=== PATIENT | male | born 1980 | race Caucasian/White ===

== ENCOUNTER 2017-06-18 10:18 | Observation (INO) | payer OTHER ==
[2017-06-18] MEDS ORDERED: TYLENOL 325 MG PO PRN (10:47)
[2017-06-18] MEDS ORDERED: Zofran 4 MG/2 ML VIAL IV PRN (10:47)
[2017-06-18 10:59] LABS: BASOPHIL % 0.3 % (0.0-0.4); Basophil (Absolute #) 0.03 (0-0.4); Eosinophil % 2.9 % (0.00-5.0); Eosinophil (Absolute #) 0.33 (0-0.5); Granulocyte Absolute (ANC) 7.71 (1.4-6.9); Hematocrit 49.6 % (42-50); Hemoglobin 16.4 gm/dl (12.5-18.0); Lymphocyte (Absolute #) 2.22 (1.0-4.6); Lymphocytes % 19.8 % (24.0-44.0); Mean Cell Volume 88.1 fl (78-100); Mean Corpuscular Hemoglobin 29.1 pg (26-32); Mean Corpuscular Hgb Concent. 33.1 g/dl (32-36); Mean Platelet Volume 10.3 fl (6-9.5); Platelet Count 309 K/mm3 (150-450); Red Blood Count 5.63 M/mm3 (4.1-5.6); Red Cell Distribution Width 14.4 % (11.5-14.0); White Blood Count 11.2 K/mm3 (4.0-10.5)
[2017-06-18] MEDS ORDERED: Sodium Chloride 0.9% 500 ML 500 ML IV SCH (11:00)
[2017-06-18 11:19] LABS: ALBUMIN 4.5 g/dL (3.4-5.0); ANION GAP 19.3 MEQ/L (5-15); BILIRUBIN,TOTAL 0.8 mg/dL (0.2-1.0); Calcium 10.8 mg/dL (8.5-10.1); Carbon Dioxide 18.4 mEq/L (21-32); Creatinine 1 3.48 mg/dl (0.55-1.30); MAGNESIUM 2.1 mg/dL (1.8-2.4); Potassium 4.8 mEq/L (3.5-5.1)
[2017-06-18] MEDS: Dextrose 5% -0.45 NaCl 1000 ML 1,000 ML IV SCH ×2 (11:35→23:09)
--- NOTE | 2017-06-18 15:07 | XRAY ---
Indication: Elevated creatinine. Two-dimensional renal sonogram performed. Comparison: None Right kidney measures 11.3 x 4.5 x 4.8 cm and the left kidney measures 11.7 x 5.3 x 4.9 cm. Right kidney is moderately hydronephrotic without renal mass or perinephric fluid. Left kidney negative for renal mass, hydronephrosis, or perinephric fluid. Cortical medullary differentiation preserved. Images of the urinary bladder unremarkable. Ureteral jets not seen within the allotted exam time. Impression: 1. Hydronephrotic right kidney. Rule out distal obstructive uropathy. CT may yield further information. 2. Negative left renal sonogram.
[2017-06-19 03:50] LABS: PTH INTACT 139 pg/mL (15-72)
[2017-06-19 05:18] LABS: CALCIUM, IONIZED 1.41 mmol/L (1.13-1.32); Specimen Type Ionized Calcium Serum
[2017-06-19 06:33] LABS: ANION GAP 13.3 MEQ/L (5-15); Calcium 9.9 mg/dL (8.5-10.1); Carbon Dioxide 21.1 mEq/L (21-32); Creatinine 1 2.32 mg/dl (0.55-1.30); Potassium 4.3 mEq/L (3.5-5.1)
[2017-06-19] MEDS: Dextrose 5% -0.45 NaCl 1000 ML 1,000 ML IV SCH (07:33)
[2017-06-19 10:57] LABS: PROTEIN,URINE RANDOM 33.6 mg/dL; Sodium, Urine 14.8 MMOL
[2017-06-19 11:00] LABS: CREATININE,URINE RANDOM 161.71 MG/DL (30-125)
[2017-06-19] MEDS ORDERED: CLARITIN 10 MG PO SCH (11:00)
[2017-06-19] MEDS ORDERED: Singulair 10 MG PO SCH (11:00)
--- NOTE | 2017-06-19 11:22 | XRAY ---
Indication: Increasing fluid in colostomy bag. Multiple contiguous axial images obtained through the abdomen and pelvis without contrast as ordered. Comparison: August 31, 2009. Lung bases essentially clear. Heart is not enlarged. There has been interval colectomy with now a right lower quadrant ostomy. Several small bowel loops herniates through the abdominal wall defect into the subcutaneous tissues without obstruction/incarceration. No free fluid/air. Noncontrasted stomach and bowel loops appear nonobstructed. In the mid to proximal right ureter, there is a 9-10 mm calculus, approximately L4-L5 interspace level. Proximal ureter is distended up to 12 mm and there is significant hydronephrosis with renal cortical thinning suggesting chronic obstructive uropathy. Nonobstructing punctate left renal calculus. Interval cholecystectomy. Again fatty liver and 14.2 cm splenomegaly. Remaining liver, pancreas, spleen, adrenal glands, bladder, and aorta appear unremarkable for noncontrast exam. Osseous structures intact with mild degenerative changes throughout the spine. Impression: 1. Interval total colectomy with right lower quadrant ostomy. Ostomy demonstrates several herniated small bowel loops without obstruction/incarceration. 2. 9-10 mm right mid ureteral calculus producing obstructive uropathy as detailed and probably chronic. Nonobstructing left renal micro-calculus. 3. Again fatty liver and splenomegaly. CT DI 21.81
[2017-06-19 11:23] LABS: INFLUENZA A NEGATIVE (NEGATIVE); INFLUENZA B NEGATIVE (NEGATIVE); RESPIRATORY SYNCTIAL VIRUS NEGATIVE (Negative)
[2017-06-19 12:10] LABS: 027 TOX PROD PRESUMPTIVE NEGATIVE (NEGATIVE); TOXIGENIC C. DIFF ORG NEGATIVE (NEGATIVE)
[2017-06-19 15:12] LABS: Vitamin D 25 Hydroxy 18 ng/mL (30-80)
[2017-06-19 16:04] VITALS: BP 138/66; PULSE 88; O2SAT 97
--- NOTE | 2017-06-20 08:09 | CONS ---
CONSULT DATE: 06/19/2017 REASON FOR CONSULT: Acute renal failure and dehydration. HISTORY: The patient is a 37 year-old gentleman who has history of multiple medical problems. He presented to [facility] with increased output from the ostomy, having recorded diarrhea, increased vomiting, not being able to eat and drink much, not feeling well. He was evaluated and was found to have increased creatinine. He was admitted for dehydration and acute renal failure. His creatinine was improving today. It was down to 2.3 but still high so nephrology service was consulted. He said the vomiting is better. He states his output from the ostomy is starting to slow down. He denied any abdominal pain, any urinary difficulties or any hematuria. He denies any chest pain or shortness of breath. No fever. He was taking benazepril and occasional naproxen. PAST MEDICAL HISTORY: Hypertension, gout, nephrolithiasis status post stents and removal in the past. Episodes of acute kidney disease in the past. PAST SURGICAL HISTORY: Status post colectomy and has an ostomy right now. Status post total colectomy and no ileostomy. Back surgery. Cholecystectomy. Vasectomy. Shoulder joint surgery. MEDICATIONS: Medications as per medication sheet. His home medicines included Singulair, amlodipine, allopurinol, Claritin. ALLERGIES: CIPRO. SOCIAL HISTORY: Denies any tobacco or substance abuse. He is and lives with his . He works at [employer] in [place]. He lives in [place]. FAMILY HISTORY: He denies any history of kidney disease. Grandmother has diabetes. REVIEW OF SYSTEMS: All review of systems were reviewed negative except for in history of present illness. PHYSICAL EXAMINATION: The patient is alert, awake, oriented x3. Vital signs reviewed at bedside. HEENT: Normocephalic. Nonicteric. Moist mucosa. NECK: No JVD. CHEST: Clear to auscultation. CVS: S1, S2 present. EXTREMITIES: No peripheral edema. ABDOMEN: Soft, nontender, positive bowel sounds. No organomegaly. Positive ostomy. NEURO: Awake, alert, oriented x3. SKIN: Warm and dry. LAB DATA AND TESTS: Clostridium difficile negative. Influenza negative. Hemoglobin 16.4. BUN 30, creatinine 2.32, sodium 137, potassium 4.3, SGPT 34. CT scan showed total colectomy, right lower quadrant ostomy, 9 to 10 mm right mid ureteral calculus with obstructive uropathy, fatty liver and disease and splenomegaly. Ultrasound of the kidneys shows hydronephrotic right kidney, negative left renal sonogram. ASSESSMENT AND PLAN: A 37 year-old gentleman with: 1) Acute renal failure likely multifactorial, likely a combination of dehydration and poor regulation of benazepril, poor intake, high output ostomy, dehydration and on top of that obstructive uropathy. I agree with holding benazepril. I agree with IV fluids. He still has a kidney stone. I discussed with urology physician covering Dr. Carlos. He will see him as an outpatient tomorrow. I will follow labs very closely. The patient is clinically asymptomatic at this time. No pain related to his kidney stone, no hematuria. His renal functions are improving. I encouraged him to drink lots of fluids, avoid benazepril, follow with urology and follow with me in two to three days and get labs every day. I will see him back in follow up. 2) Hypertension. I recommend avoiding benazepril and use alternative medication if needed. Will monitor blood pressure closely. 3) Kidney stones. Likely related to a combination of high tea intake, not drinking water and history of total colectomy. I counseled him about higher fluid intake and advance diet and avoiding tea. 4) Gout. Continue allopurinol. I will follow him closely. Thank you for the consultation.
[2017-06-20 09:57] LABS: PROTEIN BETA 2 0.42 g/dL (0.18-0.50); Protein Beta 1 0.43 g/dL (0.35-0.66)
--- NOTE | 2017-06-21 09:46 | SSS ---
DISCHARGE DIAGNOSES: 1) FLU-LIKE ILLNESS. 2) DEHYDRATION. 3) RENAL FAILURE. 4) HISTORY OF TOXIC MEGACOLON AND COLECTOMY. HOSPITAL COURSE: The patient is a 37 year-old white male patient who began having problems with nausea, vomiting and noted increased liquidy stools in his ostomy. He presented to the emergency room and was subsequently admitted to the hospital for IV fluid hydration. It was also noted that the patient's creatinine was above 3. After fluid hydration it had dropped down to the [address] scan did show some possibility of obstructive uropathy on the right kidney. The patient has no history of kidney stones or other renal problems to this point. Nephrology consult was obtained. They had planned to see him in follow in the office with possible stenting if he did not improve by the urologist up in [place]. He was feeling much better. His intake was good. He had been noted to also been on an JOE-inhibitor and this was discontinued at this time due to the possibility of having some role in the patient's increasing creatinine. The patient was discharged home with instructions to follow up in the conditioner tender's office on 06/20/2017 for further evaluation and management. He will continue to hold his home medication of JOE inhibitor and amlodipine. He will also be seen in the office in follow up in one week. He is now back on a regular diet and felt to be ready for discharge home.
== END 2017-06-19 17:22 | disposition home or self-care (01) ==
LOC: MED SURG 10:22
PROVIDERS: ADMIT Internal Medicine; ATTEND Family Medicine
DX: J11.2 Influenza due to unidentified influenza virus with gastrointestinal manifestations (principal); E86.0 Dehydration; N17.9 Acute kidney failure, unspecified; I10 Essential (primary) hypertension; N20.0 Calculus of kidney; M10.9 Gout, unspecified; Z93.2 Ileostomy status; N13.9 Obstructive and reflux uropathy, unspecified
CPT/HCPCS: 36415; 74176; 76770; 80048; 80053; 82306; 82330; 82570; 83036; 83735; 83970; 84155; 84156; 84300; 85025; 86334; 87205; 87493; 87631; G0378; J2405; A9270-GY

== ENCOUNTER 2018-06-20 21:12 | Emergency (ER) | payer BC, OTHER ==
--- NOTE | 2018-06-20 21:56 | ERPHSYRPT ---
- History of Present Illness Time Seen by Provider: 06/20/18 21:35 Historian: patient, family Patient Subjective Stated Complaint: vomiting Triage Nursing Assessment: Patient ambulated back to ED and transferred self to bed. Patient A + O X 3. Patient complains of vomiting for the past few hours brown emesis. Patient complains of right sided abdominal pain around stoma of ileostomy. Patient states no stool has been produced from ostomy since noon. Hard area noted around ostomy site. Patient complains of pain 5/10 sitting, but worse when someone pushes around ostomy site. Patient BS present X 4. Physician History: 38 y/o white male with h/o permanent end ileostomy since 2010 presents with vomiting, decreased ileostomy output and abd pain. began this afternoon. pt woke up this am and doing fine until this afternoon. pt did not have any flu like sx. Timing/Duration: today Activities at Onset: none Quality: cramping Abdominal Pain Onset Location: RLQ (at ostomy site) Pain Radiation: no radiation Severity of Pain-Max: mild Severity of Pain-Current: mild Modifying Factors: Improves With: vomiting Associated Symptoms: nausea, vomiting Previous symptoms: no prior history Allergies/Adverse Reactions: Anesthetics - Amide Type Allergy (Intermediate, Verified 06/20/18 21:29) Hives ciprofloxacin [From Cipro] Adverse Reaction (Verified 06/20/18 21:29) ciprofloxacin HCl [From Cipro] Adverse Reaction (Verified 06/20/18 21:29) Hives Home Medications: Allopurinol 300 mg [Zyloprim 300 mg] 300 mg PO DAILY 03/15/14 [History] Amlodipine Besylate 5 mg [Norvasc 5 mg] 5 mg PO DAILY 03/15/14 [History] Montelukast Sodium 10 mg [Singulair 10 MG] 10 mg PO DAILY 06/18/17 [History] Metoprolol Succinate [Toprol Xl] 100 mg PO DAILY 09/05/17 [History] Irbesartan 150 mg [Avapro 150 MG] 300 mg PO DAILY 06/20/18 [History] Loratadine 10 mg [Claritin 10 mg] 1 tab PO DAILY 06/20/18 [History] Hx Tetanus, Diphtheria Vaccination/Date Given: Yes Hx Influenza Vaccination/Date Given: Yes Hx Pneumococcal Vaccination/Date Given: No Immunizations Up to Date: Yes - Review of Systems Constitutional: No Symptoms Eyes: No Symptoms Ears, Nose, & Throat: No Symptoms Respiratory: No Symptoms Cardiac: No Symptoms Abdominal/Gastrointestinal: Abdominal Pain, Nausea, Vomiting Genitourinary Symptoms: No Symptoms Musculoskeletal: No Symptoms Skin: No Symptoms Neurological: No Symptoms Psychological: No Symptoms Endocrine: No Symptoms Hematologic/Lymphatic: No Symptoms Immunological/Allergic: No Symptoms All Other Systems: Reviewed and Negative - Past Medical History Pertinent Past Medical History: Yes Neurological History: No Pertinent History ENT History: Cataracts Cardiac History: Hypertension Respiratory History: No Pertinent History Endocrine Medical History: Diabetes Type II Musculoskeletal History: Other GI Medical History: Colitis, Gallbladder Disease, Other History: Renal Disease Psycho-Social History: No Pertinent History Male Reproductive Disorders: No Pertinent History Other Medical History: HTN, L-SPINE DISCECTOMY 2011. HX NECK ISSUES - Past Surgical History Past Surgical History: Yes Neuro Surgical History: No Pertinent History Cardiac: No Pertinent History Respiratory: No Pertinent History Gastrointestinal: Appendectomy, Bowel Surgery, Cholecystectomy, Other Genitourinary: No Pertinent History Musculoskeletal: Orthopedic Surgery Male Surgical History: Vasectomy Other Surgical History: bck,colon removed and colostomy 2009. shoulder surgery , back surgery - Social History Smoking Status: Never smoker Exposure to second hand smoke: No Drug Use: none Patient Lives Alone: No - Nursing Vital Signs Nursing Vital Signs: Initial Vital Signs Temperature 99.6 F 06/20/18 21:18 Pulse Rate 94 H 06/20/18 21:18 Respiratory Rate 18 06/20/18 21:18 Blood Pressure 173/105 06/20/18 21:18 O2 Sat by Pulse Oximetry 98 06/20/18 21:18 Pain Scale Pain Intensity 7 - Physical Exam General Appearance: no apparent distress, alert, anxiety Eye Exam: PERRL/EOMI Ears, Nose, Throat Exam: normal ENT inspection, moist mucous membranes Neck Exam: normal inspection, non-tender, supple, full range of motion Respiratory Exam: normal breath sounds, lungs clear, airway intact, No chest tenderness, No respiratory distress, No accessory muscle use, No rhonchi, No wheezing, No stridor Cardiovascular Exam: regular rate/rhythm, normal heart sounds, normal peripheral pulses Gastrointestinal/Abdomen Exam: soft, normal bowel sounds, tenderness (around right lower quad ileostomy site), other (ostomy pink with small amt of stool present), No distention, No guarding, No rebound Back Exam: normal inspection, normal range of motion, No CVA tenderness, No vertebral tenderness Extremity Exam: normal inspection, normal range of motion, pelvis stable Neurologic Exam: alert, oriented x 3, cooperative, body press operator II-XII nml as tested Skin Exam: normal color, warm, dry Lymphatic Exam: adenopathy SpO2 Interpretation: normal SpO2: 98 Oxygen Delivery: Room Air - Course Nursing assessment & vital signs reviewed: Yes Ordered Tests: Active Orders 24 hr Category Date Time Status IV Insertion STAT Care 06/20/18 21:57 Active ABDOMEN AND PELVIS W/0 CONTRAS [CT] Stat Exams 06/20/18 21:58 Taken AMYLASE Stat Lab 06/20/18 22:00 Completed CBC W DIFF Stat Lab 06/20/18 22:00 Completed CMP Stat Lab 06/20/18 22:00 Completed LIPASE Stat Lab 06/20/18 22:00 Completed Lactic Acid Stat Lab 06/20/18 22:50 Completed Lactic Acid Stat Lab 06/21/18 00:53 Ordered UA W/RFX UR CULTURE Stat Lab 06/20/18 23:38 Completed Medication Summary Discontinued Medications Generic Name Dose Route Start Last Admin Trade Name Freq PRN Reason Stop Dose Admin Hydromorphone HCl 1 mg 06/20/18 22:04 06/20/18 22:10 Hydromorphone 1 Mg/Ml Ampule IV 06/20/18 22:05 1 mg STAT ONE Administration Hydromorphone HCl Confirm 06/20/18 22:09 Hydromorphone 1 Mg/Ml Ampule Administered 06/20/18 22:10 Dose 1 mg .ROUTE .STK-MED ONE Sodium Chloride 1,000 mls @ 999 mls/hr 06/20/18 21:57 06/20/18 23:52 Sodium Chloride 0.9% 1000 Ml IV 06/20/18 22:57 Infused .Q1H1M STA Infusion Sodium Chloride Confirm 06/20/18 22:00 Sodium Chloride 0.9% 1000 Ml Administered 06/20/18 22:01 Dose 1,000 mls @ ud .ROUTE .STK-MED ONE Sodium Chloride 1,000 mls @ 999 mls/hr 06/20/18 23:42 06/21/18 01:50 Sodium Chloride 0.9% 1000 Ml IV 06/21/18 00:42 Infused .Q1H1M STA Infusion Sodium Chloride Confirm 06/20/18 23:44 Sodium Chloride 0.9% 1000 Ml Administered 06/20/18 23:45 Dose 1,000 mls @ ud .ROUTE .STK-MED ONE Ondansetron HCl 4 mg 06/20/18 21:57 06/20/18 22:01 Zofran 4 Mg/2 Ml Vial IV 06/20/18 21:58 4 mg STAT ONE Administration Ondansetron HCl Confirm 06/20/18 22:00 Zofran 4 Mg/2 Ml Vial Administered 06/20/18 22:01 Dose 4 mg .ROUTE .STK-MED ONE Lab/Rad Data: Laboratory Result Diagrams 06/20/18 22:00 06/20/18 22:00 Laboratory Results 06/20/18 06/20/18 06/20/18 Range/Units 23:38 22:50 22:00 WBC (4.0-10.5) K/mm3 RBC (4.1-5.6) M/mm3 Hgb (12.5-18.0) gm/dl Hct (42-50) % MCV (78-100) fl MCH (26-32) pg MCHC (32-36) g/dl RDW (11.5-14.0) % Plt Count (150-450) K/mm3 MPV (6-9.5) fl Gran % (36.0-66.0) % Eos # (Auto) (0-0.5) Absolute Lymphs (auto) (1.0-4.6) Absolute Monos (auto) (0.0-1.3) Lymphocytes % (24.0-44.0) % Monocytes % (0.0-12.0) % Eosinophils % (0.00-5.0) % Basophils % (0.0-0.4) % Absolute Granulocytes (1.4-6.9) Basophils # (0-0.4) Sodium 142 (137-145) mmol/L Potassium 4.0 (3.5-5.1) mmol/L Chloride 102 (98-107) mmol/L Carbon Dioxide 28 (22-30) mmol/L Anion Gap 16.1 H (5-15) MEQ/L BUN 14 (9-20) mg/dL Creatinine 1.27 H (0.66-1.25) mg/dL Estimated GFR > 60.0 ML/MIN Glucose 176 H (74-106) mg/dL Lactic Acid 2.1 H (0.4-2.0) Calcium 10.6 H (8.4-10.2) mg/dL Total Bilirubin 0.70 (0.2-1.3) mg/dL AST 27 (17-59) U/L ALT 35 (0-50) U/L Alkaline Phosphatase 71 (38-126) U/L Serum Total Protein 8.2 (6.3-8.2) g/dL Albumin 4.8 (3.5-5.0) g/dL Amylase 164 H (30-110) U/L Lipase 338 H (23-300) U/L Urine Color YELLOW (YELLOW) Urine Appearance CLEAR (CLEAR) Urine pH 5.0 (5-6) Ur Specific [place] 1.017 (1.005-1.025) Urine Protein 30 (Negative) Urine Ketones NEGATIVE (NEGATIVE) Urine Blood NEGATIVE (0-5) Alin/ul Urine Nitrite NEGATIVE (NEGATIVE) Urine Bilirubin NEGATIVE (NEGATIVE) Urine Urobilinogen NEGATIVE (0-1) mg/dL Ur Leukocyte Esterase NEGATIVE (NEGATIVE) Urine WBC (Auto) NONE (0-5) /HPF Urine RBC (Auto) NONE (0-2) /HPF U Epithel Cells (Auto) NONE (FEW) /HPF Urine Bacteria (Auto) NONE (NEGATIVE) /HPF Urine Mucus (Auto) SLIGHT (NEGATIVE) /HPF Urine Culture Reflexed NO (NO) Urine Glucose 50 (NEGATIVE) mg/dL 06/20/18 Range/Units 22:00 WBC 11.5 H (4.0-10.5) K/mm3 RBC 4.79 (4.1-5.6) M/mm3 Hgb 14.7 (12.5-18.0) gm/dl Hct 42.3 (42-50) % MCV 88.3 (78-100) fl MCH 30.7 (26-32) pg MCHC 34.8 (32-36) g/dl RDW 13.8 (11.5-14.0) % Plt Count 192 (150-450) K/mm3 MPV 9.9 H (6-9.5) fl Gran % 86.8 H (36.0-66.0) % Eos # (Auto) 0.08 (0-0.5) Absolute Lymphs (auto) 0.94 L (1.0-4.6) Absolute Monos (auto) 0.46 (0.0-1.3) Lymphocytes % 8.2 L (24.0-44.0) % Monocytes % 4.0 (0.0-12.0) % Eosinophils % 0.7 (0.00-5.0) % Basophils % 0.3 (0.0-0.4) % Absolute Granulocytes 10.02 H (1.4-6.9) Basophils # 0.03 (0-0.4) Sodium (137-145) mmol/L Potassium (3.5-5.1) mmol/L Chloride (98-107) mmol/L Carbon Dioxide (22-30) mmol/L Anion Gap (5-15) MEQ/L BUN (9-20) mg/dL Creatinine (0.66-1.25) mg/dL Estimated GFR ML/MIN Glucose (74-106) mg/dL Lactic Acid (0.4-2.0) Calcium (8.4-10.2) mg/dL Total Bilirubin (0.2-1.3) mg/dL AST (17-59) U/L ALT (0-50) U/L Alkaline Phosphatase (38-126) U/L Serum Total Protein (6.3-8.2) g/dL Albumin (3.5-5.0) g/dL Amylase (30-110) U/L Lipase (23-300) U/L Urine Color (YELLOW) Urine Appearance (CLEAR) Urine pH (5-6) Ur Specific [place] (1.005-1.025) Urine Protein (Negative) Urine Ketones (NEGATIVE) Urine Blood (0-5) Alin/ul Urine Nitrite (NEGATIVE) Urine Bilirubin (NEGATIVE) Urine Urobilinogen (0-1) mg/dL Ur Leukocyte Esterase (NEGATIVE) Urine WBC (Auto) (0-5) /HPF Urine RBC (Auto) (0-2) /HPF U Epithel Cells (Auto) (FEW) /HPF Urine Bacteria (Auto) (NEGATIVE) /HPF Urine Mucus (Auto) (NEGATIVE) /HPF Urine Culture Reflexed (NO) Urine Glucose (NEGATIVE) mg/dL - Progress Progress: improved, re-examined Progress Note: 06/21/18 01:29 ct abd/pelvis-rlq large parastomal hernia evidence of sbo w/in the parastomal hernia; punctate 2mm mid right ureteral stone with mild right hydronephrosis 06/21/18 01:32 06/21/18 02:[id number] campoverde(gen surgery) at [facility]. i reviewed pt hx, condition. labs and xray results. he accepts pt in transfer but wants an ngt placed. Counseled pt/family regarding: lab results, diagnosis, need for follow-up, rad results - Departure Time of Disposition: 02:20 Departure Disposition: Transfer Clinical Impression: Parastomal hernia, Ureterolithiasis Condition: Stable Critical Care Time: No Referrals: LONA MARCUM [Primary Care Provider] -
[2018-06-20] MEDS ORDERED: Sodium Chloride 0.9% 1000 ML 1,000 ML ONE ×2 (22:00→23:44)
[2018-06-20] MEDS ORDERED: Zofran 4 MG/2 ML VIAL ONE (22:00)
[2018-06-20] MEDS: Zofran 4 MG/2 ML VIAL IV ONE (22:01)
[2018-06-20] MEDS: Sodium Chloride 0.9% 1000 ML 1,000 ML IV STA ×2 (22:06→23:45)
[2018-06-20] MEDS ORDERED: Hydromorphone 1 mg/ml Ampule ONE (22:09)
[2018-06-20] MEDS: Hydromorphone 1 mg/ml Ampule IV ONE (22:10)
[2018-06-20 22:12] LABS: BASOPHIL % 0.3 % (0.0-0.4); Basophil (Absolute #) 0.03 (0-0.4); Eosinophil % 0.7 % (0.00-5.0); Eosinophil (Absolute #) 0.08 (0-0.5); Granulocytes % 86.8 % (36.0-66.0); Hematocrit 42.3 % (42-50); Hemoglobin 14.7 gm/dl (12.5-18.0); Lymphocyte (Absolute #) 0.94 (1.0-4.6); Lymphocytes % 8.2 % (24.0-44.0); Mean Cell Volume 88.3 fl (78-100); Mean Corpuscular Hemoglobin 30.7 pg (26-32); Mean Corpuscular Hgb Concent. 34.8 g/dl (32-36); Mean Platelet Volume 9.9 fl (6-9.5); Monocyte (Absolute #) 0.46 (0.0-1.3); Platelet Count 192 K/mm3 (150-450); Red Blood Count 4.79 M/mm3 (4.1-5.6); Red Cell Distribution Width 13.8 % (11.5-14.0); White Blood Count 11.5 K/mm3 (4.0-10.5)
[2018-06-20 22:33] LABS: ALBUMIN 4.8 g/dL (3.5-5.0); ALKALINE PHOSPHATASE 71 U/L (38-126); AMYLASE 164 U/L (30-110); ANION GAP 16.1 MEQ/L (5-15); BLOOD UREA NITROGEN 14 mg/dL (9-20); CHLORIDE 102 mmol/L (98-107); Calcium 10.6 mg/dL (8.4-10.2); Carbon Dioxide 28 mmol/L (22-30); Creatinine 1 1.27 mg/dL (0.66-1.25); Glucose 176 mg/dL (74-106); LIPASE 338 U/L (23-300); SGOT/AST 27 U/L (17-59); SGPT/ALT 35 U/L (0-50); SODIUM 142 mmol/L (137-145); Total Protein 8.2 g/dL (6.3-8.2)
[2018-06-20 22:54] LABS: Lactic Acid 2.1 (0.4-2.0)
[2018-06-21 00:56] LABS: Appearance CLEAR (CLEAR); Bilirubin NEGATIVE (NEGATIVE); Blood NEGATIVE Ery/ul (0-5); Glucose 50 mg/dL (NEGATIVE); Ketones NEGATIVE (NEGATIVE); Leukocyte Esterase NEGATIVE (NEGATIVE); Mucus SLIGHT /HPF (NEGATIVE); Nitrite NEGATIVE (NEGATIVE); Protein,Urine Dip 30 (Negative); Specific Gravity 1.017 (1.005-1.025); Urobilinogen NEGATIVE mg/dL (0-1)
[2018-06-21] MEDS ORDERED: Ativan 2 MG/1 ML VIAL ONE (03:09)
[2018-06-21] MEDS ORDERED: Sodium Chloride 0.9% 1000 ML 1,000 ML ONE (03:09)
[2018-06-21] MEDS: Ativan 2 MG/1 ML VIAL IV ONE (03:11)
[2018-06-21] MEDS: Sodium Chloride 0.9% 1000 ML 1,000 ML IV SCH (03:11)
[2018-06-21] MEDS ORDERED: Hydromorphone 1 mg/ml Ampule ONE (05:18)
[2018-06-21] MEDS: Hydromorphone 1 mg/ml Ampule IV ONE (05:20)
[2018-06-21 05:34] VITALS: BP 147/100; PULSE 115; O2SAT 96
--- NOTE | 2018-06-21 08:28 | XRAY ---
Indication: Right lower quadrant/right flank pain. Brown emesis. Multiple contiguous axial images obtained through the abdomen and pelvis without contrast as ordered. Comparison: June 19, 2017. Lung bases now demonstrates bibasilar dependent atelectasis. No infiltrate or effusion. Heart is not enlarged. Noncontrasted stomach again appear nonobstructed. Stable colectomy and right lower quadrant ostomy. Again several small bowel loops herniates through the abdominal wall defect now appearing mildly fluid distended as are the more proximal small bowel loops with fluid leveling concerning for obstruction. No free fluid/air. New 2 mm right mid ureter calculus, approximately L4 level with mild hydroureter and hydronephrosis. Again mild fatty liver, 1.5 cm left upper pole exophytic cyst, 14.3 cm splenomegaly, and cholecystectomy. Remaining liver, pancreas, spleen, adrenal glands, kidneys, ureters, bladder, and aorta appear unremarkable for noncontrast exam. Osseous structures intact again with mild degenerative changes throughout the spine. Impression: 1. Again colectomy with right lower quadrant ostomy and peristomal hernia. Herniated bowel loops and proximal bowel loops are now mildly fluid distended concerning for obstruction. 2. New 2 mm right mid ureter calculus producing partial obstruction. 3. Stable incidental fatty liver, left renal cyst, and splenomegaly. Comment: Preliminary interpretation was made by [facility]. No discrepancy. CTDI 23.67
== END 2018-06-21 05:38 | disposition short-term general hospital (02) ==
LOC: ED 21:12
DX: K43.5 Parastomal hernia without obstruction or gangrene (principal); N20.1 Calculus of ureter; N13.30 Unspecified hydronephrosis; N28.9 Disorder of kidney and ureter, unspecified; I10 Essential (primary) hypertension; Z79.899 Other long term (current) drug therapy; R10.31 Right lower quadrant pain; E11.9 Type 2 diabetes mellitus without complications; K82.9 Disease of gallbladder, unspecified; Z93.3 Colostomy status
CPT/HCPCS: 36000; 36415; 74176; 80053; 81001; 82150; 83605; 83690; 85025; 96360; 96361; 96374; 96375; 96376; 99285; J1170; J2060; J2405

== ENCOUNTER 2018-07-02 16:00 | Emergency (ER) | payer BC ==
[2018-07-02] MEDS ORDERED: Sodium Chloride 0.9% 1000 ML 1,000 ML IV STA ×2 (16:12→17:09)
--- NOTE | 2018-07-02 16:17 | ERPHSYRPT ---
- History of Present Illness Time Seen by Provider: 07/02/18 16:13 Historian: patient, family Physician History: 38-year-old white male with history of recent bowel resection on June 21 brought by his with complaints of patient had abnormal labs at Dr. Reyes' s office this afternoon. Patient apparently with constant hiccups after having his bowel resection patient does have a ileostomy. Past medical history includes high blood pressure, diabetes type 2, cataracts, colitis, gallbladder disease, high blood pressure, L spine discectomy Past surgical history includes appendectomy bowel surgery cholecystectomy, vasectomy Back surgery, colon removed, shoulder surgery, colostomy Timing/Duration: other (symptoms constant since surgery on 21 June) Quality: other (onstant hiccups) Modifying Factors: Improves With: nothing Associated Symptoms: other (malaise constant hiccups), No back, No chest pain, No diaphoresis, No diarrhea, No fever/chills, No fatigue, No headache, No heartburn, No loss of appetite, No nausea, No neck pain, No rash, No shortness of breath, No syncope, No vomiting, No weakness Allergies/Adverse Reactions: Anesthetics - Amide Type Allergy (Intermediate, Verified 07/02/18 16:22) Hives ciprofloxacin [From Cipro] Adverse Reaction (Verified 07/02/18 16:22) ciprofloxacin HCl [From Cipro] Adverse Reaction (Verified 07/02/18 16:22) Hives Home Medications: Allopurinol 300 mg [Zyloprim 300 mg] 300 mg PO DAILY 03/15/14 [History] Amlodipine Besylate 5 mg [Norvasc 5 mg] 5 mg PO DAILY 03/15/14 [History] Montelukast Sodium 10 mg [Singulair 10 MG] 10 mg PO DAILY 06/18/17 [History] Metoprolol Succinate [Toprol Xl] 100 mg PO DAILY 09/05/17 [History] Irbesartan 150 mg [Avapro 150 MG] 300 mg PO DAILY 06/20/18 [History] Loratadine 10 mg [Claritin 10 mg] 1 tab PO DAILY 06/20/18 [History] LORazepam [Lorazepam] 1 mg PO DAILY 07/02/18 [History] Hx Tetanus, Diphtheria Vaccination/Date Given: Yes Hx Influenza Vaccination/Date Given: Yes Hx Pneumococcal Vaccination/Date Given: No - Review of Systems Constitutional: No Fever, No Chills Eyes: No Symptoms Ears, Nose, & Throat: No Symptoms Respiratory: No Cough, No Dyspnea Cardiac: No Chest Pain, No Edema, No Syncope Abdominal/Gastrointestinal: Other (constant hiccups) Genitourinary Symptoms: No Dysuria Musculoskeletal: No Back Pain, No Neck Pain Skin: No Symptoms, No Rash Neurological: No Dizziness, No Focal Weakness, No Sensory Changes Psychological: No Symptoms Endocrine: No Symptoms All Other Systems: Reviewed and Negative - Past Medical History Pertinent Past Medical History: Yes Neurological History: No Pertinent History ENT History: Cataracts Cardiac History: Hypertension Respiratory History: No Pertinent History Endocrine Medical History: Diabetes Type II Musculoskeletal History: Other GI Medical History: Colitis, Gallbladder Disease, Other History: Renal Disease Psycho-Social History: No Pertinent History Male Reproductive Disorders: No Pertinent History Other Medical History: HTN, L-SPINE DISCECTOMY 2011. HX NECK ISSUES - Past Surgical History Past Surgical History: Yes Neuro Surgical History: No Pertinent History Cardiac: No Pertinent History Respiratory: No Pertinent History Gastrointestinal: Appendectomy, Bowel Surgery, Cholecystectomy, Other Genitourinary: No Pertinent History Musculoskeletal: Orthopedic Surgery Male Surgical History: Vasectomy Other Surgical History: bck,colon removed and colostomy 2009. shoulder surgery , back surgery - Social History Smoking Status: Never smoker Exposure to second hand smoke: No Drug Use: none Patient Lives Alone: No - Nursing Vital Signs Nursing Vital Signs: Initial Vital Signs Temperature 98.0 F 07/02/18 16:08 Pulse Rate 95 H 07/02/18 16:08 Blood Pressure 100/65 07/02/18 16:08 O2 Sat by Pulse Oximetry 98 07/02/18 16:08 Pain Scale Pain Intensity 0 - Physical Exam General Appearance: no apparent distress, alert, other (constant hiccups) Eye Exam: PERRL/EOMI, eyes nml inspection Ears, Nose, Throat Exam: normal ENT inspection, pharynx normal, moist mucous membranes Neck Exam: normal inspection, non-tender, supple, full range of motion Respiratory Exam: normal breath sounds, lungs clear, No respiratory distress Cardiovascular Exam: regular rate/rhythm, normal heart sounds Gastrointestinal/Abdomen Exam: soft, No tenderness, No mass Back Exam: normal inspection, normal range of motion, No CVA tenderness, No vertebral tenderness Extremity Exam: normal inspection, normal range of motion, pelvis stable Neurologic Exam: alert, oriented x 3, cooperative, personal investment adviser II-XII nml as tested, other Skin Exam: normal color, warm, dry SpO2 Interpretation: normal - Course Nursing assessment & vital signs reviewed: Yes EKG Interpreted by Me: RATE (88 bpm), Sinus Rhythm, Other (EKG sinus rhythm, 88 bpm, axisSI/QIII pattern, no acute ST or T wave changes noted) - CT Exams Abdomen/Pelvis CT Interpretation: Discussed w/radiologist (CT abdomen and pelvis. Compared to June 20, 2018. Interval right lower quadrant colostomy revision with mild mesenteric stranding presumed related to surgery. No free fluid/air. Stomach moderately fluid distended. Recent fluid intake versus gastroparesis. Stable 2-3 mm right ureter calculus again at L4 level with mild hydronephrosi. Also stable hiatal h 13.5 cm. Splenomegaly. And left renal cyst. Also stable nonobstructing punctate left renal calculus..) Ordered Tests: Active Orders 24 hr Category Date Time Status Accucheck STAT Care 07/02/18 16:13 Active EKG-ER Only STAT Care 07/02/18 17:15 Active IV Insertion STAT Care 07/02/18 16:12 Active ABDOMEN AND PELVIS W/0 CONTRAS [CT] Stat Exams 07/02/18 17:11 Taken AMYLASE Stat Lab 07/02/18 16:25 Completed BLOOD CULTURE Stat Lab 07/02/18 16:30 Received CMP Stat Lab 07/02/18 16:25 Completed LIPASE Stat Lab 07/02/18 16:25 Completed Lactic Acid Stat Lab 07/02/18 16:12 Completed UA W/RFX UR CULTURE Stat Lab 07/02/18 16:38 Uncollected VENOUS BLOOD GAS Urgent Lab 07/02/18 16:13 Completed Medication Summary Generic Name Dose Route Start Last Admin Trade Name Freq PRN Reason Stop Dose Admin Piperacillin Sod/Tazobactam 100 mls @ 100 mls/hr 07/02/18 18:23 07/02/18 18: 32 Sod 2.25 gm/ Dextrose IV 07/02/18 19:22 Not Given STAT ONE Sodium Chloride 1,000 mls @ 200 mls/hr 07/02/18 18:45 07/02/18 18:34 Sodium Chloride 0.9% 1000 Ml IV 08/01/18 18:44 200 mls/hr .Q5H HARRIS Administration Discontinued Medications Generic Name Dose Route Start Last Admin Trade Name Guadalupe PRN Reason Stop Dose Admin Sodium Chloride 1,000 mls @ 999 mls/hr 07/02/18 16:12 07/02/18 18:35 Sodium Chloride 0.9% 1000 Ml IV 07/02/18 17:12 Infused .Q1H1M STA Infusion Sodium Chloride Confirm 07/02/18 16:29 Sodium Chloride 0.9% 1000 Ml Administered 07/02/18 16:30 Dose 1,000 mls @ ud .ROUTE .STK-MED ONE Sodium Chloride 1,000 mls @ 999 mls/hr 07/02/18 17:09 07/02/18 18:36 Sodium Chloride 0.9% 1000 Ml IV 07/02/18 18:09 Infused .Q1H1M STA Infusion Sodium Chloride Confirm 07/02/18 17:18 Sodium Chloride 0.9% 1000 Ml Administered 07/02/18 17:19 Dose 1,000 mls @ ud .ROUTE .STK-MED ONE Sodium Chloride Confirm 07/02/18 18:29 Sodium Chloride 0.9% 1000 Ml Administered 07/02/18 18:30 Dose 1,000 mls @ ud .ROUTE .STK-MED ONE Piperacillin Sod/Tazobactam Sod 3.375 gm in 100 mls @ 200 mls/hr 07/02/18 18: 33 07/02/18 18:40 Zosyn 3.375gm/100 Ml D5w IV 07/02/18 19:02 200 mls/hr STAT STA 200 mls/hr Administration Piperacillin Sod/Tazobactam Sod Confirm 07/02/18 18:34 Zosyn 3.375gm/100 Ml D5w Administered 07/02/18 18:35 Dose 3.375 gm in 100 mls @ ud IV .STK-MED ONE Lab/Rad Data: Laboratory Result Diagrams 07/02/18 16:25 Laboratory Results 07/02/18 07/02/18 07/02/18 Range/Units 16:25 16:13 16:12 pO2/FiO2 Ratio 21.0 % VBG pH 7.29 L (7.32-7.42) VBG pCO2 at Pat Temp 38 L (42-55) mm/Hg VBG pO2 at Pat Temp 35 (25-40) mm/Hg VBG HCO3 18.3 L (22-28) meq/L VBG O2 Sat (Torsten) 68.3 L (95-100) VBG Base Excess -7.7 L (-2.0-2.0) VBG Hemoglobin 15.8 VBG Carboxyhemoglobin 2.6 (0.0-6.9) % T HGB POC Potassium 5.6 H (3.5-5.1) Sodium 131 L (137-145) mmol/L Potassium 5.7 H (3.5-5.1) mmol/L Chloride 96 L (98-107) mmol/L Carbon Dioxide 16 L* (22-30) mmol/L Anion Gap 25.2 H (5-15) MEQ/L BUN 100 H (9-20) mg/dL Creatinine 6.99 H (0.66-1.25) mg/dL Estimated GFR 9.4 ML/MIN Glucose 190 H (74-106) mg/dL Lactic Acid 1.8 (0.4-2.0) Calcium 10.1 (8.4-10.2) mg/dL Total Bilirubin 0.60 (0.2-1.3) mg/dL AST 12 L (17-59) U/L ALT 17 (0-50) U/L Alkaline Phosphatase 96 (38-126) U/L Serum Total Protein 8.0 (6.3-8.2) g/dL Albumin 4.4 (3.5-5.0) g/dL Amylase 335 H (30-110) U/L Lipase 1930 H (23-300) U/L - Progress Progress: unchanged, improved Progress Note: 07/02/18 18:33 38-year-old white male brought by his with complaint that he was told to come to the emergency room by Dr. Neil Mendoza's office. Patient apparently had a colon resection secondary to obstruction through the hernia through the patient's ostomy on the fifth also had had some hydronephrosis. Patient's states that the patient has been hiccuping constantly he appears to be somewhat distracted on initial evaluation however he is able to answer questions. Patient was apparently noted to have a white count of 31.7 with blood drawn at Dr. Reyes's Office Patient appears to be better after receiving IV fluids he has received 2 L IV bolus so far and is receiving a third at 200 mL per hour Patient has a chemistry which shows a sodium of 131 potassium 5.7 chloride 96 bicarbonate 16 BUN on 100 creatinine 6.99 glucose is 190 Patient's lactate is 1.8 amylase is 335 patient's lipase is 1930 He does not have an acute distress at this time he is not complaining of abdominal pain CT of the abdomen is remarkable for interval right lower quadrant colostomy revision with mild mesenteric stranding presumed to be related surgery. There is no free fluid or air. The stomach is moderately fluid distended recent fluid intake versus gastroparesis is suspected. There is a stable 2-3 mm right ureter calculus again at the L4 level with mild hydronephrosis. Also stable mild hiatal hernia 13.5 cm splenomegaly and left renal cyst. Blood cultures have been obtained I've ordered a urinalysis however patient is able to provide urine and patient is unable to be catheterized by the nurses. He does not appear to have severe suprapubic discomfort. I have ordered Zosyn on this patient 3.75 mg IV. Will plan to contact [facility] one call. Patient with leukocytosis status post recent colon resection,. 2 renal failure. 3.hyperkalemia with a potassium of 5.7 patient has received IV normal saline which should improve his hyperkalemia. 07/02/18 18:38 07/02/18 19:07 I've discussed the patient's case with Dr. Kumari hospitalist at [facility] He has accepted the patient, Patient's diagnosis is 1. Acute renal failure 2. Hyperkalemia 3. Leukocytosis (Patient did have good perfusion stable vitals lactate was 1.8) Patient was given 2 L of normal saline and IV bolus continued at of 200 mL per hour for the third liter this is because of the patient's renal failure Patient was given Zosyn 3.75 g IV Patient remained with good perfusion he was alert good pulse oximetry good neurovascular status. Patient will be transferred as soon as bed is a made available by [facility]. 07/02/18 19:11 - Departure Time of Disposition: 19:18 Departure Disposition: Transfer ([facility] Dr Bland) Clinical Impression: Hyperkalemia Leukocytosis Qualifiers: Leukocytosis type: unspecified Qualified Code(s): D72.829 - Elevated white blood cell count, unspecified Acute renal failure Qualifiers: Acute renal failure type: unspecified Qualified Code(s): N17.9 - Acute kidney failure, unspecified Condition: Fair Critical Care Time: No Critical Care Time(excluding separately billable procedures): 30-74 minutes Referrals: LONA MARCUM [Primary Care Provider] -
[2018-07-02] MEDS ORDERED: Sodium Chloride 0.9% 1000 ML 1,000 ML ONE ×3 (16:29→18:29)
[2018-07-02 16:44] LABS: VBG BASE EXCESS -7.7 (-2.0-2.0); VBG CARBOXYHEMOGLOBIN 2.6 % T HGB (0.0-6.9); VBG HCO3- 18.3 meq/L (22-28); VBG HEMOGLOBIN 15.8; VBG O2 SATURATION 68.3 (95-100); VBG POTASSIUM 5.6 (3.5-5.1); VBG pH 7.29 (7.32-7.42)
[2018-07-02 16:56] LABS: ALBUMIN 4.4 g/dL (3.5-5.0); ANION GAP 25.2 MEQ/L (5-15); BILIRUBIN,TOTAL 0.6 mg/dL (0.2-1.3); Calcium 10.1 mg/dL (8.4-10.2); Potassium 5.7 mmol/L (3.5-5.1)
[2018-07-02 17:03] LABS: Creatinine 1 6.99 mg/dL (0.66-1.25)
[2018-07-02 17:10] VITALS: O2SAT 99
[2018-07-02] MEDS ORDERED: Zosyn 2.25 GM 2.25 GM in D5w 100ML Mini Bag 100 ML 100 ML IV ONE (18:23)
[2018-07-02] MEDS ORDERED: Zosyn 3.375GM/100 Ml D5W 3.375 GM/100 ML IVPB IV STA (18:33)
[2018-07-02] MEDS ORDERED: Zosyn 3.375GM/100 Ml D5W 3.375 GM/100 ML IVPB IV ONE (18:34)
[2018-07-02] MEDS ORDERED: Sodium Chloride 0.9% 1000 ML 1,000 ML IV SCH (18:45)
[2018-07-02 20:04] VITALS: BP 98/63; PULSE 96
--- NOTE | 2018-07-03 08:44 | XRAY ---
Indication: Leukocytosis. Status post bowel resection 2 weeks ago. Multiple contiguous axial images obtained through the abdomen and pelvis without contrast as ordered. Comparison: June 20, 2018. Lung bases demonstrates minimal peripheral fibrosis/scarring. No infiltrate or effusion. Heart is not enlarged. Again small hiatal hernia. Stomach is now moderately fluid distended either from recent fluid ingestion versus gastroparesis. Noncontrasted small bowel loops appear nonobstructed. Again colectomy with interval revision of previous right lower quadrant colostomy. New right lower quadrant bowel anastomosis appears intact with minimal surrounding stranding presumed related to recent surgery. No walled off fluid collection or free air. Stable 2-3 mm right mid ureter calculus, again approximately L4 level. Proximal right ureter remains slightly prominent again with mild hydronephrosis essentially unchanged. Stable nonobstructing left renal micro-calculus and upper pole exophytic cyst. Again 13.5 cm splenomegaly and cholecystectomy. Remaining liver, pancreas, spleen, adrenal glands, kidneys, ureters, bladder, and aorta appear unremarkable for noncontrast exam. Osseous structures intact again with mild degenerative changes throughout the thoracolumbar spine. No ventral or inguinal hernias. Impression: 1. Status post right lower quadrant colostomy revision without complications. 2. Stomach moderately fluid distended either from recent fluid ingestion versus gastroparesis. 3. Stable right mid ureter micro-calculus again producing mild obstructive uropathy. 4. Stable small hiatal hernia, splenomegaly, and left renal cyst. CT DI 23.36
== END 2018-07-02 20:00 | disposition short-term general hospital (02) ==
LOC: ED 16:00
DX: E87.5 Hyperkalemia (principal); D72.829 Elevated white blood cell count, unspecified; N17.9 Acute kidney failure, unspecified; K44.9 Diaphragmatic hernia without obstruction or gangrene; R16.1 Splenomegaly, not elsewhere classified; I10 Essential (primary) hypertension; E11.9 Type 2 diabetes mellitus without complications; R53.81 Other malaise; R06.6 Hiccough; Z79.899 Other long term (current) drug therapy
CPT/HCPCS: 36000; 36415; 51702; 74176; 80053; 82150; 82805; 82962; 83605; 83690; 87040; 93005; 96360; 96361; 96365; 99285; J2543

== ENCOUNTER 2019-02-18 08:23 | Observation (INO) | payer BC ==
--- NOTE | 2019-02-18 08:37 | ERPHSYRPT ---
- History of Present Illness Time Seen by Provider: 02/18/19 08:25 Historian: patient Exam Limitations: no limitations Physician History: Nausea and vomiting started two days ago with increasing diarrhea over the past day with increasing production from his ileostomy. Timing/Duration: day(s) (2) Activities at Onset: none Quality: aching Abdominal Pain Onset Location: other (no pain currently ) Severity of Pain-Max: mild Severity of Pain-Current: none Modifying Factors: Improves With: nothing Associated Symptoms: diarrhea, fatigue, nausea, vomiting, No back, No chest pain , No diaphoresis, No fever/chills, No headache, No heartburn, No loss of appetite, No neck pain, No rash, No shortness of breath, No syncope, No testicular pain, No weakness Previous symptoms: same symptoms as today, no recent treatment Allergies/Adverse Reactions: Anesthetics - Amide Type Allergy (Intermediate, Verified 07/02/18 16:22) Hives ciprofloxacin [From Cipro] Adverse Reaction (Verified 07/02/18 16:22) ciprofloxacin HCl [From Cipro] Adverse Reaction (Verified 07/02/18 16:22) Hives Home Medications: Allopurinol 300 mg [Zyloprim 300 mg] 300 mg PO DAILY 03/15/14 [History] Amlodipine Besylate 5 mg [Norvasc 5 mg] 5 mg PO DAILY 03/15/14 [History] Montelukast Sodium 10 mg [Singulair 10 MG] 10 mg PO DAILY 06/18/17 [History] Metoprolol Succinate [Toprol Xl] 100 mg PO DAILY 09/05/17 [History] Irbesartan 150 mg [Avapro 150 MG] 300 mg PO DAILY 06/20/18 [History] Loratadine 10 mg [Claritin 10 mg] 1 tab PO DAILY 06/20/18 [History] Cinacalcet HCl 30 mg PO DAILY 02/18/19 [History] Dapagliflozin Propanediol [Farxiga] 5 mg PO DAILY 02/18/19 [History] Semaglutide [Ozempic] 0.25 mg SQ WEEKLY 02/18/19 [History] Hx Tetanus, Diphtheria Vaccination/Date Given: Yes Hx Influenza Vaccination/Date Given: Yes Hx Pneumococcal Vaccination/Date Given: No - Review of Systems Constitutional: Fatigue, No Fever, No Chills, No Night Sweats Eyes: No Eye Pain, No Eye Redness, No Photophobia, No Vision Changes Ears, Nose, & Throat: No Ear Pain, No Nose Congestion, No Throat Pain, No Throat Swelling, No Painful Swallowing Respiratory: No Cough, No Dyspnea Cardiac: No Chest Pain, No Edema, No Syncope Abdominal/Gastrointestinal: Nausea, Vomiting, Diarrhea, Other (nausea and vomiting have resolved on the 02/16/2019), No Abdominal Pain Genitourinary Symptoms: No Dysuria, No Frequency, No Hematuria, No Flank Pain Musculoskeletal: No Back Pain, No Neck Pain Skin: No Rash Neurological: No Dizziness, No Focal Weakness, No Sensory Changes Psychological: No Symptoms Endocrine: No Symptoms Hematologic/Lymphatic: No Easy Bleeding, No Easy Bruising All Other Systems: Reviewed and Negative - Past Medical History Pertinent Past Medical History: Yes Neurological History: No Pertinent History ENT History: Cataracts Cardiac History: Hypertension Respiratory History: No Pertinent History Endocrine Medical History: Diabetes Type II Musculoskeletal History: Other GI Medical History: Colitis, Gallbladder Disease, Other History: Renal Disease Psycho-Social History: No Pertinent History Male Reproductive Disorders: No Pertinent History Other Medical History: HTN, L-SPINE DISCECTOMY 2011. HX NECK ISSUES - Past Surgical History Past Surgical History: Yes Neuro Surgical History: No Pertinent History Cardiac: No Pertinent History Respiratory: No Pertinent History Gastrointestinal: Appendectomy, Bowel Surgery, Cholecystectomy, Other Genitourinary: No Pertinent History Musculoskeletal: Orthopedic Surgery Male Surgical History: Vasectomy Other Surgical History: bck,colon removed and colostomy 2009. shoulder surgery , back surgery - Social History Smoking Status: Never smoker Exposure to second hand smoke: No Drug Use: none Patient Lives Alone: No - Nursing Vital Signs Nursing Vital Signs: Initial Vital Signs Temperature 97.5 F 02/18/19 08:27 Pulse Rate 120 H 02/18/19 08:27 Respiratory Rate 16 02/18/19 08:27 Blood Pressure 124/90 02/18/19 08:27 O2 Sat by Pulse Oximetry 97 02/18/19 08:27 Pain Scale Pain Intensity 0 - Physical Exam General Appearance: no apparent distress, alert Eye Exam: PERRL/EOMI, eyes nml inspection Ears, Nose, Throat Exam: normal ENT inspection, TMs normal, pharynx normal, moist mucous membranes, No TM abnormal (R), No TM abnormal (L), No pharyngeal erythema Neck Exam: normal inspection, non-tender, supple, full range of motion Respiratory Exam: normal breath sounds, lungs clear, No respiratory distress Cardiovascular Exam: regular rate/rhythm, normal heart sounds, normal peripheral pulses Gastrointestinal/Abdomen Exam: soft, normal bowel sounds, No tenderness, No distention, No mass, No rebound Back Exam: normal inspection, normal range of motion, No CVA tenderness, No vertebral tenderness Extremity Exam: normal inspection, normal range of motion, pelvis stable Neurologic Exam: alert, oriented x 3, cooperative, normal mood/affect, nml cerebellar function, sensation nml, No motor deficits Skin Exam: normal color, warm, dry O2 Delivery: Room Air Ordered Tests: Active Orders 24 hr Category Date Time Status IV Insertion STAT Care 02/18/19 08:38 Active AMYLASE Stat Lab 02/18/19 08:30 Received CBC W DIFF Stat Lab 02/18/19 08:30 Completed CMP Stat Lab 02/18/19 08:30 Received LIPASE Stat Lab 02/18/19 08:30 Received Lactic Acid Stat Lab 02/18/19 09:00 Completed Lactic Acid Stat Lab 02/18/19 11:04 Ordered Transfer Order Routine Transfer 02/18/19 Ordered Medication Summary Discontinued Medications Generic Name Dose Route Start Last Admin Trade Name Freq PRN Reason Stop Dose Admin Diphenoxylate HCl/Atropine 1 tablet 02/18/19 08:42 02/18/19 08:48 Lomotil PO 02/18/19 08:43 1 tablet STAT ONE Administration Diphenoxylate HCl/Atropine Confirm 02/18/19 08:44 Lomotil Administered 02/18/19 08:45 Dose 1 tablet .ROUTE .STK-MED ONE Sodium Chloride 1,000 mls @ 999 mls/hr 02/18/19 08:38 02/18/19 09:36 Sodium Chloride 0.9% 1000 Ml IV 02/18/19 09:38 Infused .Q1H1M STA Infusion Sodium Chloride 1,000 mls @ 999 mls/hr 02/18/19 08:40 02/18/19 10:31 Sodium Chloride 0.9% 1000 Ml IV 02/18/19 09:40 Infused .Q1H1M STA Infusion Sodium Chloride Confirm 02/18/19 08:44 Sodium Chloride 0.9% 1000 Ml Administered 02/18/19 08:45 Dose 1,000 mls @ .ROUTE .[facility] ONE Sodium Chloride Confirm 02/18/19 09:32 Sodium Chloride 0.9% 1000 Ml Administered 02/18/19 09:33 Dose 1,000 mls @ ud .ROUTE .[facility] ONE Lab/Rad Data: Laboratory Result Diagrams 02/18/19 08:30 02/18/19 08:40 Laboratory Results 02/18/19 02/18/19 02/18/19 Range/Units 09:00 08:40 08:30 WBC 14.1 H (4.0-10.5) K/mm3 RBC 5.94 H (4.1-5.6) M/mm3 Hgb 17.8 (12.5-18.0) gm/dl Hct 52.3 H (42-50) % MCV 88.0 (78-100) fl MCH 29.9 (26-32) pg MCHC 34.0 (32-36) g/dl RDW 14.6 H (11.5-14.0) % Plt Count 355 (150-450) K/mm3 MPV 10.6 H (6-9.5) fl Gran % 75.2 H (36.0-66.0) % Eos # (Auto) 0.27 (0-0.5) Absolute Lymphs (auto) 2.23 (1.0-4.6) Absolute Monos (auto) 0.98 (0.0-1.3) Lymphocytes % 15.8 L (24.0-44.0) % Monocytes % 7.0 (0.0-12.0) % Eosinophils % 1.9 (0.00-5.0) % Basophils % 0.1 (0.0-0.4) % Absolute Granulocytes 10.58 H (1.4-6.9) Basophils # 0.02 (0-0.4) Sodium Direct 136 L (138-146) mmol/L Potassium 4.2 (3.5-4.9) mmol/L Chloride 108 (98-109) mmol/L Carbon Dioxide 18 L (24-29) mmol/L Venous BUN 41 H (8-26) mg/dL Creatinine 2.6 H (0.6-1.3) mg/dL Glucose 176 H (70-105) mg/dL Lactic Acid 2.3 H (0.4-2.0) Ionized Calcium 1.43 H (1.12-1.32) mmol/L - Progress Progress: improved Progress Note: 02/18/19 09:42 patient is feeling better; no abdominal pain, no fever, no nausea or vomiting 02/18/19 11:00 Patient feels much better. Notified about need for admission to monitor renal function and continued IV hydration. Pulse has decreased to 100. 02/18/19 11: 05 Discussed the patient with Dr Contreras, covering for Dr Hazel. Dr Contreras accepted the patient for observation to [facility] Discussed with Dr.: Sofya Will see patient in: hospital (observation) Counseled pt/family regarding: lab results, diagnosis, need for follow-up - Departure Departure Disposition: Observation Clinical Impression: DUNCAN (acute kidney injury), Dehydration Diarrhea Qualifiers: Diarrhea type: unspecified type Qualified Code(s): R19.7 - Diarrhea, unspecified Leukocytosis, unspecified Qualifiers: Leukocytosis type: unspecified Qualified Code(s): D72.829 - Elevated white blood cell count, unspecified Condition: Fair Critical Care Time: No Referrals: LONA HAZEL [Primary Care Provider] - Prescriptions: Diphenoxylate HCl/Atropine [Lomotil Tablet] 1 each PO TID PRN #10 tablet PRN Reason: Diarrhea
[2019-02-18] MEDS ORDERED: Sodium Chloride 0.9% 1000 ML 1,000 ML IV STA ×3 (08:38→11:28)
[2019-02-18] MEDS ORDERED: Lomotil PO ONE (08:42)
[2019-02-18] MEDS ORDERED: Lomotil ONE (08:44)
[2019-02-18] MEDS ORDERED: Sodium Chloride 0.9% 1000 ML 1,000 ML ONE ×2 (08:44→09:32)
[2019-02-18 09:05] LABS: Lactic Acid 2.3 (0.4-2.0)
[2019-02-18 09:07] LABS: BASOPHIL % 0.1 % (0.0-0.4); Basophil (Absolute #) 0.02 (0-0.4); Eosinophil % 1.9 % (0.00-5.0); Eosinophil (Absolute #) 0.27 (0-0.5); Granulocyte Absolute (ANC) 10.58 (1.4-6.9); Granulocytes % 75.2 % (36.0-66.0); Hematocrit 52.3 % (42-50); Hemoglobin 17.8 gm/dl (12.5-18.0); Lymphocyte (Absolute #) 2.23 (1.0-4.6); Lymphocytes % 15.8 % (24.0-44.0); Mean Platelet Volume 10.6 fl (6-9.5); Monocyte (Absolute #) 0.98 (0.0-1.3); Platelet Count 355 K/mm3 (150-450); Red Blood Count 5.94 M/mm3 (4.1-5.6); Red Cell Distribution Width 14.6 % (11.5-14.0); White Blood Count 14.1 K/mm3 (4.0-10.5)
[2019-02-18 09:10] LABS: Mean Corpuscular Hemoglobin 29.9 pg (26-32)
[2019-02-18 09:34] LABS: ISTAT CREA 2.6 mg/dL (0.6-1.3)
[2019-02-18 11:26] LABS: ALBUMIN 5.1 g/dL (3.5-5.0); ALKALINE PHOSPHATASE 110 U/L (38-126); AMYLASE 159 U/L (30-110); ANION GAP 20.6 MEQ/L (5-15); LIPASE 332 U/L (23-300); SGOT/AST 74 U/L (17-59); SGPT/ALT 25 U/L (0-50); Total Protein 9.4 g/dL (6.3-8.2)
[2019-02-18] MEDS ORDERED: TYLENOL 325 MG PO PRN (11:28)
[2019-02-18 13:18] LABS: Creatinine 1 2.6 mg/dL (0.66-1.25)
[2019-02-18] MEDS: Sodium Chloride 0.9% 1000 ML 1,000 ML IV SCH ×2 (13:39→21:40)
[2019-02-18] MEDS ORDERED: Lomotil PO PRN (13:54)
[2019-02-18] MEDS ORDERED: Avapro 150 MG PO SCH (14:00)
[2019-02-18] MEDS ORDERED: NORVASC 5 MG PO SCH (14:00)
[2019-02-18] MEDS ORDERED: ZYLOPRIM 300 MG PO SCH (14:00)
[2019-02-18] MEDS ORDERED: Toprol Xl 100 MG PO SCH (14:00)
[2019-02-19 05:00] LABS: BASOPHIL % 0.3 % (0.0-0.4); Basophil (Absolute #) 0.02 (0-0.4); Eosinophil % 4.2 % (0.00-5.0); Eosinophil (Absolute #) 0.29 (0-0.5); Granulocyte Absolute (ANC) 4.21 (1.4-6.9); Granulocytes % 61.3 % (36.0-66.0); Hematocrit 41.1 % (42-50); Hemoglobin 13.4 gm/dl (12.5-18.0); Lymphocyte (Absolute #) 1.77 (1.0-4.6); Lymphocytes % 25.8 % (24.0-44.0); Mean Cell Volume 91.3 fl (78-100); Mean Corpuscular Hgb Concent. 32.6 g/dl (32-36); Mean Platelet Volume 10.2 fl (6-9.5); Monocyte (Absolute #) 0.58 (0.0-1.3); Monocytes % 8.4 % (0.0-12.0); Platelet Count 179 K/mm3 (150-450); Red Cell Distribution Width 14.2 % (11.5-14.0)
[2019-02-19 05:05] LABS: Mean Corpuscular Hemoglobin 29.7 pg (26-32)
[2019-02-19 05:06] LABS: White Blood Count 6.9 K/mm3 (4.0-10.5)
[2019-02-19 05:27] LABS: ANION GAP 9.7 MEQ/L (5-15); Calcium 9.6 mg/dL (8.4-10.2); Creatinine 1 1.57 mg/dL (0.66-1.25); Potassium 4.7 mmol/L (3.5-5.1)
[2019-02-19] MEDS: Sodium Chloride 0.9% 1000 ML 1,000 ML IV SCH (05:44)
[2019-02-19 07:32] VITALS: BP 128/73; PULSE 76; O2SAT 94
--- NOTE | 2019-02-19 09:19 | SSS ---
DISCHARGE DIAGNOSES: 1) DEHYDRATION. 2) DIARRHEA. 3) NAUSEA. 4) HYPOKALEMIA. HOSPITAL COURSE: The patient is a 38 year-old white male patient who has history of previously having colectomy performed. He began having large amounts of liquidy stools through his ileostomy and was nauseated and feeling weak and presented to the emergency room. He was given IV fluids after which he felt much better but due to the increase in his BUN and creatinine and his low potassium he was kept for IV fluid hydration and monitoring of his electrolytes. By the next morning the patient was feeling much better and ready for discharge home again, able to take a regular meal and keep himself hydrated orally. HOME MEDICATIONS: Otherwise currently Zyloprim 300 mg a day, amlodipine 5 mg a day, Montelukast 10 mg, Toprol Extended-Release 100 mg daily, irbesartan 300 mg daily, loratadine 10 mg daily, Farxiga 5 mg daily, Ozempic 0.25 mg subcutaneous weekly. ALLERGIES: CIPRO. PHYSICAL EXAMINATION: The patient's vital signs on admission showed a temperature 97.5F, pulse 120, respiratory rate 16, blood pressure 124/90. O2 saturation 97%. HEENT: Normocephalic, atraumatic. Pupils equal round reactive to light. Extraocular movements intact. Oropharynx is now moist. NECK: Supple without lymphadenopathy, thyromegaly or JVD. CHEST: Clear to auscultation. HEART: Regular rate and rhythm. ABDOMEN: Soft. Ileostomy is present with fluid in his bag. Abdomen is otherwise normal. EXTREMITIES: Without cyanosis, clubbing or edema. NEUROLOGIC: The patient is alert and oriented x3. No focal deficits noted. LAB DATA AND TESTS: Showed lactic acid initially 2.3. White count 14,100, hemoglobin 17.8, PLT count 355,000 with mild left shift with 75.2% granulocytes. His sodium was 136, potassium 4.2, CO2 18, BUN 41, creatinine 2.6. His total protein was 9.4. Amylase and lipase were mildly elevated at 159 and 332 respectively. Liver enzymes were slightly elevated with AST 74, ALT normal at 25. Second lactic acid was down to 1.5. His BUN had dropped to 23 and creatinine 1.57 after IV fluids. He is now thought to be ready for discharge home with follow up in the office early next week. We will recheck the kidney functions at that time and his electrolytes. He was also instructed to take Probiotic capsules twice daily and to push fluids. He is to return to the hospital if he has any further problems in the interim.
== END 2019-02-19 09:25 | disposition home or self-care (01) ==
LOC: ED 08:23 → MED SURG 11:19
PROVIDERS: ADMIT Family Medicine; ATTEND Family Medicine
DX: E86.0 Dehydration (principal); E87.6 Hypokalemia; R19.7 Diarrhea, unspecified; R11.0 Nausea; N17.9 Acute kidney failure, unspecified; Z79.899 Other long term (current) drug therapy; Z93.2 Ileostomy status
CPT/HCPCS: 36000; 36415; 80047; 80048; 80053; 82150; 82565; 83605; 83690; 84520; 85025; 93268; 96360; 96361; 99285; G0378; A9270-GY

== ENCOUNTER 2019-02-20 19:30 | Emergency (ER) | payer BC ==
[2019-02-20] MEDS ORDERED: Lomotil PO ONE (20:11)
[2019-02-20] MEDS ORDERED: Sodium Chloride 0.9% 1000 ML 1,000 ML IV STA ×2 (20:11→21:38)
--- NOTE | 2019-02-20 20:12 | ERPHSYRPT ---
- History of Present Illness Time Seen by Provider: 02/20/19 19:55 Historian: patient Exam Limitations: no limitations Patient Subjective Stated Complaint: pt having increased watery stools from ileostomy and increasing mid to lower back pain. states pt had some symptoms previously when he had a kidney stone. pt was hospitalized overnight for dehydration and dc'd yesterday morning. Triage Nursing Assessment: pt alert and oriented, answers questions approp. pt ambulatoryw ith steady gait noted. respirations nonlabored with lung cta. abd soft and nontender with ostomy noted to rt abd. liquid stool and gas in osltomy bag Physician History: Patient has increasing back pain today at work with increasing stool in the ileostomy, with at least 10 episodes. Patient has a history of kidney stones and it feels very similar. Timing/Duration: today Activities at Onset: none Quality: aching, cramping, stabbing Abdominal Pain Onset Location: flank Pain Radiation: no radiation Severity of Pain-Max: severe Severity of Pain-Current: mild Modifying Factors: Worsens With: breathing, defecating, movement, rest, urinating, walking Associated Symptoms: back, diarrhea, No chest pain, No diaphoresis, No fever/ chills, No fatigue, No headache, No nausea, No neck pain, No rash, No shortness of breath, No syncope, No testicular pain, No vomiting, No weakness Allergies/Adverse Reactions: Anesthetics - Amide Type Allergy (Intermediate, Verified 07/02/18 16:22) Hives ciprofloxacin [From Cipro] Adverse Reaction (Verified 07/02/18 16:22) ciprofloxacin HCl [From Cipro] Adverse Reaction (Verified 07/02/18 16:22) Hives Home Medications: Allopurinol 300 mg [Zyloprim 300 mg] 300 mg PO DAILY 03/15/14 [History] Amlodipine Besylate 5 mg [Norvasc 5 mg] 5 mg PO DAILY 03/15/14 [History] Montelukast Sodium 10 mg [Singulair 10 MG] 10 mg PO DAILY 06/18/17 [History] Metoprolol Succinate [Toprol Xl] 100 mg PO DAILY 09/05/17 [History] Irbesartan 150 mg [Avapro 150 MG] 300 mg PO DAILY 06/20/18 [History] Loratadine 10 mg [Claritin 10 mg] 1 tab PO DAILY 06/20/18 [History] Cinacalcet HCl 30 mg PO DAILY 02/18/19 [History] Dapagliflozin Propanediol [Farxiga] 10 mg PO DAILY 02/18/19 [History] Semaglutide [Ozempic] 0.25 mg SQ WEEKLY 02/18/19 [History] Hx Tetanus, Diphtheria Vaccination/Date Given: Yes Hx Influenza Vaccination/Date Given: Yes Hx Pneumococcal Vaccination/Date Given: No Immunizations Up to Date: Yes - Review of Systems Constitutional: No Fever, No Chills Eyes: No Symptoms Ears, Nose, & Throat: No Symptoms Respiratory: No Cough, No Dyspnea Cardiac: No Chest Pain, No Edema, No Syncope Abdominal/Gastrointestinal: Diarrhea, No Abdominal Pain, No Nausea, No Vomiting , No Hematemesis, No Hematochezia, No Melena Genitourinary Symptoms: Flank Pain, No Dysuria, No Hematuria, No Urgency, No Testicle Pain Musculoskeletal: No Back Pain, No Neck Pain Skin: No Rash Neurological: No Dizziness, No Focal Weakness, No Sensory Changes Psychological: No Symptoms Endocrine: No Symptoms All Other Systems: Reviewed and Negative - Past Medical History Pertinent Past Medical History: Yes Neurological History: No Pertinent History ENT History: Cataracts Cardiac History: Hypertension Respiratory History: No Pertinent History Endocrine Medical History: Diabetes Type II Musculoskeletal History: Other GI Medical History: Colitis, Gallbladder Disease, Other History: Renal Disease Psycho-Social History: No Pertinent History Male Reproductive Disorders: No Pertinent History Other Medical History: L-SPINE DISCECTOMY 2011. HX NECK ISSUES - Past Surgical History Past Surgical History: Yes Neuro Surgical History: No Pertinent History Cardiac: No Pertinent History Respiratory: No Pertinent History Gastrointestinal: Appendectomy, Bowel Surgery, Cholecystectomy, Other Genitourinary: No Pertinent History Musculoskeletal: Orthopedic Surgery Male Surgical History: Vasectomy Other Surgical History: bck,colon removed and colostomy 2010. shoulder surgery , back surgery - Social History Smoking Status: Never smoker Exposure to second hand smoke: No Drug Use: none Patient Lives Alone: No - Nursing Vital Signs Nursing Vital Signs: Initial Vital Signs Temperature 98.1 F 02/20/19 19:37 Pulse Rate 90 02/20/19 19:37 Respiratory Rate 18 02/20/19 19:37 Blood Pressure 142/86 02/20/19 19:37 O2 Sat by Pulse Oximetry 97 02/20/19 19:37 Pain Scale Pain Intensity 0 - Physical Exam General Appearance: no apparent distress, alert Eye Exam: PERRL/EOMI, eyes nml inspection Ears, Nose, Throat Exam: normal ENT inspection, pharynx normal, moist mucous membranes Neck Exam: normal inspection, non-tender, supple, full range of motion Respiratory Exam: normal breath sounds, lungs clear, No respiratory distress Cardiovascular Exam: regular rate/rhythm, normal heart sounds Gastrointestinal/Abdomen Exam: soft, No tenderness, No mass, No rebound Back Exam: normal inspection, normal range of motion, No CVA tenderness, No vertebral tenderness Extremity Exam: normal inspection, normal range of motion, pelvis stable Neurologic Exam: alert, oriented x 3, cooperative, normal mood/affect, nml cerebellar function, sensation nml, No motor deficits Skin Exam: normal color, warm, dry SpO2 Interpretation: normal SpO2: 97 O2 Delivery: Room Air - CT Exams Abdomen/Pelvis CT Interpretation: Other (per radiologist interpretation: Mild right hydronephrosis. 3 mm mid right ureteral stone. Small left renal stones. Colectomy. Right anterior abdominal wall ileostomy. No evidence of appendicitis. No free air. No significant fluid collection. Cholecystectomy. Pancreas normal. Liver normal. No masses. Impression: 3 mm mid right ureteral stone with mild right hydronephrosis. Colectomy right anterior abdominal wall ileostomy without complication. Small left renal stones.) Ordered Tests: Active Orders 24 hr Category Date Time Status IV Insertion STAT Care 02/20/19 20:11 Active ABDOMEN AND PELVIS W/0 CONTRAS [CT] Stat Exams 02/20/19 21:50 Taken AMYLASE Stat Lab 02/20/19 20:25 Completed CBC W DIFF Stat Lab 02/20/19 20:25 Completed CMP Stat Lab 02/20/19 20:25 Completed LIPASE Stat Lab 02/20/19 20:25 Completed Lactic Acid Stat Lab 02/20/19 20:11 Completed UA W/RFX UR CULTURE Stat Lab 02/20/19 20:25 Completed Medication Summary Discontinued Medications Generic Name Dose Route Start Last Admin Trade Name Freq PRN Reason Stop Dose Admin Diphenoxylate HCl/Atropine 1 tablet 02/20/19 20:11 02/20/19 20:22 Lomotil PO 02/20/19 20:12 1 tablet STAT ONE Administration Diphenoxylate HCl/Atropine Confirm 02/20/19 20:18 Lomotil Administered 02/20/19 20:19 Dose 1 tablet .ROUTE .STK-MED ONE Sodium Chloride 1,000 mls @ 999 mls/hr 02/20/19 20:11 02/20/19 21:23 Sodium Chloride 0.9% 1000 Ml IV 02/20/19 21:11 Infused .Q1H1M STA Infusion Sodium Chloride Confirm 02/20/19 20:18 Sodium Chloride 0.9% 1000 Ml Administered 02/20/19 20:19 Dose 1,000 mls @ ud .ROUTE .STK-MED ONE Sodium Chloride 1,000 mls @ 999 mls/hr 02/20/19 21:38 02/20/19 22:51 Sodium Chloride 0.9% 1000 Ml IV 02/20/19 22:38 Infused .Q1H1M STA Infusion Sodium Chloride Confirm 02/20/19 21:47 Sodium Chloride 0.9% 1000 Ml Administered 02/20/19 21:48 Dose 1,000 mls @ ud .ROUTE .STK-MED ONE Morphine Sulfate 4 mg 02/20/19 21:55 02/20/19 22:16 Morphine Sulfate 4 Mg Inj IV 02/20/19 21:56 4 mg STAT ONE Administration Morphine Sulfate Confirm 02/20/19 22:11 Morphine Sulfate 4 Mg Inj Administered 02/20/19 22:12 Dose 4 mg .ROUTE .STK-MED ONE Lab/Rad Data: Laboratory Result Diagrams 02/20/19 20:25 02/20/19 20:25 Laboratory Results 02/20/19 02/20/19 02/20/19 Range/Units 22:50 20:25 20:25 WBC (4.0-10.5) K/mm3 RBC (4.1-5.6) M/mm3 Hgb (12.5-18.0) gm/dl Hct (42-50) % MCV (78-100) fl MCH (26-32) pg MCHC (32-36) g/dl RDW (11.5-14.0) % Plt Count (150-450) K/mm3 MPV (6-9.5) fl Gran % (36.0-66.0) % Eos # (Auto) (0-0.5) Absolute Lymphs (auto) (1.0-4.6) Absolute Monos (auto) (0.0-1.3) Lymphocytes % (24.0-44.0) % Monocytes % (0.0-12.0) % Eosinophils % (0.00-5.0) % Basophils % (0.0-0.4) % Absolute Granulocytes (1.4-6.9) Basophils # (0-0.4) Sodium 143 (137-145) mmol/L Potassium 4.1 (3.5-5.1) mmol/L Chloride 108 H (98-107) mmol/L Carbon Dioxide 21 L (22-30) mmol/L Anion Gap 17.9 H (5-15) MEQ/L BUN 19 (9-20) mg/dL Creatinine 1.67 H (0.66-1.25) mg/dL Estimated GFR 49.2 ML/MIN Glucose 108 H (74-106) mg/dL Lactic Acid (0.4-2.0) Calcium 10.9 H (8.4-10.2) mg/dL Total Bilirubin 0.60 (0.2-1.3) mg/dL AST 20 (17-59) U/L ALT 22 (0-50) U/L Alkaline Phosphatase 80 (38-126) U/L Serum Total Protein 8.5 H (6.3-8.2) g/dL Albumin 4.9 (3.5-5.0) g/dL Amylase 147 H (30-110) U/L Lipase 300 (23-300) U/L Urine Color YELLOW (YELLOW) Urine Appearance CLEAR (CLEAR) Urine pH 5.0 (5-6) Ur Specific [place] 1.023 (1.005-1.025) Urine Protein NEGATIVE (Negative) Urine Ketones NEGATIVE (NEGATIVE) Urine Blood NEGATIVE (0-5) Alin/ul Urine Nitrite NEGATIVE (NEGATIVE) Urine Bilirubin NEGATIVE (NEGATIVE) Urine Urobilinogen NEGATIVE (0-1) mg/dL Ur Leukocyte Esterase NEGATIVE (NEGATIVE) Urine WBC (Auto) 0-2 (0-5) /HPF Urine RBC (Auto) NONE (0-2) /HPF U Epithel Cells (Auto) NONE (FEW) /HPF Urine Bacteria (Auto) NONE (NEGATIVE) /HPF Urine Mucus (Auto) SLIGHT (NEGATIVE) /HPF Urine Culture Reflexed NO (NO) Urine Glucose >=500 (NEGATIVE) mg/dL Stl C. cayetanensis PCR NEGATIVE (NEGATIVE) Stl Adenov F 40/41 PCR NEGATIVE (NEGATIVE) Stool Astrovirus (PCR) NEGATIVE (NEGATIVE) Stool Cryptosporidium PCR NEGATIVE (NEGATIVE) Stool EPEC (PCR) NEGATIVE (NEGATIVE) Stool EAEC (PCR) NEGATIVE (NEGATIVE) Stl E. histolytica PCR NEGATIVE (NEGATIVE) Stl P. shigelloides PCR NEGATIVE (NEGATIVE) Stool Sapovirus (PCR) NEGATIVE (NEGATIVE) St Y.enterocolitica PCR NEGATIVE (NEGATIVE) Stool Vibrio (PCR) NEGATIVE (NEGATIVE) Stl Vibrio cholerae PCR NEGATIVE (NEGATIVE) Stl Norovirus GI/GII PCR NEGATIVE (NEGATIVE) Campylobacter (PCR) NEGATIVE (NEGATIVE) C. difficile (PCR) NEGATIVE (NEGATIVE) Enterotoxigenic E. coli NEGATIVE (NEGATIVE) E.coli Shiga Toxins NEGATIVE (NEGATIVE) Giardia lamblia NEGATIVE (NEGATIVE) Rotavirus A (PCR) NEGATIVE (NEGATIVE) Salmonella (PCR) NEGATIVE (NEGATIVE) Shigella (PCR) NEGATIVE (NEGATIVE) 02/20/19 02/20/19 Range/Units 20:25 20:11 WBC 11.1 H (4.0-10.5) K/mm3 RBC 4.90 (4.1-5.6) M/mm3 Hgb 14.7 (12.5-18.0) gm/dl Hct 44.0 (42-50) % MCV 89.8 (78-100) fl MCH 30.0 (26-32) pg MCHC 33.4 (32-36) g/dl RDW 14.3 H (11.5-14.0) % Plt Count 267 D (150-450) K/mm3 MPV 10.7 H (6-9.5) fl Gran % 72.9 H (36.0-66.0) % Eos # (Auto) 0.27 (0-0.5) Absolute Lymphs (auto) 1.94 (1.0-4.6) Absolute Monos (auto) 0.80 (0.0-1.3) Lymphocytes % 17.4 L (24.0-44.0) % Monocytes % 7.2 (0.0-12.0) % Eosinophils % 2.4 (0.00-5.0) % Basophils % 0.1 (0.0-0.4) % Absolute Granulocytes 8.11 H (1.4-6.9) Basophils # 0.01 (0-0.4) Sodium (137-145) mmol/L Potassium (3.5-5.1) mmol/L Chloride (98-107) mmol/L Carbon Dioxide (22-30) mmol/L Anion Gap (5-15) MEQ/L BUN (9-20) mg/dL Creatinine (0.66-1.25) mg/dL Estimated GFR ML/MIN Glucose (74-106) mg/dL Lactic Acid 1.0 (0.4-2.0) Calcium (8.4-10.2) mg/dL Total Bilirubin (0.2-1.3) mg/dL AST (17-59) U/L ALT (0-50) U/L Alkaline Phosphatase (38-126) U/L Serum Total Protein (6.3-8.2) g/dL Albumin (3.5-5.0) g/dL Amylase (30-110) U/L Lipase (23-300) U/L Urine Color (YELLOW) Urine Appearance (CLEAR) Urine pH (5-6) Ur Specific [place] (1.005-1.025) Urine Protein (Negative) Urine Ketones (NEGATIVE) Urine Blood (0-5) Alin/ul Urine Nitrite (NEGATIVE) Urine Bilirubin (NEGATIVE) Urine Urobilinogen (0-1) mg/dL Ur Leukocyte Esterase (NEGATIVE) Urine WBC (Auto) (0-5) /HPF Urine RBC (Auto) (0-2) /HPF U Epithel Cells (Auto) (FEW) /HPF Urine Bacteria (Auto) (NEGATIVE) /HPF Urine Mucus (Auto) (NEGATIVE) /HPF Urine Culture Reflexed (NO) Urine Glucose (NEGATIVE) mg/dL Stl C. cayetanensis PCR (NEGATIVE) Stl Adenov F 40/41 PCR (NEGATIVE) Stool Astrovirus (PCR) (NEGATIVE) Stool Cryptosporidium PCR (NEGATIVE) Stool EPEC (PCR) (NEGATIVE) Stool EAEC (PCR) (NEGATIVE) Stl E. histolytica PCR (NEGATIVE) Stl P. shigelloides PCR (NEGATIVE) Stool Sapovirus (PCR) (NEGATIVE) St Y.enterocolitica PCR (NEGATIVE) Stool Vibrio (PCR) (NEGATIVE) Stl Vibrio cholerae PCR (NEGATIVE) Stl Norovirus GI/GII PCR (NEGATIVE) Campylobacter (PCR) (NEGATIVE) C. difficile (PCR) (NEGATIVE) Enterotoxigenic E. coli (NEGATIVE) E.coli Shiga Toxins (NEGATIVE) Giardia lamblia (NEGATIVE) Rotavirus A (PCR) (NEGATIVE) Salmonella (PCR) (NEGATIVE) Shigella (PCR) (NEGATIVE) - Progress Progress: improved Progress Note: 02/20/19 22:48 Patient's pain has improved significantly. Patient feels much more comfortably 02/21/19 00:06 Patient is feeling better, no abdominal pain or back pain complaints. Counseled pt/family regarding: lab results, diagnosis, need for follow-up, rad results - Departure Departure Disposition: Home Clinical Impression: Renal colic on right side, Ureterolithiasis, Hydronephrosis, right, Left nephrolithiasis Diarrhea Qualifiers: Diarrhea type: unspecified type Qualified Code(s): R19.7 - Diarrhea, unspecified Condition: Good Critical Care Time: No Referrals: LONA MARCUM [Primary Care Provider] - Follow Up with PCP/3 days Instructions: Diarrhea in Adolescents and Adults, Kidney Stones (DC), Flank Pain (DC) Prescriptions: Oxycodone HCl/Acetaminophen [Percocet 5-325 mg Tablet] 1 each PO Q6H PRN PRN # 14 tablet MDD 4 PRN Reason: Pain Tamsulosin HCl 0.4 mg [Flomax 0.4 MG] 0 mg PO DAILY #7 cap
[2019-02-20] MEDS ORDERED: Sodium Chloride 0.9% 1000 ML 1,000 ML ONE ×2 (20:18→21:47)
[2019-02-20] MEDS ORDERED: Lomotil ONE (20:18)
[2019-02-20 20:29] LABS: BASOPHIL % 0.1 % (0.0-0.4); Basophil (Absolute #) 0.01 (0-0.4); Eosinophil % 2.4 % (0.00-5.0); Eosinophil (Absolute #) 0.27 (0-0.5); Granulocyte Absolute (ANC) 8.11 (1.4-6.9); Granulocytes % 72.9 % (36.0-66.0); Hemoglobin 14.7 gm/dl (12.5-18.0); Lymphocyte (Absolute #) 1.94 (1.0-4.6); Lymphocytes % 17.4 % (24.0-44.0); Mean Cell Volume 89.8 fl (78-100); Mean Corpuscular Hgb Concent. 33.4 g/dl (32-36); Mean Platelet Volume 10.7 fl (6-9.5); Monocytes % 7.2 % (0.0-12.0); Platelet Count 267 K/mm3 (150-450); Red Cell Distribution Width 14.3 % (11.5-14.0); White Blood Count 11.1 K/mm3 (4.0-10.5)
[2019-02-20 20:36] LABS: Appearance CLEAR (CLEAR); Bilirubin NEGATIVE (NEGATIVE); Blood NEGATIVE Ery/ul (0-5); Glucose >=500 mg/dL (NEGATIVE); Ketones NEGATIVE (NEGATIVE); Leukocyte Esterase NEGATIVE (NEGATIVE); Mucus SLIGHT /HPF (NEGATIVE); Nitrite NEGATIVE (NEGATIVE); Protein,Urine Dip NEGATIVE (Negative); Specific Gravity 1.023 (1.005-1.025); Urobilinogen NEGATIVE mg/dL (0-1); WBC 0-2 /HPF (0-5)
[2019-02-20 20:40] LABS: ALBUMIN 4.9 g/dL (3.5-5.0); ANION GAP 17.9 MEQ/L (5-15); BILIRUBIN,TOTAL 0.6 mg/dL (0.2-1.3); Calcium 10.9 mg/dL (8.4-10.2); Creatinine 1 1.67 mg/dL (0.66-1.25); Potassium 4.1 mmol/L (3.5-5.1); Total Protein 8.5 g/dL (6.3-8.2)
[2019-02-20] MEDS ORDERED: MORPHINE SULFATE 4 MG INJ IV ONE (21:55)
[2019-02-20] MEDS ORDERED: MORPHINE SULFATE 4 MG INJ ONE (22:11)
[2019-02-20 23:56] VITALS: O2SAT 97
[2019-02-21 00:30] LABS: Adenovirus F 40/41 NEGATIVE (NEGATIVE); Astrovirus NEGATIVE (NEGATIVE); C. Difficile Organism NEGATIVE (NEGATIVE); Campylobacter NEGATIVE (NEGATIVE); Cryptosporidium NEGATIVE (NEGATIVE); Cyclospora cayentanensis NEGATIVE (NEGATIVE); Entamoeaba histolytica NEGATIVE (NEGATIVE); Enteroaggregative E.coli NEGATIVE (NEGATIVE); Enteropathogenic E.coli NEGATIVE (NEGATIVE); Enterotoxigenic E.coli NEGATIVE (NEGATIVE); Giardia lamblia NEGATIVE (NEGATIVE); Norovirus GI/GII NEGATIVE (NEGATIVE); Plesiomonas shigelloides NEGATIVE (NEGATIVE); Rotavirus A NEGATIVE (NEGATIVE); Salmonella NEGATIVE (NEGATIVE); Sapovirus NEGATIVE (NEGATIVE); Shiga-like toxin prod.E.coli NEGATIVE (NEGATIVE); Vibrio NEGATIVE (NEGATIVE); Vibrio cholerae NEGATIVE (NEGATIVE); Yersinia enterocolitica NEGATIVE (NEGATIVE)
[2019-02-21 00:57] VITALS: BP 116/65; PULSE 78
--- NOTE | 2019-02-21 07:36 | XRAY ---
Indication: Right flank pain 2 weeks. History renal stones. Multiple contiguous axial images obtained through the abdomen and pelvis without contrast using renal stone protocol. Comparison: July 02, 2018. Lung bases demonstrates minimal bibasilar dependent atelectasis. No infiltrate or effusion. Heart is not enlarged. There is again a 2-3 mm right mid ureter calculus, approximately L3-L4 interspace level. Proximal right ureter minimally prominent along with minimal hydronephrosis consistent with partial obstructive uropathy. Right kidney remains smaller than the contralateral left. Left kidney demonstrates stable nonobstructing micro-calculus and upper pole exophytic cyst. Noncontrasted stomach and bowel loops appear nonobstructed again with right lower quadrant colostomy. There is now a knuckle of small bowel herniating through ostomy wall defect. Stable fatty liver, 14 cm splenomegaly, and cholecystectomy. No free fluid/air. Remaining liver, pancreas, spleen, adrenal glands, kidneys, ureters, bladder, and aorta appear unremarkable for noncontrast exam. Osseous structures intact again with mild degenerative changes throughout the thoracolumbar spine. Impression: 1. Again 2-3 mm right mid ureter calculus producing mild obstructive uropathy. I question if this is the same calculus as seen on multiple prior studies. 2. Stable nonobstructing left renal micro-calculus, left renal cyst, fatty liver, and splenomegaly. 3. Again right lower quadrant colostomy with new herniated knuckle of bowel loop. No complications. Comment: Preliminary interpretation was made by [facility]. No critical discrepancy. CTDI 23.68
== END 2019-02-21 01:02 | disposition home or self-care (01) ==
LOC: ED 19:30
DX: N23 Unspecified renal colic (principal); N13.2 Hydronephrosis with renal and ureteral calculous obstruction; N20.0 Calculus of kidney; R19.7 Diarrhea, unspecified
CPT/HCPCS: 36000; 36415; 74176; 80053; 81001; 82150; 83605; 83690; 85025; 87507; 96360; 96361; 96374; 99284; J2270; A9270-GY

== ENCOUNTER 2019-04-21 14:41 | Emergency (ER) | payer BC ==
--- NOTE | 2019-04-21 15:04 | ERPHSYRPT ---
- History of Present Illness Time Seen by Provider: 04/21/19 15:04 Historian: patient, family Exam Limitations: no limitations Patient Subjective Stated Complaint: Pt c/o of sudden onset right flank pain, N& V, rates pain 3/10, hx of kidney stones Triage Nursing Assessment: Pt walked into the ER, illeostomy, rates pain 3/10, tachycardic, pain with palpatation to the right flank, pain in RUQ, denies pain with urination, doesn't appear to be in any distress, unsure if he passed stone a couple of months ago Physician History: 38 y/o white male with h/o permanent ileostomy and right nephrolithiasis and ureterolithiasis presents with sudden onset of right flank pain that began this am. has had vomiting as well. no sig abd pain Timing/Duration: today Activities at Onset: none Quality: sharpness, stabbing Abdominal Pain Onset Location: flank (right) Pain Radiation: groin Severity of Pain-Max: moderate Severity of Pain-Current: moderate Associated Symptoms: nausea, vomiting Previous symptoms: same symptoms as today Allergies/Adverse Reactions: Anesthetics - Amide Type Allergy (Intermediate, Verified 04/21/19 14:58) Hives ciprofloxacin [From Cipro] Adverse Reaction (Verified 04/21/19 14:58) ciprofloxacin HCl [From Cipro] Adverse Reaction (Verified 04/21/19 14:58) Hives Home Medications: Allopurinol 300 mg [Zyloprim 300 mg] 300 mg PO DAILY 03/15/14 [History] Amlodipine Besylate 5 mg [Norvasc 5 mg] 5 mg PO DAILY 03/15/14 [History] Montelukast Sodium 10 mg [Singulair 10 MG] 10 mg PO DAILY 06/18/17 [History] Metoprolol Succinate [Toprol Xl] 100 mg PO DAILY 09/05/17 [History] Irbesartan 150 mg [Avapro 150 MG] 300 mg PO DAILY 06/20/18 [History] Loratadine 10 mg [Claritin 10 mg] 1 tab PO DAILY 06/20/18 [History] Cinacalcet HCl 30 mg PO DAILY 02/18/19 [History] Dapagliflozin Propanediol [Farxiga] 10 mg PO DAILY 02/18/19 [History] Semaglutide [Ozempic] 1 mg SQ WEEKLY 02/18/19 [History] Hx Tetanus, Diphtheria Vaccination/Date Given: Yes Hx Influenza Vaccination/Date Given: Yes Hx Pneumococcal Vaccination/Date Given: No - Review of Systems Constitutional: No Symptoms Eyes: No Symptoms Ears, Nose, & Throat: No Symptoms Respiratory: No Symptoms Cardiac: No Symptoms Abdominal/Gastrointestinal: Nausea, Vomiting Genitourinary Symptoms: Flank Pain (right) Musculoskeletal: No Symptoms Skin: No Symptoms Neurological: No Symptoms Psychological: No Symptoms Endocrine: No Symptoms Hematologic/Lymphatic: No Symptoms Immunological/Allergic: No Symptoms All Other Systems: Reviewed and Negative - Past Medical History Pertinent Past Medical History: Yes Neurological History: No Pertinent History ENT History: Cataracts Cardiac History: Hypertension Respiratory History: No Pertinent History Endocrine Medical History: Diabetes Type II Musculoskeletal History: Other GI Medical History: Colitis, Gallbladder Disease, Other History: Renal Disease Psycho-Social History: No Pertinent History Male Reproductive Disorders: No Pertinent History Other Medical History: L-SPINE DISCECTOMY 2011. HX NECK ISSUES - Past Surgical History Past Surgical History: Yes Neuro Surgical History: No Pertinent History Cardiac: No Pertinent History Respiratory: No Pertinent History Gastrointestinal: Appendectomy, Bowel Surgery, Cholecystectomy, Other Genitourinary: No Pertinent History Musculoskeletal: Orthopedic Surgery Male Surgical History: Vasectomy Other Surgical History: bck,colon removed and colostomy 2009. shoulder surgery , back surgery - Social History Smoking Status: Never smoker Exposure to second hand smoke: No Drug Use: none Patient Lives Alone: No - Nursing Vital Signs Nursing Vital Signs: Initial Vital Signs Temperature 98.6 F 04/21/19 14:45 Pulse Rate 111 H 04/21/19 14:45 Blood Pressure 138/97 04/21/19 14:45 O2 Sat by Pulse Oximetry 98 04/21/19 14:45 Pain Scale Pain Intensity 0 - Physical Exam General Appearance: mild distress, alert, anxiety Eye Exam: PERRL/EOMI, eyes nml inspection Ears, Nose, Throat Exam: normal ENT inspection, moist mucous membranes Neck Exam: normal inspection, non-tender, supple, full range of motion Respiratory Exam: normal breath sounds, lungs clear, airway intact, No chest tenderness, No respiratory distress Cardiovascular Exam: regular rate/rhythm, normal heart sounds, normal peripheral pulses Gastrointestinal/Abdomen Exam: soft, normal bowel sounds, No tenderness Rectal Exam: not done Back Exam: normal inspection, normal range of motion, CVA tenderness (right), No vertebral tenderness Extremity Exam: normal inspection, normal range of motion, pelvis stable Neurologic Exam: alert, oriented x 3 Skin Exam: normal color, warm, dry Lymphatic Exam: No adenopathy SpO2 Interpretation: normal SpO2: 98 O2 Delivery: Room Air Ordered Tests: Active Orders 24 hr Category Date Time Status IV Insertion STAT Care 04/21/19 15:04 Active ABDOMEN AND PELVIS W/0 CONTRAS [CT] Stat Exams 04/21/19 15:05 Completed AMYLASE Stat Lab 04/21/19 15:10 Completed CBC W DIFF Stat Lab 04/21/19 15:10 Completed CMP Stat Lab 04/21/19 15:10 Completed LIPASE Stat Lab 04/21/19 15:10 Completed UA W/RFX UR CULTURE Stat Lab 04/21/19 16:07 Completed Medication Summary Discontinued Medications Generic Name Dose Route Start Last Admin Trade Name Freq PRN Reason Stop Dose Admin Hydromorphone HCl 0.5 mg 04/21/19 15:04 04/21/19 15:28 Hydromorphone 1 Mg/Ml Ampule IV 04/21/19 15:05 0.5 mg STAT ONE Administration Hydromorphone HCl Confirm 04/21/19 15:18 Hydromorphone 1 Mg/Ml Ampule Administered 04/21/19 15:19 Dose 1 mg .ROUTE .STK-MED ONE Sodium Chloride 1,000 mls @ 999 mls/hr 04/21/19 15:04 04/21/19 16:35 Sodium Chloride 0.9% 1000 Ml IV 04/21/19 16:04 Infused .Q1H1M STA Infusion Sodium Chloride Confirm 04/21/19 15:18 Sodium Chloride 0.9% 1000 Ml Administered 04/21/19 15:19 Dose 1,000 mls @ ud .ROUTE .STK-MED ONE Sodium Chloride 500 mls @ 999 mls/hr 04/21/19 16:47 04/21/19 17:21 Sodium Chloride 0.9% 500 Ml IV 04/21/19 17:17 Infused .Q31M ONE Infusion Sodium Chloride Confirm 04/21/19 16:48 Sodium Chloride 0.9% 500 Ml Administered 04/21/19 16:49 Dose 500 mls @ ud IV .STK-MED ONE Ketorolac Tromethamine 30 mg 04/21/19 15:04 04/21/19 15:28 Toradol 30 Mg Injection IV 04/21/19 15:05 30 mg STAT ONE Administration Ketorolac Tromethamine Confirm 04/21/19 15:17 Toradol 30 Mg Injection Administered 04/21/19 15:18 Dose 30 mg .ROUTE .STK-MED ONE Ondansetron HCl 4 mg 04/21/19 15:04 04/21/19 15:28 Zofran 4 Mg/2 Ml Vial IV 04/21/19 15:05 4 mg STAT ONE Administration Ondansetron HCl Confirm 04/21/19 15:17 Zofran 4 Mg/2 Ml Vial Administered 04/21/19 15:18 Dose 4 mg .ROUTE .STK-MED ONE Lab/Rad Data: Laboratory Result Diagrams 04/21/19 15:10 04/21/19 15:10 Laboratory Results 04/21/19 04/21/19 04/21/19 Range/Units 16:07 15:10 15:10 WBC 14.3 H (4.0-10.5) K/mm3 RBC 5.45 (4.1-5.6) M/mm3 Hgb 16.4 (12.5-18.0) gm/dl Hct 48.5 (42-50) % MCV 89.0 (78-100) fl MCH 30.1 (26-32) pg MCHC 33.8 (32-36) g/dl RDW 13.9 (11.5-14.0) % Plt Count 232 (150-450) K/mm3 MPV 10.3 H (6-9.5) fl Gran % 86.9 H (36.0-66.0) % Eos # (Auto) 0.14 (0-0.5) Absolute Lymphs (auto) 0.89 L (1.0-4.6) Absolute Monos (auto) 0.83 (0.0-1.3) Lymphocytes % 6.2 L (24.0-44.0) % Monocytes % 5.8 (0.0-12.0) % Eosinophils % 1.0 (0.00-5.0) % Basophils % 0.1 (0.0-0.4) % Absolute Granulocytes 12.37 H (1.4-6.9) Basophils # 0.02 (0-0.4) Sodium 145 (137-145) mmol/L Potassium 4.6 (3.5-5.1) mmol/L Chloride 107 (98-107) mmol/L Carbon Dioxide 27 (22-30) mmol/L Anion Gap 16.6 H (5-15) MEQ/L BUN 17 (9-20) mg/dL Creatinine 1.69 H (0.66-1.25) mg/dL Estimated GFR 48.5 ML/MIN Glucose 137 H (74-106) mg/dL Calcium 10.9 H (8.4-10.2) mg/dL Total Bilirubin 0.60 (0.2-1.3) mg/dL AST 24 (17-59) U/L ALT 25 (0-50) U/L Alkaline Phosphatase 87 (38-126) U/L Serum Total Protein 8.9 H (6.3-8.2) g/dL Albumin 4.9 (3.5-5.0) g/dL Amylase 196 H (30-110) U/L Lipase 372 H (23-300) U/L Urine Color YELLOW (YELLOW) Urine Appearance CLEAR (CLEAR) Urine pH 5.0 (5-6) Ur Specific [place] 1.026 (1.005-1.025) Urine Protein NEGATIVE (Negative) Urine Ketones NEGATIVE (NEGATIVE) Urine Blood NEGATIVE (0-5) Alin/ul Urine Nitrite NEGATIVE (NEGATIVE) Urine Bilirubin NEGATIVE (NEGATIVE) Urine Urobilinogen NEGATIVE (0-1) mg/dL Ur Leukocyte Esterase NEGATIVE (NEGATIVE) Urine WBC (Auto) NONE (0-5) /HPF Urine RBC (Auto) NONE (0-2) /HPF U Epithel Cells (Auto) NONE (FEW) /HPF Urine Bacteria (Auto) NONE (NEGATIVE) /HPF Urine Mucus (Auto) SLIGHT (NEGATIVE) /HPF Urine Culture Reflexed NO (NO) Urine Glucose >=500 (NEGATIVE) mg/dL - Progress Progress: improved, re-examined Progress Note: 04/21/19 16:54 ct abd/pelvis-chronic 2 to 3mm mid right ureteral stone. minimal signs of obsructive uropathy. no other acute processes. nonobstructed knuckle of small bowel in ostomy wall defect. reviewed lab results and above ct findings with pt and spouse pt is feeling much better. i offered admission. pt wants to go home. i told him if he martha pos well here we would allow him to be discharged. 04/21/19 17:46 pt martha pos and wants to go home Counseled pt/family regarding: lab results, diagnosis, need for follow-up, rad results - Departure Departure Disposition: Home Clinical Impression: Vomiting, Ureterolithiasis Condition: Stable Critical Care Time: No Referrals: LONA MARCUM [Primary Care Provider] - Additional Instructions: clear liquid diet. follow up with urologist for persistent ureteral stone. return to ED for worsening symptoms. avodi fatty, greasy spicy foods.
[2019-04-21] MEDS ORDERED: TORAdol 30 mg Injection ONE (15:17)
[2019-04-21] MEDS ORDERED: Zofran 4 MG/2 ML VIAL ONE (15:17)
[2019-04-21] MEDS ORDERED: Sodium Chloride 0.9% 1000 ML 1,000 ML ONE (15:18)
[2019-04-21] MEDS ORDERED: Hydromorphone 1 mg/ml Ampule ONE (15:18)
[2019-04-21 15:19] LABS: Absolute Neutrophil Ct (ANC) 12.37 (1.4-6.9); BASOPHIL % 0.1 % (0.0-0.4); Basophil (Absolute #) 0.02 (0-0.4); Eosinophil (Absolute #) 0.14 (0-0.5); Hematocrit 48.5 % (42-50); Hemoglobin 16.4 gm/dl (12.5-18.0); Lymphocyte (Absolute #) 0.89 (1.0-4.6); Lymphocytes % 6.2 % (24.0-44.0); Mean Corpuscular Hemoglobin 30.1 pg (26-32); Mean Corpuscular Hgb Concent. 33.8 g/dl (32-36); Mean Platelet Volume 10.3 fl (6-9.5); Monocyte (Absolute #) 0.83 (0.0-1.3); Monocytes % 5.8 % (0.0-12.0); Neutrophil % 86.9 % (36.0-66.0); Platelet Count 232 K/mm3 (150-450); Red Blood Count 5.45 M/mm3 (4.1-5.6); Red Cell Distribution Width 13.9 % (11.5-14.0); White Blood Count 14.3 K/mm3 (4.0-10.5)
[2019-04-21] MEDS: TORAdol 30 mg Injection IV ONE (15:28)
[2019-04-21] MEDS: Zofran 4 MG/2 ML VIAL IV ONE (15:28)
[2019-04-21] MEDS: Hydromorphone 1 mg/ml Ampule IV ONE (15:28)
[2019-04-21] MEDS: Sodium Chloride 0.9% 1000 ML 1,000 ML IV STA (15:29)
[2019-04-21 15:33] LABS: ALBUMIN 4.9 g/dL (3.5-5.0); ANION GAP 16.6 MEQ/L (5-15); BILIRUBIN,TOTAL 0.6 mg/dL (0.2-1.3); Calcium 10.9 mg/dL (8.4-10.2); Creatinine 1 1.69 mg/dL (0.66-1.25); Potassium 4.6 mmol/L (3.5-5.1); Total Protein 8.9 g/dL (6.3-8.2)
[2019-04-21 16:17] LABS: Appearance CLEAR (CLEAR); Bilirubin NEGATIVE (NEGATIVE); Blood NEGATIVE Ery/ul (0-5); Glucose >=500 mg/dL (NEGATIVE); Ketones NEGATIVE (NEGATIVE); Leukocyte Esterase NEGATIVE (NEGATIVE); Mucus SLIGHT /HPF (NEGATIVE); Nitrite NEGATIVE (NEGATIVE); Protein,Urine Dip NEGATIVE (Negative); Specific Gravity 1.026 (1.005-1.025); Urobilinogen NEGATIVE mg/dL (0-1)
--- NOTE | 2019-04-21 16:28 | XRAY ---
Indication: Right flank pain. Multiple contiguous axial images obtained through the abdomen and pelvis without contrast using renal stone protocol. Comparison: February 20, 2019. Lung bases clear of infiltrate or effusion. Heart is not enlarged. Again 2-3 mm right mid ureter calculus approximately L4-L5 interspace level. Proximal right ureter remains minimally prominent along with minimal hydronephrosis. No perinephric fluid. Left kidney demonstrates stable nonobstructing punctate calculus and left upper pole exophytic cyst. Noncontrasted stomach and bowel loops remain nonobstructed with stable right lower quadrant colostomy. Once again knuckle of bowel herniates through the ostomy wall defect. Stable fatty liver, cholecystectomy, and 14 cm splenomegaly. No free fluid/air. Remaining pancreas, adrenal glands, urinary bladder, and aorta appear unremarkable for noncontrast exam. Impression: 1. Essentially stable presumed chronic 2-3 mm right mid ureter calculus producing minimal obstructive uropathy. Also stable nonobstructing left renal micro-calculus and left renal cyst. 2. Stable fatty liver, splenomegaly, and right lower quadrant colostomy with herniated knuckle of bowel. CTDI 17.76
[2019-04-21] MEDS ORDERED: Sodium Chloride 0.9% 500 ML 500 ML IV ONE (16:48)
[2019-04-21] MEDS: Sodium Chloride 0.9% 500 ML 500 ML IV ONE (16:50)
[2019-04-21 17:43] VITALS: BP 126/97; PULSE 96
[2019-04-21 17:49] VITALS: O2SAT 98
== END 2019-04-21 17:56 | disposition home or self-care (01) ==
LOC: ED 14:41
DX: R11.10 Vomiting, unspecified (principal); N20.1 Calculus of ureter; N13.9 Obstructive and reflux uropathy, unspecified
CPT/HCPCS: 36415; 74176; 80053; 81001; 82150; 83690; 85025; 96360; 96361; 96374; 96375; 99284; J1170; J1885; J2405

== ENCOUNTER 2019-04-23 08:36 | Observation (INO) | payer BC ==
--- NOTE | 2019-04-23 08:58 | ERPHSYRPT ---
- History of Present Illness Time Seen by Provider: 04/23/19 08:58 Source: patient, family Exam Limitations: no limitations Patient Subjective Stated Complaint: continual diarrhea with Lomotil usage in illeostomy since Saturday, gas, indigestion, pain in medial and left upper abdomen, pt had been in this ER 2 days ago N&V and diarrhea Triage Nursing Assessment: Pt walked into the ER, continual diarrhea in illeostomy, states that he isn't making sense when he is talking, tachycardic, all other virtals wnl, pulses normal, rates abdominal pain 09/24 Physician History: patient has ileostomy for last 10 years. It was done because of C. Diff n the past. patient has a history of abnormal renal function every time he gets the satiety a flareup. He was seen here 2 days ago for the same. There was a minimal elevation of his creatinine. And also CT scan was done which was showing nothing acute. Timing/Duration: day(s) (3) Modifying Factors: Improves With: nothing Associated Symptoms: nausea, abdominal pain, other (Heart burn) Allergies/Adverse Reactions: Anesthetics - Amide Type Allergy (Intermediate, Verified 04/23/19 08:49) Hives ciprofloxacin [From Cipro] Adverse Reaction (Verified 04/23/19 08:49) ciprofloxacin HCl [From Cipro] Adverse Reaction (Verified 04/23/19 08:49) Hives Home Medications: Allopurinol 300 mg [Zyloprim 300 mg] 300 mg PO DAILY 03/15/14 [History] Amlodipine Besylate 5 mg [Norvasc 5 mg] 5 mg PO DAILY 03/15/14 [History] Montelukast Sodium 10 mg [Singulair 10 MG] 10 mg PO DAILY 06/18/17 [History] Metoprolol Succinate [Toprol Xl] 100 mg PO DAILY 09/05/17 [History] Irbesartan 150 mg [Avapro 150 MG] 300 mg PO DAILY 06/20/18 [History] Loratadine 10 mg [Claritin 10 mg] 1 tab PO DAILY 06/20/18 [History] Cinacalcet HCl 30 mg PO DAILY 02/18/19 [History] Dapagliflozin Propanediol [Farxiga] 10 mg PO DAILY 02/18/19 [History] Semaglutide [Ozempic] 1 mg SQ WEEKLY 02/18/19 [History] Hx Tetanus, Diphtheria Vaccination/Date Given: Yes Hx Influenza Vaccination/Date Given: Yes Hx Pneumococcal Vaccination/Date Given: No - Review of Systems Constitutional: No Fever, No Chills Eyes: No Symptoms Ears, Nose, & Throat: No Symptoms Respiratory: No Cough, No Dyspnea Cardiac: Other (Heart burn), No Chest Pain, No Edema, No Syncope Abdominal/Gastrointestinal: Abdominal Pain, Nausea, Diarrhea, No Vomiting, No Constipation, No Hematemesis, No Hematochezia, No Melena, No Dysphagia Genitourinary Symptoms: No Dysuria Musculoskeletal: No Back Pain, No Neck Pain Skin: No Rash Neurological: No Dizziness, No Focal Weakness, No Sensory Changes Psychological: No Symptoms Endocrine: No Symptoms All Other Systems: Reviewed and Negative - Past Medical History Pertinent Past Medical History: Yes Neurological History: No Pertinent History ENT History: Cataracts Cardiac History: Hypertension Respiratory History: No Pertinent History Endocrine Medical History: Diabetes Type II Musculoskeletal History: Other GI Medical History: Colitis, Gallbladder Disease, Other History: Renal Disease Psycho-Social History: No Pertinent History Male Reproductive Disorders: No Pertinent History Other Medical History: L-SPINE DISCECTOMY 2011. HX NECK ISSUES - Past Surgical History Past Surgical History: Yes Neuro Surgical History: No Pertinent History Cardiac: No Pertinent History Respiratory: No Pertinent History Gastrointestinal: Appendectomy, Bowel Surgery, Cholecystectomy, Other Genitourinary: No Pertinent History Musculoskeletal: Orthopedic Surgery Male Surgical History: Vasectomy Other Surgical History: bck,colon removed and colostomy 2009. shoulder surgery , back surgery - Social History Smoking Status: Never smoker Exposure to second hand smoke: No Drug Use: none Patient Lives Alone: No - Nursing Vital Signs Nursing Vital Signs: Initial Vital Signs Temperature 98.6 F 04/23/19 08:42 Pulse Rate 116 H 04/23/19 08:42 Blood Pressure 115/82 04/23/19 08:42 O2 Sat by Pulse Oximetry 99 04/23/19 08:42 Pain Scale Pain Intensity 4 - Physical Exam General Appearance: no apparent distress, alert Eye Exam: PERRL/EOMI, eyes nml inspection Ears, Nose, Throat Exam: normal ENT inspection, TMs normal, pharynx normal, moist mucous membranes Neck Exam: normal inspection, non-tender, supple, full range of motion Respiratory Exam: normal breath sounds, lungs clear, No respiratory distress Cardiovascular Exam: regular rate/rhythm, normal heart sounds, normal peripheral pulses Gastrointestinal/Abdomen Exam: soft, normal bowel sounds, other (Ileostomy), No tenderness, No mass Back Exam: normal inspection, normal range of motion, No CVA tenderness, No vertebral tenderness Extremity Exam: normal inspection, normal range of motion, pelvis stable Neurologic Exam: alert, oriented x 3, cooperative, normal mood/affect, nml cerebellar function, nml station & gait, sensation nml, No motor deficits Skin Exam: normal color, warm, dry, No rash Lymphatic Exam: No adenopathy SpO2: 99 Ordered Tests: Active Orders 24 hr Category Date Time Status IV Insertion STAT Care 04/23/19 09:11 Active CBC W DIFF Stat Lab 04/23/19 09:11 Completed CMP Stat Lab 04/23/19 09:11 Completed CULTURE,URINE Stat Lab 04/23/19 09:11 Ordered Lactic Acid Stat Lab 04/23/19 09:11 Completed Occult Blood, Other Screening Stat Lab 04/23/19 09:11 Uncollected VBG [VENOUS BLOOD GAS] Stat Lab 04/23/19 09:43 Completed Medication Summary Discontinued Medications Generic Name Dose Route Start Last Admin Trade Name Freq PRN Reason Stop Dose Admin Sodium Chloride 1,000 mls @ 999 mls/hr 04/23/19 09:11 04/23/19 09:43 Sodium Chloride 0.9% 1000 Ml IV 04/23/19 10:11 999 mls/hr .Q1H1M STA Administration Sodium Chloride Confirm 04/23/19 09:40 Sodium Chloride 0.9% 1000 Ml Administered 04/23/19 09:41 Dose 1,000 mls @ ud .ROUTE .K-MED ONE Lab/Rad Data: Laboratory Result Diagrams 04/23/19 09:11 04/23/19 09:11 Laboratory Results 04/23/19 04/23/19 04/23/19 Range/Units 09:43 09:11 09:11 WBC (4.0-10.5) K/mm3 RBC (4.1-5.6) M/mm3 Hgb (12.5-18.0) gm/dl Hct (42-50) % MCV (78-100) fl MCH (26-32) pg MCHC (32-36) g/dl RDW (11.5-14.0) % Plt Count (150-450) K/mm3 MPV (6-9.5) fl Gran % (36.0-66.0) % Eos # (Auto) (0-0.5) Absolute Lymphs (auto) (1.0-4.6) Absolute Monos (auto) (0.0-1.3) Lymphocytes % (24.0-44.0) % Monocytes % (0.0-12.0) % Eosinophils % (0.00-5.0) % Basophils % (0.0-0.4) % Absolute Granulocytes (1.4-6.9) Basophils # (0-0.4) pO2/FiO2 Ratio 21.0 % VBG pH 7.23 L* (7.32-7.42) VBG pCO2 at Pat Temp 34 L (42-55) mm/Hg VBG pO2 at Pat Temp 51 H (25-40) mm/Hg VBG HCO3 14.2 L* (22-28) meq/L VBG O2 Sat ([place]) 89.1 L (95-100) VBG Base Excess -12.2 L (-2.0-2.0) VBG Hemoglobin 17.9 VBG Carboxyhemoglobin 3.8 (0.0-6.9) % T HGB POC Potassium 5.3 H (3.5-5.1) Sodium 138 (137-145) mmol/L Potassium 5.2 H (3.5-5.1) mmol/L Chloride 109 H (98-107) mmol/L Carbon Dioxide 15 L* (22-30) mmol/L Anion Gap 19.0 H (5-15) MEQ/L BUN 28 H (9-20) mg/dL Creatinine 2.41 H (0.66-1.25) mg/dL Estimated GFR 32.2 ML/MIN Glucose 178 H (74-106) mg/dL Lactic Acid 1.5 (0.4-2.0) Calcium 11.5 H (8.4-10.2) mg/dL Total Bilirubin 0.90 (0.2-1.3) mg/dL AST 26 (17-59) U/L ALT 23 (0-50) U/L Alkaline Phosphatase 88 (38-126) U/L Serum Total Protein 9.0 H (6.3-8.2) g/dL Albumin 4.9 (3.5-5.0) g/dL 04/23/19 Range/Units 09:11 WBC 11.4 H (4.0-10.5) K/mm3 RBC 5.90 H (4.1-5.6) M/mm3 Hgb 17.5 (12.5-18.0) gm/dl Hct 52.8 H (42-50) % MCV 89.5 (78-100) fl MCH 29.6 (26-32) pg MCHC 33.1 (32-36) g/dl RDW 14.4 H (11.5-14.0) % Plt Count 294 (150-450) K/mm3 MPV 10.6 H (6-9.5) fl Gran % 78.4 H (36.0-66.0) % Eos # (Auto) 0.25 (0-0.5) Absolute Lymphs (auto) 1.39 (1.0-4.6) Absolute Monos (auto) 0.81 (0.0-1.3) Lymphocytes % 12.2 L (24.0-44.0) % Monocytes % 7.1 (0.0-12.0) % Eosinophils % 2.2 (0.00-5.0) % Basophils % 0.1 (0.0-0.4) % Absolute Granulocytes 8.91 H (1.4-6.9) Basophils # 0.01 (0-0.4) pO2/FiO2 Ratio % VBG pH (7.32-7.42) VBG pCO2 at Pat Temp (42-55) mm/Hg VBG pO2 at Pat Temp (25-40) mm/Hg VBG HCO3 (22-28) meq/L VBG O2 Sat (Torsten) (95-100) VBG Base Excess (-2.0-2.0) VBG Hemoglobin VBG Carboxyhemoglobin (0.0-6.9) % T HGB POC Potassium (3.5-5.1) Sodium (137-145) mmol/L Potassium (3.5-5.1) mmol/L Chloride (98-107) mmol/L Carbon Dioxide (22-30) mmol/L Anion Gap (5-15) MEQ/L BUN (9-20) mg/dL Creatinine (0.66-1.25) mg/dL Estimated GFR ML/MIN Glucose (74-106) mg/dL Lactic Acid (0.4-2.0) Calcium (8.4-10.2) mg/dL Total Bilirubin (0.2-1.3) mg/dL AST (17-59) U/L ALT (0-50) U/L Alkaline Phosphatase (38-126) U/L Serum Total Protein (6.3-8.2) g/dL Albumin (3.5-5.0) g/dL - Progress Progress: improved Discussed with : Jorge Will see patient in: hospital (observation) Counseled pt/family regarding: diagnosis (need for adm) - Departure Departure Disposition: Observation Clinical Impression: Diarrhea Qualifiers: Diarrhea type: unspecified type Qualified Code(s): R19.7 - Diarrhea, unspecified Acute kidney failure Qualifiers: Acute renal failure type: unspecified Qualified Code(s): N17.9 - Acute kidney failure, unspecified Condition: Stable Critical Care Time: No Referrals: LONA MARCUM [Primary Care Provider] -
[2019-04-23] MEDS ORDERED: Sodium Chloride 0.9% 1000 ML 1,000 ML IV STA (09:11)
[2019-04-23 09:20] LABS: Absolute Neutrophil Ct (ANC) 8.91 (1.4-6.9); BASOPHIL % 0.1 % (0.0-0.4); Basophil (Absolute #) 0.01 (0-0.4); Eosinophil % 2.2 % (0.00-5.0); Eosinophil (Absolute #) 0.25 (0-0.5); Hematocrit 52.8 % (42-50); Hemoglobin 17.5 gm/dl (12.5-18.0); Lymphocyte (Absolute #) 1.39 (1.0-4.6); Lymphocytes % 12.2 % (24.0-44.0); Mean Cell Volume 89.5 fl (78-100); Mean Corpuscular Hgb Concent. 33.1 g/dl (32-36); Mean Platelet Volume 10.6 fl (6-9.5); Monocyte (Absolute #) 0.81 (0.0-1.3); Monocytes % 7.1 % (0.0-12.0); Neutrophil % 78.4 % (36.0-66.0); Platelet Count 294 K/mm3 (150-450); Red Cell Distribution Width 14.4 % (11.5-14.0); White Blood Count 11.4 K/mm3 (4.0-10.5)
[2019-04-23 09:21] LABS: Mean Corpuscular Hemoglobin 29.6 pg (26-32)
[2019-04-23 09:25] LABS: ALBUMIN 4.9 g/dL (3.5-5.0); BILIRUBIN,TOTAL 0.9 mg/dL (0.2-1.3); Calcium 11.5 mg/dL (8.4-10.2); Creatinine 1 2.41 mg/dL (0.66-1.25); Potassium 5.2 mmol/L (3.5-5.1)
[2019-04-23] MEDS ORDERED: Sodium Chloride 0.9% 1000 ML 1,000 ML ONE (09:40)
[2019-04-23 09:45] LABS: VBG BASE EXCESS -12.2 (-2.0-2.0); VBG CARBOXYHEMOGLOBIN 3.8 % T HGB (0.0-6.9); VBG HCO3- 14.2 meq/L (22-28); VBG HEMOGLOBIN 17.9; VBG O2 SATURATION 89.1 (95-100); VBG POTASSIUM 5.3 (3.5-5.1); VBG pH 7.23 (7.32-7.42)
[2019-04-23] MEDS ORDERED: Zofran 4 MG/2 ML VIAL IV PRN (11:42)
[2019-04-23] MEDS ORDERED: NovoLOG Insulin SQ PRN (11:42)
[2019-04-23] MEDS ORDERED: MORPHINE SULFATE 2 MG INJ IV PRN (11:42)
[2019-04-23] MEDS: Sodium Chloride 0.9% 1000 ML 1,000 ML IV SCH ×3 (11:51→20:12)
[2019-04-23] MEDS: Avapro 150 MG PO SCH (15:27)
[2019-04-23] MEDS: NORVASC 5 MG PO SCH (15:27)
[2019-04-23] MEDS ORDERED: MEDICATION INTERVENTION PO SCH ×3 (15:30)
[2019-04-23] MEDS ORDERED: NON-FORMULARY ITEM (Semaglutide [Ozempic] 1 MG) SQ SCH (15:30)
[2019-04-23] MEDS: ZYLOPRIM 300 MG PO SCH (15:32)
[2019-04-23] MEDS: Singulair 10 MG PO SCH (15:33)
[2019-04-23] MEDS: CLARITIN 10 MG PO SCH (15:33)
[2019-04-23] MEDS: Toprol Xl 100 MG PO SCH (15:33)
[2019-04-23] MEDS: PROTONIX 40 MG IV IV SCH (16:43)
[2019-04-23 19:16] LABS: 027 TOX PROD PRESUMPTIVE NEGATIVE (NEGATIVE); TOXIGENIC C. DIFF ORG NEGATIVE (NEGATIVE)
[2019-04-23 19:24] LABS: Adenovirus F 40/41 NEGATIVE (NEGATIVE); Astrovirus NEGATIVE (NEGATIVE); C. Difficile Organism NEGATIVE (NEGATIVE); Campylobacter NEGATIVE (NEGATIVE); Cryptosporidium NEGATIVE (NEGATIVE); Cyclospora cayentanensis NEGATIVE (NEGATIVE); Entamoeaba histolytica NEGATIVE (NEGATIVE); Enteroaggregative E.coli NEGATIVE (NEGATIVE); Enteropathogenic E.coli NEGATIVE (NEGATIVE); Enterotoxigenic E.coli NEGATIVE (NEGATIVE); Giardia lamblia NEGATIVE (NEGATIVE); Norovirus GI/GII NEGATIVE (NEGATIVE); Plesiomonas shigelloides NEGATIVE (NEGATIVE); Rotavirus A NEGATIVE (NEGATIVE); Salmonella NEGATIVE (NEGATIVE); Sapovirus NEGATIVE (NEGATIVE); Shiga-like toxin prod.E.coli NEGATIVE (NEGATIVE); Vibrio NEGATIVE (NEGATIVE); Vibrio cholerae NEGATIVE (NEGATIVE); Yersinia enterocolitica NEGATIVE (NEGATIVE)
[2019-04-24] MEDS: Sodium Chloride 0.9% 1000 ML 1,000 ML IV SCH ×3 (01:14→12:01)
[2019-04-24 05:28] LABS: ANION GAP 13.4 MEQ/L (5-15); Calcium 9.6 mg/dL (8.4-10.2); Creatinine 1 1.62 mg/dL (0.66-1.25); Potassium 4.3 mmol/L (3.5-5.1)
[2019-04-24 06:22] LABS: VBG pH 7.23 (7.32-7.42)
[2019-04-24 06:23] LABS: VBG BASE EXCESS -10.6 (-2.0-2.0); VBG CARBOXYHEMOGLOBIN 3.5 % T HGB (0.0-6.9); VBG HCO3- 16.3 meq/L (22-28); VBG HEMOGLOBIN 14.8; VBG O2 SATURATION 92.3 (95-100); VBG POTASSIUM 4.3 (3.5-5.1)
[2019-04-24 07:36] LABS: Absolute Neutrophil Ct (ANC) 4.47 (1.4-6.9); BASOPHIL % 0.3 % (0.0-0.4); Basophil (Absolute #) 0.02 (0-0.4); Eosinophil (Absolute #) 0.19 (0-0.5); Hematocrit 44.7 % (42-50); Hemoglobin 14.8 gm/dl (12.5-18.0); Lymphocyte (Absolute #) 1.21 (1.0-4.6); Mean Cell Volume 90.5 fl (78-100); Mean Corpuscular Hgb Concent. 33.1 g/dl (32-36); Mean Platelet Volume 10.6 fl (6-9.5); Monocyte (Absolute #) 0.49 (0.0-1.3); Monocytes % 7.7 % (0.0-12.0); Platelet Count 197 K/mm3 (150-450); Red Blood Count 4.94 M/mm3 (4.1-5.6); White Blood Count 6.4 K/mm3 (4.0-10.5)
[2019-04-24] MEDS ORDERED: Tums EX 750 MG PO PRN (08:15)
[2019-04-24] MEDS ORDERED: Zofran 4 MG/2 ML VIAL IV PRN (08:16)
--- NOTE | 2019-04-24 08:43 | HP ---
CHIEF COMPLAINT: Vomiting and diarrhea. HISTORY OF PRESENT ILLNESS: The patient is a 38 year-old white male patient who has previously had colectomy for Clostridium difficile colitis. He reports that he has had problems with nausea and vomiting, had watery stools through his ileostomy bag. He was seen in the emergency room and admitted to the hospital with renal insufficiency and dehydration. 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 The patient also has problems with allergic rhinitis, hypertension, diabetes type 2. HOME MEDICATIONS: Currently allopurinol 300 mg a day, Norvasc 5 mg a day, Singulair 10 mg a day, metoprolol extended release 100 mg a day, Avapro 150 mg tablet 300 mg a day, loratadine 10 mg a day, cinacalcet 30 mg daily, Farxiga 10 mg a day, Ozempic 1 mg weekly. ALLERGIES: CIPROFLOXIN. ANESTHETICS. PHYSICAL EXAMINATION: The patient's vital signs on admission showed temperature 98.6F, pulse 116 and blood pressure 115/82. O2 saturation 99%. HEENT: Normocephalic, atraumatic. Pupils equal round reactive to light. Extraocular movements intact. Oropharynx is dry. NECK: Supple without lymphadenopathy, thyromegaly or JVD. CHEST: Clear to auscultation. HEART: Mildly tachycardic. ABDOMEN: Ileostomy in place. Soft otherwise, no masses are felt. EXTREMITIES: Without cyanosis, clubbing or edema. NEUROLOGIC: The patient is alert and oriented x3. LAB DATA AND TESTS: In the emergency room showed a sugar of 178, BUN 28, creatinine 2.41. His potassium was slightly high at 5.2. His CO2 was 15. Liver enzymes were normal. Anion gap was 19.0. His white count 11,400, hemoglobin 17.5, PLT count 294,000. His venous blood gas showed a pH of 7.23, pCO2 was 34, pO2 was 51. Lactic acid was 1.5. Occult blood in the stool was negative. He had GI studies for viruses and Clostridium difficile which were all negative and the stool from his ileostomy bag. ASSESSMENT: A patient with renal insufficiency, dehydration and acidosis. He has been admitted to the hospital for IV fluid hydration. I will obtain a consultation from nephrology to help determine why he is acidotic and to help with his renal insufficiency issue which is likely secondary to his diabetes. He will continue his home medications. He is given IV Protonix and IV fluids of normal saline at 200 cc/hour to help correct his dehydration.
[2019-04-24] MEDS: ZYLOPRIM 300 MG PO SCH (09:50)
[2019-04-24] MEDS: Singulair 10 MG PO SCH (09:50)
[2019-04-24] MEDS: Avapro 150 MG PO SCH ×2 (09:50→09:52)
[2019-04-24] MEDS: PROTONIX 40 MG IV IV SCH (09:50)
[2019-04-24] MEDS: CLARITIN 10 MG PO SCH (09:50)
[2019-04-24] MEDS: Toprol Xl 100 MG PO SCH (09:50)
[2019-04-24] MEDS: NORVASC 5 MG PO SCH (09:50)
[2019-04-24] MEDS ORDERED: CINACALCET HCL 30 MG PO SCH (10:00)
[2019-04-24] MEDS: Sodium Bicarbonate 50 MEQ/50 ML VIAL*** 150 MEQ in Dextrose 5%/Water IV Soln. 1000 ML 1... IV SCH ×2 (16:41→23:17)
[2019-04-24] MEDS: Pepcid 20 MG PO SCH (22:28)
[2019-04-25 05:49] LABS: ALBUMIN 3.6 g/dL (3.5-5.0); ANION GAP 12.5 MEQ/L (5-15); BILIRUBIN,TOTAL 0.5 mg/dL (0.2-1.3); Calcium 10.2 mg/dL (8.4-10.2); Creatinine 1 1.46 mg/dL (0.66-1.25); MAGNESIUM 1.6 mg/dL (1.6-2.3); Potassium 3.9 mmol/L (3.5-5.1); Total Protein 6.7 g/dL (6.3-8.2)
[2019-04-25 09:25] LABS: VBG CARBOXYHEMOGLOBIN 1.9 % T HGB (0.0-6.9); VBG HCO3- 26.9 meq/L (22-28); VBG HEMOGLOBIN 15.2; VBG O2 SATURATION 27.3 (95-100); VBG POTASSIUM 3.9 (3.5-5.1); VBG pH 7.33 (7.32-7.42)
--- NOTE | 2019-04-25 09:35 | PCM.NOTE ---
Date and Time: 04/25/19930 Subjective Assessment: Pt. notes diarrhea has slowed, less gas as well, feeling better since last night. - Review of Systems Constitutional: No Fever, No Chills Ears, Nose, & Throat: No Symptoms Respiratory: No Cough, No Short Of Breath Cardiac: No Chest Pain, No Edema, No Syncope Abdominal/Gastrointestinal: No Abdominal Pain, No Nausea, No Vomiting, No Diarrhea Objective Exam General Appearance: no apparent distress, alert Skin Exam: normal color, warm, dry Neck Exam: normal inspection, non-tender, supple, full range of motion Respiratory Exam: normal breath sounds, lungs clear, No respiratory distress Cardiovascular Exam: regular rate/rhythm, normal heart sounds Gastrointestinal/Abdomen Exam: soft, No tenderness, No mass OBJECTIVE DATA Vital Signs: Vital Signs - 24 hr Temp Pulse Resp BP Pulse Ox 04/25/19 07:25 97.8 F 96 H 20 130/80 95 04/25/19 04:00 98.2 F 91 H 18 126/82 98 04/24/19 23:36 98.7 F 87 18 127/80 97 04/24/19 20:00 98.4 F 92 H 16 135/79 98 04/24/19 16:00 98.4 F 92 H 16 133/78 95 04/24/19 12:00 98.1 F 94 H 16 137/77 95 Pain Assessment - Last Documented Pain Intensity 0 Pain Scale Used 0-10 Pain Scale Intake and Output: Intake & Output 04/22/19 04/23/19 04/24/19 04/25/19 11:59 11:59 11:59 11:59 Intake Total 4010 4618 Output Total 700 750 Balance 3310 3868 Weight 109.769 kg Lab Results: Accuchecks Date 04/24/19 Date 04/24/19 Date 04/24/19 Time 22:00 Time 16:00 Time 11:30 Accucheck Value: 103 Accucheck Value: 92 Accucheck Value: 130 Lab Results-Last 24 Hours 04/25/19 04/25/19 Range/Units 05:15 09:16 pO2/FiO2 Ratio 21.0 % VBG pH 7.33 (7.32-7.42) VBG pCO2 at Pat Temp 51 (42-55) mm/Hg VBG pO2 at Pat Temp 15 L (25-40) mm/Hg VBG HCO3 26.9 (22-28) meq/L VBG O2 Sat (Torsten) 27.3 L (95-100) VBG Base Excess 0.0 (-2.0-2.0) VBG Hemoglobin 15.2 VBG Carboxyhemoglobin 1.9 (0.0-6.9) % T HGB POC Potassium 3.9 (3.5-5.1) Sodium 144 (137-145) mmol/L Potassium 3.9 (3.5-5.1) mmol/L Chloride 110 H (98-107) mmol/L Carbon Dioxide 25 (22-30) mmol/L Anion Gap 12.5 (5-15) MEQ/L BUN 16 (9-20) mg/dL Creatinine 1.46 H (0.66-1.25) mg/dL Estimated GFR 57.4 ML/MIN Glucose 115 H (74-106) mg/dL Calcium 10.2 (8.4-10.2) mg/dL Magnesium 1.6 (1.6-2.3) mg/dL Total Bilirubin 0.50 (0.2-1.3) mg/dL AST 14 L (17-59) U/L ALT 16 (0-50) U/L Alkaline Phosphatase 56 (38-126) U/L Serum Total Protein 6.7 (6.3-8.2) g/dL Albumin 3.6 (3.5-5.0) g/dL Assessment/Plan (1) Dehydration Current Visit: Yes Status: Acute Assessment & Plan: improved significantly, consulting Guarav regarding current fluids Code(s): E86.0 - DEHYDRATION (2) Frequent loose stools Current Visit: Yes Status: Acute Qualifiers: Diarrhea type: unspecified type Qualified Code(s): R19.7 - Diarrhea, unspecified Assessment & Plan: Improved will add probiotic Code(s): R19.7 - DIARRHEA, UNSPECIFIED (3) DUNCAN (acute kidney injury) Current Visit: No Status: Acute Assessment & Plan: near baseline at this time. Code(s): N17.9 - ACUTE KIDNEY FAILURE, UNSPECIFIED (4) Hyperkalemia Current Visit: No Status: Acute Assessment & Plan: resolved Code(s): E87.5 - HYPERKALEMIA
[2019-04-25] MEDS: Sodium Bicarbonate 50 MEQ/50 ML VIAL*** 150 MEQ in Dextrose 5%/Water IV Soln. 1000 ML 1... IV SCH (11:12)
[2019-04-25] MEDS: NORVASC 5 MG PO SCH (11:13)
[2019-04-25] MEDS: CLARITIN 10 MG PO SCH (11:13)
[2019-04-25] MEDS: Avapro 150 MG PO SCH (11:13)
[2019-04-25] MEDS: Acidophilus TABLET PO SCH ×3 (11:13→21:07)
[2019-04-25] MEDS: Toprol Xl 100 MG PO SCH (11:14)
[2019-04-25] MEDS: Singulair 10 MG PO SCH (11:14)
[2019-04-25] MEDS: ZYLOPRIM 300 MG PO SCH (11:14)
[2019-04-25] MEDS: PROTONIX 40 MG IV IV SCH (11:14)
[2019-04-25] MEDS: Sodium Chloride 0.9% 1000 ML 1,000 ML IV SCH (15:15)
[2019-04-25] MEDS: Pepcid 20 MG PO SCH (21:08)
[2019-04-26 04:43] LABS: BASOPHIL % 0.2 % (0.0-0.4); Basophil (Absolute #) 0.01 (0-0.4); Eosinophil % 3.7 % (0.00-5.0); Eosinophil (Absolute #) 0.23 (0-0.5); Hematocrit 39.6 % (42-50); Hemoglobin 13.4 gm/dl (12.5-18.0); Lymphocyte (Absolute #) 1.47 (1.0-4.6); Lymphocytes % 23.6 % (24.0-44.0); Mean Corpuscular Hemoglobin 30.5 pg (26-32); Mean Corpuscular Hgb Concent. 33.8 g/dl (32-36); Mean Platelet Volume 9.9 fl (6-9.5); Monocyte (Absolute #) 0.51 (0.0-1.3); Monocytes % 8.2 % (0.0-12.0); Neutrophil % 64.3 % (36.0-66.0); Platelet Count 157 K/mm3 (150-450); Red Cell Distribution Width 13.7 % (11.5-14.0); White Blood Count 6.2 K/mm3 (4.0-10.5)
[2019-04-26 04:50] LABS: ANION GAP 10.6 MEQ/L (5-15); Calcium 10.1 mg/dL (8.4-10.2); Creatinine 1 1.44 mg/dL (0.66-1.25); Potassium 4.1 mmol/L (3.5-5.1)
[2019-04-26] MEDS: Sodium Chloride 0.9% 1000 ML 1,000 ML IV SCH (05:09)
--- NOTE | 2019-04-26 09:32 | PCM.DS ---
Discharge Summary Date of Admission: 04/23/19 11:41 Date of Discharge: 04/26/2019 Admitting Physician: LONA MARCUM Consults: Consults on Case 04/24/19 07:54 Consult Nephrology ROUTINE Primary Care Provider: LONA MARCUM Allergies Allergies Anesthetics - Amide Type Allergy (Intermediate, Verified 04/23/19 08:49) [facility] ciprofloxacin [From Cipro] Adverse Reaction (Verified 04/23/19 08:49) ciprofloxacin HCl [From Cipro] Adverse Reaction (Verified 04/23/19 08:49) [facility] Summary - Hospital Course Hospital Course: Pt. admitted and gradually improved, by 04/25 he had felt improved enough and symptoms controled he felt able to go home but opted to stay another day, am labs 04/26 were good, but patient had several loose stools and gaseousness, he then noted prior to both episodes, the one causing admission and prior to symptoms last night he had cottage cheese also noting he gets very gaseous with milk intake. Pt. feeling well enough to go home and avoid milk products at this time. - Vitals & Intake/Output Vital Signs: Vital Signs Temperature 97.9 F 04/26/19 07:02 Pulse Rate 87 04/26/19 07:02 Respiratory Rate 16 04/26/19 07:02 Blood Pressure 140/83 04/26/19 07:02 O2 Sat by Pulse Oximetry 95 04/26/19 07:02 Intake & Output: Intake & Output 04/23/19 04/24/19 04/25/19 04/26/19 11:59 11:59 11:59 11:59 Intake Total 4010 4618 2615 Output Total 700 750 402 Balance 3310 1958 2213 Weight 109.769 kg - Lab Result Diagrams: 04/26/19 04:41 04/26/19 04:41 Lab Results-Last 24 Hrs: Accuchecks Date 04/25/19 Date 04/25/19 Date 04/25/19 Time 22:00 Time 16:30 Time 12:00 Accucheck Value: 104 Accucheck Value: 118 Accucheck Value: 117 Lab Results-Last 24 Hours 04/26/19 04/26/19 Range/Units 04:41 04:41 WBC 6.2 (4.0-10.5) K/mm3 RBC 4.40 (4.1-5.6) M/mm3 Hgb 13.4 (12.5-18.0) gm/dl Hct 39.6 L (42-50) % MCV 90.0 (78-100) fl MCH 30.5 (26-32) pg MCHC 33.8 (32-36) g/dl RDW 13.7 (11.5-14.0) % Plt Count 157 (150-450) K/mm3 MPV 9.9 H (6-9.5) fl Gran % 64.3 (36.0-66.0) % Eos # (Auto) 0.23 (0-0.5) Absolute Lymphs (auto) 1.47 (1.0-4.6) Absolute Monos (auto) 0.51 (0.0-1.3) Lymphocytes % 23.6 L (24.0-44.0) % Monocytes % 8.2 (0.0-12.0) % Eosinophils % 3.7 (0.00-5.0) % Basophils % 0.2 (0.0-0.4) % Absolute Granulocytes 4.00 (1.4-6.9) Basophils # 0.01 (0-0.4) Sodium 145 (137-145) mmol/L Potassium 4.1 (3.5-5.1) mmol/L Chloride 111 H (98-107) mmol/L Carbon Dioxide 27 (22-30) mmol/L Anion Gap 10.6 (5-15) MEQ/L BUN 16 (9-20) mg/dL Creatinine 1.44 H (0.66-1.25) mg/dL Estimated GFR 58.4 ML/MIN Glucose 109 H (74-106) mg/dL Calcium 10.1 (8.4-10.2) mg/dL Micro Results-Entire Visit: Microbiology 04/23/19 Unknown Urine Culture - Final Clean Catch Midstream <10K NORMAL SKIN SARABJIT PROBABLE SKIN CONTAMINANT Accuchecks Date 04/25/19 Date 04/25/19 Date 04/25/19 Time 22:00 Time 16:30 Time 12:00 Accucheck Value: 104 Accucheck Value: 118 Accucheck Value: 117 Discharge Exam General Appearance: no apparent distress, alert Neurologic Exam: alert, oriented x 3, cooperative, normal mood/affect, No motor deficits Ears, Nose, Throat Exam: normal ENT inspection, pharynx normal, moist mucous membranes Respiratory Exam: normal breath sounds, lungs clear, No respiratory distress Cardiovascular Exam: regular rate/rhythm, normal heart sounds Gastrointestinal/Abdomen Exam: soft, No tenderness, No mass Skin Exam: normal color, warm, dry Final Diagnosis/Problem List - Final Discharge Diagnosis/Problem (1) Dehydration Current Visit: Yes Status: Acute Assessment & Plan: resolved Code(s): E86.0 - DEHYDRATION (2) Frequent loose stools Current Visit: Yes Status: Acute Assessment & Plan: improved Code(s): R19.7 - DIARRHEA, UNSPECIFIED (3) DUNCAN (acute kidney injury) Current Visit: No Status: Acute Assessment & Plan: baseline level Code(s): N17.9 - ACUTE KIDNEY FAILURE, UNSPECIFIED (4) Hyperkalemia Current Visit: No Status: Acute Assessment & Plan: resolved Code(s): E87.5 - HYPERKALEMIA (5) Lactose intolerance Current Visit: Yes Status: Acute Assessment & Plan: avoid milk/ lactose products Code(s): E73.9 - LACTOSE INTOLERANCE, UNSPECIFIED - Discharge Discharge Date: 04/26/19 Disposition: Home, Self-Care Condition: Stable Prescriptions: No Action Amlodipine Besylate 5 mg [Norvasc 5 mg] 5 mg PO DAILY Allopurinol 300 mg [Zyloprim 300 mg] 300 mg PO DAILY Montelukast Sodium 10 mg [Singulair 10 MG] 10 mg PO DAILY Metoprolol Succinate [Toprol Xl] 100 mg PO DAILY Loratadine 10 mg [Claritin 10 mg] 1 tab PO DAILY Irbesartan 150 mg [Avapro 150 MG] 300 mg PO DAILY Cinacalcet HCl 30 mg PO DAILY Dapagliflozin Propanediol [Farxiga] 10 mg PO DAILY Semaglutide [Ozempic] 1 mg SQ WEEKLY Follow up with: LONA MARCUM [Primary Care Provider] - 1 Week NATA ROMERO [CONSULTING PHYSICIAN] - 1 Week
[2019-04-26] MEDS: Toprol Xl 100 MG PO SCH (10:41)
[2019-04-26] MEDS: Acidophilus TABLET PO SCH (10:41)
[2019-04-26] MEDS: NORVASC 5 MG PO SCH (10:41)
[2019-04-26] MEDS: CLARITIN 10 MG PO SCH (10:41)
[2019-04-26] MEDS: Avapro 150 MG PO SCH (10:42)
[2019-04-26] MEDS: ZYLOPRIM 300 MG PO SCH (10:43)
[2019-04-26] MEDS: PROTONIX 40 MG IV IV SCH (10:43)
[2019-04-26] MEDS: Singulair 10 MG PO SCH (10:43)
[2019-04-26 14:05] VITALS: BP 139/84; PULSE 89; O2SAT 94
[2019-04-28 10:00] LABS: H.Pylori Stool Ag. EIA Negative (Negative); Source H. Pylori Ag. Feces
== END 2019-04-26 13:15 | disposition home or self-care (01) ==
LOC: ED 08:36 → MED SURG 11:41
PROVIDERS: ADMIT Family Medicine; ATTEND Family Medicine
DX: E86.0 Dehydration (principal); R19.7 Diarrhea, unspecified; N17.9 Acute kidney failure, unspecified; E87.5 Hyperkalemia; E73.9 Lactose intolerance, unspecified; Z79.899 Other long term (current) drug therapy; Z93.2 Ileostomy status; I10 Essential (primary) hypertension; E11.9 Type 2 diabetes mellitus without complications; E87.2 Acidosis
CPT/HCPCS: 36415; 80048; 80053; 82272; 82805; 82962; 83036; 83605; 83735; 85025; 87086; 87338; 87493; 87507; 93268; 96360; 99285; G0378; J2405; A9270-GY

== ENCOUNTER 2020-05-28 13:30 | Observation (INO) | payer BC ==
[2020-05-28] MEDS ORDERED: BABY ASPIRIN 81 MG CHEW PO ONE (14:22)
[2020-05-28] MEDS ORDERED: VENTOLIN COMMON CANISTER IH STA (14:23)
--- NOTE | 2020-05-28 14:40 | ERPHSYRPT ---
- History of Present Illness Time Seen by Provider: 05/28/20 13:35 Source: patient Exam Limitations: no limitations Patient Subjective Stated Complaint: pt comes in with c/o still not feeling well from being COVID positive two weeks ago. pt states sx of cough, heavy chest, headache, fever, lightheaded. Triage Nursing Assessment: pt comes in via family vehicle and is wheeled back via WC. pt is A&O x 3. PERRLA. pt oral mucousa appears dry. pt states decreasing eating and drinking. pt skin is pale, warm, and dry. pt heart rate 100bpm and regular. pulses equal bilat. Fine crackles and diminished breath sounds in the right lower lobe. bowel sounds present x4. pt has ostomy present on right lowere abdomen. Physician History: 39 years old male COVID-19 +2 weeks ago self quarantine at home was feeling better/started to improve until a week ago and since then is having intermittent fever with chills, body aches, some shortness of breath where he has to take shallow rapid breaths with associated chest pressure on both sides. Patient described a low-grade fever which improved with [id number] meds. He is concerned about getting pneumonia. Is diabetic but not taking any medications for the last 2 weeks. No abdominal pain nausea or vomiting. Has permanent ileostomy. Timing/Duration: week(s) (1), intermittent, gradual onset, worse Fever Severity: moderate Fever Therapy [employer]ICE: Acetaminophen Associated Symptoms: cough, headache, muscle aches, shortness of breath, weakness, No chest pain Allergies/Adverse Reactions: Anesthetics - Amide Type Allergy (Intermediate, Verified 05/28/20 13:46) Hives ciprofloxacin [From Cipro] Adverse Reaction (Verified 05/28/20 13:46) ciprofloxacin HCl [From Cipro] Adverse Reaction (Verified 05/28/20 13:46) Hives Home Medications: Allopurinol 300 mg [Zyloprim 300 mg] 300 mg PO DAILY 03/15/14 [History] Amlodipine Besylate 5 mg [Norvasc 5 mg] 5 mg PO DAILY 03/15/14 [History] Montelukast Sodium 10 mg [Singulair 10 MG] 10 mg PO DAILY 06/18/17 [History] Metoprolol Succinate [Toprol Xl] 100 mg PO DAILY 09/05/17 [History] Irbesartan 150 mg [Avapro 150 MG] 300 mg PO DAILY 06/20/18 [History] Loratadine 10 mg [Claritin 10 mg] 1 tab PO DAILY 06/20/18 [History] Hx Tetanus, Diphtheria Vaccination/Date Given: Yes Hx Influenza Vaccination/Date Given: Yes Hx Pneumococcal Vaccination/Date Given: Yes Travel Risk - International Travel Have you traveled outside of the country in past 3 weeks: No - Coronavirus Screening Are you exhibiting any of the following symptoms?: Yes Symptoms: Fever, Cough: New Onset, Shortness of Breath Close contact with a COVID-19 positive Pt in past 14-21 Days: No - Review of Systems Constitutional: Fever, Chills, Fatigue, Malaise, Weakness Eyes: No Symptoms Ears, Nose, & Throat: No Symptoms Respiratory: Cough, Dyspnea, Dyspnea on Exertion (MIKE), Wheezing Cardiac: No Symptoms Abdominal/Gastrointestinal: No Symptoms Genitourinary Symptoms: No Symptoms Musculoskeletal: Myalgias Skin: No Symptoms Neurological: No Symptoms Psychological: No Symptoms Endocrine: Polyuria, Polydipsia Hematologic/Lymphatic: No Symptoms Immunological/Allergic: No Symptoms - Past Medical History Pertinent Past Medical History: Yes Neurological History: No Pertinent History ENT History: Cataracts Cardiac History: Hypertension Respiratory History: No Pertinent History Endocrine Medical History: Diabetes Type II Musculoskeletal History: Other GI Medical History: Colitis, Gallbladder Disease, Other History: Renal Disease Psycho-Social History: No Pertinent History Male Reproductive Disorders: No Pertinent History Other Medical History: L-SPINE DISCECTOMY 2011. HX NECK ISSUES - Past Surgical History Past Surgical History: Yes Neuro Surgical History: No Pertinent History Cardiac: No Pertinent History Respiratory: No Pertinent History Gastrointestinal: Appendectomy, Bowel Surgery, Cholecystectomy, Other Genitourinary: No Pertinent History Musculoskeletal: Orthopedic Surgery Male Surgical History: Vasectomy Other Surgical History: bck,colon removed and illeostomy 2010. shoulder surgery, back surgery - Social History Smoking Status: Never smoker Exposure to second hand smoke: No Drug Use: none Patient Lives Alone: No - Nursing Vital Signs Nursing Vital Signs: Initial Vital Signs Temperature 99.5 F 05/28/20 13:31 Pulse Rate 110 H 05/28/20 13:31 Respiratory Rate 20 05/28/20 13:31 Blood Pressure 120/80 05/28/20 13:31 O2 Sat by Pulse Oximetry 94 L 05/28/20 13:31 Pain Scale Pain Intensity 0 - Physical Exam General Appearance: no apparent distress, alert Eye Exam: PERRL/EOMI, eyes nml inspection ENT Exam: normal ENT inspection, no apparent trauma, hearing grossly normal Neck Exam: normal inspection, supple, full range of motion Respiratory Exam: chest non-tender, wheezing Cardiovascular/Chest Exam: normal heart sounds, regular rate/rhythm Gastrointestinal/Abdominal Exam: soft, non tender, no distention, normal bowel sounds (Ileostomy bag well applied) Extremity Exam: non-tender, normal range of motion, normal inspection, normal capillary refill Neurologic Exam: alert, oriented x 3, cooperative Skin Exam: normal color SpO2 Interpretation: normal SpO2: 94 O2 Delivery: Room Air - Course EKG Interpreted by Me: RATE (101), Sinus Tach, NORMAL AXIS, NORMAL INTERVALS, Right Bundle Branch Block Ordered Tests: Active Orders 24 hr Category Date Time Status Bedrest ROUTINE Activity 05/28/20 17:05 Active Bedrest with BRP/BSC ROUTINE Activity 05/28/20 17:05 Active Odd Ticket Clerk STAT Care 05/28/20 14:22 Completed EKG-ER Only STAT Care 05/28/20 14:22 Completed IV Insertion STAT Care 05/28/20 14:22 Completed Isolation, Initiate & Maintain Q6H Care 05/28/20 17:05 Active POCT Glucose Check ACHS Care 05/28/20 17:[address] in Observation ROUTINE Care 05/28/20 17:05 Active Sequential Compression Device Q6H Care 05/28/20 17:05 Active David Sorenson, Apply ROUTINE Care 05/28/20 17:05 Active Weight,Daily 0600 Care 05/28/20 17:05 Active Consistent Carbohydrate Diet 1800 Calorie Diet 05/28/20 Breakfast Active CHEST 1 VIEW (PORTABLE) Stat Exams 05/28/20 14:22 Taken CBC W DIFF AM.LAB Lab 05/29/20 04:00 Ordered CBC W DIFF Stat Lab 05/28/20 14:57 Completed CMP AM.LAB Lab 05/29/20 04:00 Ordered CMP Stat Lab 05/28/20 14:57 Completed D-DIMER QUANTITATIVE Stat Lab 05/28/20 15:49 Completed Lactic Acid Stat Lab 05/28/20 14:23 Completed NT PRO BNP Stat Lab 05/28/20 14:57 Completed PROTIME WITH INR Stat Lab 05/28/20 14:57 Completed PTT Stat Lab 05/28/20 14:57 Completed TROPONIN Q3H Lab 05/28/20 14:57 Completed TROPONIN Q3H Lab 05/28/20 17:30 Ordered TROPONIN Q3H Lab 05/28/20 20:30 Ordered TROPONIN Q3H Lab 05/28/20 23:30 Ordered TROPONIN Q3H Lab 05/29/20 02:30 Ordered Respiratory Therapy Assessment DAILY RT 05/28/20 14:58 Completed Respiratory Therapy Consult ROUTINE RT 05/28/20 17:05 Active Transfer Order Routine Transfer 05/28/20 Completed Medication Summary Generic Name Dose Route Start Last Admin Trade Name Freq PRN Reason Stop Dose Admin Acetaminophen 650 mg 05/28/20 17:05 Tylenol 325 Mg PO 06/27/20 17:04 Q4H PRN PRN PAIN AND/OR FEVER Albuterol Sulfate 4 puff 05/28/20 19:00 Ventolin Common Canister IH 06/27/20 18:59 QIDRT [facility] Enoxaparin Sodium 40 mg 05/29/20 10:00 Enoxaparin Sodium SQ 06/28/20 09:59 DAILY [facility] Famotidine 20 mg 05/28/20 22:00 Pepcid 20 Mg Vial IV 06/27/20 21:59 Q12HT [facility] Azithromycin 500 mg in 250 mls @ 250 mls/hr 05/29/20 10:00 Zithromax 500 Mg/ 250 Ml Nacl Premix IV 06/28/20 09:59 Q24H10 [facility] Ceftriaxone Sodium/Dextrose 1 g in 50 mls @ 100 mls/hr 05/29/20 10:00 Rocephin 1 Gm-D5w 50 Ml Bag IV 06/28/20 09:59 Q24H10 [facility] Remdesivir 100 mg/ Sodium 100 mls @ 100 mls/hr 05/28/20 17:05 Chloride IV 05/31/20 18:04 Q24H [facility] Insulin Human Lispro 0 unit 05/28/20 17:05 Humalog SQ 06/27/20 17:04 UD PRN HYPERGLYCEMIA Ondansetron HCl 4 mg 05/28/20 17:05 Zofran 4 Mg/2 Ml Vial IV 06/27/20 17:04 Q6H PRN PRN NAUSEA/VOMITING Discontinued Medications Generic Name Dose Route Start Last Admin Trade Name Freq PRN Reason Stop Dose Admin Albuterol Sulfate 4 puff 05/28/20 14:23 05/28/20 14:33 Ventolin Common Canister IH 05/28/20 14:24 4 puff ONCE STA Administration Aspirin 324 mg 05/28/20 14:22 05/28/20 14:58 Baby Aspirin 81 Mg Chew PO 05/28/20 14:23 324 mg STAT ONE Administration Aspirin Confirm 05/28/20 14:57 Baby Aspirin 81 Mg Chew Administered 05/28/20 14:58 Dose 324 mg .ROUTE .STK-MED ONE Dexamethasone Sodium Phosphate 6 mg 05/28/20 15:42 05/28/20 15:58 Decadron 4 Mg Inj IV 05/28/20 15:43 6 mg STAT ONE Administration Dexamethasone Sodium Phosphate Confirm 05/28/20 15:54 Decadron 4 Mg Inj Administered 05/28/20 15:55 Dose 8 mg .ROUTE .STK-MED ONE Azithromycin 500 mg in 250 mls @ 250 mls/hr 05/28/20 15:41 05/28/20 16:36 Zithromax 500 Mg/ 250 Ml Nacl Premix IV 05/28/20 16:40 250 mls/hr STAT STA 250 mls/hr Administration Ceftriaxone Sodium/Dextrose 1 g in 50 mls @ 100 mls/hr 05/28/20 15:41 05/28/20 17:01 Rocephin 1 Gm-D5w 50 Ml Bag IV 05/28/20 16:10 Infused STAT STA Infusion Remdesivir 200 mg/ Sodium 250 mls @ 125 mls/hr 05/28/20 15:43 Chloride IV 05/28/20 17:42 ONCE ONE Ceftriaxone Sodium/Dextrose Confirm 05/28/20 15:55 Rocephin 1 Gm-D5w 50 Ml Bag Administered 05/28/20 15:56 Dose 1 g in 50 mls @ ud IV .STK-MED ONE Azithromycin Confirm 05/28/20 16:35 Zithromax 500 Mg/ 250 Ml Nacl Premix Administered 05/28/20 16:36 Dose 500 mg in 250 mls @ ud IV .STK-MED ONE Lab/Rad Data: Laboratory Result Diagrams 05/28/20 14:57 05/28/20 14:57 Laboratory Results 05/28/20 05/28/20 05/28/20 Range/Units 15:49 14:57 14:57 WBC (4.0-10.5) K/mm3 RBC (4.1-5.6) M/mm3 Hgb (12.5-18.0) gm/dl Hct (42-50) % MCV (78-100) fl MCH (26-32) pg MCHC (32-36) g/dl RDW (11.5-14.0) % Plt Count (150-450) K/mm3 MPV (7.5-11.0) fl Gran % (36.0-66.0) % Eos # (Auto) (0-0.5) Absolute Lymphs (auto) (1.0-4.6) Absolute Monos (auto) (0.0-1.3) Lymphocytes % (24.0-44.0) % Monocytes % (0.0-12.0) % Eosinophils % (0.00-5.0) % Basophils % (0.0-0.4) % Absolute Granulocytes (1.4-6.9) Basophils # (0-0.4) PT 13.8 H (8.83-12.87) SECONDS INR 1.22 (0.8-3.0) APTT 28.2 (24.1-36.1) SECONDS D-Dimer 669 H* (215-500) ng/mL Sodium (137-145) mmol/L Potassium (3.5-5.1) mmol/L Chloride (98-107) mmol/L Carbon Dioxide (22-30) mmol/L Anion Gap (5-15) MEQ/L BUN (9-20) mg/dL Creatinine (0.66-1.25) mg/dL Estimated GFR ML/MIN Glucose (74-106) mg/dL Lactic Acid (0.4-2.0) Calcium (8.4-10.2) mg/dL Total Bilirubin (0.2-1.3) mg/dL AST (17-59) U/L ALT (0-50) U/L Alkaline Phosphatase (38-126) U/L Troponin I < 0.012 (0.000-0.034) ng/mL NT-Pro-B Natriuret Pep (0-450) pg/mL Serum Total Protein (6.3-8.2) g/dL Albumin (3.5-5.0) g/dL 05/28/20 05/28/20 05/28/20 Range/Units 14:57 14:57 14:23 WBC 6.2 (4.0-10.5) K/mm3 RBC 4.45 (4.1-5.6) M/mm3 Hgb 13.2 (12.5-18.0) gm/dl Hct 40.1 L (42-50) % MCV 90.1 (78-100) fl MCH 29.7 (26-32) pg MCHC 32.9 (32-36) g/dl RDW 13.0 (11.5-14.0) % Plt Count 155 (150-450) K/mm3 MPV 10.8 (7.5-11.0) fl Gran % 83.9 H (36.0-66.0) % Eos # (Auto) 0.01 (0-0.5) Absolute Lymphs (auto) 0.63 L (1.0-4.6) Absolute Monos (auto) 0.36 (0.0-1.3) Lymphocytes % 10.1 L (24.0-44.0) % Monocytes % 5.8 (0.0-12.0) % Eosinophils % 0.2 (0.00-5.0) % Basophils % 0.0 (0.0-0.4) % Absolute Granulocytes 5.22 (1.4-6.9) Basophils # 0 (0-0.4) PT (8.83-12.87) SECONDS INR (0.8-3.0) APTT (24.1-36.1) SECONDS D-Dimer (215-500) ng/mL Sodium 134 L (137-145) mmol/L Potassium 4.2 (3.5-5.1) mmol/L Chloride 99 (98-107) mmol/L Carbon Dioxide 26 (22-30) mmol/L Anion Gap 12.6 (5-15) MEQ/L BUN 14 (9-20) mg/dL Creatinine 1.32 H (0.66-1.25) mg/dL Estimated GFR > 60.0 ML/MIN Glucose 243 H (74-106) mg/dL Lactic Acid 2.4 H (0.4-2.0) Calcium 10.0 (8.4-10.2) mg/dL Total Bilirubin 0.90 (0.2-1.3) mg/dL AST 29 (17-59) U/L ALT 26 (0-50) U/L Alkaline Phosphatase 79 (38-126) U/L Troponin I (0.000-0.034) ng/mL NT-Pro-B Natriuret Pep 157 (0-450) pg/mL Serum Total Protein 7.7 (6.3-8.2) g/dL Albumin 4.0 (3.5-5.0) g/dL - Progress Progress: unchanged Progress Note: 05/28/20 39 years old is evaluated for fever chills with positive COVID-19 in last 2 weeks and having some shortness of breath/chest pressure. Is given inhaler here, work-up showed bilateral pneumonia. Started on antibiotics along with remdesivir and steroids. Has normal white count with a lactate of 2.4. Patient's oxygen saturation on room air at resting is dropping to 90%. I believe patient would benefit with supplemental oxygen along with above kel tment inpatient. Discussed with Dr. Hughes and patient is admitted. Discussed with Dr.: Other (Heather) Counseled pt/family regarding: lab results, diagnosis, rad results - Departure Departure Disposition: Observation Clinical Impression: COVID-19 Pneumonia Qualifiers: Pneumonia type: due to unspecified organism Laterality: bilateral Lung location: lower lobe of lung Qualified Code(s): J18.9 - Pneumonia, unspecified organism Condition: Stable Critical Care Time: No
[2020-05-28] MEDS ORDERED: BABY ASPIRIN 81 MG CHEW ONE (14:57)
[2020-05-28 14:58] LABS: Absolute Neutrophil Ct (ANC) 5.22 (1.4-6.9); Basophil (Absolute #) 0 (0-0.4); Eosinophil % 0.2 % (0.00-5.0); Eosinophil (Absolute #) 0.01 (0-0.5); Hematocrit 40.1 % (42-50); Hemoglobin 13.2 gm/dl (12.5-18.0); Lymphocyte (Absolute #) 0.63 (1.0-4.6); Lymphocytes % 10.1 % (24.0-44.0); Mean Cell Volume 90.1 fl (78-100); Mean Corpuscular Hemoglobin 29.7 pg (26-32); Mean Corpuscular Hgb Concent. 32.9 g/dl (32-36); Mean Platelet Volume 10.8 fl (7.5-11.0); Monocyte (Absolute #) 0.36 (0.0-1.3); Monocytes % 5.8 % (0.0-12.0); Neutrophil % 83.9 % (36.0-66.0); Platelet Count 155 K/mm3 (150-450); Red Blood Count 4.45 M/mm3 (4.1-5.6); White Blood Count 6.2 K/mm3 (4.0-10.5)
[2020-05-28 15:13] LABS: INR 1.22 (0.8-3.0); PROTIME 13.8 SECONDS (8.83-12.87)
[2020-05-28 15:16] LABS: PTT 28.2 SECONDS (24.1-36.1)
[2020-05-28 15:27] LABS: ALKALINE PHOSPHATASE 79 U/L (38-126); ANION GAP 12.6 MEQ/L (5-15); BLOOD UREA NITROGEN 14 mg/dL (9-20); CHLORIDE 99 mmol/L (98-107); Carbon Dioxide 26 mmol/L (22-30); Creatinine 1 1.32 mg/dL (0.66-1.25); EST GLOMERULAR FILTRATION RATE > 60.0 ML/MIN; Glucose 243 mg/dL (74-106); NT PRO BNP 157 pg/mL (0-450); Potassium 4.2 mmol/L (3.5-5.1); SGOT/AST 29 U/L (17-59); SGPT/ALT 26 U/L (0-50); SODIUM 134 mmol/L (137-145); Total Protein 7.7 g/dL (6.3-8.2)
[2020-05-28] MEDS ORDERED: Zithromax 500 MG/ 250 ML NaCl Premix 500 MG/250 ML IVPB IV STA (15:41)
[2020-05-28] MEDS ORDERED: ROCEPHIN 1 Gm-D5w 50 ml Bag** 1 G/50 ML IVPB IV STA (15:41)
[2020-05-28] MEDS ORDERED: Decadron 4 MG INJ IV ONE (15:42)
[2020-05-28] MEDS ORDERED: REMDESIVIR 200 MG in Sodium Chloride 0.9% 250 ML 250 ML IV ONE ×2 (15:43→18:00)
[2020-05-28] MEDS ORDERED: Decadron 4 MG INJ ONE (15:54)
[2020-05-28] MEDS ORDERED: ROCEPHIN 1 Gm-D5w 50 ml Bag** 1 G/50 ML IVPB IV ONE (15:55)
[2020-05-28] MEDS ORDERED: Zithromax 500 MG/ 250 ML NaCl Premix 500 MG/250 ML IVPB IV ONE (16:35)
[2020-05-28] MEDS ORDERED: Zofran 4 MG/2 ML VIAL IV PRN (17:05)
[2020-05-28] MEDS ORDERED: REMDESIVIR 100 MG in Sodium Chloride 0.9% 100 ML IVPB 100 ML IV SCH (17:05)
[2020-05-28] MEDS ORDERED: TYLENOL 325 MG PO PRN (17:05)
--- NOTE | 2020-05-28 18:31 | XRAY ---
Indication: Short of breath. Comparison: July 02, 2018. Portable chest less inflated with new subtle mid to lower lung infiltrate versus atelectasis bilaterally. Remaining heart and lungs unremarkable. Bony thorax intact again with minimal degenerative changes.
[2020-05-28] MEDS ORDERED: VENTOLIN COMMON CANISTER IH SCH (19:00)
[2020-05-28] MEDS ORDERED: Ativan 1 MG PO PRN (19:16)
[2020-05-28] MEDS ORDERED: VENTOLIN COMMON CANISTER IH PRN (21:02)
[2020-05-28] MEDS: ENOXAPARIN SODIUM SQ SCH (21:04)
[2020-05-28] MEDS: Decadron 4 MG INJ IV SCH (21:05)
[2020-05-28] MEDS: HUMALOG SQ PRN (21:05)
[2020-05-28] MEDS: Pepcid 20 MG VIAL IV SCH (21:05)
[2020-05-29 06:47] LABS: Absolute Neutrophil Ct (ANC) 2.96 (1.4-6.9); BASOPHIL % 0.3 % (0.0-0.4); Basophil (Absolute #) 0.01 (0-0.4); Eosinophil (Absolute #) 0 (0-0.5); Hematocrit 37.3 % (42-50); Hemoglobin 12.4 gm/dl (12.5-18.0); Lymphocyte (Absolute #) 0.35 (1.0-4.6); Lymphocytes % 9.9 % (24.0-44.0); Mean Cell Volume 89.2 fl (78-100); Mean Corpuscular Hemoglobin 29.7 pg (26-32); Mean Corpuscular Hgb Concent. 33.2 g/dl (32-36); Monocytes % 5.7 % (0.0-12.0); Neutrophil % 84.1 % (36.0-66.0); Platelet Count 143 K/mm3 (150-450); Red Blood Count 4.18 M/mm3 (4.1-5.6); Red Cell Distribution Width 12.7 % (11.5-14.0); White Blood Count 3.5 K/mm3 (4.0-10.5)
[2020-05-29 06:53] LABS: INR 1.17 (0.8-3.0); PROTIME 13.2 SECONDS (8.83-12.87)
[2020-05-29 06:56] LABS: ALBUMIN 3.7 g/dL (3.5-5.0); ALKALINE PHOSPHATASE 74 U/L (38-126); ANION GAP 11.8 MEQ/L (5-15); BLOOD UREA NITROGEN 20 mg/dL (9-20); CHLORIDE 103 mmol/L (98-107); Calcium 9.8 mg/dL (8.4-10.2); Carbon Dioxide 25 mmol/L (22-30); Creatinine 1 1.01 mg/dL (0.66-1.25); EST GLOMERULAR FILTRATION RATE > 60.0 ML/MIN; Glucose 357 mg/dL (74-106); SGOT/AST 23 U/L (17-59); SGPT/ALT 22 U/L (0-50); SODIUM 134 mmol/L (137-145); Total Protein 7.1 g/dL (6.3-8.2)
[2020-05-29] MEDS: HUMALOG SQ PRN (07:59)
[2020-05-29] MEDS: ENOXAPARIN SODIUM SQ SCH (09:47)
[2020-05-29] MEDS: Decadron 4 MG INJ IV SCH (09:47)
[2020-05-29] MEDS: Pepcid 20 MG VIAL IV SCH (09:48)
[2020-05-29] MEDS ORDERED: ROCEPHIN 1 Gm-D5w 50 ml Bag** 1 G/50 ML IVPB IV SCH (10:00)
[2020-05-29] MEDS ORDERED: Avapro 150 MG PO SCH (10:00)
[2020-05-29] MEDS ORDERED: Toprol Xl 100 MG PO SCH (10:00)
[2020-05-29] MEDS ORDERED: Toprol-Xl 25MG Tablets PO SCH (10:00)
[2020-05-29] MEDS ORDERED: ZYLOPRIM 300 MG PO SCH (10:00)
[2020-05-29] MEDS ORDERED: Zithromax 500 MG/ 250 ML NaCl Premix 500 MG/250 ML IVPB IV SCH (10:00)
[2020-05-29] MEDS ORDERED: NORVASC 5 MG PO SCH (10:00)
[2020-05-29] MEDS ORDERED: CLARITIN 10 MG PO SCH (10:00)
[2020-05-29] MEDS ORDERED: Singulair 10 MG PO SCH (10:00)
[2020-05-29 11:34] LABS: Slide Review 1 YES
[2020-05-29 11:51] VITALS: BP 147/93; PULSE 70; O2SAT 90
[2020-05-29] MEDS ORDERED: REMDESIVIR 100 MG in Sodium Chloride 0.9% 100 ML IVPB 100 ML IV SCH (18:00)
--- NOTE | 2020-05-30 14:38 | SSS ---
DISCHARGE DIAGNOSES: 1) COVID. 2) COVID PNEUMONIA. 3) COLOSTOMY SECONDARY TO BACTERIAL INFECTION OF THE COLON WITH CLOSTRIDIUM DIFFICILE. 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 He is a 39 year old white male who has been symptomatic for several days and today he felt like he could not get his breath. His who works at the [employer] also has this. He has history of diabetes mellitus though he does not take medicines he states at this time. He has a colostomy which he said after a year of fighting Clostridium difficile they took his colon out and he has done okay since then. Other hospitalizations unrelated to his colon. MEDICATIONS: Allopurinol 300 q.d., Norvasc 5 q.d., Singulair 10 q.d., metoprolol XL 100 q.d., Avapro 150 q.d., loratadine 10 q.d. ALLERGIES: CIPRO. ANESTHETICS AMIDE TYPE GIVES HIM HIVES. PAST MEDICAL HISTORY: He had some renal insufficiency at one time. PAST SURGICAL HISTORY: He has had his gallbladder out. Cataract removal. He had a lumbar spine discectomy in 2011. REVIEW OF SYSTEMS: CONSTITUTIONAL: Symptoms of fevers, chills, fatigue, malaise, nausea, weakness. HEENT: No problems hearing or seeing. No sore throat. CHEST: Frequent cough nonproductive, feels like he is wheezing, feels like his chest is heavy and cannot get his breath today. SKIN: No problems. MUSCULOSKELETAL: Myalgia. NEUROLOGIC: No weakness. No tingling. PHYSICAL EXAMINATION: The patient is a normal size and appearing 39 year old white male, 6 foot tall, 102 kg. VITAL SIGNS: Temperature 99.5F, pulse 110, respirations 20. O2 saturation 94% however it later dropped to the upper 80's while sleeping. HEENT: Pupils equal and reactive to light. NECK: Supple without adenopathy. CHEST: Clear. CVS: No murmurs or gallops. ABDOMEN: Soft. Colostomy noted. Abdomen otherwise normal. EXTREMITIES: No cyanosis or edema. LAB DATA AND TESTS: The patient's electrolytes: Sodium 135, glucose 357. The D-dimer was normal at 481. White count 3.5. IMPRESSION: 1) COVID pneumonia. 2) Diabetes mellitus poorly treated. 3) Hypertension. 4) History of back pain. 5) History of colon resection for Clostridium difficile. PLAN: Oxygen, Decadron, Remdesivir. HOSPITAL COURSE: Prognosis is very good in view of the low D-dimer and the fact that he has had this for a while. In fact, the next day the patient was up, feeling good. His O2 saturation at sitting and on ambulation was 90%. He is much improved. No aching. He can eat okay. PLAN: Discharge on his home medications plus prednisone 20 x10, 20 x5, 10 x10, see Dr. Hazel in several days before he returns to work. PROGNOSIS: Good.
== END 2020-05-29 12:22 | disposition home or self-care (01) ==
LOC: ED 13:30 → MED SURG 17:04
PROVIDERS: ADMIT Family Medicine; ATTEND Family Medicine
DX: U07.1 COVID-19 (principal); J12.89 Other viral pneumonia; Z93.3 Colostomy status; Z79.899 Other long term (current) drug therapy; E11.65 Type 2 diabetes mellitus with hyperglycemia; I10 Essential (primary) hypertension
CPT/HCPCS: 36000; 36415; 71045; 80053; 82947; 83036; 83605; 83880; 84484; 85025; 85379; 85610; 85730; 93005; 93041; 93268; 94640; 94762; 96365; 96374; 99285; G0378; J0456; J0696; J1100; J1650; J1817; A9270-GY

== ENCOUNTER 2022-07-05 12:29 | Emergency (ER) | payer BC, SELFPAY ==
[2022-07-05] MEDS ORDERED: Zofran 4 MG/2 ML VIAL IV ONE (12:44)
[2022-07-05] MEDS ORDERED: Zofran 4 MG/2 ML VIAL ONE (12:44)
[2022-07-05] MEDS ORDERED: PROTONIX 40 MG IV IV ONE ×2 (13:20→13:28)
[2022-07-05] MEDS ORDERED: Sodium Chloride 0.9% 1000 ML 1,000 ML IV STA (13:20)
[2022-07-05] MEDS ORDERED: Sodium Chloride 0.9% 100 ML IV ONE (13:21)
[2022-07-05 13:25] LABS: Absolute Neutrophil Ct (ANC) 12.38 x10^3/uL (1.4-6.9); Basophil (Absolute #) 0.05 x10^3/uL (0-0.4); Eosinophil % 0.7 % (0.00-5.0); Hematocrit 37.9 % (42-50); Hemoglobin 10.3 g/dL (12.5-18.0); Lymphocyte (Absolute #) 0.52 x10^3/uL (1.0-4.6); Lymphocytes % 3.7 % (24.0-44.0); Mean Cell Volume 73.3 fL (78-100); Mean Corpuscular Hemoglobin 19.9 pg (26-32); Mean Corpuscular Hgb Concent. 27.2 g/dL (32-36); Mean Platelet Volume 10.5 fL (7.5-11.0); Monocyte (Absolute #) 1.03 x10^3/uL (0.0-1.3); Monocytes % 7.3 % (0.0-12.0); Neutrophil % 87.6 % (36.0-66.0); Platelet Count 310 x10^3/uL (150-450); Red Blood Count 5.17 x10^6/uL (4.1-5.6); Red Cell Distribution Width 16.1 % (11.5-14.0); White Blood Count 14.1 x10^3/uL (4.0-10.5)
[2022-07-05] MEDS ORDERED: Sodium Chloride 0.9% 1000 ML 0 ML ONE (13:28)
[2022-07-05] MEDS ORDERED: Sodium Chloride 0.9% 1000 ML 1,000 ML ONE (13:40)
[2022-07-05 14:01] LABS: ISTAT K 4.3 mmol/L (3.5-4.9)
[2022-07-05 14:02] LABS: ISTAT CREA 1.7 mg/dL (0.6-1.3)
[2022-07-05 14:31] LABS: Slide Review 1 YES
[2022-07-05 14:48] LABS: ADD URINE CULTURE? NO (NO); Appearance Clear (Clear); Bacteria None Seen /HPF (None Seen); Bilirubin Negative (Negative); Blood Negative (Negative); Epithelial Cells None Seen /HPF (None Seen); Glucose, Urine Negative (Negative); Ketones Negative (Negative); Leukocyte Esterase Negative (Negative); Nitrite Negative (Negative); Protein,Urine Dip 30 (Negative); RBC 0-2 /HPF (0-5); Specific Gravity 1.015 (1.005-1.030); Urobilinogen 0.2 mg/dL (0.2); WBC 0-2 /HPF (0-5)
--- NOTE | 2022-07-05 14:55 | XRAY ---
Indication: Abdomen pain, nausea, and vomiting. Multiple contiguous axial images obtained through the abdomen and pelvis without contrast. Comparison: April 21, 2019 Lung bases clear of infiltrate and effusion. Heart not enlarged. New small hiatal hernia. Noncontrasted stomach and bowel loops nonobstructed with stable right lower quadrant colostomy. Again cholecystectomy and 15 cm splenomegaly. No free fluid/air. Right mid ureter again demonstrates micro-calculus approximately L4 level unchanged in position today measuring 6 mm, previously 4 mm. Proximal right ureter is slightly prominent along with mild hydronephrosis consistent with obstructive uropathy. Right kidney is now mildly atrophic presumed secondary to chronic obstructive uropathy. Stable nonobstructing left renal punctate calculus. Remaining liver, pancreas, spleen, adrenal glands, kidneys, ureters, bladder, and aorta are unremarkable for noncontrast exam. Osseous structures intact with minimal degenerative changes throughout the thoracolumbar spine. Impression: 1. Minimally enlarging 6 mm chronic right mid ureter calculus producing partial obstruction. Right kidney is slightly smaller compared to contralateral kidney presumed from chronic obstructive uropathy. Stable nonobstructing left renal punctate calculus. 2. New small hiatal hernia. 3. Again chronic findings including splenomegaly, right lower quadrant colostomy, and multilevel degenerative spondylosis.
[2022-07-05 15:47] LABS: INFLUENZA A NEGATIVE (NEGATIVE); INFLUENZA B NEGATIVE (NEGATIVE); RESPIRATORY SYNCTIAL VIRUS NEGATIVE (Negative); SARS-CoV-2 Xpert Express NEGATIVE (NEGATIVE)
[2022-07-05 17:22] VITALS: PULSE 87
--- NOTE | 2022-07-05 17:40 | ERPHSYRPT ---
- History of Present Illness Time Seen by Provider: 07/05/22 12:46 Historian: patient, family Exam Limitations: no limitations Patient Subjective Stated Complaint: Diarrhea Triage Nursing Assessment: Patient brought into ED per EMS and transferred to bed with assist of 3. Patient A+O X 3. Patient's skin pale, warm and dry. Patient states prior to coming to ED he emptied his colostomy 3 times with liquid drainage. Patient weak and had a passed out while standing up to empty his colostomy. Patient denies pain or discomfort. Physician History: 42 years old male with history of colectomy with permanent ileostomy, GERD presented in the ER with chief complaint of increased ostomy output since morning. Patient report he had to empty colostomy bag 2-3 times in the last couple of hours with epigastric area of burning sensation extending retrosternally. Patient is supposed to be on omeprazole but has not been taking it by mistake for the last couple of weeks. Has nausea but no vomiting. No chest pain otherwise. No difficulty breathing. Patient was feeling weak fatigued tired and almost passed out couple of times after these increased ostomy output episodes. No fever chills or sick contact reported. Currently patient is not in any discomfort or pain. Does have history of kidney stones. Timing/Duration: today, sudden Quality: burning, cramping Abdominal Pain Onset Location: epigastric Pain Radiation: no radiation Severity of Pain-Max: moderate Severity of Pain-Current: none Modifying Factors: Improves With: nothing Previous symptoms: no prior history Allergies/Adverse Reactions: Anesthetics - Amide Type - Select A [Anesthetics - Amide Type] Allergy (Intermediate, Verified 07/05/22 12:32) Hives ciprofloxacin [From Cipro] Adverse Reaction (Verified 07/05/22 12:32) ciprofloxacin HCl [From Cipro] Adverse Reaction (Verified 07/05/22 12:32) Hives Home Medications: Allopurinol 300 mg [Zyloprim 300 mg] 300 mg PO DAILY 03/15/14 [History] Amlodipine Besylate 5 mg [Norvasc 5 mg] 10 mg PO DAILY 03/15/14 [History] Montelukast Sodium 10 mg [Singulair 10 MG] 10 mg PO DAILY 06/18/17 [History] Metoprolol Succinate [Toprol Xl] 100 mg PO DAILY 09/05/17 [History] Irbesartan 150 mg [Avapro 150 MG] 300 mg PO DAILY 06/20/18 [History] Glimepiride 4 mg [Amaryl 4 mg] 1 tab PO BID 07/05/22 [History] Omeprazole 1 tab PO DAILY 07/05/22 [History] Pioglitazone HCl [Actos] 1 tab PO DAILY 07/05/22 [History] Tamsulosin HCl 0.4 mg [Flomax 0.4 MG] 1 tab PO DAILY 07/05/22 [History] Hx Tetanus, Diphtheria Vaccination/Date Given: Yes Hx Influenza Vaccination/Date Given: Yes Hx Pneumococcal Vaccination/Date Given: Yes Immunizations Up to Date: Yes Travel Risk - International Travel Have you traveled outside of the country in past 3 weeks: No - Coronavirus Screening Are you exhibiting any of the following symptoms?: No Close contact with a COVID-19 positive Pt in past 14-21 Days: No - Vaccine Status Have you recieved a Covid-19 vaccination: Yes 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: [email or web address] - Vaccination Dates Date of 2cond Vaccination (if applicable): na - Review of Systems Constitutional: Fatigue, Weakness Eyes: No Symptoms Ears, Nose, & Throat: No Symptoms Respiratory: No Symptoms Cardiac: No Symptoms Abdominal/Gastrointestinal: Abdominal Pain, Nausea, Diarrhea Genitourinary Symptoms: No Symptoms Musculoskeletal: Myalgias Skin: No Symptoms Neurological: No Symptoms Psychological: No Symptoms Endocrine: No Symptoms Hematologic/Lymphatic: No Symptoms Immunological/Allergic: No Symptoms - Past Medical History Pertinent Past Medical History: Yes Neurological History: No Pertinent History ENT History: Cataracts Cardiac History: Hypertension Respiratory History: No Pertinent History Endocrine Medical History: Diabetes Type II Musculoskeletal History: Other GI Medical History: Colitis, Gallbladder Disease, Other History: Renal Disease Psycho-Social History: No Pertinent History Male Reproductive Disorders: No Pertinent History Other Medical History: L-SPINE DISCECTOMY 2011. HX NECK ISSUES - Past Surgical History Past Surgical History: Yes Neuro Surgical History: No Pertinent History Cardiac: No Pertinent History Respiratory: No Pertinent History Gastrointestinal: Appendectomy, Bowel Surgery, Cholecystectomy, Other Genitourinary: No Pertinent History Musculoskeletal: Orthopedic Surgery Male Surgical History: Vasectomy Other Surgical History: bck,colon removed and illeostomy 2009. shoulder surgery, back surgery - Social History Smoking Status: Never smoker Exposure to second hand smoke: No Drug Use: none Patient Lives Alone: No - Nursing Vital Signs Nursing Vital Signs: Initial Vital Signs Temperature 98.2 F 07/05/22 12:33 Pulse Rate 86 07/05/22 12:33 Respiratory Rate 18 07/05/22 12:33 Blood Pressure 125/72 07/05/22 12:33 O2 Sat by Pulse Oximetry 100 07/05/22 12:33 Pain Scale Pain Intensity 0 - Physical Exam General Appearance: no apparent distress, alert Eye Exam: PERRL/EOMI Ears, Nose, Throat Exam: normal ENT inspection Neck Exam: normal inspection, non-tender, supple, full range of motion Respiratory Exam: normal breath sounds, lungs clear Cardiovascular Exam: regular rate/rhythm, normal heart sounds Gastrointestinal/Abdomen Exam: soft, normal bowel sounds, tenderness, other (Ostomy bag well applied) Extremity Exam: normal inspection (Minimal epigastric tenderness), normal range of motion Neurologic Exam: alert, oriented x 3, cooperative, 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 tested, sensation nml, No motor deficits Skin Exam: normal color SpO2 Interpretation: normal SpO2: 98 O2 Delivery: Room Air - Course EKG Interpreted by Me: RATE (89), Sinus Rhythm, NORMAL AXIS, NORMAL INTERVALS, NORMAL QRS Ordered Tests: Active Orders 24 hr Category Date Time Status EKG-ER Only STAT Care 07/05/22 15:11 Active IV Insertion STAT Care 07/05/22 13:20 Active NPO (ED) STAT Care 07/05/22 13:20 Active ABDOMEN AND PELVIS W/0 CONTRAS [CT] Stat Exams 07/05/22 13:21 Completed AMYLASE Stat Lab 07/05/22 13:10 Results CBC W DIFF Stat Lab 07/05/22 13:10 Completed LIPASE Stat Lab 07/05/22 13:10 Results Lactic Acid Stat Lab 07/05/22 13:20 Completed TROPONIN Q4H Lab 07/05/22 15:38 Received TROPONIN Q4H Lab 07/05/22 21:30 Ordered TROPONIN Stat Lab 07/05/22 12:55 Received UA W/RFX UR CULTURE Stat Lab 07/05/22 14:32 Completed Medication Summary Discontinued Medications Generic Name Dose Route Start Last Admin Trade Name Freq PRN Reason Stop Dose Admin Sodium Chloride 1,000 mls @ 999 mls/hr 07/05/22 13:20 07/05/22 14:38 Sodium Chloride 0.9% 1000 Ml IV 07/05/22 14:20 Infused .Q1H1M STA Infusion Sodium Chloride 100 mls @ 100 mls/hr 07/05/22 13:21 07/05/22 13:40 Sodium Chloride 0.9% IV 07/05/22 14:20 Not Given .Q1H ONE Sodium Chloride Confirm 07/05/22 13:28 Sodium Chloride 0.9% 1000 Ml Administered 07/05/22 13:29 Dose 1,000 mls @ ud .ROUTE .STK-MED ONE Sodium Chloride Confirm 07/05/22 13:40 Sodium Chloride 0.9% 1000 Ml Administered 07/05/22 13:41 Dose 1,000 mls @ ud .ROUTE .STK-MED ONE Ondansetron HCl 4 mg 07/05/22 12:44 07/05/22 12:51 Ondansetron Hcl 4 Mg/2 Ml Vial IV 07/05/22 12:45 4 mg STAT ONE Administration Ondansetron HCl Confirm 07/05/22 12:44 Ondansetron Hcl 4 Mg/2 Ml Vial Administered 07/05/22 12:45 Dose 4 mg .ROUTE .STK-MED ONE Pantoprazole Sodium 40 mg 07/05/22 13:20 07/05/22 13:31 Pantoprazole 40 Mg Vial IV 07/05/22 13:21 40 mg STAT ONE Administration Pantoprazole Sodium Confirm 07/05/22 13:28 Pantoprazole 40 Mg Vial Administered 07/05/22 13:29 Dose 40 mg IV .STK-MED ONE Lab/Rad Data: Laboratory Result Diagrams 07/05/22 13:10 07/05/22 13:10 Laboratory Results 07/05/22 07/05/22 07/05/22 Range/Units 15:38 14:32 13:20 WBC (4.0-10.5) x10^3/uL RBC (4.1-5.6) x10^6/uL Hgb (12.5-18.0) g/dL Hct (42-50) % MCV (78-100) fL MCH (26-32) pg MCHC (32-36) g/dL RDW (11.5-14.0) % Plt Count (150-450) x10^3/uL MPV (7.5-11.0) fL Gran % (36.0-66.0) % Immature Gran % (Auto) (0.00-0.4) % Nucleat RBC Rel Count (0.00-0.1) % Eos # (Auto) (0-0.5) x10^3/uL Immature Gran # (Auto) (0.00-0.03) x10^3u/L Absolute Lymphs (auto) (1.0-4.6) x10^3/uL Absolute Monos (auto) (0.0-1.3) x10^3/uL Absolute Nucleated RBC (0.00-0.01) x10^3u/L Lymphocytes % (24.0-44.0) % Monocytes % (0.0-12.0) % Eosinophils % (0.00-5.0) % Basophils % (0.0-0.4) % Absolute Granulocytes (1.4-6.9) x10^3/uL Basophils # (0-0.4) x10^3/uL Sodium Direct (138-146) mmol/L Potassium (3.5-4.9) mmol/L Chloride (98-109) mmol/L Carbon Dioxide (24-29) mmol/L Venous BUN (8-26) mg/dL Creatinine (0.6-1.3) mg/dL Glucose (70-105) mg/dL Lactic Acid 2.1 H (0.4-2.0) Ionized Calcium (1.12-1.32) mmol/L Troponin (0.00-0.03) ng/mL Troponin I (0.000-0.034) ng/mL Amylase (30-110) U/L Lipase (23-300) U/L Urine Color Yellow (Yellow) Urine Appearance Clear (Clear) Urine pH 5.0 (4.6-8.0) Ur Specific [place] 1.015 (1.005-1.030) Urine Protein 30 (Negative) Urine Glucose (UA) Negative (Negative) mg/dL Urine Ketones Negative (Negative) Urine Blood Negative (Negative) Urine Nitrite Negative (Negative) Urine Bilirubin Negative (Negative) Urine Urobilinogen 0.2 (0.2) mg/dL Ur Leukocyte Esterase Negative (Negative) U Hyaline Cast (Auto) 6-10 A (0-2) /LPF Urine Microscopic RBC 0-2 (0-5) /HPF Urine Microscopic WBC 0-2 (0-5) /HPF Ur Epithelial Cells None Seen (None Seen) /HPF Urine Bacteria None Seen (None Seen) /HPF Urine Culture Reflexed NO (NO) Influenza Type A Ag (NEGATIVE) Influenza Type B Ag (NEGATIVE) RSV (PCR) (Negative) SARS-CoV-2 (PCR) (NEGATIVE) Slides for Path Review 07/05/22 07/05/22 07/05/22 Range/Units 13:10 13:10 13:10 WBC 14.1 H (4.0-10.5) x10^3/uL RBC 5.17 (4.1-5.6) x10^6/uL Hgb 10.3 L (12.5-18.0) g/dL Hct 37.9 L (42-50) % MCV 73.3 L (78-100) fL MCH 19.9 L (26-32) pg MCHC 27.2 L (32-36) g/dL RDW 16.1 H (11.5-14.0) % Plt Count 310 (150-450) x10^3/uL MPV 10.5 (7.5-11.0) fL Gran % 87.6 H (36.0-66.0) % Immature Gran % (Auto) 0.3 (0.00-0.4) % Nucleat RBC Rel Count 0.0 (0.00-0.1) % Eos # (Auto) 0.10 (0-0.5) x10^3/uL Immature Gran # (Auto) 0.04 H (0.00-0.03) x10^3u/L Absolute Lymphs (auto) 0.52 L (1.0-4.6) x10^3/uL Absolute Monos (auto) 1.03 (0.0-1.3) x10^3/uL Absolute Nucleated RBC 0.00 (0.00-0.01) x10^3u/L Lymphocytes % 3.7 L (24.0-44.0) % Monocytes % 7.3 (0.0-12.0) % Eosinophils % 0.7 (0.00-5.0) % Basophils % 0.4 (0.0-0.4) % Absolute Granulocytes 12.38 H (1.4-6.9) x10^3/uL Basophils # 0.05 (0-0.4) x10^3/uL Sodium Direct 140 (138-146) mmol/L Potassium 4.3 (3.5-4.9) mmol/L Chloride 112 H (98-109) mmol/L Carbon Dioxide 19 L (24-29) mmol/L Venous BUN 19 (8-26) mg/dL Creatinine 1.7 H (0.6-1.3) mg/dL Glucose 138 H (70-105) mg/dL Lactic Acid (0.4-2.0) Ionized Calcium 1.26 (1.12-1.32) mmol/L Troponin 0.05 H (0.00-0.03) ng/mL Troponin I (0.000-0.034) ng/mL Amylase (30-110) U/L Lipase (23-300) U/L Urine Color (Yellow) Urine Appearance (Clear) Urine pH (4.6-8.0) Ur Specific [place] (1.005-1.030) Urine Protein (Negative) Urine Glucose (UA) (Negative) mg/dL Urine Ketones (Negative) Urine Blood (Negative) Urine Nitrite (Negative) Urine Bilirubin (Negative) Urine Urobilinogen (0.2) mg/dL Ur Leukocyte Esterase (Negative) U Hyaline Cast (Auto) (0-2) /LPF Urine Microscopic RBC (0-5) /HPF Urine Microscopic WBC (0-5) /HPF Ur Epithelial Cells (None Seen) /HPF Urine Bacteria (None Seen) /HPF Urine Culture Reflexed (NO) Influenza Type A Ag (NEGATIVE) Influenza Type B Ag (NEGATIVE) RSV (PCR) (Negative) SARS-CoV-2 (PCR) (NEGATIVE) Slides for Path Review YES 07/05/22 Range/Units 12:50 WBC (4.0-10.5) x10^3/uL RBC (4.1-5.6) x10^6/uL Hgb (12.5-18.0) g/dL Hct (42-50) % MCV (78-100) fL MCH (26-32) pg MCHC (32-36) g/dL RDW (11.5-14.0) % Plt Count (150-450) x10^3/uL MPV (7.5-11.0) fL Gran % (36.0-66.0) % Immature Gran % (Auto) (0.00-0.4) % Nucleat RBC Rel Count (0.00-0.1) % Eos # (Auto) (0-0.5) x10^3/uL Immature Gran # (Auto) (0.00-0.03) x10^3u/L Absolute Lymphs (auto) (1.0-4.6) x10^3/uL Absolute Monos (auto) (0.0-1.3) x10^3/uL Absolute Nucleated RBC (0.00-0.01) x10^3u/L Lymphocytes % (24.0-44.0) % Monocytes % (0.0-12.0) % Eosinophils % (0.00-5.0) % Basophils % (0.0-0.4) % Absolute Granulocytes (1.4-6.9) x10^3/uL Basophils # (0-0.4) x10^3/uL Sodium Direct (138-146) mmol/L Potassium (3.5-4.9) mmol/L Chloride (98-109) mmol/L Carbon Dioxide (24-29) mmol/L Venous BUN (8-26) mg/dL Creatinine (0.6-1.3) mg/dL Glucose (70-105) mg/dL Lactic Acid (0.4-2.0) Ionized Calcium (1.12-1.32) mmol/L Troponin (0.00-0.03) ng/mL Troponin I (0.000-0.034) ng/mL Amylase (30-110) U/L Lipase (23-300) U/L Urine Color (Yellow) Urine Appearance (Clear) Urine pH (4.6-8.0) Ur Specific [place] (1.005-1.030) Urine Protein (Negative) Urine Glucose (UA) (Negative) mg/dL Urine Ketones (Negative) Urine Blood (Negative) Urine Nitrite (Negative) Urine Bilirubin (Negative) Urine Urobilinogen (0.2) mg/dL Ur Leukocyte Esterase (Negative) U Hyaline Cast (Auto) (0-2) /LPF Urine Microscopic RBC (0-5) /HPF Urine Microscopic WBC (0-5) /HPF Ur Epithelial Cells (None Seen) /HPF Urine Bacteria (None Seen) /HPF Urine Culture Reflexed (NO) Influenza Type A Ag NEGATIVE (NEGATIVE) Influenza Type B Ag NEGATIVE (NEGATIVE) RSV (PCR) NEGATIVE (Negative) SARS-CoV-2 (PCR) NEGATIVE (NEGATIVE) Slides for Path Review - Progress Progress: improved, re-examined Progress Note: 07/05/22 18:43 42 years old with history of permanent ileostomy presented with increasing ileostomy output for the last couple of hours with upper abdominal pain. Patient is supposed to be on omeprazole but has not been taking by mistake for the last couple of weeks. EKG showed sinus rhythm with no acute ischemic changes. Patient has a white count of 14, chemistry profile showed a creatinine of 1.7, no recent creatinine available in the 2 years but in the past it has been up to 1.5. It is possible patient has some DUNCAN. He received 2 L fluids 1 from EMS and 1 from the ER. Patient did not have any further ileostomy diarrhea for almost 56 hours while in here. No abdominal pain. He is given Protonix IV and burning also resolved. Initial troponin done on i-STAT were mildly elevated. Regular analyzer was not working, blood samples are sent to [facility] and it is negative. I have seen elevated troponin with i-STAT eduar hussein today as well with another patient and negative on a regular analyzer in here. I do not think patient has acute ischemic event going on. Lactate was minimally elevated. Lipase and amylase fairly unremarkable. Elevated white count I believe is secondary to acute gastroenteritis. Recommended taking omeprazole regularly, Tylenol and no NSAIDs. I have obtained CT abdomen pelvis with out contrast which is negative for any acute obstruction, acute pancreatitis, perforation. Does have small hiatal hernia and does have ureteral stone which was there in the previous CT and patient does follow-up with Dr. Carlos. Does have some partial ureteral obstruction without UTI. Do not think needs antibiotic. Recommended increase hydration and outpatient follow-up with urology. Discussed signs symptoms of worsening needing return to ER which patient/ seem understanding. Stable for discharge. Counseled pt/family regarding: lab results, diagnosis, need for follow-up, rad results - Departure Departure Disposition: Home Clinical Impression: Diarrhea, GERD with esophagitis, Ureterolithiasis Condition: Stable Critical Care Time: No Referrals: DOCTOR,NO FAMILY [Primary Care Provider] - Follow up/PCP as directed PEARL CARLOS [COURTESY STAFF] - Follow up/PCP as directed (Call tomorrow for appointment for reevaluation) Instructions: Viral Gastroenteritis in Adults Additional Instructions: Drink plenty of fluids. Take Tylenol as needed. Continue with omeprazole. Follow-up with primary care for reevaluation. Return to ER for any worsening of abdominal pain, increased ileostomy diarrhea etc.
[2022-07-05 18:37] VITALS: BP 105/72
[2022-07-05 18:46] VITALS: O2SAT 98
== END 2022-07-05 18:57 | disposition home or self-care (01) ==
LOC: ED 12:29
DX: R19.7 Diarrhea, unspecified (principal); K21.00 Gastro-esophageal reflux disease with esophagitis, without bleeding; N20.1 Calculus of ureter; Z93.2 Ileostomy status; R10.13 Epigastric pain; R11.0 Nausea; R53.83 Other fatigue; I10 Essential (primary) hypertension; E11.9 Type 2 diabetes mellitus without complications; Z79.84 Long term (current) use of oral hypoglycemic drugs; Z79.899 Other long term (current) drug therapy
CPT/HCPCS: 0241U; 36000; 36415; 74176; 80047; 81001; 82150; 83605; 83690; 84484; 85025; 93005; 96360; 96374; 96375; 99284; J2405

== ENCOUNTER 2022-08-03 00:13 | Emergency (ER) | payer BC ==
[2022-08-03] MEDS ORDERED: Sodium Chloride 0.9% 1000 ML 1,000 ML IV STA ×2 (00:36→01:57)
[2022-08-03] MEDS ORDERED: Zofran 4 MG/2 ML VIAL IV ONE (00:36)
--- NOTE | 2022-08-03 00:37 | ERPHSYRPT ---
- History of Present Illness Time Seen by Provider: 08/03/22 00:36 Historian: patient, family Exam Limitations: no limitations Patient Subjective Stated Complaint: Pt reports since approx 2100 this evening patient has been vomiting and having increased amount of stool in ileostomy. Denies any pain. Triage Nursing Assessment: Pt alert and oriented x3. No apparent respiratory distress. Skin w/p/d. Ambulated to ER bed without difficulty. Bowel sounds active in all four quads. Abdomen soft, round, nontender. Physician History: This is a 42-year-old white male who is diabetic and has a history of a permanent end ileostomy secondary to what was thought to be significant colitis and presents with multiple vomiting episodes since 9 PM last night. Patient's oral intake last night included mashed potatoes homemade breads and chicken and noodles. No other individuals in the family had similar symptoms yet they ate the same foods. Patient has had episodes like this in the past. Patient also has a history of hypertension and renal insufficiency. Timing/Duration: yesterday Activities at Onset: none Quality: cramping (Intermittent) Abdominal Pain Onset Location: generalized abdomen Severity of Pain-Max: mild (To moderate) Severity of Pain-Current: mild (To moderate) Modifying Factors: Improves With: vomiting Associated Symptoms: loss of appetite, nausea, vomiting Allergies/Adverse Reactions: Anesthetics - Amide Type - Select A [Anesthetics - Amide Type] Allergy (Intermediate, Verified 08/03/22 00:26) Hives ciprofloxacin HCl [From Cipro] Adverse Reaction (Verified 08/03/22 00:26) Hives Home Medications: Allopurinol 300 mg [Zyloprim 300 mg] 300 mg PO DAILY 03/15/14 [History] Amlodipine Besylate 5 mg [Norvasc 5 mg] 10 mg PO DAILY 03/15/14 [History] Montelukast Sodium 10 mg [Singulair 10 MG] 10 mg PO DAILY 06/18/17 [History] Metoprolol Succinate [Toprol Xl] 100 mg PO DAILY 09/05/17 [History] Irbesartan 150 mg [Avapro 150 MG] 300 mg PO DAILY 06/20/18 [History] Glimepiride 4 mg [Amaryl 4 mg] 1 tab PO BID 07/05/22 [History] Omeprazole 1 tab PO DAILY 07/05/22 [History] Pioglitazone HCl [Actos] 1 tab PO DAILY 07/05/22 [History] Tamsulosin HCl 0.4 mg [Flomax 0.4 MG] 1 tab PO DAILY 07/05/22 [History] Hx Tetanus, Diphtheria Vaccination/Date Given: Yes Hx Influenza Vaccination/Date Given: Yes Hx Pneumococcal Vaccination/Date Given: Yes Immunizations Up to Date: No Travel Risk - International Travel Have you traveled outside of the country in past 3 weeks: No - Coronavirus Screening Are you exhibiting any of the following symptoms?: Yes Symptoms: Vomiting/Diarrhea Close contact with a COVID-19 positive Pt in past 14-21 Days: No - Vaccine Status Have you recieved a Covid-19 vaccination: Yes [employer]: [employer] - Vaccination Dates Date of 2cond Vaccination (if applicable): na - Review of Systems Constitutional: Weakness Eyes: No Symptoms Ears, Nose, & Throat: No Symptoms Respiratory: No Symptoms Cardiac: No Symptoms Abdominal/Gastrointestinal: Abdominal Pain, Nausea, Vomiting Genitourinary Symptoms: No Symptoms Musculoskeletal: No Symptoms Skin: No Symptoms Neurological: No Symptoms Psychological: No Symptoms Endocrine: No Symptoms Hematologic/Lymphatic: No Symptoms Immunological/Allergic: No Symptoms All Other Systems: Reviewed and Negative - Past Medical History Pertinent Past Medical History: Yes Neurological History: No Pertinent History ENT History: Cataracts Cardiac History: Hypertension Respiratory History: No Pertinent History Endocrine Medical History: Diabetes Type II Musculoskeletal History: Other GI Medical History: Colitis, Gallbladder Disease, Other History: Renal Disease Psycho-Social History: No Pertinent History Male Reproductive Disorders: No Pertinent History Other Medical History: L-SPINE DISCECTOMY 2011. HX NECK ISSUES - Past Surgical History Past Surgical History: Yes Neuro Surgical History: No Pertinent History Cardiac: No Pertinent History Respiratory: No Pertinent History Gastrointestinal: Appendectomy, Bowel Surgery, Cholecystectomy, Other Genitourinary: No Pertinent History Musculoskeletal: Orthopedic Surgery Male Surgical History: Vasectomy Other Surgical History: bck,colon removed and illeostomy 2009. shoulder surgery, back surgery - Social History Smoking Status: Never smoker Exposure to second hand smoke: No Drug Use: none Patient Lives Alone: No - Nursing Vital Signs Nursing Vital Signs: Initial Vital Signs Temperature 98.5 F 08/03/22 00:18 Pulse Rate 109 H 08/03/22 00:18 Respiratory Rate 16 08/03/22 00:18 Blood Pressure 138/83 08/03/22 00:18 O2 Sat by Pulse Oximetry 98 08/03/22 00:18 Pain Scale Pain Intensity 0 - Physical Exam General Appearance: mild distress, alert Eye Exam: PERRL/EOMI, eyes nml inspection Ears, Nose, Throat Exam: normal ENT inspection, moist mucous membranes Neck Exam: normal inspection, non-tender, supple, full range of motion Respiratory Exam: normal breath sounds, lungs clear, airway intact, No chest tenderness, No respiratory distress Cardiovascular Exam: normal peripheral pulses, tachycardia Gastrointestinal/Abdomen Exam: soft, normal bowel sounds, tenderness, other (Ileostomy site is pink and functioning large amount of liquid stool in the ileostomy bag) Rectal Exam: not done Back Exam: normal inspection, normal range of motion, No CVA tenderness, No vertebral tenderness Extremity Exam: normal inspection, normal range of motion, pelvis stable Neurologic Exam: alert, oriented x 3, 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, 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, normal mood/affect, nml cerebellar function, nml station & gait, sensation nml Skin Exam: normal color, warm, dry Lymphatic Exam: No adenopathy SpO2 Interpretation: normal SpO2: 98 O2 Delivery: Room Air - Course Nursing assessment & vital signs reviewed: Yes Ordered Tests: Active Orders 24 hr Category Date Time Status IV Insertion STAT Care 08/03/22 00:36 Active ABDOMEN AND PELVIS W/0 CONTRAS [CT] Stat Exams 08/03/22 00:58 Taken AMYLASE Stat Lab 08/03/22 00:56 Completed CBC W DIFF Stat Lab 08/03/22 00:56 Completed CMP Stat Lab 08/03/22 00:56 Completed LIPASE Stat Lab 08/03/22 00:56 Completed UA W/RFX UR CULTURE Stat Lab 08/03/22 01:44 Completed Medication Summary Generic Name Dose Route Start Last Admin Trade Name Freq PRN Reason Stop Dose Admin Sodium Chloride 500 mls @ 500 mls/hr 08/03/22 03:07 08/03/22 04:01 Sodium Chloride 0.9% 500 Ml IV 08/03/22 04:06 Infused .Q1H ONE Infusion Discontinued Medications Generic Name Dose Route Start Last Admin Trade Name Freq PRN Reason Stop Dose Admin Hydromorphone HCl 1 mg 08/03/22 01:57 08/03/22 02:02 Hydromorphone 1 Mg/1ml Inj 1 Mg/Ml Syringe IV 08/03/22 01:58 1 mg STAT ONE Administration Hydromorphone HCl Confirm 08/03/22 02:00 Hydromorphone 1 Mg/1ml Inj 1 Mg/Ml Syringe Administered 08/03/22 02:01 Dose 1 mg .ROUTE .STK-MED ONE Sodium Chloride 1,000 mls @ 999 mls/hr 08/03/22 00:36 08/03/22 01:45 Sodium Chloride 0.9% 1000 Ml IV 08/03/22 01:36 Infused .Q1H1M STA Infusion Sodium Chloride Confirm 08/03/22 00:42 Sodium Chloride 0.9% 1000 Ml Administered 08/03/22 00:43 Dose 1,000 mls @ ud .ROUTE .STK-MED ONE Sodium Chloride 1,000 mls @ 999 mls/hr 08/03/22 01:57 08/03/22 02:58 Sodium Chloride 0.9% 1000 Ml IV 08/03/22 02:57 Infused .Q1H1M STA Infusion Sodium Chloride Confirm 08/03/22 02:00 Sodium Chloride 0.9% 1000 Ml Administered 08/03/22 02:01 Dose 1,000 mls @ ud .ROUTE .STK-MED ONE Sodium Chloride Confirm 08/03/22 03:07 Sodium Chloride 0.9% 500 Ml Administered 08/03/22 03:08 Dose 500 mls @ ud IV .STK-MED ONE Ondansetron HCl 4 mg 08/03/22 00:36 08/03/22 00:44 Ondansetron Hcl 4 Mg/2 Ml Vial IV 08/03/22 00:37 4 mg STAT ONE Administration Ondansetron HCl Confirm 08/03/22 00:42 Ondansetron Hcl 4 Mg/2 Ml Vial Administered 08/03/22 00:43 Dose 4 mg .ROUTE .STK-MED ONE Lab/Rad Data: Laboratory Result Diagrams 08/03/22 00:56 08/03/22 00:56 Laboratory Results 08/03/22 08/03/22 08/03/22 Range/Units 01:44 00:56 00:56 WBC (4.0-10.5) x10^3/uL RBC (4.1-5.6) x10^6/uL Hgb (12.5-18.0) g/dL Hct (42-50) % MCV (78-100) fL MCH (26-32) pg MCHC (32-36) g/dL RDW (11.5-14.0) % Plt Count (150-450) x10^3/uL MPV (7.5-11.0) fL Gran % (36.0-66.0) % Immature Gran % (Auto) (0.00-0.4) % Nucleat RBC Rel Count (0.00-0.1) % Eos # (Auto) (0-0.5) x10^3/uL Immature Gran # (Auto) (0.00-0.03) x10^3u/L Absolute Lymphs (auto) (1.0-4.6) x10^3/uL Absolute Monos (auto) (0.0-1.3) x10^3/uL Absolute Nucleated RBC (0.00-0.01) x10^3u/L Lymphocytes % (24.0-44.0) % Monocytes % (0.0-12.0) % Eosinophils % (0.00-5.0) % Basophils % (0.0-0.4) % Absolute Granulocytes (1.4-6.9) x10^3/uL Basophils # (0-0.4) x10^3/uL Sodium 142 (137-145) mmol/L Potassium 4.4 (3.5-5.1) mmol/L Chloride 111 H (98-107) mmol/L Carbon Dioxide 21 L (22-30) mmol/L Anion Gap 15.0 (5-15) MEQ/L BUN 16 (9-20) mg/dL Creatinine 1.52 H (0.66-1.25) mg/dL Estimated GFR 53.7 ML/MIN Glucose 172 H (74-106) mg/dL Calcium 9.8 (8.4-10.2) mg/dL Total Bilirubin 0.40 (0.2-1.3) mg/dL AST 20 (17-59) U/L ALT 22 (0-50) U/L Alkaline Phosphatase 84 (38-126) U/L Serum Total Protein 7.9 (6.3-8.2) g/dL Albumin 4.6 (3.5-5.0) g/dL Amylase 140 H (30-110) U/L Lipase 350 H (23-300) U/L Urine Color Yellow (Yellow) Urine Appearance Clear (Clear) Urine pH 5.0 (4.6-8.0) Ur Specific [place] 1.020 (1.005-1.030) Urine Protein 100 A (Negative) Urine Glucose (UA) Negative (Negative) mg/dL Urine Ketones Negative (Negative) Urine Blood Negative (Negative) Urine Nitrite Negative (Negative) Urine Bilirubin Negative (Negative) Urine Urobilinogen 0.2 (0.2) mg/dL Ur Leukocyte Esterase Negative (Negative) U Hyaline Cast (Auto) 6-10 A (0-2) /LPF Urine Microscopic RBC 0-2 (0-5) /HPF Urine Microscopic WBC 0-2 (0-5) /HPF Ur Epithelial Cells None Seen (None Seen) /HPF Urine Bacteria None Seen (None Seen) /HPF Urine Culture Reflexed NO (NO) Influenza Type A Ag NEGATIVE (NEGATIVE) Influenza Type B Ag NEGATIVE (NEGATIVE) RSV (PCR) NEGATIVE (Negative) SARS-CoV-2 (PCR) NEGATIVE (NEGATIVE) Slides for Path Review 08/03/22 Range/Units 00:56 WBC 13.6 H (4.0-10.5) x10^3/uL RBC 5.05 (4.1-5.6) x10^6/uL Hgb 10.3 L (12.5-18.0) g/dL Hct 37.0 L (42-50) % MCV 73.3 L (78-100) fL MCH 20.4 L (26-32) pg MCHC 27.8 L (32-36) g/dL RDW 16.7 H (11.5-14.0) % Plt Count 348 (150-450) x10^3/uL MPV 10.5 (7.5-11.0) fL Gran % 82.8 H (36.0-66.0) % Immature Gran % (Auto) 0.4 (0.00-0.4) % Nucleat RBC Rel Count 0.0 (0.00-0.1) % Eos # (Auto) 0.20 (0-0.5) x10^3/uL Immature Gran # (Auto) 0.05 H (0.00-0.03) x10^3u/L Absolute Lymphs (auto) 1.08 (1.0-4.6) x10^3/uL Absolute Monos (auto) 0.97 (0.0-1.3) x10^3/uL Absolute Nucleated RBC 0.00 (0.00-0.01) x10^3u/L Lymphocytes % 8.0 L (24.0-44.0) % Monocytes % 7.1 (0.0-12.0) % Eosinophils % 1.5 (0.00-5.0) % Basophils % 0.2 (0.0-0.4) % Absolute Granulocytes 11.25 H (1.4-6.9) x10^3/uL Basophils # 0.03 (0-0.4) x10^3/uL Sodium (137-145) mmol/L Potassium (3.5-5.1) mmol/L Chloride (98-107) mmol/L Carbon Dioxide (22-30) mmol/L Anion Gap (5-15) MEQ/L BUN (9-20) mg/dL Creatinine (0.66-1.25) mg/dL Estimated GFR ML/MIN Glucose (74-106) mg/dL Calcium (8.4-10.2) mg/dL Total Bilirubin (0.2-1.3) mg/dL AST (17-59) U/L ALT (0-50) U/L Alkaline Phosphatase (38-126) U/L Serum Total Protein (6.3-8.2) g/dL Albumin (3.5-5.0) g/dL Amylase (30-110) U/L Lipase (23-300) U/L Urine Color (Yellow) Urine Appearance (Clear) Urine pH (4.6-8.0) Ur Specific [place] (1.005-1.030) Urine Protein (Negative) Urine Glucose (UA) (Negative) mg/dL Urine Ketones (Negative) Urine Blood (Negative) Urine Nitrite (Negative) Urine Bilirubin (Negative) Urine Urobilinogen (0.2) mg/dL Ur Leukocyte Esterase (Negative) U Hyaline Cast (Auto) (0-2) /LPF Urine Microscopic RBC (0-5) /HPF Urine Microscopic WBC (0-5) /HPF Ur Epithelial Cells (None Seen) /HPF Urine Bacteria (None Seen) /HPF Urine Culture Reflexed (NO) Influenza Type A Ag (NEGATIVE) Influenza Type B Ag (NEGATIVE) RSV (PCR) (Negative) SARS-CoV-2 (PCR) (NEGATIVE) Slides for Path Review YES - Progress Progress: improved Progress Note: 08/03/22 04:08 CT scan of the abdomen pelvis without contrast shows small bowel fluid that may be consistent with ileus versus enteritis. Specifically stated on the report is no obstruction present. No other acute intra-abdominal or intrapelvic processes. Patient's medical condition is 1 of moderate complexity. This is based on patient history, additional history obtained from the patient's spouse, review of old records from this hospital, review of patient's medical history list and review of the patient's medical allergies, and findings on physical exam. This helped me in determining the work-up which included urinalysis, CAT scan of the abdomen pelvis and blood work. In addition, we placed an intravenous line and provide the patient with antiemetics, intravenous pain medication and intravenous fluids. The results of the work-up were reviewed by me and I reviewed these findings with the patient and the patient's spouse. Patient's symptoms significantly improved. The patient has what appears to me to be a mild pancreatitis. Patient has leukocytosis is likely due to the patient's vomiting. Our therapy this morning significantly improved the patient. We will discharge him to home. Discharge instructions were provided to the patient and the patient's spouse which include clear liquid diet only for the next 12 to 24 hours and using Zofran ODT every 6-8 hours to control any nausea or vomiting symptoms of present, and use Tylenol and ibuprofen for any pain control. Medical Desision Making - Independent Historian Additional History obtained from: Spouse - Discussion of managment Reviewed:: Test results (The patient and spouse) Agreed on:: Treatment plan (With the patient and spouse), need for follow-up (With patient and spouse) - Diagnostic Testing Diagnostic Testing: Diagnostic tests were ordered,analyzed, and reviewed by me and used in my medical decision making for this patient. Radiologic studies (if ordered) were read by me initially then discussed with the radiologist . - Risk of complications Low Risk: Low risk of morbidity from additional dx testing or treatment - Departure Departure Disposition: Home Clinical Impression: Vomiting, Pancreatitis Condition: Stable Critical Care Time: No Referrals: LONA MARCUM [Primary Care Provider] - Follow up/PCP as directed Additional Instructions: Clear liquids only for the next 12 to 24 hours. Monitor your blood sugar closely. Advance your diet slowly. Take your medication as prescribed. Return to the emergency department if symptoms worsen. Prescriptions: Ondansetron ODT 4 MG [Zofran Odt 4 mg] 4 mg PO Q6H PRN PRN #10 tablet PRN Reason: Vomiting
[2022-08-03] MEDS ORDERED: Sodium Chloride 0.9% 1000 ML 1,000 ML ONE ×2 (00:42→02:00)
[2022-08-03] MEDS ORDERED: Zofran 4 MG/2 ML VIAL ONE (00:42)
[2022-08-03 01:09] LABS: Absolute Neutrophil Ct (ANC) 11.25 x10^3/uL (1.4-6.9); BASOPHIL % 0.2 % (0.0-0.4); Basophil (Absolute #) 0.03 x10^3/uL (0-0.4); Eosinophil % 1.5 % (0.00-5.0); Hemoglobin 10.3 g/dL (12.5-18.0); IMMATURE GRAN # 0.05 x10^3u/L (0.00-0.03); IMMATURE GRAN % 0.4 % (0.00-0.4); Lymphocyte (Absolute #) 1.08 x10^3/uL (1.0-4.6); Mean Cell Volume 73.3 fL (78-100); Mean Corpuscular Hemoglobin 20.4 pg (26-32); Mean Corpuscular Hgb Concent. 27.8 g/dL (32-36); Mean Platelet Volume 10.5 fL (7.5-11.0); Monocyte (Absolute #) 0.97 x10^3/uL (0.0-1.3); Monocytes % 7.1 % (0.0-12.0); Neutrophil % 82.8 % (36.0-66.0); Platelet Count 348 x10^3/uL (150-450); Red Blood Count 5.05 x10^6/uL (4.1-5.6); Red Cell Distribution Width 16.7 % (11.5-14.0); White Blood Count 13.6 x10^3/uL (4.0-10.5)
[2022-08-03 01:11] LABS: ALBUMIN 4.6 g/dL (3.5-5.0); BILIRUBIN,TOTAL 0.4 mg/dL (0.2-1.3); Calcium 9.8 mg/dL (8.4-10.2); Creatinine 1 1.52 mg/dL (0.66-1.25); EST GLOMERULAR FILTRATION RATE 53.7 ML/MIN; Potassium 4.4 mmol/L (3.5-5.1); Total Protein 7.9 g/dL (6.3-8.2)
[2022-08-03 01:36] LABS: INFLUENZA A NEGATIVE (NEGATIVE); INFLUENZA B NEGATIVE (NEGATIVE); RESPIRATORY SYNCTIAL VIRUS NEGATIVE (Negative); SARS-CoV-2 Xpert Express NEGATIVE (NEGATIVE)
[2022-08-03 01:55] LABS: Appearance Clear (Clear); Bacteria None Seen /HPF (None Seen); Bilirubin Negative (Negative); Blood Negative (Negative); Epithelial Cells None Seen /HPF (None Seen); Glucose, Urine Negative (Negative); Ketones Negative (Negative); Leukocyte Esterase Negative (Negative); Nitrite Negative (Negative); Protein,Urine Dip 100 (Negative); RBC 0-2 /HPF (0-5); Urobilinogen 0.2 mg/dL (0.2); WBC 0-2 /HPF (0-5)
[2022-08-03 01:57] LABS: Slide Review 1 YES
[2022-08-03] MEDS ORDERED: Hydromorphone 1 mg/ml Injection IV ONE (01:57)
[2022-08-03] MEDS ORDERED: Hydromorphone 1 mg/ml Injection ONE (02:00)
[2022-08-03 02:05] LABS: ADD URINE CULTURE? NO (NO)
[2022-08-03] MEDS ORDERED: Sodium Chloride 0.9% 500 ML 500 ML IV ONE ×4 (03:07→04:25)
[2022-08-03 04:02] VITALS: PULSE 90
[2022-08-03 05:04] VITALS: BP 151/78; O2SAT 97
--- NOTE | 2022-08-03 08:42 | XRAY ---
Indication: Pain, nausea, and vomiting. Multiple contiguous axial images obtained through the abdomen and pelvis without contrast. Comparison: July 05, 2022 Lung bases demonstrate minimal right base dependent atelectasis. No infiltrate or effusion. Heart not enlarged. Stable small hiatal hernia. Noncontrasted stomach and bowel loops nonobstructed. Stable colectomy with right lower quadrant colostomy and cholecystectomy. Rectal stump unremarkable. No free fluid/air. Stable chronic 6 mm right mid ureteral, approximately L4 level, with mild hydronephrosis. Also stable mild right renal atrophy, small left upper pole exophytic cyst, and nonobstructing left renal punctate calculus. Spleen remains enlarged measuring 13.4 cm. Remaining liver, pancreas, spleen, adrenal glands, kidneys, ureters, bladder, and aorta are unremarkable for noncontrast exam. Impression: 1. Stable chronic 6 mm right mid ureteral calculus again producing partial obstruction. Stable right renal atrophy presumed from chronic obstructive uropathy. 2. Again chronic findings including small hiatal hernia, colectomy with right lower quadrant colostomy, left renal cyst, and nonobstructing left renal micro-calculus. Comment: Preliminary interpretation may by [facility] who does not report chronic right ureter calculus.
== END 2022-08-03 05:16 | disposition home or self-care (01) ==
LOC: ED 00:13
DX: K85.90 Acute pancreatitis without necrosis or infection, unspecified (principal); R11.2 Nausea with vomiting, unspecified; Z93.2 Ileostomy status; E11.9 Type 2 diabetes mellitus without complications; I10 Essential (primary) hypertension; Z79.899 Other long term (current) drug therapy; Z79.84 Long term (current) use of oral hypoglycemic drugs
CPT/HCPCS: 0241U; 36000; 36415; 74176; 80053; 81001; 82150; 83690; 85025; 96360; 96361; 96374; 96375; 99284; J1170; J2405

== ENCOUNTER 2022-10-09 07:35 | Observation (INO) | payer BC ==
[2022-10-09] MEDS ORDERED: Zofran 4 MG/2 ML VIAL IV ONE (08:14)
[2022-10-09] MEDS ORDERED: Zofran 4 MG/2 ML VIAL ONE (08:20)
[2022-10-09] MEDS ORDERED: Sodium Chloride 0.9% 1000 ML 1,000 ML ONE ×2 (08:20→09:12)
[2022-10-09] MEDS: Sodium Chloride 0.9% 1000 ML 1,000 ML IV STA ×2 (08:20→09:12)
--- NOTE | 2022-10-09 08:21 | ERPHSYRPT ---
- History of Present Illness Historian: patient, other () Exam Limitations: no limitations Patient Subjective Stated Complaint: PT states "I have a colostomy and I get dehydrated really easily and I do not feel well at all." Triage Nursing Assessment: Pt presented alert and oriented X 3, skin wpd. Pt ambulates with an upright steady gait, able to speak in clear full sentences. PT resting comfortably on the bed. 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 He denies nausea and states that his iliostomy drainage is more watery. Pt has mild coryza wo cough/fever. Dysuria/hematuria are also denied. Timing/Duration: today Activities at Onset: rest Quality: pressure Abdominal Pain Onset Location: generalized abdomen Pain Radiation: no radiation Severity of Pain-Max: moderate Severity of Pain-Current: moderate Modifying Factors: Improves With: nothing Associated Symptoms: denies symptoms Previous symptoms: no prior history Allergies/Adverse Reactions: Anesthetics - Amide Type - Select A [Anesthetics - Amide Type] Allergy (Intermediate, Verified 08/03/22 00:26) Hives ciprofloxacin HCl [From Cipro] Adverse Reaction (Verified 08/03/22 00:26) Hives Home Medications: Allopurinol 300 mg [Zyloprim 300 mg] 300 mg PO DAILY 03/15/14 [History] Amlodipine Besylate 5 mg [Norvasc 5 mg] 10 mg PO DAILY 03/15/14 [History] Montelukast Sodium 10 mg [Singulair 10 MG] 10 mg PO DAILY 06/18/17 [History] Metoprolol Succinate [Toprol Xl] 100 mg PO DAILY 09/05/17 [History] Irbesartan 150 mg [Avapro 150 MG] 300 mg PO DAILY 06/20/18 [History] Glimepiride 4 mg [Amaryl 4 mg] 1 tab PO BID 07/05/22 [History] Omeprazole 1 tab PO DAILY 07/05/22 [History] Pioglitazone HCl [Actos] 1 tab PO DAILY 07/05/22 [History] Tamsulosin HCl 0.4 mg [Flomax 0.4 MG] 1 tab PO DAILY 07/05/22 [History] Hx Tetanus, Diphtheria Vaccination/Date Given: Yes Hx Influenza Vaccination/Date Given: Yes Hx Pneumococcal Vaccination/Date Given: Yes Travel Risk - International Travel Have you traveled outside of the country in past 3 weeks: No - Coronavirus Screening Are you exhibiting any of the following symptoms?: No Close contact with a COVID-19 positive Pt in past 14-21 Days: No - Vaccine Status Have you recieved a Covid-19 vaccination: Yes 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: [employer] - Vaccination Dates Date of 2cond Vaccination (if applicable): na - Review of Systems Constitutional: No Symptoms, Malaise Eyes: No Symptoms Ears, Nose, & Throat: No Symptoms Respiratory: No Symptoms Cardiac: No Symptoms Abdominal/Gastrointestinal: No Symptoms, Nausea Genitourinary Symptoms: No Symptoms Musculoskeletal: No Symptoms Skin: No Symptoms Neurological: No Symptoms Psychological: No Symptoms Endocrine: No Symptoms Hematologic/Lymphatic: No Symptoms Immunological/Allergic: No Symptoms - Past Medical History Pertinent Past Medical History: Yes Neurological History: No Pertinent History ENT History: Cataracts Cardiac History: Hypertension Respiratory History: No Pertinent History Endocrine Medical History: Diabetes Type II Musculoskeletal History: Other GI Medical History: Colitis, Gallbladder Disease, Other History: Renal Disease Psycho-Social History: No Pertinent History Male Reproductive Disorders: No Pertinent History Other Medical History: L-SPINE DISCECTOMY 2011. HX NECK ISSUES - Past Surgical History Past Surgical History: Yes Neuro Surgical History: No Pertinent History Cardiac: No Pertinent History Respiratory: No Pertinent History Gastrointestinal: Appendectomy, Bowel Surgery, Cholecystectomy, Other Genitourinary: No Pertinent History Musculoskeletal: Orthopedic Surgery Male Surgical History: Vasectomy Other Surgical History: bck,colon removed and illeostomy 2009. shoulder surgery, back surgery - Social History Smoking Status: Never smoker Exposure to second hand smoke: No Drug Use: none Patient Lives Alone: No - Nursing Vital Signs Nursing Vital Signs: Initial Vital Signs Temperature 98.1 F 10/09/22 07:43 Pulse Rate 101 H 10/09/22 07:43 Respiratory Rate 22 10/09/22 07:43 Blood Pressure 169/98 10/09/22 07:43 O2 Sat by Pulse Oximetry 100 10/09/22 07:43 Pain Scale Pain Intensity 4 Tachy/Hypertensive - Physical Exam General Appearance: no apparent distress Eye Exam: PERRL/EOMI, eyes nml inspection Ears, Nose, Throat Exam: normal ENT inspection, TMs normal, pharynx normal Neck Exam: normal inspection, non-tender, supple, full range of motion, No meningismus, No mass, No Brudzinski, No Kernig's, No carotid bruit Respiratory Exam: normal breath sounds, lungs clear, airway intact Cardiovascular Exam: tachycardia, capillary refill <2 sec, No murmur Gastrointestinal/Abdomen Exam: soft, tenderness (Mild diffuse wo guarding or rebound), other (ileostomy), No normal bowel sounds (Hypoactive BS) Back Exam: normal inspection, normal range of motion, No CVA tenderness, No vertebral tenderness Extremity Exam: normal inspection, normal range of motion Neurologic Exam: alert, oriented x 3, cooperative, global creative chairman II-XII nml as tested, normal mood/affect, nml cerebellar function, nml station & gait, sensation nml Skin Exam: normal color, warm, dry Lymphatic Exam: No adenopathy SpO2 Interpretation: normal SpO2: 100 O2 Delivery: Room Air - Course Nursing assessment & vital signs reviewed: Yes - CT Exams Abdomen/Pelvis CT Interpretation: Discussed w/radiologist (Enteritis vs Ileus/Chronic 6mm R ureteral stone) Ordered Tests: Active Orders 24 hr Category Date Time Status ABDOMEN AND PELVIS W/0 CONTRAS [CT] Stat Exams 10/09/22 08:15 Completed AMYLASE Stat Lab 10/09/22 08:13 Completed CBC W DIFF Stat Lab 10/09/22 08:13 Completed CMP Stat Lab 10/09/22 08:13 Completed LIPASE Stat Lab 10/09/22 08:13 Completed Lactic Acid Stat Lab 10/09/22 08:35 Completed TROPONIN Q4H Lab 10/09/22 08:13 Completed TROPONIN Q4H Lab 10/09/22 12:15 Ordered TROPONIN Q4H Lab 10/09/22 16:15 Ordered UA W/RFX UR CULTURE Stat Lab 10/09/22 08:29 Completed Medication Summary Generic Name Dose Route Start Last Admin Trade Name Freq PRN Reason Stop Dose Admin Sodium Chloride 1,000 mls @ 999 mls/hr 10/09/22 08:59 10/09/22 09:13 Sodium Chloride 0.9% 1000 Ml IV 10/09/22 09:59 999 mls/hr .Q1H1M STA Administration Discontinued Medications Generic Name Dose Route Start Last Admin Trade Name Freq PRN Reason Stop Dose Admin Sodium Chloride 1,000 mls @ 999 mls/hr 10/09/22 08:14 10/09/22 09:12 Sodium Chloride 0.9% 1000 Ml IV 10/09/22 09:14 999 mls/hr .Q1H1M STA Administration Sodium Chloride Confirm 10/09/22 08:20 Sodium Chloride 0.9% 1000 Ml Administered 10/09/22 08:21 Dose 1,000 mls @ ud .ROUTE .STK-MED ONE Sodium Chloride Confirm 10/09/22 09:12 Sodium Chloride 0.9% 1000 Ml Administered 10/09/22 09:13 Dose 1,000 mls @ ud .ROUTE .STK-MED ONE Ondansetron HCl 4 mg 10/09/22 08:14 10/09/22 08:20 Ondansetron Hcl 4 Mg/2 Ml Vial IV 10/09/22 08:15 4 mg STAT ONE Administration Ondansetron HCl Confirm 10/09/22 08:20 Ondansetron Hcl 4 Mg/2 Ml Vial Administered 10/09/22 08:21 Dose 4 mg .ROUTE .STK-MED ONE Lab/Rad Data: Laboratory Result Diagrams 10/09/22 08:13 10/09/22 08:13 Laboratory Results 10/09/22 10/09/22 10/09/22 Range/Units Unknown 08:35 08:29 WBC (4.0-10.5) x10^3/uL RBC (4.1-5.6) x10^6/uL Hgb (12.5-18.0) g/dL Hct (42-50) % MCV (78-100) fL MCH (26-32) pg MCHC (32-36) g/dL RDW (11.5-14.0) % Plt Count (150-450) x10^3/uL MPV (7.5-11.0) fL Gran % (36.0-66.0) % Immature Gran % (Auto) (0.00-0.4) % Nucleat RBC Rel Count (0.00-0.1) % Eos # (Auto) (0-0.5) x10^3/uL Immature Gran # (Auto) (0.00-0.03) x10^3u/L Absolute Lymphs (auto) (1.0-4.6) x10^3/uL Absolute Monos (auto) (0.0-1.3) x10^3/uL Absolute Nucleated RBC (0.00-0.01) x10^3u/L Lymphocytes % (24.0-44.0) % Monocytes % (0.0-12.0) % Eosinophils % (0.00-5.0) % Basophils % (0.0-0.4) % Absolute Granulocytes (1.4-6.9) x10^3/uL Basophils # (0-0.4) x10^3/uL Sodium (137-145) mmol/L Potassium (3.5-5.1) mmol/L Chloride (98-107) mmol/L Carbon Dioxide (22-30) mmol/L Anion Gap (5-15) MEQ/L BUN (9-20) mg/dL Creatinine (0.66-1.25) mg/dL Estimated GFR ML/MIN Glucose (74-106) mg/dL Lactic Acid 1.5 (0.4-2.0) Calcium (8.4-10.2) mg/dL Total Bilirubin (0.2-1.3) mg/dL AST (17-59) U/L ALT (0-50) U/L Alkaline Phosphatase (38-126) U/L Troponin I (0.000-0.034) ng/mL Serum Total Protein (6.3-8.2) g/dL Albumin (3.5-5.0) g/dL Amylase (30-110) U/L Lipase (23-300) U/L Urine Color Yellow (Yellow) Urine Appearance Clear (Clear) Urine pH 5.0 (4.6-8.0) Ur Specific [place] 1.020 (1.005-1.030) Urine Protein Trace A (Negative) Urine Glucose (UA) 100 A (Negative) mg/dL Urine Ketones Negative (Negative) Urine Blood Negative (Negative) Urine Nitrite Negative (Negative) Urine Bilirubin Negative (Negative) Urine Urobilinogen 0.2 (0.2) mg/dL Ur Leukocyte Esterase Negative (Negative) U Hyaline Cast (Auto) 3-5 A (0-2) /LPF Urine Microscopic RBC 0-2 (0-5) /HPF Urine Microscopic WBC 0-2 (0-5) /HPF Ur Epithelial Cells None Seen (None Seen) /HPF Urine Bacteria None Seen (None Seen) /HPF Urine Culture Reflexed NO (NO) Influenza Type A Ag NEGATIVE (NEGATIVE) Influenza Type B Ag NEGATIVE (NEGATIVE) RSV (PCR) NEGATIVE (NEGATIVE) SARS-CoV-2 (PCR) NEGATIVE (NEGATIVE) 10/09/22 10/09/22 10/09/22 Range/Units 08:13 08:13 08:13 WBC 7.6 (4.0-10.5) x10^3/uL RBC 4.83 (4.1-5.6) x10^6/uL Hgb 9.8 L (12.5-18.0) g/dL Hct 35.9 L (42-50) % MCV 74.3 L (78-100) fL MCH 20.3 L (26-32) pg MCHC 27.3 L (32-36) g/dL RDW 16.0 H (11.5-14.0) % Plt Count 256 (150-450) x10^3/uL MPV 10.8 (7.5-11.0) fL Gran % 80.6 H (36.0-66.0) % Immature Gran % (Auto) 0.3 (0.00-0.4) % Nucleat RBC Rel Count 0.0 (0.00-0.1) % Eos # (Auto) 0.12 (0-0.5) x10^3/uL Immature Gran # (Auto) 0.02 (0.00-0.03) x10^3u/L Absolute Lymphs (auto) 0.82 L (1.0-4.6) x10^3/uL Absolute Monos (auto) 0.47 (0.0-1.3) x10^3/uL Absolute Nucleated RBC 0.00 (0.00-0.01) x10^3u/L Lymphocytes % 10.8 L (24.0-44.0) % Monocytes % 6.2 (0.0-12.0) % Eosinophils % 1.6 (0.00-5.0) % Basophils % 0.5 (0.0-0.4) % Absolute Granulocytes 6.11 (1.4-6.9) x10^3/uL Basophils # 0.04 (0-0.4) x10^3/uL Sodium 142 (137-145) mmol/L Potassium 4.4 (3.5-5.1) mmol/L Chloride 106 (98-107) mmol/L Carbon Dioxide 24 (22-30) mmol/L Anion Gap 16.0 H (5-15) MEQ/L BUN 17 (9-20) mg/dL Creatinine 1.51 H (0.66-1.25) mg/dL Estimated GFR 54.1 ML/MIN Glucose 205 H (74-106) mg/dL Lactic Acid (0.4-2.0) Calcium 9.9 (8.4-10.2) mg/dL Total Bilirubin 0.40 (0.2-1.3) mg/dL AST 27 (17-59) U/L ALT 28 (0-50) U/L Alkaline Phosphatase 76 (38-126) U/L Troponin I < 0.012 (0.000-0.034) ng/mL Serum Total Protein 7.9 (6.3-8.2) g/dL Albumin 4.6 (3.5-5.0) g/dL Amylase 129 H (30-110) U/L Lipase 282 (23-300) U/L Urine Color (Yellow) Urine Appearance (Clear) Urine pH (4.6-8.0) Ur Specific [place] (1.005-1.030) Urine Protein (Negative) Urine Glucose (UA) (Negative) mg/dL Urine Ketones (Negative) Urine Blood (Negative) Urine Nitrite (Negative) Urine Bilirubin (Negative) Urine Urobilinogen (0.2) mg/dL Ur Leukocyte Esterase (Negative) U Hyaline Cast (Auto) (0-2) /LPF Urine Microscopic RBC (0-5) /HPF Urine Microscopic WBC (0-5) /HPF Ur Epithelial Cells (None Seen) /HPF Urine Bacteria (None Seen) /HPF Urine Culture Reflexed (NO) Influenza Type A Ag (NEGATIVE) Influenza Type B Ag (NEGATIVE) RSV (PCR) (NEGATIVE) SARS-CoV-2 (PCR) (NEGATIVE) - Progress Progress Note: 10/09/22 08:26 Nursing note and vital signs reviewed No food or housing insecurities noted All labs and CT results reviewed and shared w pt/ extensively Additional history per 10/09/22 09:[address] Hill 1L NS bolus x2/4mg IV Zofran Discussed with : Balwinder Will see patient in: hospital (observation) Counseled pt/family regarding: lab results, diagnosis, rad results Medical Desision Making - Independent Historian Additional History obtained from: Spouse - Discussion of managment Care discussed with:: on-call "doc" Reviewed:: Test results Agreed on:: Treatment plan, place in obs Will see patient: in hospital - Diagnostic Testing Diagnostic test were ordered, analyzed, and reviewed by me: Yes Radiological Interpretation: Discussed w/ radiologist - Departure Departure Disposition: Observation Clinical Impression: Enteritis, Dehydration Condition: Stable Critical Care Time: No Referrals: LONA MARCUM [Primary Care Provider] - Follow up/PCP as directed
[2022-10-09 08:35] LABS: Absolute Neutrophil Ct (ANC) 6.11 x10^3/uL (1.4-6.9); BASOPHIL % 0.5 % (0.0-0.4); Basophil (Absolute #) 0.04 x10^3/uL (0-0.4); Eosinophil % 1.6 % (0.00-5.0); Eosinophil (Absolute #) 0.12 x10^3/uL (0-0.5); Hematocrit 35.9 % (42-50); Hemoglobin 9.8 g/dL (12.5-18.0); IMMATURE GRAN # 0.02 x10^3u/L (0.00-0.03); IMMATURE GRAN % 0.3 % (0.00-0.4); Lymphocyte (Absolute #) 0.82 x10^3/uL (1.0-4.6); Lymphocytes % 10.8 % (24.0-44.0); Mean Cell Volume 74.3 fL (78-100); Mean Corpuscular Hemoglobin 20.3 pg (26-32); Mean Corpuscular Hgb Concent. 27.3 g/dL (32-36); Mean Platelet Volume 10.8 fL (7.5-11.0); Monocyte (Absolute #) 0.47 x10^3/uL (0.0-1.3); Monocytes % 6.2 % (0.0-12.0); Neutrophil % 80.6 % (36.0-66.0); Platelet Count 256 x10^3/uL (150-450); Red Blood Count 4.83 x10^6/uL (4.1-5.6); White Blood Count 7.6 x10^3/uL (4.0-10.5)
[2022-10-09 08:41] LABS: Appearance Clear (Clear); Bilirubin Negative (Negative); Blood Negative (Negative); Glucose, Urine 100 mg/dL (Negative); Ketones Negative (Negative); Leukocyte Esterase Negative (Negative); Nitrite Negative (Negative); Protein,Urine Dip Trace (Negative); Urobilinogen 0.2 mg/dL (0.2)
[2022-10-09 08:50] LABS: Bacteria None Seen /HPF (None Seen); Epithelial Cells None Seen /HPF (None Seen); RBC 0-2 /HPF (0-5); WBC 0-2 /HPF (0-5)
[2022-10-09 08:55] LABS: ADD URINE CULTURE? NO (NO)
[2022-10-09 08:55] LABS: ALBUMIN 4.6 g/dL (3.5-5.0); BILIRUBIN,TOTAL 0.4 mg/dL (0.2-1.3); Calcium 9.9 mg/dL (8.4-10.2); Creatinine 1 1.51 mg/dL (0.66-1.25); EST GLOMERULAR FILTRATION RATE 54.1 ML/MIN; Potassium 4.4 mmol/L (3.5-5.1); Total Protein 7.9 g/dL (6.3-8.2)
[2022-10-09] MEDS ORDERED: Sodium Chloride 0.9% 1000 ML 1,000 ML IV STA (08:59)
--- NOTE | 2022-10-09 09:05 | XRAY ---
Indication: Midabdomen pain. Multiple contiguous axial images obtained through the abdomen and pelvis without contrast. Comparison: August 03, 2022 Lung bases again demonstrates minimal dependent atelectasis without infiltrate or effusion. Heart not enlarged. Stable small hiatal hernia. Stomach again distended with food/fluid. Noncontrasted stomach and bowel loops nonobstructed. Several small bowel loops are no minimally fluid distended with mild wall thickening and fluid leveling, ileus versus enteritis. Stable colectomy with right lower quadrant ostomy and cholecystectomy. Ostomy ventral wall defect again demonstrates herniated omental fat and bowel loops without complications. No free fluid/air. Stable chronic 6 mm right mid ureter calculus with subsequent mild hydronephrosis and renal atrophy. Left kidney demonstrates stable small upper pole hepatic cyst and nonobstructing punctate calculus. Remaining liver, pancreas, spleen, adrenal glands, kidneys, ureters, bladder, and aorta are unremarkable for noncontrast exam. Osseous structures intact again with mild degenerative changes throughout the thoracolumbar spine. Impression: 1. Minimal fluid distended small bowel loops with wall thickening and fluid leveling, ileus versus enteritis. 2. Again colectomy with right lower quadrant ostomy. Stable ostomy herniated omental fat/bowel loops without complications. 3. Stable chronic 6 mm right mid ureter calculus again producing partial obstruction. Stable right renal atrophy presumed from chronic obstructive uropathy. 4. Again chronic findings including small hiatal hernia, left renal cyst, nonobstructing left renal punctate calculus, and degenerative spondylosis.
[2022-10-09 09:13] LABS: INFLUENZA A NEGATIVE (NEGATIVE); INFLUENZA B NEGATIVE (NEGATIVE); RESPIRATORY SYNCTIAL VIRUS NEGATIVE (NEGATIVE); SARS-CoV-2 Xpert Express NEGATIVE (NEGATIVE)
[2022-10-09 10:41] LABS: Slide Review 1 YES
[2022-10-09] MEDS: Sodium Chloride 0.9% 1000 ML 1,000 ML IV SCH ×2 (12:12→19:20)
[2022-10-09 12:23] LABS: 027 TOX PROD PRESUMPTIVE NEGATIVE (NEGATIVE); TOXIGENIC C. DIFF ORG NEGATIVE (NEGATIVE)
[2022-10-09] MEDS ORDERED: ZOFRAN ODT 4 MG PO PRN (15:59)
[2022-10-09] MEDS: AMARYL 4 MG PO SCH (17:41)
[2022-10-09] MEDS ORDERED: TYLENOL 325 MG PO PRN (19:02)
[2022-10-10] MEDS: Sodium Chloride 0.9% 1000 ML 1,000 ML IV SCH (04:15)
[2022-10-10 04:54] VITALS: PULSE 91
[2022-10-10 05:37] LABS: Absolute Neutrophil Ct (ANC) 4.44 x10^3/uL (1.4-6.9); BASOPHIL % 0.2 % (0.0-0.4); Basophil (Absolute #) 0.01 x10^3/uL (0-0.4); Eosinophil (Absolute #) 0.13 x10^3/uL (0-0.5); Hemoglobin 9.4 g/dL (12.5-18.0); IMMATURE GRAN # 0.02 x10^3u/L (0.00-0.03); IMMATURE GRAN % 0.3 % (0.00-0.4); Lymphocyte (Absolute #) 1.05 x10^3/uL (1.0-4.6); Lymphocytes % 16.2 % (24.0-44.0); Mean Cell Volume 73.3 fL (78-100); Mean Corpuscular Hemoglobin 20.3 pg (26-32); Mean Corpuscular Hgb Concent. 27.6 g/dL (32-36); Mean Platelet Volume 10.9 fL (7.5-11.0); Monocyte (Absolute #) 0.84 x10^3/uL (0.0-1.3); Monocytes % 12.9 % (0.0-12.0); Neutrophil % 68.4 % (36.0-66.0); Platelet Count 269 x10^3/uL (150-450); Red Blood Count 4.64 x10^6/uL (4.1-5.6); Red Cell Distribution Width 16.4 % (11.5-14.0); White Blood Count 6.5 x10^3/uL (4.0-10.5)
[2022-10-10 06:52] LABS: ALBUMIN 3.8 g/dL (3.5-5.0); ANION GAP 14.2 MEQ/L (5-15); BILIRUBIN,TOTAL 0.6 mg/dL (0.2-1.3); Calcium 9.4 mg/dL (8.4-10.2); Creatinine 1 1.58 mg/dL (0.66-1.25); EST GLOMERULAR FILTRATION RATE 51.4 ML/MIN; Potassium 4.6 mmol/L (3.5-5.1)
[2022-10-10 07:47] VITALS: BP 137/76; O2SAT 96
[2022-10-10 07:55] LABS: Slide Review 1 YES
[2022-10-10] MEDS: AMARYL 4 MG PO SCH (08:22)
[2022-10-10 09:34] LABS: Iron 40 ug/dL (49-181); Iron Saturation 10 % (20-39); TIBC 412 ug/dL (261-497)
[2022-10-10 09:55] LABS: RETICULOCYTE % 1.9 % (0.6-2.6); RETICULOCYTE HEMOGLOBIN 21.2 pg (28-38)
[2022-10-10] MEDS ORDERED: Toprol-Xl 25MG Tablets PO SCH (10:00)
[2022-10-10] MEDS ORDERED: Flomax 0.4 MG PO SCH (10:00)
[2022-10-10] MEDS ORDERED: NON-FORMULARY ITEM (Omeprazole [Omeprazole] 20 MG Tablet.Dr) PO SCH (10:00)
[2022-10-10] MEDS ORDERED: FEOSOL 325 MG PO SCH (10:00)
[2022-10-10] MEDS ORDERED: Singulair 10 MG PO SCH (10:00)
[2022-10-10] MEDS ORDERED: PIOGLITAZONE HCL 15 MG PO SCH (10:00)
[2022-10-10] MEDS ORDERED: Avapro 150 MG PO SCH (10:00)
[2022-10-10] MEDS ORDERED: ZYLOPRIM 300 MG PO SCH (10:00)
[2022-10-10] MEDS ORDERED: Toprol Xl 100 MG PO SCH (10:00)
[2022-10-10] MEDS ORDERED: Pepcid 20 MG PO SCH (10:00)
[2022-10-10] MEDS ORDERED: NORVASC 5 MG PO SCH (10:00)
[2022-10-10] MEDS ORDERED: Actos 30 MG PO SCH (10:00)
[2022-10-10] MEDS ORDERED: Protonix 40MG Tablet PO SCH (10:00)
[2022-10-10] MEDS ORDERED: Acidophilus TABLET PO SCH (10:00)
[2022-10-10] MEDS ORDERED: NON-FORMULARY ITEM (L.Acidoph,Paracasei, B.Lactis [Probiotic] 1 EACH Capsule) PO SCH (10:00)
[2022-10-10 10:31] LABS: Folate (Folic Acid) 15.7 ng/mL (2.76 - >20)
== END 2022-10-10 11:38 | disposition home or self-care (01) ==
LOC: ED 07:35 → MED SURG 11:56
PROVIDERS: ADMIT Family Medicine; ATTEND Family Medicine
DX: K52.9 Noninfective gastroenteritis and colitis, unspecified (principal); E86.0 Dehydration; E11.9 Type 2 diabetes mellitus without complications; I10 Essential (primary) hypertension; Z93.3 Colostomy status; Z79.899 Other long term (current) drug therapy; Z20.828 Contact with and (suspected) exposure to other viral communicable diseases
CPT/HCPCS: 0241U; 36415; 74176; 80053; 81001; 82150; 82607; 82746; 82947; 83540; 83550; 83605; 83690; 84484; 85025; 85045; 85046; 87493; 96360; 96361; 96374; 99285; G0378; J2405; Q0162; A9270-GY

== ENCOUNTER 2022-10-10 22:13 | Observation (INO) | payer BC ==
[2022-10-11 01:39] LABS: ADD URINE CULTURE? NO (NO); Appearance Clear (Clear); Bacteria None Seen /HPF (None Seen); Bilirubin Negative (Negative); Blood Negative (Negative); Epithelial Cells Rare /HPF (None Seen); Glucose, Urine 100 mg/dL (Negative); Ketones Trace (Negative); Leukocyte Esterase Negative (Negative); Nitrite Negative (Negative); Protein,Urine Dip 100 (Negative); RBC 0-2 /HPF (0-5); Urobilinogen 0.2 mg/dL (0.2); WBC 0-2 /HPF (0-5)
[2022-10-11 01:43] LABS: Absolute Neutrophil Ct (ANC) 4.95 x10^3/uL (1.4-6.9); BASOPHIL % 0.3 % (0.0-0.4); Basophil (Absolute #) 0.02 x10^3/uL (0-0.4); Eosinophil % 2.2 % (0.00-5.0); Eosinophil (Absolute #) 0.15 x10^3/uL (0-0.5); Hematocrit 35.6 % (42-50); Hemoglobin 9.6 g/dL (12.5-18.0); IMMATURE GRAN # 0.03 x10^3u/L (0.00-0.03); IMMATURE GRAN % 0.4 % (0.00-0.4); Mean Cell Volume 75.7 fL (78-100); Mean Corpuscular Hemoglobin 20.4 pg (26-32); Mean Platelet Volume 10.5 fL (7.5-11.0); Monocyte (Absolute #) 0.62 x10^3/uL (0.0-1.3); Neutrophil % 72.1 % (36.0-66.0); Platelet Count 271 x10^3/uL (150-450); Red Cell Distribution Width 16.4 % (11.5-14.0); White Blood Count 6.9 x10^3/uL (4.0-10.5)
[2022-10-11 01:58] LABS: ALBUMIN 4.2 g/dL (3.5-5.0); ANION GAP 13.3 MEQ/L (5-15); BILIRUBIN,TOTAL 0.4 mg/dL (0.2-1.3); Calcium 9.9 mg/dL (8.4-10.2); Creatinine 1 1.85 mg/dL (0.66-1.25); EST GLOMERULAR FILTRATION RATE 42.8 ML/MIN; Potassium 4.8 mmol/L (3.5-5.1); Total Protein 7.8 g/dL (6.3-8.2)
[2022-10-11 02:31] LABS: Slide Review 1 YES
--- NOTE | 2022-10-11 03:00 | XRAY ---
CLINICAL HISTORY:Abdomen pain. Pain between Xiphoid process and umblicus. Removed colon, gallbladder. Ileostomy; COMPARISON:None; TECHNIQUES:CT scan of the abdomen and pelvis was performed without contrast agent. Coronal and sagittal reconstructive images were also obtained; FINDINGS: Abdomen. Post colectomy status with ileostomy site in the right anterior abdominal wall. There is hernia of the mesenteric fat and small bowel loops at the ileostomy site. Post appendicectomy and cholecystectomy status. The liver is of average size. No focal or diffuse parenchymal abnormality. The portal vein, intrahepatic biliary radicals and the bile ducts are normal. The spleen is mildly enlarged in size, measuring 14.2 cm. The pancreas, and adrenal glands are unremarkable. The right kidney is relatively smaller in size, measuring 7 x 6 cm in length and shows mild hydronephrosis with perinephric fat stranding. There is mild dilatation of the upper and mid ureter with a 4 mm calculus in right mid ureter. Left kidney shows relative compensatory hypertrophy, measuring 12.4 cm in length. A small 3 mm concretion is seen in the middle calyx of the left kidney. No hydronephrosis is seen. A small exophytic simple renal cyst is seen at the upper pole of the left kidney, measuring 20 mm. The visualized small bowel loops are unremarkable. There is no evidence of significant enlargement of the mesenteric or retroperitoneal lymph nodes. Pelvis. The urinary bladder is unremarkable. The rectosigmoid colon is unremarkable. The uterus and adnexa are unremarkable. No evidence of pelvic lymphadenopathy. The lumbar spine shows degenerative changes. IMPRESSION: 1. Post colectomy status with ileostomy site in the right anterior abdominal wall. 2. Hernia at the ileostomy site. 3. Post appendicectomy and cholecystectomy status. 4. Chronic obstructive nephropathy of right kidney secondary to right mid ureteric calculus with relatively smaller size and perinephric fat stranding. 5. Non-obstructive left renal calculus. 6. Mild splenomegaly. Electronically Signed by: Rosanne Abarca MD. ( 10/11/2022 01:57:06 TOOL TROUBLE [employer]ER)
[2022-10-11] MEDS ORDERED: MORPHINE SULFATE 4 MG INJ IV ONE (04:31)
[2022-10-11] MEDS ORDERED: MORPHINE SULFATE 4 MG INJ ONE (04:35)
--- NOTE | 2022-10-11 05:30 | ERPHSYRPT ---
- History of Present Illness Time Seen by Provider: 10/10/22 23:59 Source: patient Exam Limitations: no limitations Patient Subjective Stated Complaint: pt states he was discharged here this morning. pt states that he is having bad burps and stomach pain Triage Nursing Assessment: pt ambulated into the er; pt is axo x4; c/o abd; pt states midline abd pain; illeostomy present to LLQ; c/o N/D; no respiratory distress; skin PDW; vitals wnl Physician History: Patient is a 42-year-old male with a history of ileostomy performed in 2010 due to severe C. difficile colitis presents to our ED for evaluation and treatment of abdominal pain, bloated sensation, inability to tolerate p.o. Patient has an ileostomy that has been putting excessive worry output over the day. Patient was admitted 2 days ago for the same. Patient was discharged today. However upon arrival to patient's home patient symptoms reoccurred. Patient experiencing generalized weakness and pain. No trauma. No fever. Symptoms are constant. Symptoms are moderate in intensity. No specific worsening improving factors. Patient voices no other complaints or concerns at this time. Portions of this note were created with voice recognition technology. There may be grammatical, spelling, punctuation or sound alike errors Timing/Duration: today Severity: moderate Modifying Factors: Improves With: nothing Associated Symptoms: abdominal pain, No fever Allergies/Adverse Reactions: Anesthetics - Amide Type - Select A [Anesthetics - Amide Type] Allergy (Intermediate, Verified 10/10/22 23:56) Hives ciprofloxacin HCl [From Cipro] Adverse Reaction (Verified 10/10/22 23:56) Hives Home Medications: Allopurinol 300 mg [Zyloprim 300 mg] 300 mg PO DAILY 03/15/14 [History] Amlodipine Besylate 5 mg [Norvasc 5 mg] 10 mg PO DAILY 03/15/14 [History] Montelukast Sodium 10 mg [Singulair 10 MG] 10 mg PO DAILY 06/18/17 [History] Metoprolol Succinate [Toprol Xl] 100 mg PO DAILY 09/05/17 [History] Irbesartan 150 mg [Avapro 150 MG] 300 mg PO DAILY 06/20/18 [History] Glimepiride 4 mg [Amaryl 4 mg] 1 tab PO BID 07/05/22 [History] Omeprazole 1 tab PO DAILY 07/05/22 [History] Pioglitazone HCl [Actos] 1 tab PO DAILY 07/05/22 [History] Tamsulosin HCl 0.4 mg [Flomax 0.4 MG] 1 tab PO DAILY 07/05/22 [History] L.acidoph,Paracasei, B.lactis [Probiotic] 1 each PO DAILY 10/09/22 [History] Hx Tetanus, Diphtheria Vaccination/Date Given: No Hx Influenza Vaccination/Date Given: Yes Hx Pneumococcal Vaccination/Date Given: No Travel Risk - International Travel Have you traveled outside of the country in past 3 weeks: No - Coronavirus Screening Are you exhibiting any of the following symptoms?: No Close contact with a COVID-19 positive Pt in past 14-21 Days: No - Vaccine Status Have you recieved a Covid-19 vaccination: Yes 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: [facility] - Vaccination Dates Date of 2cond Vaccination (if applicable): 10/17/20 - Review of Systems Constitutional: No Symptoms, No Fever, No Chills Eyes: No Symptoms Ears, Nose, & Throat: No Symptoms Respiratory: No Symptoms, No Cough, No Dyspnea Cardiac: No Symptoms, No Chest Pain, No Edema, No Syncope Abdominal/Gastrointestinal: No Symptoms, No Abdominal Pain, No Nausea, No Vomiting, No Diarrhea Genitourinary Symptoms: No Symptoms, No Dysuria Musculoskeletal: No Symptoms, No Back Pain, No Neck Pain Skin: No Symptoms, No Rash Neurological: No Symptoms, No Dizziness, No Focal Weakness, No Sensory Changes Psychological: No Symptoms Endocrine: No Symptoms Hematologic/Lymphatic: No Symptoms Immunological/Allergic: No Symptoms All Other Systems: Reviewed and Negative - Past Medical History Pertinent Past Medical History: Yes Neurological History: No Pertinent History ENT History: Cataracts Cardiac History: Hypertension Respiratory History: No Pertinent History Endocrine Medical History: Diabetes Type II Musculoskeletal History: Other GI Medical History: Colitis, Gallbladder Disease, Other History: Renal Disease Psycho-Social History: No Pertinent History Male Reproductive Disorders: No Pertinent History Other Medical History: L-SPINE DISCECTOMY 2011. HX NECK ISSUES. Cataracts have cleared up since being removed from high dose steroids. Kidney function issues every time he gets dehydrated - Past Surgical History Past Surgical History: Yes Neuro Surgical History: No Pertinent History Cardiac: No Pertinent History Respiratory: No Pertinent History Gastrointestinal: Appendectomy, Bowel Surgery, Cholecystectomy, Other Genitourinary: Other Musculoskeletal: Orthopedic Surgery Male Surgical History: Vasectomy Other Surgical History: bck,colon removed and illeostomy 2010. shoulder surgery, back surgery. kidney stones removed surgically - Social History Smoking Status: Never smoker Exposure to second hand smoke: No Drug Use: none Patient Lives Alone: No - Nursing Vital Signs Nursing Vital Signs: Initial Vital Signs Temperature 97.1 F 10/10/22 23:58 Pulse Rate 84 10/10/22 23:58 Respiratory Rate 18 10/10/22 23:58 Blood Pressure 109/67 10/10/22 23:58 O2 Sat by Pulse Oximetry 97 10/10/22 23:58 Pain Scale Pain Intensity 8 - Physical Exam General Appearance: no apparent distress, alert Eye Exam: PERRL/EOMI, eyes nml inspection Ears, Nose, Throat Exam: normal ENT inspection, TMs normal, pharynx normal, moist mucous membranes Neck Exam: normal inspection, non-tender, supple, full range of motion Respiratory Exam: normal breath sounds, lungs clear, No respiratory distress Cardiovascular Exam: regular rate/rhythm, normal heart sounds, normal peripheral pulses Gastrointestinal/Abdomen Exam: soft, normal bowel sounds, tenderness, other (Generalized abdominal tenderness), No mass Back Exam: normal inspection, normal range of motion, No CVA tenderness, No vertebral tenderness Extremity Exam: normal inspection, normal range of motion, pelvis stable Neurologic Exam: alert, oriented x 3, cooperative, normal mood/affect, nml cerebellar function, nml station & gait, sensation nml, No motor deficits Skin Exam: normal color, warm, dry, No rash Lymphatic Exam: No adenopathy SpO2 Interpretation: normal SpO2: 97 O2 Delivery: Room Air - Course Nursing assessment & vital signs reviewed: Yes - CT Exams Abdomen/Pelvis CT Interpretation: Tele-radiologist Report (Post colectomy status with ileostomy site in the right anterior abdominal wall. Hernia at the ileostomy site. Post appendectomy with cholecystectomy. Chronic obstructive nephropathy of the right secondary to the right mid ureteral calculus. Nonobstructive left renal calculus.) Ordered Tests: Active Orders 24 hr Category Date Time Status IV Insertion STAT Care 10/11/22 01:24 Active ABDOMEN AND PELVIS W/0 CONTRAS [CT] Stat Exams 10/11/22 01:24 Completed CBC W DIFF Stat Lab 10/11/22 01:41 Completed CMP Stat Lab 10/11/22 01:41 Completed LIPASE Stat Lab 10/11/22 01:41 Completed TROPONIN Q4H Lab 10/11/22 01:41 Completed TROPONIN Q4H Lab 10/11/22 05:35 Received TROPONIN Q4H Lab 10/11/22 09:30 Ordered UA W/RFX UR CULTURE Stat Lab 10/11/22 01:30 Completed Transfer Order Routine Transfer 10/11/22 Ordered Medication Summary Discontinued Medications Generic Name Dose Route Start Last Admin Trade Name Guadalupe PRN Reason Stop Dose Admin Morphine Sulfate 4 mg 10/11/22 04:31 10/11/22 04:37 Morphine Sulfate 4 Mg/Ml Injection IV 10/11/22 04:32 4 mg STAT ONE Administration Morphine Sulfate Confirm 10/11/22 04:35 Morphine Sulfate 4 Mg/Ml Injection Administered 10/11/22 04:36 Dose 4 mg .ROUTE .[place] ONE Lab/Rad Data: Laboratory Result Diagrams 10/11/22 01:41 10/11/22 01:41 Laboratory Results 10/11/22 10/11/22 10/11/22 Range/Units 01:41 01:41 01:41 WBC 6.9 (4.0-10.5) x10^3/uL RBC 4.70 (4.1-5.6) x10^6/uL Hgb 9.6 L (12.5-18.0) g/dL Hct 35.6 L (42-50) % MCV 75.7 L (78-100) fL MCH 20.4 L (26-32) pg MCHC 27.0 L (32-36) g/dL RDW 16.4 H (11.5-14.0) % Plt Count 271 (150-450) x10^3/uL MPV 10.5 (7.5-11.0) fL Gran % 72.1 H (36.0-66.0) % Immature Gran % (Auto) 0.4 (0.00-0.4) % Nucleat RBC Rel Count 0.0 (0.00-0.1) % Eos # (Auto) 0.15 (0-0.5) x10^3/uL Immature Gran # (Auto) 0.03 (0.00-0.03) x10^3u/L Absolute Lymphs (auto) 1.10 (1.0-4.6) x10^3/uL Absolute Monos (auto) 0.62 (0.0-1.3) x10^3/uL Absolute Nucleated RBC 0.00 (0.00-0.01) x10^3u/L Lymphocytes % 16.0 L (24.0-44.0) % Monocytes % 9.0 (0.0-12.0) % Eosinophils % 2.2 (0.00-5.0) % Basophils % 0.3 (0.0-0.4) % Absolute Granulocytes 4.95 (1.4-6.9) x10^3/uL Basophils # 0.02 (0-0.4) x10^3/uL Sodium 142 (137-145) mmol/L Potassium 4.8 (3.5-5.1) mmol/L Chloride 109 H (98-107) mmol/L Carbon Dioxide 24 (22-30) mmol/L Anion Gap 13.3 (5-15) MEQ/L BUN 18 (9-20) mg/dL Creatinine 1.85 H (0.66-1.25) mg/dL Estimated GFR 42.8 ML/MIN Glucose 189 H (74-106) mg/dL Calcium 9.9 (8.4-10.2) mg/dL Total Bilirubin 0.40 (0.2-1.3) mg/dL AST 19 (17-59) U/L ALT 22 (0-50) U/L Alkaline Phosphatase 77 (38-126) U/L Troponin I < 0.012 (0.000-0.034) ng/mL Serum Total Protein 7.8 (6.3-8.2) g/dL Albumin 4.2 (3.5-5.0) g/dL Lipase 237 (23-300) U/L Urine Color (Yellow) Urine Appearance (Clear) Urine pH (4.6-8.0) Ur Specific [place] (1.005-1.030) Urine Protein (Negative) Urine Glucose (UA) (Negative) mg/dL Urine Ketones (Negative) Urine Blood (Negative) Urine Nitrite (Negative) Urine Bilirubin (Negative) Urine Urobilinogen (0.2) mg/dL Ur Leukocyte Esterase (Negative) U Hyaline Cast (Auto) (0-2) /LPF Urine Microscopic RBC (0-5) /HPF Urine Microscopic WBC (0-5) /HPF Ur Epithelial Cells (None Seen) /HPF Urine Bacteria (None Seen) /HPF Urine Culture Reflexed (NO) Slides for Path Review YES 10/11/22 Range/Units 01:30 WBC (4.0-10.5) x10^3/uL RBC (4.1-5.6) x10^6/uL Hgb (12.5-18.0) g/dL Hct (42-50) % MCV (78-100) fL MCH (26-32) pg MCHC (32-36) g/dL RDW (11.5-14.0) % Plt Count (150-450) x10^3/uL MPV (7.5-11.0) fL Gran % (36.0-66.0) % Immature Gran % (Auto) (0.00-0.4) % Nucleat RBC Rel Count (0.00-0.1) % Eos # (Auto) (0-0.5) x10^3/uL Immature Gran # (Auto) (0.00-0.03) x10^3u/L Absolute Lymphs (auto) (1.0-4.6) x10^3/uL Absolute Monos (auto) (0.0-1.3) x10^3/uL Absolute Nucleated RBC (0.00-0.01) x10^3u/L Lymphocytes % (24.0-44.0) % Monocytes % (0.0-12.0) % Eosinophils % (0.00-5.0) % Basophils % (0.0-0.4) % Absolute Granulocytes (1.4-6.9) x10^3/uL Basophils # (0-0.4) x10^3/uL Sodium (137-145) mmol/L Potassium (3.5-5.1) mmol/L Chloride (98-107) mmol/L Carbon Dioxide (22-30) mmol/L Anion Gap (5-15) MEQ/L BUN (9-20) mg/dL Creatinine (0.66-1.25) mg/dL Estimated GFR ML/MIN Glucose (74-106) mg/dL Calcium (8.4-10.2) mg/dL Total Bilirubin (0.2-1.3) mg/dL AST (17-59) U/L ALT (0-50) U/L Alkaline Phosphatase (38-126) U/L Troponin I (0.000-0.034) ng/mL Serum Total Protein (6.3-8.2) g/dL Albumin (3.5-5.0) g/dL Lipase (23-300) U/L Urine Color Dark Yellow (Yellow) Urine Appearance Clear (Clear) Urine pH 5.0 (4.6-8.0) Ur Specific [place] 1.020 (1.005-1.030) Urine Protein 100 A (Negative) Urine Glucose (UA) 100 A (Negative) mg/dL Urine Ketones Trace A (Negative) Urine Blood Negative (Negative) Urine Nitrite Negative (Negative) Urine Bilirubin Negative (Negative) Urine Urobilinogen 0.2 (0.2) mg/dL Ur Leukocyte Esterase Negative (Negative) U Hyaline Cast (Auto) 3-5 A (0-2) /LPF Urine Microscopic RBC 0-2 (0-5) /HPF Urine Microscopic WBC 0-2 (0-5) /HPF Ur Epithelial Cells Rare (None Seen) /HPF Urine Bacteria None Seen (None Seen) /HPF Urine Culture Reflexed NO (NO) Slides for Path Review - Progress Progress: improved Progress Note: Patient is a 42-year-old male presents to our ED for evaluation of generalized weakness. Patient with discharge from our hospital earlier today. Patient admitting diagnosis at that time was dehydration and enteritis. Patient presents to our ED with the same symptomology. Patient states shortly after he was discharged from the hospital symptoms recurred. Patient has been experiencing excessive output from his ileostomy. 10/11/22 05:44 Work-up entailed CBC CMP lipase troponin urinalysis. Repeat CAT scan performed due to abdominal pain. Work-up reveals dehydration and acute renal injury. Pat ient will require admission for further evaluation and treatment including rehydration. Case discussed with hospitalist who excepts admission to observation. Complexity of problem addressed is moderate acute complicated with systemic manifestations. No critical care time. Complexity of data reviewed and analyzed is extensive. Patient's served as independent historian. Test ordered test reviewed and analyzed. Case discussed with radiologist who revised the initial CT read. Patient reassessed. Pain ongoing patient unable to tolerate p.o. Case patient management discussed with hospitalist who excepts admission to observation. Risk of complication and or risk morbidity/mortality of patient management is high. Patient received IV morphine for pain control. Patient will be hos pitalized for further evaluation and treatment of underlying pathology. at bedside. She voices no other complaints or concerns at this time. Portions of this note were created with voice recognition technology. There may be grammatical, spelling, punctuation or sound alike errors 10/11/22 05:46 10/11/22 05:47 Counseled pt/family regarding: lab results, diagnosis, rad results - Departure Departure Disposition: Observation Clinical Impression: Generalized weakness, Dehydration, Acute renal injury, Enteritis Condition: Stable Critical Care Time: No Referrals: LONA MARCUM [Primary Care Provider] - Follow up/PCP as directed
[2022-10-11] MEDS ORDERED: HYDROMORPHONE 30 MG/30 ML-NS PCA IV PRN (07:37)
[2022-10-11] MEDS ORDERED: Zofran 4 MG/2 ML VIAL IV PRN (07:40)
[2022-10-11] MEDS ORDERED: Lomotil PO PRN (09:52)
[2022-10-11] MEDS: AMARYL 4 MG PO SCH ×2 (10:00→17:17)
[2022-10-11] MEDS: Flomax 0.4 MG PO SCH (10:00)
[2022-10-11] MEDS: Singulair 10 MG PO SCH (10:00)
[2022-10-11] MEDS: ZYLOPRIM 300 MG PO SCH (10:00)
[2022-10-11] MEDS: NORVASC 5 MG PO SCH (10:00)
[2022-10-11] MEDS ORDERED: NON-FORMULARY ITEM (L.Acidoph,Paracasei, B.Lactis [Probiotic] 1 EACH Capsule) PO SCH (10:00)
[2022-10-11] MEDS: Toprol Xl 50 MG PO SCH (10:00)
[2022-10-11] MEDS: PROTONIX 40 MG IV IV SCH (10:00)
[2022-10-11] MEDS: Acidophilus TABLET PO SCH (10:01)
[2022-10-11] MEDS: Actos 30 MG PO SCH (10:01)
[2022-10-11 13:26] LABS: 027 TOX PROD PRESUMPTIVE NEGATIVE (NEGATIVE); TOXIGENIC C. DIFF ORG NEGATIVE (NEGATIVE)
--- NOTE | 2022-10-11 13:51 | CONS ---
CONSULT DATE: 10/11/2022 REASON FOR CONSULT: Possible incarcerated ileostomy, parastomal hernia site right lower quadrant. HISTORY: The patient had a total colectomy for Clostridium difficile some 10 to 12 years ago. He had an ileostomy. He had ileostomy revision and ostomy repair by Dr. Chiu back in 2018 at [facility]. He came in dehydrated and vomiting last night. He is opened up. He is feeling better. He is starting to take liquids. We finally converted this to semi-elective case but he probably needs studies and referred back to Dr. Chiu and some planning on possible parastomal hernia repair. We will discuss with Dr. Chiu and he can have an appointment and follow up with Dr. Chiu.
[2022-10-11] MEDS: Sodium Chloride 0.9% 1000 ML 1,000 ML IV SCH (16:34)
[2022-10-12] MEDS: Sodium Chloride 0.9% 1000 ML 1,000 ML IV SCH ×4 (02:24→21:30)
[2022-10-12 05:34] LABS: Hematocrit 31.1 % (42-50); Hemoglobin 8.7 g/dL (12.5-18.0); Mean Cell Volume 74.4 fL (78-100); Mean Corpuscular Hemoglobin 20.8 pg (26-32); Mean Platelet Volume 10.7 fL (7.5-11.0); Platelet Count 207 x10^3/uL (150-450); Red Blood Count 4.18 x10^6/uL (4.1-5.6); Red Cell Distribution Width 16.5 % (11.5-14.0); White Blood Count 5.3 x10^3/uL (4.0-10.5)
[2022-10-12 05:54] LABS: ALBUMIN 3.4 g/dL (3.5-5.0); ANION GAP 12.2 MEQ/L (5-15); BILIRUBIN,TOTAL 0.4 mg/dL (0.2-1.3); Creatinine 1 1.79 mg/dL (0.66-1.25); EST GLOMERULAR FILTRATION RATE 44.5 ML/MIN; Potassium 3.8 mmol/L (3.5-5.1); Total Protein 6.5 g/dL (6.3-8.2)
[2022-10-12 07:09] LABS: Slide Review YES
[2022-10-12] MEDS: AMARYL 4 MG PO SCH ×2 (08:02→16:50)
[2022-10-12] MEDS: PROTONIX 40 MG IV IV SCH (10:00)
[2022-10-12] MEDS: ZYLOPRIM 300 MG PO SCH (10:13)
[2022-10-12] MEDS: Acidophilus TABLET PO SCH (10:13)
[2022-10-12] MEDS: Singulair 10 MG PO SCH (10:13)
[2022-10-12] MEDS: Toprol Xl 50 MG PO SCH (10:13)
[2022-10-12] MEDS: NORVASC 5 MG PO SCH (10:13)
[2022-10-12] MEDS: Flomax 0.4 MG PO SCH (10:13)
[2022-10-12] MEDS: Actos 30 MG PO SCH (10:13)
[2022-10-13 06:15] LABS: Hematocrit 31.3 % (42-50); Hemoglobin 8.7 g/dL (12.5-18.0); Mean Cell Volume 74.9 fL (78-100); Mean Corpuscular Hemoglobin 20.8 pg (26-32); Mean Corpuscular Hgb Concent. 27.8 g/dL (32-36); Mean Platelet Volume 10.6 fL (7.5-11.0); Platelet Count 211 x10^3/uL (150-450); Red Blood Count 4.18 x10^6/uL (4.1-5.6); Red Cell Distribution Width 16.6 % (11.5-14.0); White Blood Count 6.1 x10^3/uL (4.0-10.5)
[2022-10-13 07:15] LABS: ANION GAP 11.6 MEQ/L (5-15); Calcium 9.3 mg/dL (8.4-10.2); Creatinine 1 1.58 mg/dL (0.66-1.25); EST GLOMERULAR FILTRATION RATE 51.4 ML/MIN; Potassium 3.9 mmol/L (3.5-5.1)
[2022-10-13] MEDS: PROTONIX 40 MG IV IV SCH (08:47)
[2022-10-13] MEDS: AMARYL 4 MG PO SCH (08:47)
[2022-10-13] MEDS: NORVASC 5 MG PO SCH (08:48)
[2022-10-13] MEDS: Flomax 0.4 MG PO SCH (08:49)
[2022-10-13] MEDS: Singulair 10 MG PO SCH (08:49)
[2022-10-13] MEDS: Actos 30 MG PO SCH (08:49)
[2022-10-13] MEDS: Toprol Xl 50 MG PO SCH (08:50)
[2022-10-13] MEDS: Acidophilus TABLET PO SCH (08:50)
[2022-10-13] MEDS: ZYLOPRIM 300 MG PO SCH (08:50)
[2022-10-13] MEDS: Sodium Chloride 0.9% 1000 ML 1,000 ML IV SCH (08:51)
[2022-10-13 11:20] LABS: Slide Review YES
[2022-10-13 11:57] VITALS: BP 144/83; PULSE 91; O2SAT 98
--- NOTE | 2022-10-13 15:33 | PCM.DCORD ---
- Discharge Disposition: Home, Self-Care Condition: Stable Prescriptions: New Cholestyramine (with Sugar) [Cholestyramine Packet] 4 gm PO BID #60 pkt Saccharomyces Boulardii [Florastor] 250 mg PO BID #20 cap Continue Amlodipine Besylate 5 mg [Norvasc 5 mg] 10 mg PO DAILY Allopurinol 300 mg [Zyloprim 300 mg] 300 mg PO DAILY Montelukast Sodium 10 mg [Singulair 10 MG] 10 mg PO DAILY Metoprolol Succinate [Toprol Xl] 100 mg PO DAILY Irbesartan 150 mg [Avapro 150 MG] 300 mg PO DAILY Omeprazole 20 mg PO DAILY Tamsulosin HCl 0.4 mg [Flomax 0.4 MG] 0.4 mg PO DAILY Glimepiride 4 mg [Amaryl 4 mg] 4 mg PO BID Pioglitazone HCl [Actos] 15 mg PO DAILY Ondansetron ODT 4 MG [Zofran Odt 4 mg] 4 mg PO Q6H PRN PRN #10 tablet PRN Reason: Vomiting L.acidoph,Paracasei, B.lactis [Probiotic] 1 each PO DAILY Ferrous Sulfate 325 mg [Feosol 325 mg] 325 mg PO DAILY #30 tablet Famotidine 20 mg [Pepcid 20 MG] 40 mg PO DAILY #30 tablet Follow up with: KATE ESPITIA [COURTESY STAFF] -
--- NOTE | 2022-10-13 17:31 | PCM.DCORD ---
- Discharge Disposition: Home, Self-Care Condition: Stable Prescriptions: New Cholestyramine (with Sugar) [Cholestyramine Packet] 4 gm PO BID #60 pkt Saccharomyces Boulardii [Florastor] 250 mg PO BID #20 cap Continue Amlodipine Besylate 5 mg [Norvasc 5 mg] 10 mg PO DAILY Allopurinol 300 mg [Zyloprim 300 mg] 300 mg PO DAILY Montelukast Sodium 10 mg [Singulair 10 MG] 10 mg PO DAILY Metoprolol Succinate [Toprol Xl] 100 mg PO DAILY Irbesartan 150 mg [Avapro 150 MG] 300 mg PO DAILY Omeprazole 20 mg PO DAILY Tamsulosin HCl 0.4 mg [Flomax 0.4 MG] 0.4 mg PO DAILY Glimepiride 4 mg [Amaryl 4 mg] 4 mg PO BID Pioglitazone HCl [Actos] 15 mg PO DAILY Ondansetron ODT 4 MG [Zofran Odt 4 mg] 4 mg PO Q6H PRN PRN #10 tablet PRN Reason: Vomiting L.acidoph,Paracasei, B.lactis [Probiotic] 1 each PO DAILY Ferrous Sulfate 325 mg [Feosol 325 mg] 325 mg PO DAILY #30 tablet Famotidine 20 mg [Pepcid 20 MG] 40 mg PO DAILY #30 tablet Instructions: Dehydration, Adult (DC), Severe Abdominal Pain, Adult (DC) Additional Instructions: CALL DR MARCUM FIRST THING Saturday TO SCHEDULE A FOLLOW UP APPOINTMENT Follow up with: LONA MARCUM [Primary Care Provider] - KATE ESPITIA [COURTESY STAFF] -
[2022-10-14 06:38] LABS: Adenovirus F40/41 Not Detected (Not Detected); Astrovirus Not Detected (Not Detected); Campylobacter Not Detected (Not Detected); Cryptosporidium Not Detected (Not Detected); Cyclospora cayetanensis Not Detected (Not Detected); Entamoeba histolytica Not Detected (Not Detected); Enteroaggregative E coli Not Detected (Not Detected); Enterpathogenic E coli Not Detected (Not Detected); Entertoxigenic E coli Not Detected (Not Detected); Giardia lamblia Not Detected (Not Detected); Norovirus GI/GII Not Detected (Not Detected); Plesiomonas shigelloides Not Detected (Not Detected); Rotavirus A Not Detected (Not Detected); Salmonella Not Detected (Not Detected); Shig-toxin-producing E coli Not Detected (Not Detected); Shigella/Enterinvasive E coli Not Detected (Not Detected); Vibrio Not Detected (Not Detected); Vibrio cholerae Not Detected (Not Detected); Yersinia enterocolitica Not Detected (Not Detected)
[2022-10-14 06:54] LABS: Sapovirus Not Detected (Not Detected)
== END 2022-10-13 15:55 | disposition home or self-care (01) ==
LOC: ED 22:13 → MED SURG 10-11 06:34
PROVIDERS: ADMIT Family Medicine; ATTEND Family Medicine
DX: E86.0 Dehydration (principal); R53.1 Weakness; E11.22 Type 2 diabetes mellitus with diabetic chronic kidney disease; I12.9 Hypertensive chronic kidney disease with stage 1 through stage 4 chronic kidney disease, or unspecified chronic kidney disease; N18.9 Chronic kidney disease, unspecified; K43.5 Parastomal hernia without obstruction or gangrene; D64.9 Anemia, unspecified; K52.9 Noninfective gastroenteritis and colitis, unspecified; R10.9 Unspecified abdominal pain; Z79.899 Other long term (current) drug therapy; Z20.828 Contact with and (suspected) exposure to other viral communicable diseases
CPT/HCPCS: 36000; 36415; 74176; 80048; 80053; 81001; 82947; 83036; 83690; 84484; 85025; 85027; 87493; 87507; 93268; 94762; 96374; 99285; G0378; J1170; J2270; A9270-GY

== ENCOUNTER 2023-07-24 00:27 | Emergency (ER) | payer BC ==
[2023-07-24 02:13] VITALS: TEMP 97.6
[2023-07-24] MEDS ORDERED: Sodium Chloride 0.9% 1000 ML 1,000 ML ONE ×2 (02:51→03:59)
[2023-07-24] MEDS: Sodium Chloride 0.9% 1000 ML 1,000 ML IV STA ×2 (02:52→03:58)
[2023-07-24 02:59] LABS: BASOPHIL % 0.4 % (0.0-0.4); Basophil (Absolute #) 0.04 x10^3/uL (0-0.4); Eosinophil % 0.4 % (0.00-5.0); Eosinophil (Absolute #) 0.04 x10^3/uL (0-0.5); Hematocrit 45.2 % (42-50); Hemoglobin 14.7 g/dL (12.5-18.0); IMMATURE GRAN # 0.03 x10^3u/L (0.00-0.03); IMMATURE GRAN % 0.3 % (0.00-0.4); Lymphocyte (Absolute #) 0.61 x10^3/uL (1.0-4.6); Lymphocytes % 5.7 % (24.0-44.0); Mean Cell Volume 90.6 fL (78-100); Mean Corpuscular Hemoglobin 29.5 pg (26-32); Mean Corpuscular Hgb Concent. 32.5 g/dL (32-36); Mean Platelet Volume 10.5 fL (7.5-11.0); Monocyte (Absolute #) 0.57 x10^3/uL (0.0-1.3); Monocytes % 5.3 % (0.0-12.0); Neutrophil % 87.9 % (36.0-66.0); Platelet Count 255 x10^3/uL (150-450); Red Blood Count 4.99 x10^6/uL (4.1-5.6); Red Cell Distribution Width 13.3 % (11.5-14.0); White Blood Count 10.8 x10^3/uL (4.0-10.5)
[2023-07-24 03:12] LABS: ALBUMIN 4.5 g/dL (3.5-5.0); ANION GAP 11.6 MEQ/L (5-15); Calcium 10.3 mg/dL (8.4-10.2); Creatinine 1 1.48 mg/dL (0.66-1.25); EST GLOMERULAR FILTRATION RATE 59.8 ML/MIN; Potassium 4.1 mmol/L (3.5-5.1); Total Protein 7.8 g/dL (6.3-8.2)
--- NOTE | 2023-07-24 03:40 | ERPHSYRPT ---
- History of Present Illness Time Seen by Provider: 07/24/23 02:30 Source: patient Exam Limitations: no limitations Patient Subjective Stated Complaint: per pt does outpatient infusions of normal saline bolus, last infusion was and pt has missed a couple infu sions, per when pt gets dehydrated he vomits and his ileostomy fills up quickly. 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 Patient normally gets outpatient normal saline infusions however he has missed 2 infusions. states that when patient misses infusions he becomes dehydrated and experiences vomiting and increased ileostomy output. has observed the symptoms. No pain. Symptoms are progressive. Symptoms are moderate in intensity. No specific worsening improving factors. voices no other complaints or concerns at this time. Portions of this note were created with voice recognition technology. There may be grammatical, spelling, punctuation or sound alike errors Timing/Duration: today Severity: moderate Modifying Factors: Improves With: nothing Associated Symptoms: denies symptoms Allergies/Adverse Reactions: Anesthetics - Amide Type - Select A [Anesthetics - Amide Type] Allergy (Interm ediate, Verified 07/24/23 02:08) Hives ciprofloxacin HCl [From Cipro] Adverse Reaction (Verified 07/24/23 02:08) Hives Home Medications: Allopurinol 300 mg [Zyloprim 300 mg] 300 mg PO DAILY 03/15/14 [History] Amlodipine Besylate 5 mg [Norvasc 5 mg] 10 mg PO DAILY 03/15/14 [History] Montelukast Sodium 10 mg [Singulair 10 MG] 10 mg PO DAILY 06/18/17 [History] Irbesartan 150 mg [Avapro 150 MG] 300 mg PO DAILY 06/20/18 [History] Glimepiride 4 mg [Amaryl 4 mg] 4 mg PO BID 07/05/22 [History] Omeprazole 20 mg PO DAILY 07/05/22 [History] Pioglitazone HCl [Actos] 15 mg PO DAILY 07/05/22 [History] Tamsulosin HCl 0.4 mg [Flomax 0.4 MG] 0.4 mg PO DAILY 07/05/22 [History] L.acidoph,Paracasei, B.lactis [Probiotic] 1 each PO DAILY 10/09/22 [History] Budesonide [Budesonide EC] 3 mg PO TID 02/04/23 [History] Metoprolol Succinate 100 mg [Toprol Xl 100 MG] 100 mg PO DAILY 07/24/23 [History] Hx Tetanus, Diphtheria Vaccination/Date Given: No Hx Influenza Vaccination/Date Given: Yes Hx Pneumococcal Vaccination/Date Given: No Immunizations Up to Date: Yes Travel Risk - International Travel Have you traveled outside of the country in past 3 weeks: No - Coronavirus Screening Are you exhibiting any of the following symptoms?: No Close contact with a COVID-19 positive Pt in past 14-21 Days: No - Vaccine Status Have you recieved a Covid-19 vaccination: Yes [employer]: [email or web address] - Vaccination Dates Date of 2cond Vaccination (if applicable): 10/17/20 - Review of Systems Constitutional: No Symptoms, No Fever, No Chills Eyes: No Symptoms Ears, Nose, & Throat: No Symptoms Respiratory: No Symptoms, No Cough, No Dyspnea Cardiac: No Symptoms, No Chest Pain, No Edema, No Syncope Abdominal/Gastrointestinal: No Symptoms, No Abdominal Pain, No Nausea, No Vomiting, No Diarrhea Genitourinary Symptoms: No Symptoms, No Dysuria Musculoskeletal: No Symptoms, No Back Pain, No Neck Pain Skin: No Symptoms, No Rash Neurological: No Symptoms, No Dizziness, No Focal Weakness, No Sensory Changes Psychological: No Symptoms Endocrine: No Symptoms Hematologic/Lymphatic: No Symptoms Immunological/Allergic: No Symptoms All Other Systems: Reviewed and Negative - Past Medical History Pertinent Past Medical History: Yes Neurological History: No Pertinent History ENT History: Cataracts Cardiac History: Hypertension Respiratory History: No Pertinent History Endocrine Medical History: Diabetes Type II Musculoskeletal History: Other GI Medical History: Colitis, Crohns Disease History: Renal Disease Psycho-Social History: No Pertinent History Male Reproductive Disorders: No Pertinent History Other Medical History: L-SPINE DISCECTOMY 2012. HX NECK ISSUES. Cataracts have cleared up since being removed from high dose steroids. Kidney function issues every time he gets dehydrated - Past Surgical History Past Surgical History: Yes Neuro Surgical History: No Pertinent History Cardiac: No Pertinent History Respiratory: No Pertinent History Gastrointestinal: Appendectomy, Bowel Surgery, Cholecystectomy, Other Genitourinary: Other Musculoskeletal: Orthopedic Surgery Male Surgical History: Vasectomy Other Surgical History: bck,colon removed and illeostomy 2010. shoulder surgery, back surgery. kidney stones removed surgically - Social History Smoking Status: Never smoker Exposure to second hand smoke: No Drug Use: none Patient Lives Alone: No - Nursing Vital Signs Nursing Vital Signs: Initial Vital Signs Temperature 97.6 F 07/24/23 02:08 Pulse Rate 97 H 07/24/23 02:08 Respiratory Rate 18 07/24/23 02:08 Blood Pressure 116/83 07/24/23 02:08 O2 Sat by Pulse Oximetry 94 L 07/24/23 02:08 Pain Scale Pain Intensity 0 - Physical Exam General Appearance: no apparent distress, alert Eye Exam: PERRL/EOMI, eyes nml inspection Ears, Nose, Throat Exam: normal ENT inspection, TMs normal, pharynx normal, moist mucous membranes Neck Exam: normal inspection, non-tender, supple, full range of motion Respiratory Exam: normal breath sounds, lungs clear, airway intact, No respiratory distress Cardiovascular Exam: regular rate/rhythm, normal heart sounds, normal peripheral pulses Gastrointestinal/Abdomen Exam: soft, normal bowel sounds, No tenderness, No mass Back Exam: normal inspection, normal range of motion, No CVA tenderness, No vertebral tenderness Extremity Exam: normal inspection, normal range of motion, pelvis stable Neurologic Exam: alert, oriented x 3, cooperative, normal mood/affect, nml cerebellar function, nml station & gait, sensation nml, No motor deficits Skin Exam: normal color, warm, dry, No rash Lymphatic Exam: No adenopathy SpO2 Interpretation: normal SpO2: 94 O2 Delivery: Room Air - Course Nursing assessment & vital signs reviewed: Yes Ordered Tests: Active Orders 24 hr Category Date Time Status IV Insertion STAT Care 07/24/23 02:56 Active CBC W DIFF Stat Lab 07/24/23 02:56 Completed CMP Stat Lab 07/24/23 02:56 Completed Medication Summary Generic Name Dose Route Start Last Admin Trade Name Guadalupe PRN Reason Stop Dose Admin Sodium Chloride 1,000 mls @ 500 mls/hr 07/24/23 04:00 07/24/23 06:08 Sodium Chloride 0.9% 1000 Ml IV 08/23/23 03:59 Not Given .Q2H HARRIS Discontinued Medications Generic Name Dose Route Start Last Admin Trade Name Guadalupe PRN Reason Stop Dose Admin Sodium Chloride 1,000 mls @ 999 mls/hr 07/24/23 02:50 07/24/23 04:22 Sodium Chloride 0.9% 1000 Ml IV 07/24/23 03:50 Infused .Q1H1M STA Infusion Sodium Chloride Confirm 07/24/23 02:51 Sodium Chloride 0.9% 1000 Ml Administered 07/24/23 02:52 Dose 1,000 mls @ ud .ROUTE .STK-MED ONE Sodium Chloride 1,000 mls @ 999 mls/hr 07/24/23 03:50 07/24/23 03:58 Sodium Chloride 0.9% 1000 Ml IV 07/24/23 04:50 Not Given .Q1H1M STA Lab/Rad Data: Laboratory Result Diagrams 07/24/23 02:56 07/24/23 02:56 Laboratory Results 07/24/23 07/24/23 Range/Units 02:56 02:56 WBC 10.8 H (4.0-10.5) x10^3/uL RBC 4.99 (4.1-5.6) x10^6/uL Hgb 14.7 (12.5-18.0) g/dL Hct 45.2 (42-50) % MCV 90.6 (78-100) fL MCH 29.5 (26-32) pg MCHC 32.5 (32-36) g/dL RDW 13.3 (11.5-14.0) % Plt Count 255 (150-450) x10^3/uL MPV 10.5 (7.5-11.0) fL Gran % 87.9 H (36.0-66.0) % Immature Gran % (Auto) 0.3 (0.00-0.4) % Nucleat RBC Rel Count 0.0 (0.00-0.1) % Eos # (Auto) 0.04 (0-0.5) x10^3/uL Immature Gran # (Auto) 0.03 (0.00-0.03) x10^3u/L Absolute Lymphs (auto) 0.61 L (1.0-4.6) x10^3/uL Absolute Monos (auto) 0.57 (0.0-1.3) x10^3/uL Absolute Nucleated RBC 0.00 (0.00-0.01) x10^3u/L Lymphocytes % 5.7 L (24.0-44.0) % Monocytes % 5.3 (0.0-12.0) % Eosinophils % 0.4 (0.00-5.0) % Basophils % 0.4 (0.0-0.4) % Absolute Granulocytes 9.50 H (1.4-6.9) x10^3/uL Basophils # 0.04 (0-0.4) x10^3/uL Sodium 138 (137-145) mmol/L Potassium 4.1 (3.5-5.1) mmol/L Chloride 108 H (98-107) mmol/L Carbon Dioxide 22 (22-30) mmol/L Anion Gap 11.6 (5-15) MEQ/L BUN 17 (9-20) mg/dL Creatinine 1.48 H (0.66-1.25) mg/dL Estimated GFR 59.8 ML/MIN Glucose 210 H (74-106) mg/dL Calcium 10.3 H (8.4-10.2) mg/dL Total Bilirubin 1.00 (0.2-1.3) mg/dL AST 25 (17-59) U/L ALT 31 (0-50) U/L Alkaline Phosphatase 90 (38-126) U/L Serum Total Protein 7.8 (6.3-8.2) g/dL Albumin 4.5 (3.5-5.0) g/dL - Progress Progress: improved Progress Note: Patient is a 43-year-old male with an ileostomy who normally requires outpatient infusion of normal saline for maintenance of hydration. Patient has missed 2 sessions of infusions. reports dehydration manifest itself as vomiting and increased ileostomy output. Physical exam shows some pallor. Patient received 2 L normal saline over 5 hours as per patient and 's request. Laboratory workup reveals acute kidney injury with elevated creatinine. We discussed the possibility of admission for rehydration and reassessment of kidney function. They declined. However they agreed to the IV fluids. They said they would follow-up primary care doctor within 48 hours for evaluation including reassessment of kidney function. Infusion of 2 L normal saline completed. They are now requesting discharge home. They have no other complaints or concerns at this time. Portions of this note were created with voice recognition technology. There may be grammatical, spelling, punctuation or sound alike errors Complexity problem addressed is moderate acute complicated No critical care time Complexity of data reviewed and analyzed is moderate. Test ordered test reviewed. Results analyzed and correlated clinically with history and physical exam. Risk of complication and or risk of morbidity/mortality of patient management is low. Will discharge home. Vital stable. Time spent to discharge patient is approximately 15 minutes. Plan of care established for shared decision making. No social determinants of health present impede follow-up. Portions of this note were created with voice recognition technology. There may be grammatical, spelling, punctuation or sound alike errors 07/24/23 06:12 Counseled pt/family regarding: lab results, diagnosis - Departure Departure Disposition: Home Clinical Impression: Dehydration, Acute kidney injury, Elevated serum creatinine Condition: Stable Critical Care Time: No Referrals: LONA MARCUM [Primary Care Provider] - Follow up/PCP as directed Instructions: Dehydration, Adult (DC) Additional Instructions: Please follow-up with your family doctor within 48 hours to reassess your renal function. Discharge/Care Plan HELEN UMANA was seen on 07/24/23 in the Emergency Room. The patient was counseled regarding Diagnosis,Lab results, Imaging studies, need for follow up and when to return to the Emergency Room. Prescriptions given: Discharge Note I have spoken with the patient and/or caregivers. I have explained the patient's condition, diagnosis and treatment plan based on the information available to me at this time. I have answered the patient's and/or caregiver's questions and addressed any concerns. The patient and/or caregivers have as good understanding of the patient's diagnosis, condition and treatment plan as can be expected at this point. The vital signs have been stable. The patient's condition is stable and appropriate for discharge from the emergency department. The patient will pursue further outpatient evaluation with the primary care physician or other designated or consulting physician as outlined in the discha rge instructions. The patient and/or caregivers are agreeable to this plan of care and follow-up instructions have been explained in detail. The patient and/or caregivers have received these instruction. The patient/and or caregivers are aware that any significant change in condition or worsening of symptoms should prompt an immediate return to this or the closest emergency department or call 911.
[2023-07-24] MEDS: Sodium Chloride 0.9% 1000 ML 1,000 ML IV SCH (04:02)
[2023-07-24 05:06] VITALS: PULSE 104
[2023-07-24 06:06] VITALS: BP 122/87; RESP 17
[2023-07-24 06:11] VITALS: O2SAT 94
== END 2023-07-24 06:23 | disposition home or self-care (01) ==
LOC: ED 00:27
DX: E86.0 Dehydration (principal); N17.9 Acute kidney failure, unspecified; R79.89 Other specified abnormal findings of blood chemistry; R11.10 Vomiting, unspecified; I10 Essential (primary) hypertension; E11.9 Type 2 diabetes mellitus without complications; Z79.84 Long term (current) use of oral hypoglycemic drugs; Z79.899 Other long term (current) drug therapy; Z93.2 Ileostomy status
CPT/HCPCS: 36000; 36415; 80053; 85025; 99284

== ENCOUNTER 2024-04-24 10:00 | Emergency (ER) | payer BC ==
--- NOTE | 2024-04-24 10:11 | ERPHSYRPT ---
- History of Present Illness Time Seen by Provider: 04/24/24 10:11 Historian: patient, family Exam Limitations: no limitations Physician History: This is a 43-year-old white male patient of nurse practitioner Remy who was brought in by private vehicle accompanied by his spouse secondary to abdominal pain that began yesterday with a change in the ileostomy output and associated nausea and vomiting. Patient has been diagnosed in the past with Crohn's disease and colitis. In 2009 he underwent a total colectomy and has had an end ileostomy. In the last year he has been receiving Saturday, IV crystalloid infusion to help prevent dehydration. He underwent the infusions this week but he started having abdominal cramping pain yesterday evening. The cramping pain has improved but he is still having nausea and vomiting symptoms. There is also been a change in his ileostomy output. There is a concern for dehydration and electrolyte abnormalities. Patient has no shortness of breath. He has no chest pain. He has a history of gout, diabetes, COPD/asthma, prostate issues, hypertension and chronic renal disease. Timing/Duration: day(s) (Symptoms worse since yesterday), intermittent, worse Activities at Onset: none Quality: cramping (Generalized but now resolved) Abdominal Pain Onset Location: generalized abdomen Severity of Pain-Max: moderate Severity of Pain-Current: none Modifying Factors: Improves With: vomiting Associated Symptoms: loss of appetite, nausea, vomiting, weakness, No chest pain, No shortness of breath Previous symptoms: same symptoms as today, no recent treatment Allergies/Adverse Reactions: Anesthetics - Amide Type - Select A [Anesthetics - Amide Type] Allergy (Inter mediate, Verified 04/24/24 10:11) Hives ciprofloxacin HCl [From Cipro] Adverse Reaction (Verified 04/24/24 10:11) Hives Home Medications: Allopurinol 300 mg [Zyloprim 300 mg] 300 mg PO DAILY 03/15/14 [History] Amlodipine Besylate 5 mg [Norvasc 5 mg] 10 mg PO DAILY 03/15/14 [History] Montelukast Sodium 10 mg [Singulair 10 MG] 10 mg PO DAILY 06/18/17 [History] Irbesartan 150 mg [Avapro 150 MG] 300 mg PO DAILY 06/20/18 [History] Glimepiride 4 mg [Amaryl 4 mg] 4 mg PO BID 07/05/22 [History] Omeprazole 20 mg PO DAILY 07/05/22 [History] Pioglitazone HCl [Actos] 15 mg PO DAILY 07/05/22 [History] Tamsulosin HCl 0.4 mg [Flomax 0.4 MG] 0.4 mg PO DAILY 07/05/22 [History] L.acidoph,Paracasei, B.lactis [Probiotic] 1 each PO DAILY 10/09/22 [History] Budesonide [Budesonide EC] 3 mg PO TID 02/04/23 [History] Metoprolol Succinate 100 mg [Toprol Xl 100 MG] 100 mg PO DAILY 07/24/23 [History] Fenofibrate Nanocrystallized [Fenofibrate] 48 mg PO DAILY 12/18/23 [History] Famotidine 20 mg [Pepcid 20 MG] 20 mg PO DAILY 04/24/24 [History] Hx Tetanus, Diphtheria Vaccination/Date Given: No Hx Influenza Vaccination/Date Given: Yes Hx Pneumococcal Vaccination/Date Given: No Travel Risk - International Travel Have you traveled outside of the country in past 3 weeks: No - Emerging Infectious Disease Are you exhibiting symptoms associated with any current EIDs: Yes Symptoms: Abdominal Pain, Vomitting - Review of Systems Constitutional: Weakness Eyes: No Symptoms Ears, Nose, & Throat: No Symptoms Respiratory: No Symptoms Cardiac: No Symptoms Abdominal/Gastrointestinal: Abdominal Pain (Now resolved), Nausea, Vomiting, Appetite Changes, Other (Change in quantity and type of end ileostomy output) Genitourinary Symptoms: No Symptoms Musculoskeletal: No Symptoms Skin: No Symptoms Neurological: No Symptoms Psychological: No Symptoms Endocrine: No Symptoms Hematologic/Lymphatic: No Symptoms Immunological/Allergic: No Symptoms All Other Systems: Reviewed and Negative - Past Medical History Pertinent Past Medical History: Yes Neurological History: No Pertinent History ENT History: Cataracts Cardiac History: Hypertension Respiratory History: No Pertinent History Endocrine Medical History: Diabetes Type II Musculoskeletal History: Other GI Medical History: Colitis, Crohns Disease History: Renal Disease Psycho-Social History: No Pertinent History Male Reproductive Disorders: No Pertinent History Other Medical History: L-SPINE DISCECTOMY 2011. HX NECK ISSUES. Cataracts have cleared up since being removed from high dose steroids. Kidney function issues every time he gets dehydrated - Past Surgical History Past Surgical History: Yes Neuro Surgical History: No Pertinent History Cardiac: No Pertinent History Respiratory: No Pertinent History Gastrointestinal: Appendectomy, Bowel Surgery, Cholecystectomy, Other Genitourinary: Other Musculoskeletal: Orthopedic Surgery Male Surgical History: Vasectomy Other Surgical History: bck,colon removed and illeostomy 2010. shoulder surgery, back surgery. kidney stones removed surgically. port placement 12/23/23 - Social History Smoking Status: Never smoker Exposure to second hand smoke: No Drug Use: none Patient Lives Alone: No - Nursing Vital Signs Nursing Vital Signs: Initial Vital Signs Temperature 98.5 F 04/24/24 10:04 Pulse Rate 106 H 04/24/24 10:04 Respiratory Rate 13 04/24/24 10:04 Blood Pressure 141/101 04/24/24 10:04 O2 Sat by Pulse Oximetry 95 04/24/24 10:04 Pain Scale Pain Intensity 1 - Physical Exam General Appearance: no apparent distress, alert, anxiety, obese Eye Exam: PERRL/EOMI, eyes nml inspection Ears, Nose, Throat Exam: normal ENT inspection, moist mucous membranes Neck Exam: normal inspection, non-tender, supple, full range of motion Respiratory Exam: normal breath sounds, lungs clear, airway intact, No chest tenderness, No respiratory distress Cardiovascular Exam: tachycardia Gastrointestinal/Abdomen Exam: soft, normal bowel sounds, tenderness, guarding, No rebound (Mild to palpation generalized) Rectal Exam: not done Back Exam: normal inspection, normal range of motion, No CVA tenderness, No vert ebral tenderness Extremity Exam: normal inspection, normal range of motion, pelvis stable Neurologic Exam: alert, oriented x 3, 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, 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 tested, nml cerebellar function, nml station & gait, sensation nml Skin Exam: normal color, warm, dry Lymphatic Exam: No adenopathy SpO2 Interpretation: normal O2 Delivery: Room Air - Course Nursing assessment & vital signs reviewed: Yes Ordered Tests: Active Orders 24 hr Category Date Time Status EKG-ER Only STAT Care 04/24/24 10:47 Active IV Insertion STAT Care 04/24/24 10:19 Active ABDOMEN AND PELVIS W/0 CONTRAS [CT] Stat Exams 04/24/24 10:20 Completed AMYLASE Stat Lab 04/24/24 10:45 Completed BLOOD CULTURE Stat Lab 04/24/24 11:14 Received CBC W DIFF Stat Lab 04/24/24 10:19 Completed CMP Stat Lab 04/24/24 10:45 Completed LIPASE Stat Lab 04/24/24 10:45 Completed Lactic Acid Stat Lab 04/24/24 10:36 Completed MAG [MAGNESIUM] Stat Lab 04/24/24 10:45 Completed UA W/RFX UR CULTURE Stat Lab 04/24/24 10:20 Ordered Medication Summary Generic Name Dose Route Start Last Admin Trade Name Freq PRN Reason Stop Dose Admin Sodium Chloride 500 mls @ 500 mls/hr 04/24/24 11:38 04/24/24 11:41 Sodium Chloride 0.9% 500 Ml IV 04/24/24 12:37 500 mls/hr .Q1H ONE Administration Discontinued Medications Generic Name Dose Route Start Last Admin Trade Name Freq PRN Reason Stop Dose Admin Sodium Chloride 1,000 mls @ 999 mls/hr 04/24/24 10:19 04/24/24 11:44 Sodium Chloride 0.9% 1000 Ml IV 04/24/24 11:19 Infused .Q1H1M STA Infusion Sodium Chloride Confirm 04/24/24 10:39 Sodium Chloride 0.9% 1000 Ml Administered 04/24/24 10:40 Dose 1,000 mls @ ud .ROUTE .STK-MED ONE Sodium Chloride Confirm 04/24/24 11:40 Sodium Chloride 0.9% 500 Ml Administered 04/24/24 11:41 Dose 500 mls @ ud IV .STK-MED ONE Ondansetron HCl 4 mg 04/24/24 10:19 04/24/24 10:40 Ondansetron Hcl 4 Mg/2 Ml Vial IV 04/24/24 10:20 4 mg STAT ONE Administration Ondansetron HCl Confirm 04/24/24 10:38 Ondansetron Hcl 4 Mg/2 Ml Vial Administered 04/24/24 10:39 Dose 4 mg .ROUTE .STK-MED ONE Pantoprazole Sodium 40 mg 04/24/24 10:19 04/24/24 10:40 Pantoprazole 40 Mg Vial IV 04/24/24 10:20 40 mg STAT ONE Administration Pantoprazole Sodium Confirm 04/24/24 10:38 Pantoprazole 40 Mg Vial Administered 04/24/24 10:39 Dose 40 mg IV .STK-MED ONE Lab/Rad Data: Laboratory Result Diagrams 04/24/24 10:19 04/24/24 10:45 Laboratory Results 04/24/24 04/24/24 04/24/24 Range/Units 10:45 10:45 10:36 WBC (4.23-9.07) x10^3/uL RBC (4.63-6.08) x10^6/uL Hgb (13.7-17.5) g/dL Hct (40.1-51.0) % MCV (79.0-92.2) fL MCH (25.7-32.2) pg MCHC (32.3-36.5) g/dL RDW (11.6-14.4) % Plt Count (163-337) x10^3/uL MPV (9.4-12.4) fL Gran % (34.0-67.9) % Immature Gran % (Auto) (0.001-0.429) % Nucleat RBC Rel Count (0.00-0.2) % Eos # (Auto) (0.04-0.54) x10^3/uL Immature Gran # (Auto) (0.001-0.031) x10^3u/L Absolute Lymphs (auto) (1.32-3.57) x10^3/uL Absolute Monos (auto) (0.30-0.82) x10^3/uL Absolute Nucleated RBC (0.00-0.012) x10^3u/L Lymphocytes % (21.8-53.1) % Monocytes % (5.3-12.2) % Eosinophils % (0.8-7.0) % Basophils % (0.2-1.2) % Absolute Granulocytes (1.78-5.38) x10^3/uL Basophils # (0.01-0.08) x10^3/uL Sodium 140 (135-145) mmol/L Potassium 4.2 (3.5-5.1) mmol/L Chloride 110 H (98-107) mmol/L Carbon Dioxide 21 L (22-30) mmol/L Anion Gap 14.0 (5-15) MEQ/L BUN 18 (9-20) mg/dL Creatinine 1.60 H (0.66-1.25) mg/dL Estimated GFR 54.5 ML/MIN Glucose 190 H (74-106) mg/dL Lactic Acid 2.1 H (0.4-2.0) Calcium 9.8 (8.4-10.2) mg/dL Magnesium 2.0 (1.6-2.3) mg/dL Total Bilirubin 0.40 (0.2-1.3) mg/dL AST 25 (17-59) U/L ALT 39 (0-50) U/L Alkaline Phosphatase 57 (38-126) U/L Serum Total Protein 7.0 (6.3-8.2) g/dL Albumin 4.1 (3.5-5.0) g/dL Amylase 101 (30-110) U/L Lipase 236 (23-300) U/L 04/24/24 Range/Units 10:19 WBC 7.4 (4.23-9.07) x10^3/uL RBC 4.60 L (4.63-6.08) x10^6/uL Hgb 12.1 L (13.7-17.5) g/dL Hct 38.9 L (40.1-51.0) % MCV 84.6 (79.0-92.2) fL MCH 26.3 (25.7-32.2) pg MCHC 31.1 L (32.3-36.5) g/dL RDW 13.0 (11.6-14.4) % Plt Count 255 (163-337) x10^3/uL MPV 10.8 (9.4-12.4) fL Gran % 80.4 H (34.0-67.9) % Immature Gran % (Auto) 0.4 (0.001-0.429) % Nucleat RBC Rel Count 0.0 (0.00-0.2) % Eos # (Auto) 0.09 (0.04-0.54) x10^3/uL Immature Gran # (Auto) 0.03 (0.001-0.031) x10^3u/L Absolute Lymphs (auto) 0.81 L (1.32-3.57) x10^3/uL Absolute Monos (auto) 0.52 (0.30-0.82) x10^3/uL Absolute Nucleated RBC 0.00 (0.00-0.012) x10^3u/L Lymphocytes % 10.9 L (21.8-53.1) % Monocytes % 7.0 (5.3-12.2) % Eosinophils % 1.2 (0.8-7.0) % Basophils % 0.1 L (0.2-1.2) % Absolute Granulocytes 5.97 H (1.78-5.38) x10^3/uL Basophils # 0.01 (0.01-0.08) x10^3/uL Sodium (135-145) mmol/L Potassium (3.5-5.1) mmol/L Chloride (98-107) mmol/L Carbon Dioxide (22-30) mmol/L Anion Gap (5-15) MEQ/L BUN (9-20) mg/dL Creatinine (0.66-1.25) mg/dL Estimated GFR ML/MIN Glucose (74-106) mg/dL Lactic Acid (0.4-2.0) Calcium (8.4-10.2) mg/dL Magnesium (1.6-2.3) mg/dL Total Bilirubin (0.2-1.3) mg/dL AST (17-59) U/L ALT (0-50) U/L Alkaline Phosphatase (38-126) U/L Serum Total Protein (6.3-8.2) g/dL Albumin (3.5-5.0) g/dL Amylase (30-110) U/L Lipase (23-300) U/L - Progress Progress: improved, re-examined Progress Note: 04/24/24 10:26 My medical decision making and the assignment of moderate complexity to this patient's medical issue today is based on review of the patient's past medical history, review of the patient's medication list, review of the patient's drug allergy list, history present illness and physical findings on examination. The workup in this patient includes accessing the patient's port, CBC, CMP, amylase, lipase, urinalysis, magnesium level, viral swabs and a CT scan of the abdomen pelvis without contrast. Differential diagnosis includes but is not limited to bowel obstruction, bowel perforation, pancreatitis, urinary tract infection, electrolyte abnormalities, dehydration 04/24/24 11:53 I interpreted the patient's laboratory data results. Based on the laboratory data results, there are no acute, emergent medical issues. The CT scan of the abdomen pelvis without contrast was interpreted by the rad iologist. I reviewed the impression. The impression states stable right lower quadrant ileostomy with subcutaneous herniated mesenteric fat and bowel loops without complications. Noncontrasted stomach and bowel loops appear nonobstructed. No new/acute findings on this noncontrast exam Counseled pt/family regarding: lab results, diagnosis, need for follow-up, rad results Medical Desision Making - Independent Historian Additional History obtained from: Spouse - Diagnostic Testing Diagnostic test were ordered, analyzed, and reviewed by me: Yes Radiological Interpretation: Reviewed by me, Teleradiologist Report - Risk of complications Low Risk: Low risk of morbidity from additional dx testing or treatment - Departure Departure Disposition: Home Clinical Impression: Vomiting, Abdominal pain Condition: Stable Critical Care Time: No Referrals: BAN ALEXANDER, [employer]PER[employer]OR [Primary Care Provider] - Follow up/PCP as directed Additional Instructions: Drink plenty of clear liquids before advancing your diet. Advance your diet slowly over the next 12 to 16 hours. Call your primary care provider today, 04/24/2024, to make arranges for follow-up for further evaluation management. Prescriptions: Ondansetron ODT 4 MG [Zofran Odt 4 mg] 4 mg PO Q6H PRN PRN #10 tablet PRN Reason: Vomiting
[2024-04-24 10:17] VITALS: TEMP 98.5
[2024-04-24] MEDS ORDERED: Zofran 4 MG/2 ML VIAL ONE (10:38)
[2024-04-24] MEDS ORDERED: PROTONIX 40 MG IV IV ONE (10:38)
[2024-04-24] MEDS ORDERED: Sodium Chloride 0.9% 1000 ML 1,000 ML ONE (10:39)
[2024-04-24] MEDS: Sodium Chloride 0.9% 1000 ML 1,000 ML IV STA (10:39)
[2024-04-24] MEDS: PROTONIX 40 MG IV IV ONE (10:40)
[2024-04-24] MEDS: Zofran 4 MG/2 ML VIAL IV ONE (10:40)
[2024-04-24 10:57] LABS: Absolute Neutrophil Ct (ANC) 5.97 x10^3/uL (1.78-5.38); BASOPHIL % 0.1 % (0.2-1.2); Basophil (Absolute #) 0.01 x10^3/uL (0.01-0.08); Eosinophil % 1.2 % (0.8-7.0); Eosinophil (Absolute #) 0.09 x10^3/uL (0.04-0.54); Hematocrit 38.9 % (40.1-51.0); Hemoglobin 12.1 g/dL (13.7-17.5); IMMATURE GRAN # 0.03 x10^3u/L (0.001-0.031); IMMATURE GRAN % 0.4 % (0.001-0.429); Lymphocyte (Absolute #) 0.81 x10^3/uL (1.32-3.57); Lymphocytes % 10.9 % (21.8-53.1); Mean Cell Volume 84.6 fL (79.0-92.2); Mean Corpuscular Hemoglobin 26.3 pg (25.7-32.2); Mean Corpuscular Hgb Concent. 31.1 g/dL (32.3-36.5); Mean Platelet Volume 10.8 fL (9.4-12.4); Monocyte (Absolute #) 0.52 x10^3/uL (0.30-0.82); Neutrophil % 80.4 % (34.0-67.9); Platelet Count 255 x10^3/uL (163-337); White Blood Count 7.4 x10^3/uL (4.23-9.07)
[2024-04-24 11:06] LABS: ALBUMIN 4.1 g/dL (3.5-5.0); BILIRUBIN,TOTAL 0.4 mg/dL (0.2-1.3); Calcium 9.8 mg/dL (8.4-10.2); Creatinine 1 1.6 mg/dL (0.66-1.25); EST GLOMERULAR FILTRATION RATE 54.5 ML/MIN; Potassium 4.2 mmol/L (3.5-5.1)
[2024-04-24] MEDS ORDERED: Sodium Chloride 0.9% 500 ML 500 ML IV ONE (11:40)
[2024-04-24] MEDS: Sodium Chloride 0.9% 500 ML 500 ML IV ONE (11:41)
--- NOTE | 2024-04-24 11:53 | XRAY ---
Indication: Abdominal pain and vomiting. Multiple contiguous axial images obtained through the abdomen and pelvis without contrast. Comparison: October 11, 2022 Lung bases demonstrates minimal dependent atelectasis. No infiltrate or effusion. Heart not enlarged. Stomach distended with food/fluid. Noncontrasted stomach and bowel loops appear nonobstructed. Stable right lower quadrant ileostomy with again subcutaneous herniated mesenteric fat and small bowel loops without complications. Stable right renal atrophy, 6 mm nonobstructing right mid renal calculus, nonobstructing left renal punctate calculus, and cholecystectomy. No free fluid/air. Remaining liver, pancreas, spleen, adrenal glands, kidneys, ureters, and bladder are unremarkable for noncontrast exam. Again minimal aortoiliac calcifications without AAA. Osseous structures intact again with mild degenerative changes throughout spine. Impression: 1. Stable right lower quadrant ileostomy with subcutaneous herniated mesenteric fat and bowel loops without complications. 2. Chronic findings including right renal atrophy, nonobstructing left renal/right mid ureteral micro-calculi, arteriosclerotic disease, and chronic bony findings. 3. No new/acute findings on this noncontrast exam.
[2024-04-24 11:57] LABS: INFLUENZA A NEGATIVE (NEGATIVE); INFLUENZA B NEGATIVE (NEGATIVE); RESPIRATORY SYNCTIAL VIRUS NEGATIVE (NEGATIVE); SARS-CoV-2 Xpert Express NEGATIVE (NEGATIVE)
[2024-04-24 12:13] VITALS: BP 134/92; PULSE 92; RESP 18; O2SAT 96
[2024-04-24 12:15] LABS: Appearance Clear (Clear); Bacteria None Seen /HPF (None Seen); Bilirubin Negative (Negative); Blood Negative (Negative); Epithelial Cells None Seen /HPF (None Seen); Glucose, Urine Negative (Negative); Hyaline Casts NONE SEEN /LPF (0-2); Ketones Negative (Negative); Leukocyte Esterase Negative (Negative); Nitrite Negative (Negative); Protein,Urine Dip Negative (Negative); RBC 0-2 /HPF (0-5); Urobilinogen 0.2 mg/dL (0.2); WBC 0-2 /HPF (0-5)
== END 2024-04-24 12:27 | disposition home or self-care (01) ==
LOC: ED 10:00
DX: R10.9 Unspecified abdominal pain (principal); R11.2 Nausea with vomiting, unspecified; Z79.899 Other long term (current) drug therapy; I10 Essential (primary) hypertension; E11.9 Type 2 diabetes mellitus without complications
CPT/HCPCS: 0241U; 36415; 74176; 80053; 81001; 82150; 83605; 83690; 83735; 85025; 87040; 93005; 96360; 96374; 96375; 99284; J1642; J2405

== ENCOUNTER 2024-07-06 10:33 | Emergency (ER) | payer BC ==
[2024-07-06 10:53] VITALS: TEMP 98.6
[2024-07-06 11:09] LABS: Absolute Neutrophil Ct (ANC) 4.26 x10^3/uL (1.78-5.38); BASOPHIL % 0.6 % (0.2-1.2); Basophil (Absolute #) 0.03 x10^3/uL (0.01-0.08); Eosinophil % 1.4 % (0.8-7.0); Eosinophil (Absolute #) 0.07 x10^3/uL (0.04-0.54); Hematocrit 36.6 % (40.1-51.0); Hemoglobin 11.8 g/dL (13.7-17.5); IMMATURE GRAN # 0.03 x10^3u/L (0.001-0.031); IMMATURE GRAN % 0.6 % (0.001-0.429); Lymphocyte (Absolute #) 0.27 x10^3/uL (1.32-3.57); Lymphocytes % 5.2 % (21.8-53.1); Mean Cell Volume 86.9 fL (79.0-92.2); Mean Corpuscular Hgb Concent. 32.2 g/dL (32.3-36.5); Mean Platelet Volume 11.1 fL (9.4-12.4); Monocyte (Absolute #) 0.52 x10^3/uL (0.30-0.82); Neutrophil % 82.2 % (34.0-67.9); Platelet Count 163 x10^3/uL (163-337); Red Blood Count 4.21 x10^6/uL (4.63-6.08); Red Cell Distribution Width 15.4 % (11.6-14.4); White Blood Count 5.2 x10^3/uL (4.23-9.07)
[2024-07-06 11:23] LABS: ANION GAP 10.6 MEQ/L (5-15); Appearance Clear (Clear); BILIRUBIN,TOTAL 0.8 mg/dL (0.2-1.3); Bacteria None Seen /HPF (None Seen); Bilirubin Negative (Negative); Blood Negative (Negative); Calcium 9.6 mg/dL (8.4-10.2); Creatinine 1 1.63 mg/dL (0.66-1.25); Epithelial Cells None Seen /HPF (None Seen); Glucose, Urine 250 mg/dL (Negative); Hyaline Casts NONE SEEN /LPF (0-2); Ketones Negative (Negative); Leukocyte Esterase Negative (Negative); Nitrite Negative (Negative); Ph 5.5 (4.6-8.0); Potassium 4.3 mmol/L (3.5-5.1); Protein,Urine Dip Negative (Negative); RBC 0-2 /HPF (0-5); Specific Gravity 1.015 (1.005-1.030); Total Protein 6.9 g/dL (6.3-8.2); Urobilinogen 0.2 mg/dL (0.2); WBC 0-2 /HPF (0-5)
[2024-07-06 11:46] LABS: INFLUENZA B NEGATIVE (NEGATIVE); RESPIRATORY SYNCTIAL VIRUS NEGATIVE (NEGATIVE); SARS-CoV-2 Xpert Express NEGATIVE (NEGATIVE)
[2024-07-06 11:59] LABS: INFLUENZA A POSITIVE (NEGATIVE)
[2024-07-06] MEDS ORDERED: Sodium Chloride 0.9% 1000 ML 1,000 ML ONE (12:12)
[2024-07-06] MEDS: Sodium Chloride 0.9% 1000 ML 1,000 ML IV STA (12:14)
--- NOTE | 2024-07-06 12:19 | XRAY ---
Indication: Short of breath. Comparison: May 28, 2020 Portable chest better inflated and is now clear. Heart not enlarged with new left Port-A-Cath. Bony thorax intact. No acute findings.
[2024-07-06 12:23] VITALS: O2SAT 96
[2024-07-06 12:23] LABS: Slide Review 1 YES
--- NOTE | 2024-07-06 13:11 | ERPHSYRPT ---
- History of Present Illness Time Seen by Provider: 07/06/24 10:45 Source: patient Exam Limitations: no limitations Patient Subjective Stated Complaint: Well check- adult Triage Nursing Assessment: Patient ambulated back to ED and transferred self to bed. Patient A+O X 3. Patient's skin pink, warm and dry. Patient goes to outpatient infusion twice a week for 1 liter bolus. Patient was in outpatient infusion today during his infusion and RN stated he was tachy, had a temp of 100.7. Patient reports occasional non productive cough. Patient set down to ER for eval. Timing/Duration: today Severity: mild Modifying Factors: Improves With: nothing Associated Symptoms: cough, chills Allergies/Adverse Reactions: Anesthetics - Amide Type - Select A [Anesthetics - Amide Type] Allergy (Intermediate, Verified 07/06/24 10:42) Hives ciprofloxacin HCl [From Cipro] Adverse Reaction (Verified 07/06/24 10:42) Hives Home Medications: Allopurinol 300 mg [Zyloprim 300 mg] 300 mg PO DAILY 03/15/14 [History] Amlodipine Besylate 5 mg [Norvasc 5 mg] 10 mg PO DAILY 03/15/14 [History] Montelukast Sodium 10 mg [Singulair 10 MG] 10 mg PO DAILY 06/18/17 [History] Irbesartan 150 mg [Avapro 150 MG] 300 mg PO DAILY 06/20/18 [History] Glimepiride 4 mg [Amaryl 4 mg] 4 mg PO BID 07/05/22 [History] Omeprazole 20 mg PO DAILY 07/05/22 [History] Pioglitazone HCl [Actos] 15 mg PO DAILY 07/05/22 [History] Tamsulosin HCl 0.4 mg [Flomax 0.4 MG] 0.4 mg PO DAILY 07/05/22 [History] L.acidoph,Paracasei, B.lactis [Probiotic] 1 each PO DAILY 10/09/22 [History] Budesonide [Budesonide EC] 3 mg PO TID 02/04/23 [History] Metoprolol Succinate 100 mg [Toprol Xl 100 MG] 100 mg PO DAILY 07/24/23 [History] Fenofibrate Nanocrystallized [Fenofibrate] 48 mg PO DAILY 12/18/23 [History] Famotidine 20 mg [Pepcid 20 MG] 20 mg PO DAILY 04/24/24 [History] Hx Tetanus, Diphtheria Vaccination/Date Given: No Hx Influenza Vaccination/Date Given: No Hx Pneumococcal Vaccination/Date Given: No Immunizations Up to Date: Yes Travel Risk - International Travel Have you traveled outside of the country in past 3 weeks: No - Emerging Infectious Disease Are you exhibiting symptoms associated with any current EIDs: No Symptoms: Abdominal Pain, Vomitting - Review of Systems Constitutional: No Symptoms Eyes: No Symptoms Ears, Nose, & Throat: No Symptoms Respiratory: No Symptoms Cardiac: No Symptoms Abdominal/Gastrointestinal: No Symptoms Genitourinary Symptoms: No Symptoms Musculoskeletal: No Symptoms - Past Medical History Pertinent Past Medical History: Yes Neurological History: No Pertinent History ENT History: Cataracts Cardiac History: Hypertension Respiratory History: No Pertinent History Endocrine Medical History: Diabetes Type II Musculoskeletal History: Other GI Medical History: Colitis, Crohns Disease History: Renal Disease Psycho-Social History: No Pertinent History Male Reproductive Disorders: No Pertinent History Other Medical History: L-SPINE DISCECTOMY 2011. HX NECK ISSUES. Cataracts have cleared up since being removed from high dose steroids. Kidney function issues every time he gets dehydrated - Past Surgical History Past Surgical History: Yes Neuro Surgical History: No Pertinent History Cardiac: No Pertinent History Respiratory: No Pertinent History Gastrointestinal: Appendectomy, Bowel Surgery, Cholecystectomy, Other Genitourinary: Other Musculoskeletal: Orthopedic Surgery Male Surgical History: Vasectomy Other Surgical History: bck,colon removed and illeostomy 2009. shoulder surgery, back surgery. kidney stones removed surgically. port placement 12/23/23 - Social History Smoking Status: Never smoker Exposure to second hand smoke: No Drug Use: none Patient Lives Alone: No - Social Determinants of Health Will the patient participate in the screening: Yes Do you worry about a steady place to live?: No Do you have any problems with any of the following?: No known problems In the past 12 months,have you had to go without utilities?: No Transportation Issues: No Has anyone in your support network made you feel unsafe?: No Have you or anyone in your house had to go without enough: No - Nursing Vital Signs Nursing Vital Signs: Initial Vital Signs Temperature 98.6 F 07/06/24 10:42 Pulse Rate 109 H 07/06/24 10:42 Respiratory Rate 20 07/06/24 10:42 Blood Pressure 144/85 07/06/24 10:42 O2 Sat by Pulse Oximetry 99 07/06/24 10:42 Pain Scale Pain Intensity 4 - Physical Exam General Appearance: no apparent distress Eye Exam: PERRL/EOMI Ears, Nose, Throat Exam: normal ENT inspection Neck Exam: normal inspection Respiratory Exam: normal breath sounds Cardiovascular Exam: tachycardia (mild tachycardia noted ) Gastrointestinal/Abdomen Exam: soft, normal bowel sounds SpO2: 96 Ordered Tests: Active Orders 24 hr Category Date Time Status CHEST 1 VIEW (PORTABLE) Stat Exams 07/06/24 11:52 Completed CBC W DIFF Stat Lab 07/06/24 10:54 Completed CMP Stat Lab 07/06/24 10:55 Completed UA W/RFX UR CULTURE Stat Lab 07/06/24 10:55 Completed Medication Summary Discontinued Medications Generic Name Dose Route Start Last Admin Trade Name Freq PRN Reason Stop Dose Admin Sodium Chloride 1,000 mls @ 999 mls/hr 07/06/24 11:53 07/06/24 12:14 Sodium Chloride 0.9% 1000 Ml IV 07/06/24 12:53 999 mls/hr .Q1H1M STA Administration Sodium Chloride Confirm 07/06/24 12:12 Sodium Chloride 0.9% 1000 Ml Administered 07/06/24 12:13 Dose 1,000 mls @ ud .ROUTE .STK-MED ONE Lab/Rad Data: Laboratory Result Diagrams 07/06/24 10:54 07/06/24 10:55 Laboratory Results 07/06/24 07/06/24 07/06/24 Range/Units 11:08 10:55 10:55 WBC (4.23-9.07) x10^3/uL RBC (4.63-6.08) x10^6/uL Hgb (13.7-17.5) g/dL Hct (40.1-51.0) % MCV (79.0-92.2) fL MCH (25.7-32.2) pg MCHC (32.3-36.5) g/dL RDW (11.6-14.4) % Plt Count (163-337) x10^3/uL MPV (9.4-12.4) fL Gran % (34.0-67.9) % Immature Gran % (Auto) (0.001-0.429) % Nucleat RBC Rel Count (0.00-0.2) % Eos # (Auto) (0.04-0.54) x10^3/uL Immature Gran # (Auto) (0.001-0.031) x10^3u/L Absolute Lymphs (auto) (1.32-3.57) x10^3/uL Absolute Monos (auto) (0.30-0.82) x10^3/uL Absolute Nucleated RBC (0.00-0.012) x10^3u/L Lymphocytes % (21.8-53.1) % Monocytes % (5.3-12.2) % Eosinophils % (0.8-7.0) % Basophils % (0.2-1.2) % Absolute Granulocytes (1.78-5.38) x10^3/uL Basophils # (0.01-0.08) x10^3/uL Sodium 138 (135-145) mmol/L Potassium 4.3 (3.5-5.1) mmol/L Chloride 108 H (98-107) mmol/L Carbon Dioxide 23 (22-30) mmol/L Anion Gap 10.6 (5-15) MEQ/L BUN 18 (9-20) mg/dL Creatinine 1.63 H (0.66-1.25) mg/dL Estimated GFR 53.0 ML/MIN Glucose 178 H (74-106) mg/dL Calcium 9.6 (8.4-10.2) mg/dL Total Bilirubin 0.80 (0.2-1.3) mg/dL AST 44 (17-59) U/L ALT 47 (0-50) U/L Alkaline Phosphatase 57 (38-126) U/L Serum Total Protein 6.9 (6.3-8.2) g/dL Albumin 4.0 (3.5-5.0) g/dL Urine Color Yellow (Yellow) Urine Appearance Clear (Clear) Urine pH 5.5 (4.6-8.0) Ur Specific [place] 1.015 (1.005-1.030) Urine Protein Negative (Negative) Urine Glucose (UA) 250 A (Negative) mg/dL Urine Ketones Negative (Negative) Urine Blood Negative (Negative) Urine Nitrite Negative (Negative) Urine Bilirubin Negative (Negative) Urine Urobilinogen 0.2 (0.2) mg/dL Ur Leukocyte Esterase Negative (Negative) U Hyaline Cast (Auto) NONE SEEN (0-2) /LPF Urine Microscopic RBC 0-2 (0-5) /HPF Urine Microscopic WBC 0-2 (0-5) /HPF Ur Epithelial Cells None Seen (None Seen) /HPF Urine Bacteria None Seen (None Seen) /HPF Urine Culture Reflexed NO (NO) Influenza Type A Ag POSITIVE A (NEGATIVE) Influenza Type B Ag NEGATIVE (NEGATIVE) RSV (PCR) NEGATIVE (NEGATIVE) SARS-CoV-2 (PCR) NEGATIVE (NEGATIVE) Slides for Path Review 07/06/24 Range/Units 10:54 WBC 5.2 (4.23-9.07) x10^3/uL RBC 4.21 L (4.63-6.08) x10^6/uL Hgb 11.8 L (13.7-17.5) g/dL Hct 36.6 L (40.1-51.0) % MCV 86.9 (79.0-92.2) fL MCH 28.0 (25.7-32.2) pg MCHC 32.2 L (32.3-36.5) g/dL RDW 15.4 H (11.6-14.4) % Plt Count 163 (163-337) x10^3/uL MPV 11.1 (9.4-12.4) fL Gran % 82.2 H (34.0-67.9) % Immature Gran % (Auto) 0.6 H (0.001-0.429) % Nucleat RBC Rel Count 0.0 (0.00-0.2) % Eos # (Auto) 0.07 (0.04-0.54) x10^3/uL Immature Gran # (Auto) 0.03 (0.001-0.031) x10^3u/L Absolute Lymphs (auto) 0.27 L (1.32-3.57) x10^3/uL Absolute Monos (auto) 0.52 (0.30-0.82) x10^3/uL Absolute Nucleated RBC 0.00 (0.00-0.012) x10^3u/L Lymphocytes % 5.2 L (21.8-53.1) % Monocytes % 10.0 (5.3-12.2) % Eosinophils % 1.4 (0.8-7.0) % Basophils % 0.6 (0.2-1.2) % Absolute Granulocytes 4.26 (1.78-5.38) x10^3/uL Basophils # 0.03 (0.01-0.08) x10^3/uL Sodium (135-145) mmol/L Potassium (3.5-5.1) mmol/L Chloride (98-107) mmol/L Carbon Dioxide (22-30) mmol/L Anion Gap (5-15) MEQ/L BUN (9-20) mg/dL Creatinine (0.66-1.25) mg/dL Estimated GFR ML/MIN Glucose (74-106) mg/dL Calcium (8.4-10.2) mg/dL Total Bilirubin (0.2-1.3) mg/dL AST (17-59) U/L ALT (0-50) U/L Alkaline Phosphatase (38-126) U/L Serum Total Protein (6.3-8.2) g/dL Albumin (3.5-5.0) g/dL Urine Color (Yellow) Urine Appearance (Clear) Urine pH (4.6-8.0) Ur Specific [place] (1.005-1.030) Urine Protein (Negative) Urine Glucose (UA) (Negative) mg/dL Urine Ketones (Negative) Urine Blood (Negative) Urine Nitrite (Negative) Urine Bilirubin (Negative) Urine Urobilinogen (0.2) mg/dL Ur Leukocyte Esterase (Negative) U Hyaline Cast (Auto) (0-2) /LPF Urine Microscopic RBC (0-5) /HPF Urine Microscopic WBC (0-5) /HPF Ur Epithelial Cells (None Seen) /HPF Urine Bacteria (None Seen) /HPF Urine Culture Reflexed (NO) Influenza Type A Ag (NEGATIVE) Influenza Type B Ag (NEGATIVE) RSV (PCR) (NEGATIVE) SARS-CoV-2 (PCR) (NEGATIVE) Slides for Path Review YES - Progress Progress Note: patient was seen and eavluated for dehydration labs were obtained - he was given iv fluids and updated with the results of the CXR and the labs - he will be discharged home with tamiflu with fu with his pmd in the am 07/06/24 13:07 Medical Desision Making - Discussion of managment Agreed on:: need for follow-up Will see patient: In office - Departure Departure Disposition: Home Clinical Impression: Dehydration, Acute kidney injury, Influenza A Condition: Stable Critical Care Time: No Referrals: BAN ALEXANDER NP [Primary Care Provider] - Follow up/PCP as directed Prescriptions: Oseltamivir 75 mg [Tamiflu 75MG Capsule] 75 mg PO BID #10 cap
[2024-07-06 13:22] VITALS: BP 146/89; PULSE 62; RESP 18
== END 2024-07-06 13:26 | disposition home or self-care (01) ==
LOC: ED 10:33
DX: J10.1 Influenza due to other identified influenza virus with other respiratory manifestations (principal); E86.0 Dehydration; N17.9 Acute kidney failure, unspecified; R50.9 Fever, unspecified; I10 Essential (primary) hypertension; E11.9 Type 2 diabetes mellitus without complications; Z79.84 Long term (current) use of oral hypoglycemic drugs; Z79.899 Other long term (current) drug therapy
CPT/HCPCS: 0241U; 36415; 71045; 80053; 81001; 85025; 99284; J1642

== ENCOUNTER 2024-07-27 15:53 | Emergency (ER) | payer BC ==
[2024-07-27 17:35] VITALS: TEMP 97.5
--- NOTE | 2024-07-27 18:45 | ERPHSYRPT ---
- History of Present Illness Source: patient Exam Limitations: clinical condition Patient Subjective Stated Complaint: Abdominal pain Triage Nursing Assessment: patient here for evaluation of right upper quadrant and right lower quadrant pain that has been getting worse for the past 24 to 48 hours Timing/Duration: today Severity: mild Associated Symptoms: nausea, abdominal pain Hx Tetanus, Diphtheria Vaccination/Date Given: No Hx Influenza Vaccination/Date Given: No Hx Pneumococcal Vaccination/Date Given: No Immunizations Up to Date: Yes <ARPAN MORAN - Last Filed: 07/27/24 19:49> <MARY MILIAN - Last Filed: 07/27/24 21:45> - History of Present Illness Time Seen by Provider: 07/27/24 18:00 Allergies/Adverse Reactions: Anesthetics - Amide Type - Select A [Anesthetics - Amide Type] Allergy (Intermediate, Verified 07/27/24 17:27) Hives ciprofloxacin HCl [From Cipro] Adverse Reaction (Verified 07/27/24 17:27) Hives Home Medications: Allopurinol 300 mg [Zyloprim 300 mg] 300 mg PO DAILY 03/15/14 [History] Amlodipine Besylate 5 mg [Norvasc 5 mg] 10 mg PO DAILY 03/15/14 [History] Montelukast Sodium 10 mg [Singulair 10 MG] 10 mg PO DAILY 06/18/17 [History] Irbesartan 150 mg [Avapro 150 MG] 300 mg PO DAILY 06/20/18 [History] Glimepiride 4 mg [Amaryl 4 mg] 4 mg PO BID 07/05/22 [History] Omeprazole 20 mg PO DAILY 07/05/22 [History] Pioglitazone HCl [Actos] 15 mg PO DAILY 07/05/22 [History] Tamsulosin HCl 0.4 mg [Flomax 0.4 MG] 0.4 mg PO DAILY 07/05/22 [History] L.acidoph,Paracasei, B.lactis [Probiotic] 1 each PO DAILY 10/09/22 [History] Budesonide [Budesonide EC] 3 mg PO TID 02/04/23 [History] Metoprolol Succinate 100 mg [Toprol Xl 100 MG] 100 mg PO DAILY 07/24/23 [History] Fenofibrate Nanocrystallized [Fenofibrate] 48 mg PO DAILY 12/18/23 [History] Famotidine 20 mg [Pepcid 20 MG] 20 mg PO DAILY 04/24/24 [History] Travel Risk - International Travel Have you traveled outside of the country in past 3 weeks: No - Emerging Infectious Disease Are you exhibiting symptoms associated with any current EIDs: No Symptoms: Abdominal Pain, Vomitting <ARPAN MORAN - Last Filed: 07/27/24 19:49> - Review of Systems Constitutional: No Symptoms Eyes: No Symptoms Ears, Nose, & Throat: No Symptoms Respiratory: No Symptoms Cardiac: No Symptoms Abdominal/Gastrointestinal: Abdominal Pain, Nausea Genitourinary Symptoms: No Symptoms <ARPAN MORAN - Last Filed: 07/27/24 19:49> - Past Medical History Pertinent Past Medical History: Yes Neurological History: No Pertinent History ENT History: Cataracts Cardiac History: Hypertension Respiratory History: No Pertinent History Endocrine Medical History: Diabetes Type II Musculoskeletal History: Other GI Medical History: Colitis, Crohns Disease History: Renal Disease Psycho-Social History: No Pertinent History Male Reproductive Disorders: No Pertinent History Other Medical History: L-SPINE DISCECTOMY 2011. HX NECK ISSUES. Cataracts have cleared up since being removed from high dose steroids. Kidney function issues every time he gets dehydrated - Past Surgical History Past Surgical History: Yes Neuro Surgical History: No Pertinent History Cardiac: No Pertinent History Respiratory: No Pertinent History Gastrointestinal: Appendectomy, Bowel Surgery, Cholecystectomy, Other Genitourinary: Other Musculoskeletal: Orthopedic Surgery Male Surgical History: Vasectomy Other Surgical History: bck,colon removed and illeostomy 2010. shoulder surgery, back surgery. kidney stones removed surgically. port placement 12/23/23 - Social History Smoking Status: Never smoker Exposure to second hand smoke: No Drug Use: none Patient Lives Alone: No - Social Determinants of Health Will the patient participate in the screening: Yes Do you worry about a steady place to live?: No Do you have any problems with any of the following?: No known problems In the past 12 months,have you had to go without utilities?: No Transportation Issues: No Has anyone in your support network made you feel unsafe?: No Have you or anyone in your house had to go without enough: No <ARPAN MORAN - Last Filed: 07/27/24 19:49> - Physical Exam General Appearance: no apparent distress Eye Exam: PERRL/EOMI Ears, Nose, Throat Exam: normal ENT inspection Neck Exam: normal inspection Respiratory Exam: normal breath sounds Cardiovascular Exam: regular rate/rhythm Gastrointestinal/Abdomen Exam: soft, tenderness, rebound (patient is tender in the right upper quadrant and RLQ where he is tender with the ileostomy ) SpO2: 97 <ARPAN MORAN - Last Filed: 07/27/24 19:49> - Nursing Vital Signs Nursing Vital Signs: Initial Vital Signs Temperature 97.5 F 07/27/24 17:28 Pulse Rate 90 07/27/24 17:28 Respiratory Rate 20 07/27/24 17:28 Blood Pressure 134/81 07/27/24 17:28 O2 Sat by Pulse Oximetry 97 07/27/24 17:28 Pain Scale Pain Intensity 0 Ordered Tests: Active Orders 24 hr Category Date Time Status IV Insertion STAT Care 07/27/24 18:39 Active ABDOMEN AND PELVIS W CONTRAST [CT] Stat Exams 07/27/24 18:40 Taken CBC W DIFF Stat Lab 07/27/24 19:06 Completed CMP Stat Lab 07/27/24 19:06 Completed LIPASE Stat Lab 07/27/24 19:06 Completed Lactic Acid Stat Lab 07/27/24 20:00 Completed Medication Summary Discontinued Medications Generic Name Dose Route Start Last Admin Trade Name Freq PRN Reason Stop Dose Admin Hydromorphone HCl 1 mg 07/27/24 18:39 07/27/24 20:07 Hydromorphone 1 Mg/1ml Inj IV 07/27/24 18:40 1 mg STAT ONE Administration Hydromorphone HCl Confirm 07/27/24 19:38 Hydromorphone 1 Mg/1ml Inj Administered 07/27/24 19:39 Dose 1 mg .ROUTE .STK-MED ONE Sodium Chloride 1,000 mls @ 999 mls/hr 07/27/24 18:39 07/27/24 21:06 Sodium Chloride 0.9% 1000 Ml IV 07/27/24 19:39 Infused .Q1H1M STA Infusion Sodium Chloride Confirm 07/27/24 19:38 Sodium Chloride 0.9% 1000 Ml Administered 07/27/24 19:39 Dose 1,000 mls @ ud .ROUTE .STK-MED ONE Ondansetron HCl 4 mg 07/27/24 18:39 07/27/24 20:13 Ondansetron Hcl 4 Mg/2 Ml Vial IV 07/27/24 18:40 4 mg STAT ONE Administration Ondansetron HCl Confirm 07/27/24 19:37 Ondansetron Hcl 4 Mg/2 Ml Vial Administered 07/27/24 19:38 Dose 4 mg .ROUTE .STK-MED ONE Lab/Rad Data: Laboratory Result Diagrams 07/27/24 19:06 07/27/24 19:06 Laboratory Results 07/27/24 07/27/24 07/27/24 Range/Units 20:00 19:06 19:06 WBC 7.6 (4.23-9.07) x10^3/uL RBC 4.63 (4.63-6.08) x10^6/uL Hgb 13.0 L (13.7-17.5) g/dL Hct 41.0 (40.1-51.0) % MCV 88.6 (79.0-92.2) fL MCH 28.1 (25.7-32.2) pg MCHC 31.7 L (32.3-36.5) g/dL RDW 14.4 (11.6-14.4) % Plt Count 251 (163-337) x10^3/uL MPV 10.2 (9.4-12.4) fL Gran % 73.6 H (34.0-67.9) % Immature Gran % (Auto) 0.7 H (0.001-0.429) % Nucleat RBC Rel Count 0.0 (0.00-0.2) % Eos # (Auto) 0.09 (0.04-0.54) x10^3/uL Immature Gran # (Auto) 0.05 H (0.001-0.031) x10^3u/L Absolute Lymphs (auto) 1.17 L (1.32-3.57) x10^3/uL Absolute Monos (auto) 0.61 (0.30-0.82) x10^3/uL Absolute Nucleated RBC 0.00 (0.00-0.012) x10^3u/L Lymphocytes % 15.5 L (21.8-53.1) % Monocytes % 8.1 (5.3-12.2) % Eosinophils % 1.2 (0.8-7.0) % Basophils % 0.9 (0.2-1.2) % Absolute Granulocytes 5.56 H (1.78-5.38) x10^3/uL Basophils # 0.07 (0.01-0.08) x10^3/uL Sodium 139 (135-145) mmol/L Potassium 4.4 (3.5-5.1) mmol/L Chloride 107 (98-107) mmol/L Carbon Dioxide 24 (22-30) mmol/L Anion Gap 12.9 (5-15) MEQ/L BUN 15 (9-20) mg/dL Creatinine 1.53 H (0.66-1.25) mg/dL Estimated GFR 57.1 ML/MIN Glucose 158 H (74-106) mg/dL Lactic Acid 1.6 (0.4-2.0) Calcium 9.6 (8.4-10.2) mg/dL Total Bilirubin 0.50 (0.2-1.3) mg/dL AST 37 (17-59) U/L ALT 44 (0-50) U/L Alkaline Phosphatase 57 (38-126) U/L Serum Total Protein 7.1 (6.3-8.2) g/dL Albumin 4.2 (3.5-5.0) g/dL Lipase 293 (23-300) U/L <ARPAN MORAN - Last Filed: 07/27/24 19:49> - Progress Progress: improved, pain not gone completely, re-examined Counseled pt/family regarding: lab results, diagnosis, need for follow-up, rad results <MARY MILIAN - Last Filed: 07/27/24 21:45> - Progress Progress Note: Patient was seen and evaluated for acute abdominal pain labs were ordered he was given IV fluids and opioid analgesia care of this patient will be transferred to Dr. Milian at 7 PM 07/27/24 18:44 (ARPAN MORAN) 07/27/24 21:42 I interpreted the patient's laboratory data results. Based on the laboratory data results, there are no acute, emergent medical issues. The CT scan of the abdomen pelvis without contrast was interpreted by the radiologist and I reviewed the impression. The impression states there are no changes when compared to similar study dated 04/24/2024. Right lower quadrant ostomy with subcutaneous herniation with peritoneal fat and bowel loops without obstruction. No new or acute findings. (MARY MILIAN) <ARPAN MORAN - Last Filed: 07/27/24 19:49> - Departure Departure Disposition: Home Critical Care Time: No <MARY MILIAN - Last Filed: 07/27/24 21:45> - Departure Clinical Impression: Abdominal pain Condition: Stable Referrals: BAN ALEXANDER NP [Primary Care Provider] - Follow up/PCP as directed Additional Instructions: Drink plenty of clear liquids. Advance your diet slowly. Take your medications as prescribed. Call your primary care provider tomorrow, 07/28/2024, to make arrangements for follow-up appointment for further evaluation and management including possible referral to general surgeon if indicated.
[2024-07-27 19:10] LABS: Absolute Neutrophil Ct (ANC) 5.56 x10^3/uL (1.78-5.38); BASOPHIL % 0.9 % (0.2-1.2); Basophil (Absolute #) 0.07 x10^3/uL (0.01-0.08); Eosinophil % 1.2 % (0.8-7.0); Eosinophil (Absolute #) 0.09 x10^3/uL (0.04-0.54); IMMATURE GRAN # 0.05 x10^3u/L (0.001-0.031); IMMATURE GRAN % 0.7 % (0.001-0.429); Lymphocyte (Absolute #) 1.17 x10^3/uL (1.32-3.57); Lymphocytes % 15.5 % (21.8-53.1); Mean Cell Volume 88.6 fL (79.0-92.2); Mean Corpuscular Hemoglobin 28.1 pg (25.7-32.2); Mean Corpuscular Hgb Concent. 31.7 g/dL (32.3-36.5); Mean Platelet Volume 10.2 fL (9.4-12.4); Monocyte (Absolute #) 0.61 x10^3/uL (0.30-0.82); Monocytes % 8.1 % (5.3-12.2); Neutrophil % 73.6 % (34.0-67.9); Platelet Count 251 x10^3/uL (163-337); Red Blood Count 4.63 x10^6/uL (4.63-6.08); Red Cell Distribution Width 14.4 % (11.6-14.4); White Blood Count 7.6 x10^3/uL (4.23-9.07)
[2024-07-27 19:24] LABS: ALBUMIN 4.2 g/dL (3.5-5.0); ANION GAP 12.9 MEQ/L (5-15); BILIRUBIN,TOTAL 0.5 mg/dL (0.2-1.3); Calcium 9.6 mg/dL (8.4-10.2); Creatinine 1 1.53 mg/dL (0.66-1.25); EST GLOMERULAR FILTRATION RATE 57.1 ML/MIN; Potassium 4.4 mmol/L (3.5-5.1); Total Protein 7.1 g/dL (6.3-8.2)
[2024-07-27] MEDS ORDERED: Zofran 4 MG/2 ML VIAL ONE (19:37)
[2024-07-27] MEDS ORDERED: Sodium Chloride 0.9% 1000 ML 1,000 ML ONE (19:38)
[2024-07-27] MEDS ORDERED: Hydromorphone 1 mg/ml Injection ONE ×2 (19:38→21:59)
[2024-07-27] MEDS: Sodium Chloride 0.9% 1000 ML 1,000 ML IV STA (20:05)
[2024-07-27] MEDS: Hydromorphone 1 mg/ml Injection IV ONE ×2 (20:07→22:00)
[2024-07-27 20:13] VITALS: RESP 18
[2024-07-27] MEDS: Zofran 4 MG/2 ML VIAL IV ONE (20:13)
[2024-07-27] MEDS ORDERED: NORCO 5/325 MG ONE (21:52)
[2024-07-27] MEDS: NORCO 5/325 MG PO ONE (21:53)
[2024-07-27 22:03] VITALS: BP 118/73; PULSE 74; O2SAT 96
--- NOTE | 2024-07-28 08:48 | XRAY ---
Indication: Abdominal pain. Multiple contiguous axial images obtained through the abdomen and pelvis using 80 cc Isovue 370 contrast. Comparison: April 24, 2024 Lung bases demonstrates mild bilateral dependent atelectasis. Incidental small right mid lung calcified granuloma. No infiltrate or effusion. Heart is not enlarged. Noncontrasted stomach and bowel loops appear nonobstructed. Again right lower quadrant ileostomy with grossly stable subcutaneous trainee mesenteric fat and small bowel loops without incarceration/obstruction. Stable mild right renal atrophy, small left renal cyst, nonobstructing left renal punctate calculus, and cholecystectomy. No free fluid/air. Remaining liver, pancreas, spleen, adrenal glands, kidneys, ureters, and bladder are unremarkable. Again minimal aortoiliac calcifications. No AAA or pathologic retroperitoneal lymphadenopathy. Osseous structures intact again with mild degenerative changes throughout thoracolumbar spine. Impression: 1. Stable right lower quadrant ileostomy with subcutaneous herniated mesenteric fat and bowel loops without complications. 2. Chronic findings including right renal atrophy, nonobstructing left renal punctate calculus, left renal cyst, arteriosclerotic disease, and chronic bony findings. 3. Remaining CT abdomen/pelvis with contrast exam is negative.
== END 2024-07-27 22:22 | disposition home or self-care (01) ==
LOC: ED 15:53
DX: R10.9 Unspecified abdominal pain (principal); I10 Essential (primary) hypertension; E11.9 Type 2 diabetes mellitus without complications; Z79.84 Long term (current) use of oral hypoglycemic drugs; Z79.899 Other long term (current) drug therapy
CPT/HCPCS: 36415; 74177; 80053; 83605; 83690; 85025; 96360; 96374; 96375; 96376; 99284; J1171; J1642; J2405; A9270-GY

== ENCOUNTER 2024-08-29 13:25 | Observation (INO) | payer BC ==
--- NOTE | 2024-08-29 14:32 | ERPHSYRPT ---
- History of Present Illness Time Seen by Provider: 08/29/24 14:31 Source: patient, family Exam Limitations: no limitations Physician History: Pt had onset of abd pain with vomiting today and can quickly get to be dehydrated due to his ileostomy and has recurrences requiring IVF rehydration on a regular basis here at the infusion center. Discussed with pt and available family risks and benefits of testing/Tx including CBC, CMP, EKG, Trop, UA, Amylase, Lipase, CT abd swabs for Covid, RSV, Flu and pain med dilaudid, Zofran, , and they wish to proceed so these are ordered. Results discussed with pt and available family. We were initially delayed in bringing pt back due to other critical pts in ER> initial pain after Tx 09/24 Timing/Duration: today Severity: moderate Associated Symptoms: nausea, vomiting, abdominal pain Allergies/Adverse Reactions: Anesthetics - Amide Type - Select A [Anesthetics - Amide Type] Allergy (Intermediate, Verified 08/29/24 14:28) Hives ciprofloxacin HCl [From Cipro] Adverse Reaction (Verified 08/29/24 14:28) Hives Home Medications: Allopurinol 300 mg [Zyloprim 300 mg] 300 mg PO DAILY 03/15/14 [History] Amlodipine Besylate 5 mg [Norvasc 5 mg] 10 mg PO DAILY 03/15/14 [History] Montelukast Sodium 10 mg [Singulair 10 MG] 10 mg PO DAILY 06/18/17 [History] Irbesartan 150 mg [Avapro 150 MG] 300 mg PO DAILY 06/20/18 [History] Glimepiride 4 mg [Amaryl 4 mg] 4 mg PO BID 07/05/22 [History] Omeprazole 20 mg PO DAILY 07/05/22 [History] Pioglitazone HCl [Actos] 30 mg PO DAILY 07/05/22 [History] Tamsulosin HCl 0.4 mg [Flomax 0.4 MG] 0.4 mg PO DAILY 07/05/22 [History] L.acidoph,Paracasei, B.lactis [Probiotic] 1 each PO DAILY 10/09/22 [History] Budesonide [Budesonide EC] 3 mg PO TID 02/04/23 [History] Metoprolol Succinate 100 mg [Toprol Xl 100 MG] 100 mg PO DAILY 07/24/23 [History] Fenofibrate Nanocrystallized [Fenofibrate] 145 mg PO DAILY 12/18/23 [History] Famotidine 20 mg [Pepcid 20 MG] 20 mg PO DAILY 04/24/24 [History] Hx Tetanus, Diphtheria Vaccination/Date Given: No Hx Influenza Vaccination/Date Given: No Hx Pneumococcal Vaccination/Date Given: No Travel Risk - Emerging Infectious Disease Are you exhibiting symptoms associated with any current EIDs: No Symptoms: Abdominal Pain, Vomitting - Review of Systems Constitutional: No Fever, No Chills Eyes: No Symptoms Ears, Nose, & Throat: No Symptoms Respiratory: No Cough, No Dyspnea Cardiac: No Chest Pain, No Edema, No Syncope Abdominal/Gastrointestinal: Abdominal Pain, Nausea, Vomiting, No Diarrhea Genitourinary Symptoms: No Dysuria Musculoskeletal: No Back Pain, No Neck Pain Skin: No Rash Neurological: No Dizziness, No Focal Weakness, No Sensory Changes Psychological: No Symptoms Endocrine: No Symptoms Hematologic/Lymphatic: No Symptoms Immunological/Allergic: No Symptoms All Other Systems: Reviewed and Negative - Past Medical History Pertinent Past Medical History: Yes Neurological History: No Pertinent History ENT History: Cataracts Cardiac History: Hypertension Respiratory History: No Pertinent History Endocrine Medical History: Diabetes Type II Musculoskeletal History: Other GI Medical History: Colitis, Crohns Disease History: Renal Disease Psycho-Social History: No Pertinent History Male Reproductive Disorders: No Pertinent History Other Medical History: L-SPINE DISCECTOMY 2011. HX NECK ISSUES. Cataracts have cleared up since being removed from high dose steroids. Kidney function issues every time he gets dehydrated - Past Surgical History Past Surgical History: Yes Neuro Surgical History: No Pertinent History Cardiac: No Pertinent History Respiratory: No Pertinent History Gastrointestinal: Appendectomy, Bowel Surgery, Cholecystectomy, Other Genitourinary: Other Musculoskeletal: Orthopedic Surgery Male Surgical History: Vasectomy Other Surgical History: bck,colon removed and illeostomy 2009. shoulder surgery, back surgery. kidney stones removed surgically. port placement 12/23/23 - Social History Smoking Status: Never smoker Exposure to second hand smoke: No Drug Use: none - Social Determinants of Health Will the patient participate in the screening: Yes Do you worry about a steady place to live?: No In the past 12 months,have you had to go without utilities?: No Transportation Issues: No Has anyone in your support network made you feel unsafe?: No Have you or anyone in your house had to go w/o enough food: No - Nursing Vital Signs Nursing Vital Signs: Initial Vital Signs Temperature 98.3 F 08/29/24 14:20 Pulse Rate 118 H 08/29/24 14:20 Respiratory Rate 16 08/29/24 14:20 Blood Pressure 145/112 08/29/24 14:20 O2 Sat by Pulse Oximetry 96 08/29/24 14:20 Pain Scale Pain Intensity 5 - Physical Exam General Appearance: no apparent distress, alert Eye Exam: PERRL/EOMI, eyes nml inspection Ears, Nose, Throat Exam: normal ENT inspection, TMs normal, pharynx normal, moist mucous membranes Neck Exam: normal inspection, non-tender, supple, full range of motion Respiratory Exam: normal breath sounds, lungs clear, No respiratory distress Cardiovascular Exam: regular rate/rhythm, normal heart sounds, normal peripheral pulses Gastrointestinal/Abdomen Exam: soft, normal bowel sounds, No tenderness, No mass Back Exam: normal inspection, normal range of motion, No CVA tenderness, No vertebral tenderness Extremity Exam: normal inspection, normal range of motion, pelvis stable Neurologic Exam: alert, oriented x 3, cooperative, normal mood/affect, nml cerebellar function, nml station & gait, sensation nml, No motor deficits Skin Exam: normal color, warm, dry, No rash Lymphatic Exam: No adenopathy SpO2 Interpretation: normal SpO2: 96 O2 Delivery: Room Air - Course Nursing assessment & vital signs reviewed: Yes EKG Interpreted by Me: Sinus Tach, Right [place]iva Deviation, Non-specific ST Changes, Other (IRBBB) - CT Exams Abdomen/Pelvis CT Interpretation: Tele-radiologist Report, Other (dilated ileum. ) Ordered Tests: Active Orders 24 hr Category Date Time Status EKG-ER Only STAT Care 08/29/24 14:39 Active IV Insertion STAT Care 08/29/24 14:39 Active ABDOMEN AND PELVIS W/0 CONTRAS [CT] Stat Exams 08/29/24 14:40 Completed AMYLASE Stat Lab 08/29/24 15:10 Completed CBC W DIFF Stat Lab 08/29/24 15:10 Completed CMP Stat Lab 08/29/24 15:10 Completed LIPASE Stat Lab 08/29/24 15:10 Completed Lactic Acid Stat Lab 08/29/24 14:39 Completed TROPONIN Q4H Lab 08/29/24 15:10 Completed TROPONIN Q4H Lab 08/29/24 18:45 Ordered TROPONIN Q4H Lab 08/29/24 22:45 Ordered UA W/RFX UR CULTURE Stat Lab 08/29/24 15:45 Ordered Medication Summary Discontinued Medications Generic Name Dose Route Start Last Admin Trade Name Freq PRN Reason Stop Dose Admin Famotidine 20 mg 08/29/24 14:39 08/29/24 15:05 Famotidine 20 Mg/1 Vial IV 08/29/24 14:40 20 mg STAT ONE Administration Famotidine Confirm 08/29/24 14:53 Famotidine 20 Mg/1 Vial Administered 08/29/24 14:54 Dose 20 mg IV .STK-MED ONE Hydromorphone HCl 0.5 mg 08/29/24 14:39 08/29/24 15:09 Hydromorphone 1 Mg/1ml Inj IV 08/29/24 14:40 0.5 mg STAT ONE Administration Hydromorphone HCl Confirm 08/29/24 14:57 Hydromorphone 1 Mg/1ml Inj Administered 08/29/24 14:58 Dose 1 mg .ROUTE .STK-MED ONE Sodium Chloride 1,000 mls @ 999 mls/hr 08/29/24 14:39 08/29/24 15:11 Sodium Chloride 0.9% 1000 Ml IV 08/29/24 15:39 999 mls/hr .Q1H1M STA Administration Sodium Chloride Confirm 08/29/24 14:57 Sodium Chloride 0.9% 1000 Ml Administered 08/29/24 14:58 Dose 1,000 mls @ ud .ROUTE .STK-MED ONE Ondansetron HCl 4 mg 08/29/24 14:39 08/29/24 15:03 Ondansetron Hcl 4 Mg/2 Ml Vial IV 08/29/24 14:40 4 mg STAT ONE Administration Ondansetron HCl Confirm 08/29/24 14:53 Ondansetron Hcl 4 Mg/2 Ml Vial Administered 08/29/24 14:54 Dose 4 mg .ROUTE .STK-MED ONE Pantoprazole Sodium 40 mg 08/29/24 14:39 08/29/24 15:06 Pantoprazole 40 Mg Vial IV 08/29/24 14:40 40 mg STAT ONE Administration Pantoprazole Sodium Confirm 08/29/24 14:53 Pantoprazole 40 Mg Vial Administered 08/29/24 14:54 Dose 40 mg IV .K-MED ONE Lab/Rad Data: Laboratory Result Diagrams 08/29/24 15:10 08/29/24 15:10 Laboratory Results 08/29/24 08/29/24 08/29/24 Range/Units 15:45 15:10 15:10 WBC (4.23-9.07) x10^3/uL RBC (4.63-6.08) x10^6/uL Hgb (13.7-17.5) g/dL Hct (40.1-51.0) % MCV (79.0-92.2) fL MCH (25.7-32.2) pg MCHC (32.3-36.5) g/dL RDW (11.6-14.4) % Plt Count (163-337) x10^3/uL MPV (9.4-12.4) fL Gran % (34.0-67.9) % Immature Gran % (Auto) (0.001-0.429) % Nucleat RBC Rel Count (0.00-0.2) % Eos # (Auto) (0.04-0.54) x10^3/uL Immature Gran # (Auto) (0.001-0.031) x10^3u/L Absolute Lymphs (auto) (1.32-3.57) x10^3/uL Absolute Monos (auto) (0.30-0.82) x10^3/uL Absolute Nucleated RBC (0.00-0.012) x10^3u/L Lymphocytes % (21.8-53.1) % Monocytes % (5.3-12.2) % Eosinophils % (0.8-7.0) % Basophils % (0.2-1.2) % Absolute Granulocytes (1.78-5.38) x10^3/uL Basophils # (0.01-0.08) x10^3/uL Sodium 141 (135-145) mmol/L Potassium 4.7 (3.5-5.1) mmol/L Chloride 107 (98-107) mmol/L Carbon Dioxide 20 L (22-30) mmol/L Anion Gap 18.1 H (5-15) MEQ/L BUN 24 H (9-20) mg/dL Creatinine 1.60 H (0.66-1.25) mg/dL Estimated GFR 54.2 ML/MIN Glucose 214 H (74-106) mg/dL Lactic Acid (0.4-2.0) Calcium 10.1 (8.4-10.2) mg/dL Total Bilirubin 0.80 (0.2-1.3) mg/dL AST 32 (17-59) U/L ALT 30 (0-50) U/L Alkaline Phosphatase 42 (38-126) U/L Troponin I < 0.012 (0.000-0.033) ng/mL Serum Total Protein 7.1 (6.3-8.2) g/dL Albumin 4.4 (3.5-5.0) g/dL Amylase 81 (30-110) U/L Lipase 180 (23-300) U/L Influenza Type A Ag NEGATIVE (NEGATIVE) Influenza Type B Ag NEGATIVE (NEGATIVE) RSV (PCR) NEGATIVE (NEGATIVE) SARS-CoV-2 (PCR) NEGATIVE (NEGATIVE) 08/29/24 08/29/24 Range/Units 15:10 14:39 WBC 10.5 H (4.23-9.07) x10^3/uL RBC 4.61 L (4.63-6.08) x10^6/uL Hgb 13.3 L (13.7-17.5) g/dL Hct 41.4 (40.1-51.0) % MCV 89.8 (79.0-92.2) fL MCH 28.9 (25.7-32.2) pg MCHC 32.1 L (32.3-36.5) g/dL RDW 14.2 (11.6-14.4) % Plt Count 253 (163-337) x10^3/uL MPV 10.8 (9.4-12.4) fL Gran % 85.9 H (34.0-67.9) % Immature Gran % (Auto) 0.2 (0.001-0.429) % Nucleat RBC Rel Count 0.0 (0.00-0.2) % Eos # (Auto) 0.04 (0.04-0.54) x10^3/uL Immature Gran # (Auto) 0.02 (0.001-0.031) x10^3u/L Absolute Lymphs (auto) 0.72 L (1.32-3.57) x10^3/uL Absolute Monos (auto) 0.67 (0.30-0.82) x10^3/uL Absolute Nucleated RBC 0.00 (0.00-0.012) x10^3u/L Lymphocytes % 6.9 L (21.8-53.1) % Monocytes % 6.4 (5.3-12.2) % Eosinophils % 0.4 L (0.8-7.0) % Basophils % 0.2 (0.2-1.2) % Absolute Granulocytes 9.02 H (1.78-5.38) x10^3/uL Basophils # 0.02 (0.01-0.08) x10^3/uL Sodium (135-145) mmol/L Potassium (3.5-5.1) mmol/L Chloride (98-107) mmol/L Carbon Dioxide (22-30) mmol/L Anion Gap (5-15) MEQ/L BUN (9-20) mg/dL Creatinine (0.66-1.25) mg/dL Estimated GFR ML/MIN Glucose (74-106) mg/dL Lactic Acid 1.6 (0.4-2.0) Calcium (8.4-10.2) mg/dL Total Bilirubin (0.2-1.3) mg/dL AST (17-59) U/L ALT (0-50) U/L Alkaline Phosphatase (38-126) U/L Troponin I (0.000-0.033) ng/mL Serum Total Protein (6.3-8.2) g/dL Albumin (3.5-5.0) g/dL Amylase (30-110) U/L Lipase (23-300) U/L Influenza Type A Ag (NEGATIVE) Influenza Type B Ag (NEGATIVE) RSV (PCR) (NEGATIVE) SARS-CoV-2 (PCR) (NEGATIVE) - Progress Progress: improved, re-examined Progress Note: 08/29/24 17:[address] Jimenes and he agrees best to place pt in on Obs to rehydrate. Discussed with DrKeena: Other (Dr. Jimenes) Will see patient in: hospital (observation) Counseled pt/family regarding: lab results, diagnosis, need for follow-up, rad results Medical Desision Making - Independent Historian Additional History obtained from: Spouse - Discussion of managment Care discussed with:: hospitalist Reviewed:: Test results, Need for additional workup Agreed on:: Treatment plan, need for follow-up, place in obs Will see patient: in hospital - Diagnostic Testing Diagnostic test were ordered, analyzed, and reviewed by me: Yes Radiological Interpretation: Teleradiologist Report - Risk of complications The pt has a mod risk of morbidity or mortality based on: Need for prescription drug management The pt has a high risk of morbidity or mortality based on: Decision regarding hospitilization or escalation of hosp level of care - Departure Departure Disposition: Observation Clinical Impression: dilated small bowel with vomiting, Dehydration, Elevated serum creatinine Condition: Good Critical Care Time: No Referrals: BAN ALEXANDER NP [Primary Care Provider] - Follow up/PCP as directed
[2024-08-29] MEDS ORDERED: PROTONIX 40 MG IV IV ONE (14:53)
[2024-08-29] MEDS ORDERED: Zofran 4 MG/2 ML VIAL ONE (14:53)
[2024-08-29] MEDS ORDERED: Pepcid 20 MG VIAL IV ONE (14:53)
[2024-08-29] MEDS ORDERED: Sodium Chloride 0.9% 1000 ML 1,000 ML ONE (14:57)
[2024-08-29] MEDS ORDERED: Hydromorphone 1 mg/ml Injection ONE (14:57)
[2024-08-29] MEDS: Zofran 4 MG/2 ML VIAL IV ONE (15:03)
[2024-08-29] MEDS: Pepcid 20 MG VIAL IV ONE (15:05)
[2024-08-29] MEDS: PROTONIX 40 MG IV IV ONE (15:06)
[2024-08-29] MEDS: Hydromorphone 1 mg/ml Injection IV ONE (15:09)
[2024-08-29] MEDS: Sodium Chloride 0.9% 1000 ML 1,000 ML IV STA (15:11)
[2024-08-29 15:31] LABS: Absolute Neutrophil Ct (ANC) 9.02 x10^3/uL (1.78-5.38); BASOPHIL % 0.2 % (0.2-1.2); Basophil (Absolute #) 0.02 x10^3/uL (0.01-0.08); Eosinophil % 0.4 % (0.8-7.0); Eosinophil (Absolute #) 0.04 x10^3/uL (0.04-0.54); Hematocrit 41.4 % (40.1-51.0); Hemoglobin 13.3 g/dL (13.7-17.5); IMMATURE GRAN # 0.02 x10^3u/L (0.001-0.031); IMMATURE GRAN % 0.2 % (0.001-0.429); Lymphocyte (Absolute #) 0.72 x10^3/uL (1.32-3.57); Lymphocytes % 6.9 % (21.8-53.1); Mean Cell Volume 89.8 fL (79.0-92.2); Mean Corpuscular Hemoglobin 28.9 pg (25.7-32.2); Mean Corpuscular Hgb Concent. 32.1 g/dL (32.3-36.5); Mean Platelet Volume 10.8 fL (9.4-12.4); Monocyte (Absolute #) 0.67 x10^3/uL (0.30-0.82); Monocytes % 6.4 % (5.3-12.2); Neutrophil % 85.9 % (34.0-67.9); Platelet Count 253 x10^3/uL (163-337); Red Blood Count 4.61 x10^6/uL (4.63-6.08); Red Cell Distribution Width 14.2 % (11.6-14.4); White Blood Count 10.5 x10^3/uL (4.23-9.07)
[2024-08-29 16:09] LABS: ALBUMIN 4.4 g/dL (3.5-5.0); ANION GAP 18.1 MEQ/L (5-15); BILIRUBIN,TOTAL 0.8 mg/dL (0.2-1.3); Calcium 10.1 mg/dL (8.4-10.2); Creatinine 1 1.6 mg/dL (0.66-1.25); EST GLOMERULAR FILTRATION RATE 54.2 ML/MIN; Potassium 4.7 mmol/L (3.5-5.1); Total Protein 7.1 g/dL (6.3-8.2)
--- NOTE | 2024-08-29 16:20 | XRAY ---
CLINICAL HISTORY: Abd pain vomiting COMPARISON: CT 10/10/2022 TECHNIQUE: Non-contrast CT of the abdomen and pelvis was performed, with the following protocol: axial images, and reconstructed coronal and sagittal images. One of the following dose reduction techniques was utilized for this exam: Automated exposure control, adjustment of the mA and/or kV according to patient size, and use of iterative reconstruction. FINDINGS: Abdomen: Bowel: Right lower abdomen ileostomy noted mostly due to colectomy surgery. Evidence of small bowel dilatation proximal to the ileostomy with the largest loop measuring about 4.2 cm in diameter. Liver: Normal in size, shape, and density. No focal lesions, cysts, or masses were identified. Gallbladder and Biliary System: The gallbladder is resected. Pancreas: Pancreatic head, body, and tail are visualized and appear normal in size and density. No pancreatic masses or calcifications were noted. Spleen: Normal in size, shape, and density. No splenic lesions or masses were identified. Kidneys and Adrenal Glands: No change regarding the right 4 mm mid-ureteric stone and mild hydronephrosis. No change regarding the left renal stone and the left renal cyst. Atrophic changes in the right kidney were noted. The left kidney is normal in size, shape, and position. Cortical thickness is within normal limits. Adrenal glands are unremarkable. Abdominal Aorta and Vessels: The abdominal aorta and major branches are patent with few atherosclerosis. Pelvis: Urinary Bladder: Normal in contour and wall thickness. No intraluminal lesions. Prostate: Normal in size and contour. No masses or abnormal thickening. Seminal Vesicles: Normal appearance without abnormal enlargement or mass. Peritoneal and Retroperitoneal Structures: A few subcentimeter mesenteric lymph nodes were noted. No free fluid or abnormal fluid collections were identified within the abdomen or pelvis. Bones and Soft Tissues: Pelvic bones and soft tissues are unremarkable. No fractures or abnormal masses were identified. IMPRESSION: 1. Evidence of small bowel dilatation proximal to the ileostomy with the largest loop measuring about 4.2 cm in diameter. Stable. 2. No change regarding the right 4mm mid-ureteric stone and mild hydronephrosis. No change regarding the left renal stone and the left renal cyst. Stable. 3. A few subcentimeter mesenteric lymph nodes were noted. Stable. 4. Improvement regarding the previously seen pneumobilia. 5. The abdominal aorta and major branches are patent with few atherosclerosis. Electronically Signed by: Rosanne Abarca MD. (08/29/2024 16:16:32 EDT)
[2024-08-29 16:46] LABS: INFLUENZA A NEGATIVE (NEGATIVE); INFLUENZA B NEGATIVE (NEGATIVE); RESPIRATORY SYNCTIAL VIRUS NEGATIVE (NEGATIVE); SARS-CoV-2 Xpert Express NEGATIVE (NEGATIVE)
[2024-08-29] MEDS ORDERED: Sodium Chloride 0.9% 1000 ML 1,000 ML IV SCH (18:00)
--- NOTE | 2024-08-29 18:00 | PCM.HP ---
History of Present Illness - Chief Complaint Chief Complaint: dehydration Date: 08/29/24 History of Present Illness: is a 44 year old male with PMHX of Chron's disease, Colotis, ileostomy, obesity, HTN, Type II DM, and CRD. Pt had onset of abd pain with vomiting today. He describes abd pain as 4/10, aching, in the epigastric region. He started having loose stools yesterday, looser than usual for him he reports. He works at the [employer] and exposed to many people daily and is unsure it he was exposed to anyone with an illness. Flu/COVID/RSV negative. 1L fluid bolus gave in the ER. WIll continue gentle IV hydration as kidney function at baseline. Anion gap 18.1, WBC 10.5. Zofran and compazine ordered for N/V. Continue probiotics. CT Abd shows: Evidence of small bowel dilatation proximal to the ileostomy with the largest loop measuring about 4.2 cm in diameter. Stable.. No change regarding the right 4mm mid-ureteric stone and mild hydronephrosis. No change regarding the left renal stone and the left renal cyst. Stable. A few subcentimeter mesenteric lymph nodes were noted. Stable.Improvement regarding the previously seen pneumobilia. The abdominal aorta and major branches are patent with few atherosclerosis. Will keep pt NPO tonight. He denies CP, SOB, Fever. - Review of Systems Constitutional: No Fever, No Chills Eyes: No Symptoms Ears, Nose, & Throat: No Symptoms Respiratory: No Cough, No Short Of Breath Cardiac: No Chest Pain, No Edema, No Syncope Abdominal/Gastrointestinal: Abdominal Pain, Nausea, Vomiting, Diarrhea Genitourinary Symptoms: No Dysuria Musculoskeletal: No Back Pain, No Neck Pain Skin: No Rash Neurological: No Dizziness, No Focal Weakness, No Sensory Changes Psychological: No Symptoms Endocrine: No Symptoms Hematologic/Lymphatic: No Symptoms Immunological/Allergic: No Symptoms Medications & Allergies Home Medications: Home Medication List Allopurinol 300 mg [Zyloprim 300 mg] 300 mg PO DAILY 03/15/14 [History Confirmed 08/29/24] Amlodipine Besylate 5 mg [Norvasc 5 mg] 10 mg PO DAILY 03/15/14 [History Confirmed 08/29/24] Montelukast Sodium 10 mg [Singulair 10 MG] 10 mg PO DAILY 06/18/17 [History Confirmed 08/29/24] Irbesartan 150 mg [Avapro 150 MG] 300 mg PO DAILY 06/20/18 [History Confirmed 08/29/24] Glimepiride 4 mg [Amaryl 4 mg] 4 mg PO BID 07/05/22 [History Confirmed 08/29/24] Omeprazole 20 mg PO DAILY 07/05/22 [History Confirmed 08/29/24] Pioglitazone HCl [Actos] 30 mg PO DAILY 07/05/22 [History Confirmed 08/29/24] Tamsulosin HCl 0.4 mg [Flomax 0.4 MG] 0.4 mg PO DAILY 07/05/22 [History Confirmed 08/29/24] L.acidoph,Paracasei, B.lactis [Probiotic] 1 each PO DAILY 10/09/22 [History Confirmed 08/29/24] Ferrous Sulfate 325 mg [Feosol 325 mg] 325 mg PO DAILY #30 tablet 10/10/22 [Rx Confirmed 08/29/24] Budesonide [Budesonide EC] 3 mg PO TID 02/04/23 [History Confirmed 08/29/24] Metoprolol Succinate 100 mg [Toprol Xl 100 MG] 100 mg PO DAILY 07/24/23 [History Confirmed 08/29/24] Fenofibrate Nanocrystallized [Fenofibrate] 145 mg PO DAILY 12/18/23 [History Confirmed 08/29/24] Famotidine 20 mg [Pepcid 20 MG] 20 mg PO DAILY 04/24/24 [History Confirmed 08/29/24] Allergies/Adverse Reactions: Allergies Allergy/AdvReac Type Severity Reaction Status Date / Time Anesthetics - Amide Type - Allergy Intermediate Hives Verified 08/29/24 14:28 Select A [Anesthetics - Amide Type] ciprofloxacin HCl AdvReac Hives Verified 08/29/24 14:28 [From Cipro] - Past Medical History Past Medical History: Yes Neurological History: No Pertinent History ENT History: Cataracts Cardiac History: Hypertension Respiratory History: No Pertinent History Endocrine Medical History: Diabetes Type II Musculoskelatal History: Other GI Medical History: Colitis, Crohns Disease History: Renal Disease Pyscho-Social History: No Pertinent History Male Reproductive Disorders: No Pertinent History Comment: L-SPINE DISCECTOMY 2011. HX NECK ISSUES. Cataracts have cleared up since being removed from high dose steroids. Kidney function issues every time he gets dehydrated - Past Surgical History Past Surgical History: Yes Neuro Surgical History: No Pertinent History Cardiac History: No Pertinent History Respiratory Surgery: No Pertinent History GI Surgical History: Appendectomy, Bowel Surgery, Cholecystectomy, Other Genitourinary Surgical Hx: Other Musculskeletal Surgical Hx: Orthopedic Surgery Male Surgical History: Vasectomy Other Surgical History: bck,colon removed and illeostomy 2009. shoulder surgery, back surgery. kidney stones removed surgically. port placement 12/23/23 - Social History Smoking Status: Never smoker Exposure to second hand smoke: No Alcohol: None Drug Use: none - Social Determinants of Health Will the patient participate in the screening: Yes Do you worry about a steady place to live?: No In the past 12 months,have you had to go without utilities?: No Have you or anyone in your house had to go without enough: No Transportation Issues: No Has anyone in your support network made you feel unsafe?: No - Physical Exam Vital Signs: Vital Signs - 24 hr Temp Pulse Resp BP BP Pulse Ox 08/29/24 17:21 96 08/29/24 17:00 105 H 21 154/100 95 08/29/24 16:30 105 H 21 139/100 95 08/29/24 16:00 104 H 20 148/95 94 L 08/29/24 15:30 106 H 20 140/105 94 L 08/29/24 14:30 110 H 140/100 97 08/29/24 14:20 98.3 F 118 H 16 145/112 96 General Appearance: no apparent distress, alert, obese Neurologic Exam: alert, oriented x 3, cooperative, normal mood/affect, nml cerebellar function, nml station & gait, sensation nml, No motor deficits Eye Exam: PERRL/EOMI, eyes nml inspection Ears, Nose, Throat Exam: normal ENT inspection, TMs normal, pharynx normal, moist mucous membranes Neck Exam: normal inspection, non-tender, supple, full range of motion Respiratory Exam: normal breath sounds, lungs clear, No respiratory distress Cardiovascular Exam: regular rate/rhythm, normal heart sounds, normal peripheral pulses Gastrointestinal/Abdomen Exam: soft, normal bowel sounds, tenderness, No mass Back Exam: normal inspection, normal range of motion, No CVA tenderness, No vertebral tenderness Extremity Exam: normal inspection, normal range of motion, pelvis stable Skin Exam: normal color, warm, dry, No rash Lymphatic Exam: No adenopathy Results - Labs Lab/Micro Results: Lab Results-Last 24 Hours 08/29/24 08/29/24 08/29/24 Range/Units 14:39 15:10 15:10 WBC 10.5 H (4.23-9.07) x10^3/uL RBC 4.61 L (4.63-6.08) x10^6/uL Hgb 13.3 L (13.7-17.5) g/dL Hct 41.4 (40.1-51.0) % MCV 89.8 (79.0-92.2) fL MCH 28.9 (25.7-32.2) pg MCHC 32.1 L (32.3-36.5) g/dL RDW 14.2 (11.6-14.4) % Plt Count 253 (163-337) x10^3/uL MPV 10.8 (9.4-12.4) fL Gran % 85.9 H (34.0-67.9) % Immature Gran % (Auto) 0.2 (0.001-0.429) % Nucleat RBC Rel Count 0.0 (0.00-0.2) % Eos # (Auto) 0.04 (0.04-0.54) x10^3/uL Immature Gran # (Auto) 0.02 (0.001-0.031) x10^3u/L Absolute Lymphs (auto) 0.72 L (1.32-3.57) x10^3/uL Absolute Monos (auto) 0.67 (0.30-0.82) x10^3/uL Absolute Nucleated RBC 0.00 (0.00-0.012) x10^3u/L Lymphocytes % 6.9 L (21.8-53.1) % Monocytes % 6.4 (5.3-12.2) % Eosinophils % 0.4 L (0.8-7.0) % Basophils % 0.2 (0.2-1.2) % Absolute Granulocytes 9.02 H (1.78-5.38) x10^3/uL Basophils # 0.02 (0.01-0.08) x10^3/uL Sodium 141 (135-145) mmol/L Potassium 4.7 (3.5-5.1) mmol/L Chloride 107 (98-107) mmol/L Carbon Dioxide 20 L (22-30) mmol/L Anion Gap 18.1 H (5-15) MEQ/L BUN 24 H (9-20) mg/dL Creatinine 1.60 H (0.66-1.25) mg/dL Estimated GFR 54.2 ML/MIN Glucose 214 H (74-106) mg/dL Lactic Acid 1.6 (0.4-2.0) Calcium 10.1 (8.4-10.2) mg/dL Total Bilirubin 0.80 (0.2-1.3) mg/dL AST 32 (17-59) U/L ALT 30 (0-50) U/L Alkaline Phosphatase 42 (38-126) U/L Troponin I (0.000-0.033) ng/mL Serum Total Protein 7.1 (6.3-8.2) g/dL Albumin 4.4 (3.5-5.0) g/dL Amylase 81 (30-110) U/L Lipase 180 (23-300) U/L Influenza Type A Ag (NEGATIVE) Influenza Type B Ag (NEGATIVE) RSV (PCR) (NEGATIVE) SARS-CoV-2 (PCR) (NEGATIVE) 08/29/24 08/29/24 Range/Units 15:10 15:45 WBC (4.23-9.07) x10^3/uL RBC (4.63-6.08) x10^6/uL Hgb (13.7-17.5) g/dL Hct (40.1-51.0) % MCV (79.0-92.2) fL MCH (25.7-32.2) pg MCHC (32.3-36.5) g/dL RDW (11.6-14.4) % Plt Count (163-337) x10^3/uL MPV (9.4-12.4) fL Gran % (34.0-67.9) % Immature Gran % (Auto) (0.001-0.429) % Nucleat RBC Rel Count (0.00-0.2) % Eos # (Auto) (0.04-0.54) x10^3/uL Immature Gran # (Auto) (0.001-0.031) x10^3u/L Absolute Lymphs (auto) (1.32-3.57) x10^3/uL Absolute Monos (auto) (0.30-0.82) x10^3/uL Absolute Nucleated RBC (0.00-0.012) x10^3u/L Lymphocytes % (21.8-53.1) % Monocytes % (5.3-12.2) % Eosinophils % (0.8-7.0) % Basophils % (0.2-1.2) % Absolute Granulocytes (1.78-5.38) x10^3/uL Basophils # (0.01-0.08) x10^3/uL Sodium (135-145) mmol/L Potassium (3.5-5.1) mmol/L Chloride (98-107) mmol/L Carbon Dioxide (22-30) mmol/L Anion Gap (5-15) MEQ/L BUN (9-20) mg/dL Creatinine (0.66-1.25) mg/dL Estimated GFR ML/MIN Glucose (74-106) mg/dL Lactic Acid (0.4-2.0) Calcium (8.4-10.2) mg/dL Total Bilirubin (0.2-1.3) mg/dL AST (17-59) U/L ALT (0-50) U/L Alkaline Phosphatase (38-126) U/L Troponin I < 0.012 (0.000-0.033) ng/mL Serum Total Protein (6.3-8.2) g/dL Albumin (3.5-5.0) g/dL Amylase (30-110) U/L Lipase (23-300) U/L Influenza Type A Ag NEGATIVE (NEGATIVE) Influenza Type B Ag NEGATIVE (NEGATIVE) RSV (PCR) NEGATIVE (NEGATIVE) SARS-CoV-2 (PCR) NEGATIVE (NEGATIVE) - Radiology Impressions Radiology Exams & Impressions: Radiology Procedures Category Date Time Status ABDOMEN AND PELVIS W/0 CONTRAS [CT] Stat Exams 08/29/24 14:40 Completed Assessment/Plan (1) Vomiting Current Visit: No Status: Acute Assessment & Plan: - Zofran, compazine PRN - IVF - NPO Code(s): R11.10 - VOMITING, UNSPECIFIED (2) GERD (gastroesophageal reflux disease) Current Visit: Yes Status: Acute Assessment & Plan: - GI cocktail now - Continue omeprazole, Pepcid- home meds Code(s): K21.9 - GASTRO-ESOPHAGEAL REFLUX DISEASE WITHOUT ESOPHAGITIS (3) Dehydration Current Visit: Yes Status: Acute Assessment & Plan: - Anion Gap 18.1- trend - IVF Code(s): E86.0 - DEHYDRATION (4) Abdominal pain Current Visit: No Status: Acute Assessment & Plan: - Epigastric aching pain 09/24 - Resume GERD meds - GI coctail - Consider NG and surgery consult - CT Abd/Pelvis: 1. Evidence of small bowel dilatation proximal to the ileostomy with the largest loop measuring about 4.2 cm in diameter. Stable. 2. No change regarding the right 4mm mid-ureteric stone and mild hydronephrosis. No change regarding the left renal stone and the left renal cyst. Stable. 3. A few subcentimeter mesenteric lymph nodes were noted. Stable. 4. Improvement regarding the previously seen pneumobilia. 5. The abdominal aorta and major branches are patent with few atherosclerosis. Code(s): R10.9 - UNSPECIFIED ABDOMINAL PAIN (5) Enteritis Current Visit: No Status: Acute Assessment & Plan: - + increased loose stools since yesterday evening - IVF - CBC, CMP reviewed Code(s): K52.9 - NONINFECTIVE GASTROENTERITIS AND COLITIS, UNSPECIFIED (6) Type II diabetes mellitus Current Visit: Yes Status: Chronic Qualifiers: Diabetes mellitus [employer] insulin use: without [employer] use Diabetes mellitus complication status: without complication Qualified Code(s): E11.9 - Type 2 diabetes mellitus without complications Assessment & Plan: - Accuchecks AC/HS - Humalog s/s - A1C 08/11 6.9 (7) BPH (benign prostatic hyperplasia) Current Visit: Yes Status: Chronic Assessment & Plan: - continue flomax Code(s): N40.0 - BENIGN PROSTATIC HYPERPLASIA WITHOUT LOWER URINRY TRACT SYMP (8) Ileostomy in place Current Visit: Yes Status: Chronic Assessment & Plan: - noted Code(s): Z93.2 - ILEOSTOMY STATUS (9) CRD (chronic renal disease) Current Visit: Yes Status: Chronic Assessment & Plan: - Creat 1.60 at baseline renal function - gentle IV hydration NS @ 50 ml/hr VTE: SCD's PPI: Protonix Next of KIN: CORINA D/C plan: 1-2 days Code status: Full Code(s): N18.9 - CHRONIC KIDNEY DISEASE, UNSPECIFIED Telemedicine Encounter - Telemedicine Encounter Telemedicine Encounter: "The entirety of this encounter was performed via Telemedicine" This visit was performed using real-time audio and video connection between my location and thepatients locationwith the assistance of a surrogateat the patients location. Written or verbal consent was obtained from the patient/guardian to perform this [facility] technology. Any patient questions regarding the telemedicine interaction were answered.
[2024-08-29] MEDS ORDERED: Zofran 4 MG/2 ML VIAL IV PRN (18:02)
[2024-08-29] MEDS ORDERED: MAALOX ES 30 ML UNIT DOSE ONE (18:36)
[2024-08-29] MEDS ORDERED: HUMALOG SQ PRN (18:38)
[2024-08-29] MEDS ORDERED: XYLOCAINE VISCOUS 2% 15 ML CUP ONE (18:40)
[2024-08-29] MEDS: Compazine 10 MG/2 ML IV PRN (18:44)
[2024-08-29] MEDS: GI COCKTAIL 45 ML (Maalox/Lidocaine) PO ONE (18:47)
[2024-08-29] MEDS: Sodium Chloride 0.9% 1000 ML 1,000 ML IV SCH (19:48)
[2024-08-29] MEDS: NON-FORMULARY ITEM (Budesonide [Budesonide Dr] 3 MG Capdr...Er) PO SCH (22:48)
[2024-08-29 23:34] LABS: Appearance Clear (Clear); Bacteria None Seen /HPF (None Seen); Bilirubin Negative (Negative); Blood Negative (Negative); Epithelial Cells None Seen /HPF (None Seen); Glucose, Urine 100 mg/dL (Negative); Hyaline Casts NONE SEEN /LPF (0-2); Ketones Negative (Negative); Leukocyte Esterase Negative (Negative); Nitrite Negative (Negative); Ph 5.5 (4.6-8.0); Protein,Urine Dip Trace (Negative); RBC 0-2 /HPF (0-5); Urobilinogen 0.2 mg/dL (0.2); WBC 0-2 /HPF (0-5)
[2024-08-30 07:25] LABS: Hematocrit 39.9 % (40.1-51.0); Hemoglobin 12.6 g/dL (13.7-17.5); Mean Cell Volume 90.3 fL (79.0-92.2); Mean Corpuscular Hemoglobin 28.5 pg (25.7-32.2); Mean Corpuscular Hgb Concent. 31.6 g/dL (32.3-36.5); Mean Platelet Volume 11.2 fL (9.4-12.4); Platelet Count 233 x10^3/uL (163-337); Red Blood Count 4.42 x10^6/uL (4.63-6.08); Red Cell Distribution Width 14.2 % (11.6-14.4); White Blood Count 7.3 x10^3/uL (4.23-9.07)
[2024-08-30] MEDS ORDERED: MEDICATION INTERVENTION MC SCH (07:45)
[2024-08-30 07:46] VITALS: RESP 18; O2SAT 90
[2024-08-30 07:53] LABS: ALBUMIN 3.9 g/dL (3.5-5.0); ANION GAP 15.9 MEQ/L (5-15); BILIRUBIN,TOTAL 0.8 mg/dL (0.2-1.3); Calcium 9.4 mg/dL (8.4-10.2); Creatinine 1 1.61 mg/dL (0.66-1.25); EST GLOMERULAR FILTRATION RATE 53.8 ML/MIN; Potassium 4.4 mmol/L (3.5-5.1); Total Protein 6.7 g/dL (6.3-8.2)
--- NOTE | 2024-08-30 08:59 | PCM.DS ---
Discharge Summary Date of Admission: 08/29/24 17:50 Date of Discharge: 08/30/24 Admitting Physician: CARLINE MENG MD Primary Care Provider: BAN ALEXANDER Allergies Allergies Anesthetics - Amide Type - Select A [Anesthetics - Amide Type] Allergy (Intermediate, Verified 08/29/24 14:28) [facility] ciprofloxacin HCl [From Cipro] Adverse Reaction (Verified 08/29/24 14:28) [facility] Summary - Hospital Course Hospital Course: 08/29/24 is a 44 year old male with PMHX of Chron's disease, Colotis, ileostomy, obesity, HTN, Type II DM, and CRD. Pt had onset of abd pain with vomiting today. He describes abd pain as 4/10, aching, in the epigastric region. He started having loose stools yesterday, looser than usual for him he reports. He works at the [employer] and exposed to many people daily and is unsure it he was exposed to anyone with an illness. Flu/COVID/RSV negative. 1L fluid bolus gave in the ER. WIll continue gentle IV hydration as kidney function at baseline. Anion gap 18.1, WBC 10.5. Zofran and compazine ordered for N/V. Continue probiotics. CT Abd shows: Evidence of small bowel dilatation proximal to the ileostomy with the largest loop measuring about 4.2 cm in diameter. Stable.. No change regarding the right 4mm mid-ureteric stone and mild hydronephrosis. No change regarding the left renal stone and the left renal cyst. Stable. A few subcentimeter mesenteric lymph nodes were noted. Stable.Improvement regarding the previously seen pneumobilia. The abdominal aorta and major branches are patent with few atherosclerosis. Will keep pt NPO tonight. He denies CP, SOB, Fever. 08/30/24 Pt reports sleeping all night and no N/V. No abd. pain this AM. Started on a clear liquid diet and tolerated it well. Will transition to carb const diet at noon and if tolerates may d/c today. Labs reviewed and improved. BX4 hyperactive, colostomy bag full this AM. Will need to f/u with GI OP. He does have a tmep of 99 and HR elevated last night in low 100's. Again may have viral gastroenteritis. Can treat with oral hydration, tylenol, probiotics OP. F/U with PCP this week. - Vitals & Intake/Output Vital Signs: Vital Signs Temperature 98.0 F 08/30/24 07:45 Pulse Rate 112 H 08/30/24 07:45 Respiratory Rate 18 08/30/24 07:45 Blood Pressure 134/90 08/30/24 07:45 O2 Sat by Pulse Oximetry 90 L 08/30/24 07:45 Intake & Output: Intake & Output 08/27/24 08/28/24 08/29/24 08/30/24 11:59 11:59 11:59 11:59 Intake Total 367 Output Total 500 Balance -133 Weight 117 kg - Lab Result Diagrams: 08/30/24 05:45 08/30/24 05:45 Lab Results-Last 24 Hrs: Lab Results-Last 24 Hours 08/29/24 08/29/24 08/29/24 Range/Units 14:39 15:10 15:10 WBC 10.5 H (4.23-9.07) x10^3/uL RBC 4.61 L (4.63-6.08) x10^6/uL Hgb 13.3 L (13.7-17.5) g/dL Hct 41.4 (40.1-51.0) % MCV 89.8 (79.0-92.2) fL MCH 28.9 (25.7-32.2) pg MCHC 32.1 L (32.3-36.5) g/dL RDW 14.2 (11.6-14.4) % Plt Count 253 (163-337) x10^3/uL MPV 10.8 (9.4-12.4) fL Gran % 85.9 H (34.0-67.9) % Immature Gran % (Auto) 0.2 (0.001-0.429) % Nucleat RBC Rel Count 0.0 (0.00-0.2) % Eos # (Auto) 0.04 (0.04-0.54) x10^3/uL Immature Gran # (Auto) 0.02 (0.001-0.031) x10^3u/L Absolute Lymphs (auto) 0.72 L (1.32-3.57) x10^3/uL Absolute Monos (auto) 0.67 (0.30-0.82) x10^3/uL Absolute Nucleated RBC 0.00 (0.00-0.012) x10^3u/L Lymphocytes % 6.9 L (21.8-53.1) % Monocytes % 6.4 (5.3-12.2) % Eosinophils % 0.4 L (0.8-7.0) % Basophils % 0.2 (0.2-1.2) % Absolute Granulocytes 9.02 H (1.78-5.38) x10^3/uL Basophils # 0.02 (0.01-0.08) x10^3/uL Sodium 141 (135-145) mmol/L Potassium 4.7 (3.5-5.1) mmol/L Chloride 107 (98-107) mmol/L Carbon Dioxide 20 L (22-30) mmol/L Anion Gap 18.1 H (5-15) MEQ/L BUN 24 H (9-20) mg/dL Creatinine 1.60 H (0.66-1.25) mg/dL Estimated GFR 54.2 ML/MIN Glucose 214 H (74-106) mg/dL POC Glucometer (74 to 106) mg/dL Lactic Acid 1.6 (0.4-2.0) Calcium 10.1 (8.4-10.2) mg/dL Total Bilirubin 0.80 (0.2-1.3) mg/dL AST 32 (17-59) U/L ALT 30 (0-50) U/L Alkaline Phosphatase 42 (38-126) U/L Troponin I (0.000-0.033) ng/mL Serum Total Protein 7.1 (6.3-8.2) g/dL Albumin 4.4 (3.5-5.0) g/dL Amylase 81 (30-110) U/L Lipase 180 (23-300) U/L Urine Color (Yellow) Urine Appearance (Clear) Urine pH (4.6-8.0) Ur Specific [place] (1.005-1.030) Urine Protein (Negative) Urine Glucose (UA) (Negative) mg/dL Urine Ketones (Negative) Urine Blood (Negative) Urine Nitrite (Negative) Urine Bilirubin (Negative) Urine Urobilinogen (0.2) mg/dL Ur Leukocyte Esterase (Negative) U Hyaline Cast (Auto) (0-2) /LPF Urine Microscopic RBC (0-5) /HPF Urine Microscopic WBC (0-5) /HPF Ur Epithelial Cells (None Seen) /HPF Urine Bacteria (None Seen) /HPF Urine Culture Reflexed (NO) Influenza Type A Ag (NEGATIVE) Influenza Type B Ag (NEGATIVE) RSV (PCR) (NEGATIVE) SARS-CoV-2 (PCR) (NEGATIVE) 08/29/24 08/29/24 08/29/24 Range/Units 15:10 15:45 18:55 WBC (4.23-9.07) x10^3/uL RBC (4.63-6.08) x10^6/uL Hgb (13.7-17.5) g/dL Hct (40.1-51.0) % MCV (79.0-92.2) fL MCH (25.7-32.2) pg MCHC (32.3-36.5) g/dL RDW (11.6-14.4) % Plt Count (163-337) x10^3/uL MPV (9.4-12.4) fL Gran % (34.0-67.9) % Immature Gran % (Auto) (0.001-0.429) % Nucleat RBC Rel Count (0.00-0.2) % Eos # (Auto) (0.04-0.54) x10^3/uL Immature Gran # (Auto) (0.001-0.031) x10^3u/L Absolute Lymphs (auto) (1.32-3.57) x10^3/uL Absolute Monos (auto) (0.30-0.82) x10^3/uL Absolute Nucleated RBC (0.00-0.012) x10^3u/L Lymphocytes % (21.8-53.1) % Monocytes % (5.3-12.2) % Eosinophils % (0.8-7.0) % Basophils % (0.2-1.2) % Absolute Granulocytes (1.78-5.38) x10^3/uL Basophils # (0.01-0.08) x10^3/uL Sodium (135-145) mmol/L Potassium (3.5-5.1) mmol/L Chloride (98-107) mmol/L Carbon Dioxide (22-30) mmol/L Anion Gap (5-15) MEQ/L BUN (9-20) mg/dL Creatinine (0.66-1.25) mg/dL Estimated GFR ML/MIN Glucose (74-106) mg/dL POC Glucometer (74 to 106) mg/dL Lactic Acid (0.4-2.0) Calcium (8.4-10.2) mg/dL Total Bilirubin (0.2-1.3) mg/dL AST (17-59) U/L ALT (0-50) U/L Alkaline Phosphatase (38-126) U/L Troponin I < 0.012 < 0.012 (0.000-0.033) ng/mL Serum Total Protein (6.3-8.2) g/dL Albumin (3.5-5.0) g/dL Amylase (30-110) U/L Lipase (23-300) U/L Urine Color (Yellow) Urine Appearance (Clear) Urine pH (4.6-8.0) Ur Specific [place] (1.005-1.030) Urine Protein (Negative) Urine Glucose (UA) (Negative) mg/dL Urine Ketones (Negative) Urine Blood (Negative) Urine Nitrite (Negative) Urine Bilirubin (Negative) Urine Urobilinogen (0.2) mg/dL Ur Leukocyte Esterase (Negative) U Hyaline Cast (Auto) (0-2) /LPF Urine Microscopic RBC (0-5) /HPF Urine Microscopic WBC (0-5) /HPF Ur Epithelial Cells (None Seen) /HPF Urine Bacteria (None Seen) /HPF Urine Culture Reflexed (NO) Influenza Type A Ag NEGATIVE (NEGATIVE) Influenza Type B Ag NEGATIVE (NEGATIVE) RSV (PCR) NEGATIVE (NEGATIVE) SARS-CoV-2 (PCR) NEGATIVE (NEGATIVE) 08/29/24 08/29/24 08/29/24 Range/Units 20:42 23:00 23:29 WBC (4.23-9.07) x10^3/uL RBC (4.63-6.08) x10^6/uL Hgb (13.7-17.5) g/dL Hct (40.1-51.0) % MCV (79.0-92.2) fL MCH (25.7-32.2) pg MCHC (32.3-36.5) g/dL RDW (11.6-14.4) % Plt Count (163-337) x10^3/uL MPV (9.4-12.4) fL Gran % (34.0-67.9) % Immature Gran % (Auto) (0.001-0.429) % Nucleat RBC Rel Count (0.00-0.2) % Eos # (Auto) (0.04-0.54) x10^3/uL Immature Gran # (Auto) (0.001-0.031) x10^3u/L Absolute Lymphs (auto) (1.32-3.57) x10^3/uL Absolute Monos (auto) (0.30-0.82) x10^3/uL Absolute Nucleated RBC (0.00-0.012) x10^3u/L Lymphocytes % (21.8-53.1) % Monocytes % (5.3-12.2) % Eosinophils % (0.8-7.0) % Basophils % (0.2-1.2) % Absolute Granulocytes (1.78-5.38) x10^3/uL Basophils # (0.01-0.08) x10^3/uL Sodium (135-145) mmol/L Potassium (3.5-5.1) mmol/L Chloride (98-107) mmol/L Carbon Dioxide (22-30) mmol/L Anion Gap (5-15) MEQ/L BUN (9-20) mg/dL Creatinine (0.66-1.25) mg/dL Estimated GFR ML/MIN Glucose (74-106) mg/dL POC Glucometer 172 H (74 to 106) mg/dL Lactic Acid (0.4-2.0) Calcium (8.4-10.2) mg/dL Total Bilirubin (0.2-1.3) mg/dL AST (17-59) U/L ALT (0-50) U/L Alkaline Phosphatase (38-126) U/L Troponin I < 0.012 (0.000-0.033) ng/mL Serum Total Protein (6.3-8.2) g/dL Albumin (3.5-5.0) g/dL Amylase (30-110) U/L Lipase (23-300) U/L Urine Color Yellow (Yellow) Urine Appearance Clear (Clear) Urine pH 5.5 (4.6-8.0) Ur Specific [place] 1.020 (1.005-1.030) Urine Protein Trace A (Negative) Urine Glucose (UA) 100 A (Negative) mg/dL Urine Ketones Negative (Negative) Urine Blood Negative (Negative) Urine Nitrite Negative (Negative) Urine Bilirubin Negative (Negative) Urine Urobilinogen 0.2 (0.2) mg/dL Ur Leukocyte Esterase Negative (Negative) U Hyaline Cast (Auto) NONE SEEN (0-2) /LPF Urine Microscopic RBC 0-2 (0-5) /HPF Urine Microscopic WBC 0-2 (0-5) /HPF Ur Epithelial Cells None Seen (None Seen) /HPF Urine Bacteria None Seen (None Seen) /HPF Urine Culture Reflexed NO (NO) Influenza Type A Ag (NEGATIVE) Influenza Type B Ag (NEGATIVE) RSV (PCR) (NEGATIVE) SARS-CoV-2 (PCR) (NEGATIVE) 08/30/24 08/30/24 08/30/24 Range/Units 05:45 05:45 07:03 WBC 7.3 (4.23-9.07) x10^3/uL RBC 4.42 L (4.63-6.08) x10^6/uL Hgb 12.6 L (13.7-17.5) g/dL Hct 39.9 L (40.1-51.0) % MCV 90.3 (79.0-92.2) fL MCH 28.5 (25.7-32.2) pg MCHC 31.6 L (32.3-36.5) g/dL RDW 14.2 (11.6-14.4) % Plt Count 233 (163-337) x10^3/uL MPV 11.2 (9.4-12.4) fL Gran % (34.0-67.9) % Immature Gran % (Auto) (0.001-0.429) % Nucleat RBC Rel Count (0.00-0.2) % Eos # (Auto) (0.04-0.54) x10^3/uL Immature Gran # (Auto) (0.001-0.031) x10^3u/L Absolute Lymphs (auto) (1.32-3.57) x10^3/uL Absolute Monos (auto) (0.30-0.82) x10^3/uL Absolute Nucleated RBC (0.00-0.012) x10^3u/L Lymphocytes % (21.8-53.1) % Monocytes % (5.3-12.2) % Eosinophils % (0.8-7.0) % Basophils % (0.2-1.2) % Absolute Granulocytes (1.78-5.38) x10^3/uL Basophils # (0.01-0.08) x10^3/uL Sodium 142 (135-145) mmol/L Potassium 4.4 (3.5-5.1) mmol/L Chloride 109 H (98-107) mmol/L Carbon Dioxide 22 (22-30) mmol/L Anion Gap 15.9 H (5-15) MEQ/L BUN 20 (9-20) mg/dL Creatinine 1.61 H (0.66-1.25) mg/dL Estimated GFR 53.8 ML/MIN Glucose 162 H (74-106) mg/dL POC Glucometer 167 H (74 to 106) mg/dL Lactic Acid (0.4-2.0) Calcium 9.4 (8.4-10.2) mg/dL Total Bilirubin 0.80 (0.2-1.3) mg/dL AST 38 (17-59) U/L ALT 24 (0-50) U/L Alkaline Phosphatase 46 (38-126) U/L Troponin I (0.000-0.033) ng/mL Serum Total Protein 6.7 (6.3-8.2) g/dL Albumin 3.9 (3.5-5.0) g/dL Amylase (30-110) U/L Lipase (23-300) U/L Urine Color (Yellow) Urine Appearance (Clear) Urine pH (4.6-8.0) Ur Specific [place] (1.005-1.030) Urine Protein (Negative) Urine Glucose (UA) (Negative) mg/dL Urine Ketones (Negative) Urine Blood (Negative) Urine Nitrite (Negative) Urine Bilirubin (Negative) Urine Urobilinogen (0.2) mg/dL Ur Leukocyte Esterase (Negative) U Hyaline Cast (Auto) (0-2) /LPF Urine Microscopic RBC (0-5) /HPF Urine Microscopic WBC (0-5) /HPF Ur Epithelial Cells (None Seen) /HPF Urine Bacteria (None Seen) /HPF Urine Culture Reflexed (NO) Influenza Type A Ag (NEGATIVE) Influenza Type B Ag (NEGATIVE) RSV (PCR) (NEGATIVE) SARS-CoV-2 (PCR) (NEGATIVE) Micro Results-Entire Visit: Accuchecks Date 08/30/24 Date 08/29/24 Time 21:30 - Radiology Exams Ordered Rad Exams-Entire Visit: Radiology Procedures Category Date Time Status ABDOMEN AND PELVIS W/0 CONTRAS [CT] Stat Exams 08/29/24 14:40 Completed Discharge Exam General Appearance: no apparent distress, alert Neurologic Exam: alert, oriented x 3, cooperative, normal mood/affect, nml cer ebellar function, sensation nml, No motor deficits Eye Exam: PERRL, EOMI, eyes nml inspection Ears, Nose, Throat Exam: normal ENT inspection, pharynx normal, moist mucous membranes Neck Exam: normal inspection, non-tender, supple, full range of motion Respiratory Exam: normal breath sounds, lungs clear, No respiratory distress Cardiovascular Exam: regular rate/rhythm, normal heart sounds, tachycardia Gastrointestinal/Abdomen Exam: soft, No tenderness, No mass Male Genitalia Exam: deferred Rectal Exam: deferred Back Exam: normal inspection, normal range of motion, No CVA tenderness, No vertebral tenderness Extremity Exam: normal inspection, normal range of motion Skin Exam: normal color, warm, dry Final Diagnosis/Problem List - Final Discharge Diagnosis/Problem (1) Vomiting Current Visit: No Status: Resolved Code(s): R11.10 - VOMITING, UNSPECIFIED (2) GERD (gastroesophageal reflux disease) Current Visit: Yes Status: Acute Code(s): K21.9 - GASTRO-ESOPHAGEAL REFLUX DISEASE WITHOUT ESOPHAGITIS (3) Dehydration Current Visit: Yes Status: Acute Code(s): E86.0 - DEHYDRATION (4) Abdominal pain Current Visit: No Status: Acute Code(s): R10.9 - UNSPECIFIED ABDOMINAL PAIN (5) Enteritis Current Visit: No Status: Acute Code(s): K52.9 - NONINFECTIVE GASTROENTERITIS AND COLITIS, UNSPECIFIED (6) Type II diabetes mellitus Current Visit: Yes Status: Chronic (7) BPH (benign prostatic hyperplasia) Current Visit: Yes Status: Chronic Code(s): N40.0 - BENIGN PROSTATIC HYPERPLASIA WITHOUT LOWER URINRY TRACT SYMP (8) Ileostomy in place Current Visit: Yes Status: Chronic Code(s): Z93.2 - ILEOSTOMY STATUS (9) CRD (chronic renal disease) Current Visit: Yes Status: Chronic Assessment & Plan: (1) Vomiting Current Visit: No Status: Acute Assessment & Plan: - Zofran, compazine PRN - IVF - NPO 08/30 - resolved - CLD and transition Code(s): R11.10 - VOMITING, UNSPECIFIED (2) GERD (gastroesophageal reflux disease) Current Visit: Yes Status: Acute Assessment & Plan: - GI cocktail now - Continue omeprazole, Pepcid- home meds 08/30 - resolved Code(s): K21.9 - GASTRO-ESOPHAGEAL REFLUX DISEASE WITHOUT ESOPHAGITIS (3) Dehydration Current Visit: Yes Status: Acute Assessment & Plan: - Anion Gap 18.1- trend - IVF 08/30 - Anion gap 15.9-improved - IVF - Oral hydration at home Code(s): E86.0 - DEHYDRATION (4) Abdominal pain Current Visit: No Status: Acute Assessment & Plan: - Epigastric aching pain 09/24 - Resume GERD meds - GI cocktail - Consider NG and surgery consult - CT Abd/Pelvis: 1. Evidence of small bowel dilatation proximal to the ileostomy with the largest loop measuring about 4.2 cm in diameter. Stable. 2. No change regarding the right 4mm mid-ureteric stone and mild hydronephrosis. No change regarding the left renal stone and the left renal cyst. Stable. 3. A few subcentimeter mesenteric lymph nodes were noted. Stable. 4. Improvement regarding the previously seen pneumobilia. 5. The abdominal aorta and major branches are patent with few atherosclerosis. 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 Diabetes mellitus complication status: without complication Qualified Code(s): E11.9 - Type 2 diabetes mellitus without complications Assessment & Plan: - Accuchecks AC/HS - Humalog s/s - A1C 08/11 6.9- controlled (7) BPH (benign prostatic hyperplasia) Current Visit: Yes Status: Chronic Assessment & Plan: - continue flomax Code(s): N40.0 - BENIGN PROSTATIC HYPERPLASIA WITHOUT LOWER URINRY TRACT SYMP (8) Ileostomy in place Current Visit: Yes Status: Chronic Assessment & Plan: - noted Code(s): Z93.2 - ILEOSTOMY STATUS (9) CRD (chronic renal disease) Current Visit: Yes Status: Chronic Assessment & Plan: - Creat 1.60 at baseline renal function - gentle IV hydration NS @ 50 ml/hr 08/30 - at baseline renal function Code(s): N18.9 - CHRONIC KIDNEY DISEASE, UNSPECIFIED - Discharge Discharge Date: 08/30/24 Disposition: Home, Self-Care Condition: Good Prescriptions: Continue Amlodipine Besylate 5 mg [Norvasc 5 mg] 10 mg PO DAILY Allopurinol 300 mg [Zyloprim 300 mg] 300 mg PO DAILY Montelukast Sodium 10 mg [Singulair 10 MG] 10 mg PO DAILY Irbesartan 150 mg [Avapro 150 MG] 300 mg PO DAILY Omeprazole 20 mg PO DAILY Tamsulosin HCl 0.4 mg [Flomax 0.4 MG] 0.4 mg PO DAILY Glimepiride 4 mg [Amaryl 4 mg] 4 mg PO BID Pioglitazone HCl [Actos] 30 mg PO DAILY L.acidoph,Paracasei, B.lactis [Probiotic] 1 each PO DAILY Ferrous Sulfate 325 mg [Feosol 325 mg] 325 mg PO DAILY #30 tablet Budesonide [Budesonide Dr] 3 mg PO TID Metoprolol Succinate 100 mg [Toprol Xl 100 MG] 100 mg PO DAILY Fenofibrate Nanocrystallized [Fenofibrate] 145 mg PO DAILY Famotidine 20 mg [Pepcid 20 MG] 20 mg PO DAILY Additional Instructions: Please obtain an OTC probiotic to help with loose stools. Use tylenol for fever or pain. Continue to increase oral intake to stay hydrated. Follow up with: BAN ALEXANDER NP [Primary Care Provider] -
[2024-08-30] MEDS: Flomax 0.4 MG PO SCH (09:29)
[2024-08-30] MEDS: Acidophilus TABLET PO SCH (09:29)
[2024-08-30] MEDS: NORVASC 5 MG PO SCH (09:29)
[2024-08-30] MEDS: Toprol Xl 100 MG PO SCH (09:30)
[2024-08-30] MEDS: Tricor 145 MG PO SCH (09:30)
[2024-08-30] MEDS: ZYLOPRIM 300 MG PO SCH (09:30)
[2024-08-30] MEDS: FEOSOL 325 MG PO SCH (09:30)
[2024-08-30] MEDS: Avapro 150 MG PO SCH (09:30)
[2024-08-30] MEDS: Protonix 40MG Tablet PO SCH (09:31)
[2024-08-30] MEDS: Singulair 10 MG PO SCH (09:31)
[2024-08-30] MEDS: Pepcid 20 MG PO SCH (09:31)
[2024-08-30] MEDS: Mylicon 80MG PO SCH (09:49)
[2024-08-30] MEDS ORDERED: NON-FORMULARY ITEM (L.Acidoph,Paracasei, B.Lactis [Probiotic] 1 EACH Capsule) PO SCH (10:00)
[2024-08-30] MEDS ORDERED: NON-FORMULARY ITEM (Omeprazole [Omeprazole] 20 MG Tablet.Dr) PO SCH (10:00)
[2024-08-30] MEDS ORDERED: NON-FORMULARY ITEM (Fenofibrate Nanocrystallized [Fenofibrate] 48 MG Tablet) PO SCH (10:00)
[2024-08-30 13:26] VITALS: BP 123/84; PULSE 117; TEMP 97.7
== END 2024-08-30 13:33 | disposition home or self-care (01) ==
LOC: ED 13:25 → MED SURG 17:50
PROVIDERS: ADMIT Internal Medicine; ATTEND Internal Medicine
DX: R11.10 Vomiting, unspecified (principal); K21.9 Gastro-esophageal reflux disease without esophagitis; E86.0 Dehydration; R10.9 Unspecified abdominal pain; K52.9 Noninfective gastroenteritis and colitis, unspecified; E11.22 Type 2 diabetes mellitus with diabetic chronic kidney disease; I12.9 Hypertensive chronic kidney disease with stage 1 through stage 4 chronic kidney disease, or unspecified chronic kidney disease; N18.9 Chronic kidney disease, unspecified; N40.0 Benign prostatic hyperplasia without lower urinary tract symptoms; Z93.2 Ileostomy status; Z79.899 Other long term (current) drug therapy
CPT/HCPCS: 0241U; 36415; 74176; 80053; 81001; 82150; 82947; 83605; 83690; 84484; 85025; 85027; 93005; 93268; 96374; 99285; G0378; Q3014; 99284; J1171; J1642; J2405; A9270-GY